=== PATIENT | male | born 1950 | race Caucasian/White ===

== ENCOUNTER 2017-11-07 15:25 | Inpatient (IN) | END 2017-11-12 18:30 | DRG 854 ==

== ENCOUNTER 2017-11-19 13:58 | Inpatient (IN) | END 2017-11-25 20:30 | DRG 982 ==

== ENCOUNTER 2017-11-26 19:33 | Inpatient (IN) | END 2017-12-02 18:05 | DRG 907 ==

== ENCOUNTER 2017-12-27 22:02 | Inpatient (IN) | END 2018-01-04 21:09 | DRG 853 ==

== ENCOUNTER 2018-07-14 23:24 | Inpatient (IN) | payer MEDICARE, OTHER ==
[~2018-07-14] VITALS: Ht 177.8 cm; Wt 106.4 kg
[~2018-07-14 23:24] MED LIST: AMLO-145 PO; ASPI81TA52 PO; ATOR10TA65 PO; CEFT1FRO2 IV; CLOP75TA28 PO; EPOE3000 SC; FER325 PO; GABA300C16 PO; GLIP5TAB13 PO; HYDR-3601 PO; HYDR-3671 PO; Insulin Glargine SC; MERO1VIA IV
--- NOTE | 2018-07-14 23:32 | ERD ---
ER Documentation Chief Complaint Chief Complaint R81. SOB X 1 HR. BREATHING TX GIVEN AT FACILITY. HPI The patient is a 68-year-old male, presenting to the ER because of acute dyspnea for approximately 1 to 2-hour prior to arrival, was treated with albuterol nebulizer by the nursing staff with some response. According to EMS, O2 sa turation with 2 L was 89%, EMS put him on 50 L non-rebreather mask, O2 sat was 99% and he felt better. He was recently discharged from [facility] yesterday after extended stay for approximately 3 weeks due to hyperkalemia and elevated troponin. Last hemodialysis was 2 days ago. He complains of orthopnea, PND, bilateral leg edema. He denies fever, chills, neck pain, complains of substernal chest pressure, denies abdominal pain, vomiting. He does not smoke nor drink Past medical history: Diabetes mellitus, anemia, hypertension, dyslipidemia, history of left foot osteomyelitis status post amputation, chronic kidney disease on hemodialysis, normally Wednesday/Wednesday/Wednesday has recently been on dialysis for the last couple weeks Past surgical history: Left foot amputation, Right chest hemodialysis catheter ROS All systems reviewed and are negative except as per history of present illness. Medications Home Meds Active Scripts Ferrous Sulfate* (Ferrous Sulfate*) 325 Mg Tabec, 325 MG PO TID for 30 Days, TAB Prov:MCINTYRE,BISI V[employer] INSPECTOR 01/04/18 Glipizide* (Glipizide*) 5 Mg Tablet, 2.5 MG PO AC BREAKFAST, #30 TAB Prov:MCINTYRE,BISI V[employer] INSPECTOR 01/04/18 Hydralazine Hcl* (Hydralazine Hcl*) 25 Mg Tab, 25 MG PO TID, #90 TAB Prov:MCINTYRE,BISI [employer] INSPECTOR 01/04/18 Amlodipine Besylate* (Amlodipine Besylate*) 5 Mg Tablet, 5 MG PO DAILY, #30 TAB Prov:MCINTYRE,BISI V[employer] INSPECTOR 01/04/18 Meropenem (Merrem) 1 Gm Vial, 500 MCG IV Q12 for 42 Days, VIAL Prov:MCINTYRE,BISI V[employer] INSPECTOR 01/04/18 Epoetin nayely* (Epogen*) 3,000 Unit/1 Ml Vial, 6000 UNITS SC TuThSa@17 for 30 Days, VIAL Prov:MCINTYRE,BISI V[employer] INSPECTOR 01/04/18 Ceftriaxone Na/Dextrose,Iso (Ceftriaxone 1 gm Piggyback) 1 Gm/50 Ml Froz.piggy, 1 GM IV Q12 for 42 Days Prov:BISI MCINTYRE V[employer] INSPECTOR 01/04/18 Hydrocodone Bit-Acetaminophen (Hydrocodone Bit-APAP) 5-325MG Tablet, 1 TAB PO Q6H PRN for MODERATE PAIN LEVEL 4-6 for 30 Days, TAB Prov:MARIA E ABARCA. 12/02/17 Gabapentin* (Gabapentin*) 300 Mg Capsule, 300 MG PO BID, #60 CAP Prov:MARIA E ABARCA . 11/12/17 [Insulin Glargine] 100 UNITS/ML SOLN No Conflict Check, 22 UNITS SC DAILY@1999 for 10 Days Prov:MARIA E ABARCA. 11/12/17 Clopidogrel Bisulfate (Clopidogrel) 75 Mg Tablet, 75 MG PO DAILY for 10 Days, #10 TAB Prov:MARIA E ABARCA 11/12/17 Reported Medications Aspirin (Low Dose Aspirin) 81 Mg Tablet.dr, 81 MG PO DAILY, #30 TAB 11/07/17 Atorvastatin Calcium (Atorvastatin Calcium) 10 Mg Tablet, 10 MG PO QHS, #30 TAB 11/07/17 Allergies Allergies: Coded Allergies: No Known Allergy (Unverified , 11/26/17) PMhx/Soc History of Surgery: Yes Anesthesia Reaction: No Hx Neurological Disorder: No Hx Respiratory Disorders: No Hx Cardiac Disorders: No Hx Psychiatric Problems: No Hx Miscellaneous Medical Probl: No Hx Alcohol Use: Yes (abstained since 23 years ago) Hx Substance Use: No Hx Tobacco Use: No Physical Exam Vitals Vital Signs Date Temp Pulse Resp B/P (MAP) Pulse Ox O2 O2 Flow FiO2 Time Delivery Rate 07/14/18 92 98 50 23:53 07/14/18 Venti Mask 23:33 07/14/18 98.1 99 18 169/93 94 23:26 (118) Physical Exam Const: Mild acute distress. Head: Atraumatic. Eyes: Normal Conjunctiva. ENT: Normal External Ears, Nose and Mouth. Neck: Full range of motion. No meningismus. Resp: Tachypneic, no expiratory wheezes, bibasilar crackle Cardio: Regular rate and rhythm. Abd: Soft, non distended, normal bowel sounds, non tender. Skin: No petechiae or rashes. Back: No midline or flank tenderness. Ext: Bilateral leg edema. No calf tenderness, left foot amputation with dressing Neur: Awake and alert. No focal deficit Psych: Normal Mood and Affect. Result Diagram: 07/14/18232907/14/182329 Results 24 hrs Laboratory Tests Test 07/14/18 23:30 07/15/18 00:16 White Blood Count 21.1 10^3/ul Red Blood Count 2.56 10^6/ul Hemoglobin 8.5 g/dl Hematocrit 26.6 % Mean Corpuscular Volume 103.9 fl Mean Corpuscular Hemoglobin 33.2 pg Mean Corpuscular Hemoglobin Concent 32.0 g/dl Red Cell Distribution Width 16.0 % Platelet Count 339 10^3/UL Mean Platelet Volume 10.1 fl Immature Granulocytes % 1.600 % Neutrophils % 49.7 % Lymphocytes % 10.6 % Monocytes % 36.8 % Eosinophils % 0.9 % Basophils % 0.4 % Nucleated Red Blood Cells % 0.0 /100WBC Immature Granulocytes # 0.340 10^3/ul Neutrophils # 10.5 10^3/ul Lymphocytes # 2.2 10^3/ul Monocytes # 7.8 10^3/ul Eosinophils # 0.2 10^3/ul Basophils # 0.1 10^3/ul Nucleated Red Blood Cells # 0.0 10^3/ul Prothrombin Time 14.4 Sec Prothrombin Time Ratio 1.1 INR International Normalized Ratio 1.11 Activated Partial Thromboplast Time 41.5 Sec Sodium Level 135 mmol/L Potassium Level 4.7 mmol/L Chloride Level 98 mmol/L Carbon Dioxide Level 23 mmol/L Anion Gap 14 Blood Urea Nitrogen 69 mg/dl Creatinine 7.10 mg/dl Est Glomerular Filtrat Rate mL/min 8 mL/min Glucose Level 185 mg/dl Calcium Level 9.0 mg/dl Troponin I 0.018 ng/ml POC Venous Lactate 1.4 mmol/L Current Medications Medications Dose Sig/Steve Start Time Status Last (Trade) Ordered Route PRN Stop Time Admin Dose Reason Admin Vancomycin 250 ml @ ONCE ONCE 07/15/18 07/15/18 HCl 125 mls/hr IVPB 00:30 00:59 07/15/18 02:29 Piperacillin 50 ml @ ONCE ONCE 07/15/18 DC 07/15/18 Sod/ 100 mls/hr IVPB 00:30 00:35 Tazobactam 07/15/18 00:59 Sod Procedures/MDM [place] [address] Radiology Main Line: [phone] DIAGNOSTIC IMAGING REPORT Patient: KITTY HERNANDEZ : 1950 Age: 68 Sex: M MR #: [id number] DOS: 07/14/18 2343 Ordering MD: WILFREDO TERAN MD Location: E/R Room/Bed: PROCEDURE: XR Chest. CLINICAL INDICATION: Shortness of breath. TECHNIQUE: Portable AP semi erect view of the chest was obtained. COMPARISON: 01/04/2018 FINDINGS: The cardiomediastinal silhouette is mildly enlarged . Bibasilar subsegmental atelectasis is present. There is pulmonary vascular congestion and small bilateral pleural effusions greater on the right. There is no evidence of pneu mothorax. A right-sided internal jugular approach Perma-Cath is present the tip at the cavoatrial junction. The osseous structures are intact with no evidence for acute abnormality. Calcification of the aorta is noted. RPTAT:HJJR IMPRESSION: 1. The combination of findings is compatible with congestive heart failure with small bilateral pleural effusions. 2. Right-sided Perma-Cath is in good radiographic position. 3. Aortic atherosclerosis is present. Physician Yannick Date Time Electronically viewed and signed by Physician Yannick on 07/15/2018 00:32 JR/ CC: WILFREDO TERAN MD [id number] EKG: Read by emergency physician Rate/Rhythm: Normal Sinus Rhythm 91 beats/min QRS, ST, T-waves: No ST elevation, no T inversion, artifacts Impression: Abnormal EKG UA/PT/PTT/LFT Pending Consultation: I am awaiting for his automatic corn grinder operator Dr. Huntley to call back to dialyze the patient emergently. MEDICAL MAKING DECISION: The patient is a 68-year-old male, presenting with acute respiratory failure, acute fluid overload, acute leukocytosis of unclear etiology, acute bilateral pleural effusion. He was treated with BiPAP and was able to tolerate BiPAP well. He was treated with vancomycin IV and Zosyn IV empirically for acute leukocytosis The differential diagnoses considered include but are not limited to pneumonia, empyema, aspiration pneumonia, UTI, pyelonephritis, recurrent osteomyelitis of left foot, cellulitis/abscess Critical Care: Time: 35 minutes excluding all billable procedures. Treatments/Evaluations: Close monitoring and treatment of unstable vital signs, cardiorespiratory, and neurologic status, while maintaining tight balance of fluid, respiratory, and cardiac interventions. Departure Diagnosis: Primary Impression: Respiratory failure, acute Additional Impressions: Fluid overload Leukocytosis Bilateral pleural effusion Anemia Comments I discussed the findings with the patient. I discussed the patient with Dr Talley at 1 am , who was made aware of the lab, the treatment, the patient condition. The patient is admitted to ICU Disclaimer: Inadvertent spelling and grammatical errors are likely due to EHR/dictation software use and do not reflect on the overall quality of patient care. Also, please note that the electronic time recorded on this note does not necessarily reflect the actual time of the patient encounter. WILFREDO TERAN MD July 14, 2018 23:32
[2018-07-15] VITALS (41 sets, daily range): BP systolic 119–175; BP diastolic 67–107; PULSE 71–91; RESP 11–20; Ht 177.8 cm; Wt 106.4 kg
[2018-07-15] MEDS ORDERED: PIPER-TAZO 2.25 GM (PMX) 50 ML IVPB ONE (00:30)
[2018-07-15] MEDS ORDERED: VANCOMYCIN 1 GM (PMX) 250 ML IVPB ONE (00:30)
[2018-07-15] MEDS ORDERED: hydrALAzine 20 MG INJ IV ONE (02:00)
[2018-07-15] MEDS ORDERED: NITROGLYCERIN (SL) 0.4 MG TAB SL PRN (03:00)
[2018-07-15] MEDS ORDERED: ONDANSETRON 4 MG INJ IV PRN (03:00)
[2018-07-15] MEDS ORDERED: morphine 2 MG INJ IV PRN (03:00)
[2018-07-15] MEDS ORDERED: FUROSEMIDE 40 MG INJ IV ONE (03:00)
[2018-07-15] MEDS ORDERED: ACETAMINOPHEN 650MG/20.3ML CUP PO PRN (03:00)
--- NOTE | 2018-07-15 03:03 | HP ---
Date/Time of Note Date/Time of Note DATE: 07/15/18 TIME: 02:24 Assessment/Plan VTE Prophylaxis SCD applied (from Nsg): No SCD contraindicated: other (swelling, left lower extremity wound) Pharmacological prophylaxis: NA/contraindicated Pharm contraindication: surgical contra Lines/Catheters IV Catheter Type (from Nrsg): Saline Lock Assessment/Plan Hospital Course This is a 68-year-old male being admitted to the ICU floor for: #1 Acute hypoxic respiratory failure: Secondary likely to underlying volume overload. Currently on BiPAP. Repeat ABG in the a.m. Emergent dialysis for volume removal. #2 volume overload: Secondary to end-stage renal disease. Patient recently started on dialysis. He has right permacath. As he does state that he does urinate still will give him a dose of Lasix 80 mg IV x1. The ED will be consulting nephrology Dr. Huntley for emergent dialysis. #3 Leukocytosis: Patient is afebrile. Suspect infection of the left lower extremity/heel. Patient was recently treated for infection at [facility]. Will attempt to obtain records. In the meantime patient has been started on broad-spectrum antibiotics. Cultures have been sent. Will obtain a left foot x-ray. Wound care consult. Wound culture. Will consult podiatry. Patient does have a history of left foot gangrene and is status post TMA and previously was on wound VAC. #4 end-stage renal disease: On hemodialysis Wednesday. Patient had last dialysis on Wednesday. He is recently been initiated on dialysis over the last 3 weeks. Will avoid nephrotoxic agents. Please see #2 #5 history of osteomyelitis: Previously treated with IV antibiotics. #6 diabetes mellitus: Resume home diabetic medication, resume home insulin, insulin sliding scale, #7 hypertension: Resume home medications, PRN hydralazine #8 anemia of chronic disease: stable #9 peripheral vascular disease: Continue statin, continue aspirin, will hold Plavix at the current time in case there needs to be procedure performed. #10 DVT GI prophylaxis: SCD to the right lower extremity once dvt rule out, no GI prophylaxis indicated Further treatment strategy will be implemented for clinical course. Greater than 35 minutes critical care time was spent on the care management this patient. Result Diagram: 07/14/18 2330 07/14/18 2330 Results 24hrs Laboratory Tests Test 07/14/18 23:30 07/14/18 23:43 07/15/18 00:16 White Blood Count 21.1 H Red Blood Count 2.56 L Hemoglobin 8.5 L Hematocrit 26.6 L Mean Corpuscular Volume 103.9 H Mean Corpuscular Hemoglobin 33.2 H Mean Corpuscular 32.0 Hemoglobin Concent Red Cell Distribution Width 16.0 H Platelet Count 339 # Mean Platelet Volume 10.1 Immature Granulocytes % 1.600 H Neutrophils % 49.7 Lymphocytes % 10.6 L Monocytes % 36.8 H Eosinophils % 0.9 Basophils % 0.4 Nucleated Red Blood Cells % 0.0 Immature Granulocytes # 0.340 H Neutrophils # 10.5 H Lymphocytes # 2.2 Monocytes # 7.8 H Eosinophils # 0.2 Basophils # 0.1 Nucleated Red Blood Cells # 0.0 Prothrombin Time 14.4 Prothrombin Time Ratio 1.1 INR International 1.11 Normalized Ratio Activated 41.5 H Partial Thromboplast Time Sodium Level 135 Potassium Level 4.7 Chloride Level 98 Carbon Dioxide Level 23 Anion Gap 14 H Blood Urea Nitrogen 69 H Creatinine 7.10 H Est Glomerular Filtrat 8 L Rate mL/min Glucose Level 185 Calcium Level 9.0 Troponin I 0.018 Blood Gas Specimen Source Blood arterial Arterial Blood Date Drawn 07/15/2018 1:00:55 AM Arterial Blood pH 7.336 L (Temp corrected) Arterial Blood pCO2 41.0 (Temp correct) Arterial Blood pO2 86.5 (Temp corrected) Arterial Blood HCO3 21.4 L Arterial Blood Base Excess -4.1 L Arterial Blood 95.5 Oxygen Saturation Lonny Test ACCEPTAB Arterial Blood Gas Left Radial Puncture Site Arterial 0.2 Blood Carboxyhemoglobin Arterial Blood Methemoglobin 0.4 Blood Gas A-a O2 223.9 H Differential Oxyhemoglobin Percent 94.9 Blood Gas Temperature 37.0 Blood Gas Respiration Rate 14.0 Blood Gas Actual 23 Respiration Rate Blood Gas Modality MASK - BIPAP FiO2 50.0 Blood Gas Pressure Support 10 Blood Gas IPAP/EPAP Ratio 15/5 Blood Gas Notified Whom MA Blood Gas Notified Time 07/15/2018 1:17:01 AM POC Venous Lactate 1.4 HPI/ROS Admit Date/Time Admit Date/Time Hx of Present Illness Chief complaint: Shortness of breath This is a 68-year-old male who presents today from assisted facility with acute dyspnea occurring approximately 2 hours prior to arrival. Patient's son is with him at the bedside. Patient son states that he was with his father at the assisted facility and he noticed that he was short of breath. He asked them to give him a breathing treatment. He did receive 2 breathing treatments there but he did not have improvement. 911 was called. EMS arrived and reported that his oxygenation was 89% on 2 L. He was put on a 50 L nonrebreather mask which did improve his oxygenation. When he arrived to the emergency department he was in respiratory distress. He was put on BiPAP which did result in improvement in his breathing. Patient does feel like there is fluid in his lungs. He recently had a prolonged hospital course at [facility] where he was there for approximately 3 weeks for an infection as well as for hyperkalemia. Patient was found to have worsening renal failure and he required to be initiated on dialysis. Patient has a right chest permacatheter placed. He was on Wednesday schedule. However he last received his dialysis on Wednesday and then was discharged and sent to the assisted facility. Patient denies any chest pain, but he does report dyspnea. Patient also has a left heel infection for which she was receiving antibiotics for. He denies any current fevers. He does report that he still produces a small amount of urine. Allergies: NKDA Medications: See BEBA WHITE Const: As per HPI Eyes : No pain discharge or redness or change in visual acuity ENT: No pain, sore throat, congestion, congestion, dysphagia or discharge Respiratory: As per HPI Cardiovascular: No chest pain, palpitation, PND, or edema GI : no change in appetite, abdominal pain, nausea, vomiting, diarrhea, constipation, or change in the color his stool Genitourinary: No dysuria, hematuria, flank pain , discharge or CVA tenderness Musculoskeletal: As per HPI Skin: No rash, bruising or hives Neuro: No headache, dizziness, syncope, seizure, focal weakness Endocrine: No polyuria, polydipsia, temperature intolerance Psych: No hallucination, depression, anxiety or suicidal ideation PMH/Family/Social Past Medical History Left foot gangrene. Left foot abscess. Peripheral vascular disease. Peripheral arterial disease. Infected foot ulceration. diabetes type 2 with neuropathy. Hypertension. Vitamin D deficiency. Anemia of chronic disease . Dyslipidemia, End-stage renal disease: On dialysis Wednesday Medications Current Medications Vancomycin HCl 250 ml @ 125 mls/hr ONCE ONCE IVPB Last administered on 07/15/18at 00:59; Admin Dose 125 MLS/HR; Start 07/15/18 at 00:30; Stop 07/15/18 at 02:29 Coded Allergies: No Known Allergy (Unverified , 11/26/17) Past Surgical History Abdominal aortogram with left lower extremity runoff. Percutaneous angioplasty of left peroneal artery occlusion Dry gangrene to left foot s/p open TMA with wound VAC application - 11/29/17 Possible recent diagnostic cardiac catheterization Past Surgical Hx: other Family History Significant Family History: no pertinent family hx Social History Alcohol Use: none Smoking Status: Unknown if ever smoked Drug Use: none Exam/Review of Systems Vital Signs Vitals Vital Signs Date Temp Pulse Resp B/P (MAP) Pulse Ox O2 O2 Flow FiO2 Time Delivery Rate 07/15/18 82 22 189/98 95 BIPAP 01:31 (128) 07/14/18 50 23:53 07/14/18 98.1 23:26 Intake and Output 07/14/18 07/14/18 07/15/18 1515:00 23:00 07:00 IntakeIntake Total 50 ml BalanceBalance 50 ml Exam Exam General: Currently lying in bed in moderate respiratory distress, currently on BiPAP HEENT: Atraumatic, normocephalic. The pupils are equal, round and reactive. Extraocular motor are intact Neck: Supple with full range of motion. No rigidity or meningismus Chest: Nontender, right chest permacath Lungs: Crackles/rales and wheezing bilaterally Heart: Normal S1-S2, Regular rhythm and rate. No murmur, S3, or S4 Abdomen: Soft , nontender, nondistended , bowel sounds are present. No guarding no rebound tenderness , No masses or organomegaly. No costovertebral temporal angle mass Extremities: Left lower extremity heel wound, TMA, currently wrapped dressing to bilateral lower extremity 2+ pitting edema Neurologic: Normal mental status, speech normal, cranial nerves II through XII are intact, motor and sensory are intact, Additional Comments PROCEDURE: XR Chest. CLINICAL INDICATION: Shortness of breath. TECHNIQUE: Portable AP semi erect view of the chest was obtained. COMPARISON: 01/04/2018 FINDINGS: The cardiomediastinal silhouette is mildly enlarged . Bibasilar subsegmental atelectasis is present. There is pulmonary vascular congestion and small bilateral pleural effusions greater on the right. There is no evidence of pneumothorax. A right-sided internal jugular approach Perma-Cath is present the tip at the cavoatrial junction. The osseous structures are intact with no evid ence for acute abnormality. Calcification of the aorta is noted. RPTAT:HJJR IMPRESSION: 1. The combination of findings is compatible with congestive heart failure with small bilateral pleural effusions. 2. Right-sided Perma-Cath is in good radiographic position. 3. Aortic atherosclerosis is present. Physician Yannick Date Time Electronically viewed and signed by Urban Bauman Physician on 07/15/2018 00:32 JR/ CC: WILFREDO TERAN MD [id number] TRISTA CHU July 15, 2018 02:34
[2018-07-15] MEDS: PANTOPRAZOLE 40 MG INJ IV SCH (05:30)
[2018-07-15] MEDS ORDERED: GLUCOSE GEL 15 GRAM TUBE BUCCAL PRN (08:30)
[2018-07-15] MEDS ORDERED: GLUCAGON 1 MG INJ IM PRN (08:30)
[2018-07-15] MEDS ORDERED: GLUCOSE GEL 15 GRAM TUBE PO PRN ×2 (08:30)
[2018-07-15] MEDS ORDERED: DEXTROSE 50% 50 ML SYRINGE IV PRN ×2 (08:30)
[2018-07-15] MEDS ORDERED: ALBUMIN HUMAN 25% 100 ML IV PRN (08:30)
--- NOTE | 2018-07-15 09:10 | CONS ---
Assessment/Plan Assessment/Plan Hospital Course (Demo Recall) 1) CHF, likely due to delayed dialysis breathing has improved, doubt he has pneumonia but will check procalcitonin 2) L foot ulcers will review the [facility] records and see if cx were done and what if any antibiotics he received continue with vanco/zosyn at present get wound cx here ESR is very high, if work-up for osteo and arterial studies weren't done we may need to do these here 3) DM 4) HTN 5) ESRD Consultation Date/Type/Reason Admit Date/Time Date of Consultation: July 15, 2018 Type of Consult ID Date/Time of Note DATE: 07/15/18 TIME: 09:01 Hx of Present Illness pt admitted due to SOB he denies a cough or chest pain he denies that he was on antibiotics at the [facility] no V, D he was recently started on dialysis he has a known foot ulcer and was recently at [facility] Past Medical History PVD, PAD, DM, HTN, Vit D def, anemia, hyperlipidemia, ESRD, L foot gangrene Home Meds Active Scripts Ferrous Sulfate* (Ferrous Sulfate*) 325 Mg Tabec, 325 MG PO TID for 30 Days, TAB Prov:MCINTYRE,BISI V. [employer] 01/04/18 Glipizide* (Glipizide*) 5 Mg Tablet, 2.5 MG PO AC BREAKFAST, #30 TAB Prov:MCINTYRE,BISI V. [employer] 01/04/18 Hydralazine Hcl* (Hydralazine Hcl*) 25 Mg Tab, 25 MG PO TID, #90 TAB Prov:MCINTYRE,BISI V. [employer] 01/04/18 Amlodipine Besylate* (Amlodipine Besylate*) 5 Mg Tablet, 5 MG PO DAILY, #30 TAB Prov:MCINTYRE,BISI V. [employer] 01/04/18 Meropenem (Merrem) 1 Gm Vial, 500 MCG IV Q12 for 42 Days, VIAL Prov:MCINTYRE,BISI V. [employer] 01/04/18 Epoetin nayely* (Epogen*) 3,000 Unit/1 Ml Vial, 6000 UNITS SC TuThSa@17 for 30 Days, VIAL Prov:MCINTYRE,BISI V. [employer] 01/04/18 Ceftriaxone Na/Dextrose,Iso (Ceftriaxone 1 gm Piggyback) 1 Gm/50 Ml Froz.piggy, 1 GM IV Q12 for 42 Days Prov:BISI MCINTYRE NP 01/04/18 Hydrocodone Bit-Acetaminophen (Hydrocodone Bit-APAP) 5-325MG Tablet, 1 TAB PO Q6H PRN for MODERATE PAIN LEVEL 4-6 for 30 Days, TAB Prov:MARIA E ABARCAaVn 12/02/17 Gabapentin* (Gabapentin*) 300 Mg Capsule, 300 MG PO BID, #60 CAP Prov:MARIA E ABARCA Van 11/12/17 [Insulin Glargine] 100 UNITS/ML SOLN No Conflict Check, 22 UNITS SC DAILY@1999 for 10 Days Prov:MARIA E ABARCA . 11/12/17 Clopidogrel Bisulfate (Clopidogrel) 75 Mg Tablet, 75 MG PO DAILY for 10 Days, #10 TAB Prov:MARIA E ABARCA . 11/12/17 Reported Medications Aspirin (Low Dose Aspirin) 81 Mg Tablet.dr, 81 MG PO DAILY, #30 TAB 11/07/17 Atorvastatin Calcium (Atorvastatin Calcium) 10 Mg Tablet, 10 MG PO QHS, #30 TAB 11/07/17 Medications Current Medications Ondansetron HCl (Zofran Inj) 4 mg Q6H PRN IV NAUSEA AND/OR VOMITING; Start 07/15/18 at 03:00 Albuterol/ Ipratropium (Duoneb) 3 ml Q2H RESP THERAPY PRN NEB SHORTNESS OF BREATH; Start 07/15/18 at 03:00 Nitroglycerin (Nitroglycerin (Sl Tab) 0.4 Mg) 1 tab Q5M PRN SL CHEST PAIN; Start 07/15/18 at 03:00 Acetaminophen (Tylenol Liquid) 650 mg Q6H PRN PO PAIN LEVEL 1-3 OR FEVER; Start 07/15/18 at 03:00 Morphine Sulfate (morphine) 2 mg Q4H PRN IV PAIN LEVEL 7-10; Start 07/15/18 at 03:00 Pantoprazole (Protonix Iv) 40 mg DAILY@06 IV Last administered on 07/15/18at 05:30; Admin Dose 40 MG; Start 07/15/18 at 06:00 Amlodipine Besylate (Norvasc) 5 mg DAILY PO ; Start 07/15/18 at 09:00 Aspirin (Halfprin) 81 mg DAILY PO ; Start 07/15/18 at 09:00 Atorvastatin Calcium (Lipitor) 10 mg QHS PO ; Start 07/15/18 at 21:00 Ferrous Sulfate (Ferrous Sulfate (Ec)) 325 mg TID PO ; Start 07/15/18 at 09:00 Hydralazine HCl (Apresoline) 25 mg TID PO ; Start 07/15/18 at 09:00 Insulin Glargine (Lantus) 22 units DAILY@2000 SC ; Start 07/15/18 at 20:00 Epoetin Nayely-epbx (Retacrit (Non-Esrd)) 10,000 unit MoWeFr@1700 SC ; Start 07/15/18 at 17:00 Miscellaneous Information 1 ea NOTE XX ; Start 07/15/18 at 08:30 Glucose (Glutose) 15 gm Q15M PRN PO DECREASED GLUCOSE; Start 07/15/18 at 08:30 Glucose (Glutose) 22.5 gm Q15M PRN PO DECREASED GLUCOSE; Start 07/15/18 at 08:30 Dextrose (D50w Syringe) 25 ml Q15M PRN IV DECREASED GLUCOSE; Start 07/15/18 at 08:30 Dextrose (D50w Syringe) 50 ml Q15M PRN IV DECREASED GLUCOSE; Start 07/15/18 at 08:30 Glucagon (Glucagen) 1 mg Q15M PRN IM DECREASED GLUCOSE; Start 07/15/18 at 08:30 Glucose (Glutose) 15 gm Q15M PRN BUCCAL DECREASED GLUCOSE; Start 07/15/18 at 08:30 Heparin Sodium (Porcine) (Heparin (1000 Units/ml)) 3,200 unit AFTER DIALYSIS PRN CATHETER heparin lock; Start 07/15/18 at 08:30 Albumin Human 100 ml @ 100 mls/hr DURING DIALYSIS PRN IV to prevent hypotension during ; Start 07/15/18 at 08:30 Allergies: Coded Allergies: No Known Allergy (Unverified , 11/26/17) Past Surgical History Past Surgical Hx: other Social History Alcohol Use: none Smoking Status: Former smoker Drug Use: none Exam/Review of Systems Exam Vitals Vital Signs Date Temp Pulse Resp B/P (MAP) Pulse Ox O2 O2 Flow FiO2 Time Delivery Rate 07/15/18 73 100 45 07:57 07/15/18 12 175/76 BIPAP 06:30 (109) 07/15/18 97.6 15.0 03:27 Intake and Output 07/14/18 07/14/18 07/15/18 1515:00 23:00 07:00 IntakeIntake Total 300 ml OutputOutput Total 0 ml BalanceBalance 300 ml Constitutional: alert, oriented Eyes: nl sclera ENMT: other (pt on biPAP) Respiratory: clear to auscultation Cardiovascular: regular rate and rhythm Gastrointestinal: soft, non-tender Extremities: other (L foot is wrapped, pics show heel and metatarsal edge with ulcers (pt has no toes), skin around it is pinkish) Results Result Diagram: 07/15/18 0500 07/15/18 0500 Results 24hrs Laboratory Tests Test 07/14/18 23:30 07/14/18 23:43 07/15/18 00:16 07/15/18 02:25 White Blood Count 21.1 H Red Blood Count 2.56 L Hemoglobin 8.5 L Hematocrit 26.6 L Mean Corpuscular 103.9 H Volume Mean Corpuscular 33.2 H Hemoglobin Mean Corpuscular 32.0 Hemoglobin Concen t Red Cell 16.0 H Distribution Width Platelet Count 339 # Mean Platelet 10.1 Volume Immature 1.600 H Granulocytes % Neutrophils % 49.7 Lymphocytes % 10.6 L Monocytes % 36.8 H Eosinophils % 0.9 Basophils % 0.4 Nucleated Red 0.0 Blood Cells % Immature 0.340 H Granulocytes # Neutrophils # 10.5 H Lymphocytes # 2.2 Monocytes # 7.8 H Eosinophils # 0.2 Basophils # 0.1 Nucleated Red 0.0 Blood Cells # Prothrombin Time 14.4 Prothrombin Time 1.1 Ratio INR International 1.11 Normalized Ratio Activated 41.5 H Partial Thrombopl ast Time Sodium Level 135 Potassium Level 4.7 Chloride Level 98 Carbon Dioxide 23 Level Anion Gap 14 H Blood Urea 69 H Nitrogen Creatinine 7.10 H Est Glomerular 8 L Filtrat Rate mL/min Glucose Level 185 Calcium Level 9.0 Total Bilirubin 0.2 Direct Bilirubin 0.00 Indirect 0.2 Bilirubin Aspartate Amino 22 Transf (AST/SGOT) Alanine 14 Aminotransferase (ALT/SGPT) Alkaline 57 Phosphatase Troponin I 0.018 Total Protein 8.3 H Albumin 3.8 Blood Gas Blood arterial Specimen Source Arterial Blood 07/15/2018 1:00:5 Date Drawn 5 AM Arterial Blood pH 7.336 L (Temp corrected) Arterial Blood 41.0 pCO2 (Temp correct) Arterial Blood 86.5 pO2 (Temp corrected) Arterial Blood 21.4 L HCO3 Arterial Blood -4.1 L Base Excess Arterial Blood 95.5 Oxygen Saturation Lonny Test ACCEPTAB Arterial Blood Left Radial Gas Puncture Site Arterial 0.2 Blood Carboxyhemo globin Arterial Blood 0.4 Methemoglobin Blood Gas A-a O2 223.9 H Differential Oxyhemoglobin 94.9 Percent Blood Gas 37.0 Temperature Blood Gas 14.0 Respiration Rate Blood Gas Actual 23 Respiration Rate Blood Gas MASK - BIPAP Modality FiO2 50.0 Blood Gas 10 Pressure Support Blood Gas 15/ IPAP/EPAP Ratio Blood Gas ME Notified Whom Blood Gas 07/15/2018 1:17:0 Notified Time 1 AM POC Venous 1.4 Lactate Lactic Acid Level 0.8 Test 07/15/18 04:53 07/15/18 05:00 Iron Level 30 L Total Iron 268 Binding Capacity Percent Iron 11 L Saturation White Blood Count 17.1 H Red Blood Count 2.33 L Hemoglobin 7.7 L Hematocrit 24.4 L Mean Corpuscular 104.7 H Volume Mean Corpuscular 33.0 Hemoglobin Mean Corpuscular 31.6 L Hemoglobin Concen t Red Cell 16.2 H Distribution Width Platelet Count 277 Mean Platelet 10.5 H Volume Immature 2.700 H Granulocytes % Neutrophils % 55.4 Lymphocytes % 7.4 L Monocytes % 33.7 H Eosinophils % 0.6 Basophils % 0.2 Nucleated Red 0.0 Blood Cells % Immature 0.460 H Granulocytes # Neutrophils # 9.5 H Lymphocytes # 1.3 Monocytes # 5.8 H Eosinophils # 0.1 Basophils # 0.0 Nucleated Red 0.0 Blood Cells # Erythrocyte 135 H Sedimentation Rate Sodium Level 137 Potassium Level 5.0 Chloride Level 100 Carbon Dioxide 23 Level Anion Gap 14 H Blood Urea 69 H Nitrogen Creatinine 7.31 H Est Glomerular 7 L Filtrat Rate mL/min Glucose Level 114 # Hemoglobin A1c 5.4 Lactic Acid Level 0.9 Calcium Level 9.1 Magnesium Level 1.9 Total Bilirubin 0.2 Direct Bilirubin 0.00 Indirect 0.2 Bilirubin Aspartate Amino 26 Transf (AST/SGOT) Alanine 12 L Aminotransferase (ALT/SGPT) Alkaline 52 Phosphatase Creatine Kinase 54 Creatine Kinase 4.3 Index Creatinine Kinase 2.31 MB (Mass) Troponin I 0.038 C-Reactive 2.2 H Protein Total Protein 8.2 H Albumin 3.7 Globulin 4.50 H Albumin/Globulin 0.82 Ratio Thyroid Pending Stimulating Hormone (TSH) Medications Medication Current Medications Ondansetron HCl (Zofran Inj) 4 mg Q6H PRN IV NAUSEA AND/OR VOMITING; Start 07/15/18 at 03:00 Albuterol/ Ipratropium (Duoneb) 3 ml Q2H RESP THERAPY PRN NEB SHORTNESS OF BREATH; Start 07/15/18 at 03:00 Nitroglycerin (Nitroglycerin (Sl Tab) 0.4 Mg) 1 tab Q5M PRN SL CHEST PAIN; Start 07/15/18 at 03:00 Acetaminophen (Tylenol Liquid) 650 mg Q6H PRN PO PAIN LEVEL 1-3 OR FEVER; Start 07/15/18 at 03:00 Morphine Sulfate (morphine) 2 mg Q4H PRN IV PAIN LEVEL 7-10; Start 07/15/18 at 03:00 Pantoprazole (Protonix Iv) 40 mg DAILY@06 IV Last administered on 07/15/18at 0 5:30; Admin Dose 40 MG; Start 07/15/18 at 06:00 Amlodipine Besylate (Norvasc) 5 mg DAILY PO ; Start 07/15/18 at 09:00 Aspirin (Halfprin) 81 mg DAILY PO ; Start 07/15/18 at 09:00 Atorvastatin Calcium (Lipitor) 10 mg QHS PO ; Start 07/15/18 at 21:00 Ferrous Sulfate (Ferrous Sulfate (Ec)) 325 mg TID PO ; Start 07/15/18 at 09:00 Hydralazine HCl (Apresoline) 25 mg TID PO ; Start 07/15/18 at 09:00 Insulin Glargine (Lantus) 22 units DAILY@2000 SC ; Start 07/15/18 at 20:00 Epoetin Nayely-epbx (Retacrit (Non-Esrd)) 10,000 unit MoWeFr@1700 SC ; Start 07/15/18 at 17:00 Miscellaneous Information 1 ea NOTE XX ; Start 07/15/18 at 08:30 Glucose (Glutose) 15 gm Q15M PRN PO DECREASED GLUCOSE; Start 07/15/18 at 08:30 Glucose (Glutose) 22.5 gm Q15M PRN PO DECREASED GLUCOSE; Start 07/15/18 at 08:30 Dextrose (D50w Syringe) 25 ml Q15M PRN IV DECREASED GLUCOSE; Start 07/15/18 at 08:30 Dextrose (D50w Syringe) 50 ml Q15M PRN IV DECREASED GLUCOSE; Start 07/15/18 at 08:30 Glucagon (Glucagen) 1 mg Q15M PRN IM DECREASED GLUCOSE; Start 07/15/18 at 08:30 Glucose (Glutose) 15 gm Q15M PRN BUCCAL DECREASED GLUCOSE; Start 07/15/18 at 08:30 Heparin Sodium (Porcine) (Heparin (1000 Units/ml)) 3,200 unit AFTER DIALYSIS PRN CATHETER heparin lock; Start 07/15/18 at 08:30 Albumin Human 100 ml @ 100 mls/hr DURING DIALYSIS PRN IV to prevent hypotension during ; Start 07/15/18 at 08:30 BRANDIN ROCA MD July 15, 2018 09:10
--- NOTE | 2018-07-15 09:11 | CONS ---
DATE OF ADMISSION: 07/15/2018 DATE OF CONSULTATION: 07/15/2018 TYPE OF CONSULTATION: Nephrology. REASON FOR CONSULTATION: End-stage renal disease. PHYSICIAN REQUESTING CONSULT: Dr. Ravinder Chu. HISTORY OF PRESENT ILLNESS: This is a 68-year-old male with a past medical history of end-stage lani l disease, history of diabetes, history of hypertension, dyslipidemia, history of left foot osteomyel itis, who presents to [facility] Emergency Room due to respiratory distress. The p atient was noted to be hypoxemic at his nursing facility, as a result he was brought into the emergen cy room. Upon arrival, the patient was noted to be on a nonrebreather. The patient had a chest x-ra y, which showed evidence of pulmonary vascular congestion. Findings consistent with heart failure, b ilateral pleural effusions. The patient was placed on BiPAP and admitted. The patient also was give n antibiotic therapy for possible sepsis. The patient was transferred to intensive care unit. Upon my evaluation of the patient at this time, he is currently confused, unable to provide adequate history. History is obtained by reviewing medical records and speaking to hospital staff. There are no reports of any hemoptysis, hematemesis or hematochezia. PAST MEDICAL HISTORY: As stated above, history of diabetes, anemia, hypertension, dyslipidemia, hist ory of end-stage renal disease. PAST SURGICAL HISTORY: Status post left foot amputation, status post Perm-A-Cath. FAMILY HISTORY: No family history of kidney disease. SOCIAL HISTORY: He does not drink, smoke, or do drugs. MEDICATIONS: Reviewed. ALLERGIES: Reviewed. ALLERGIES: NO KNOWN DRUG ALLERGIES. REVIEW OF SYSTEMS: Unable to do adequate review of systems as the patient is altered. Pertinent pos itives as obtained by reviewing medical records, speaking to hospital staff, stated in HPI, otherwise negative. PHYSICAL EXAMINATION: VITAL SIGNS: Blood pressure is 175/76, respirations 12, pulse 79, temperature 98.6. HEENT: Head is normocephalic. NECK: Supple. HEART: Regular rate. LUNGS: Show diminished breath sounds at the base. ABDOMEN: Soft, nontender to palpation without rebound or guarding. EXTREMITIES: Negative for clubbing, cyanosis, no edema. DERMATOLOGIC: No rashes. MUSCULOSKELETAL: No joint effusion. NEUROLOGIC: Limited exam due to lack of the patient's cooperation. MEDICATIONS: Reviewed. LABORATORY DATA: Reviewed. ASSESSMENT AND PLAN: This is a 68-year-old male who presents with: 1. End-stage renal disease. The patient normally on dialysis Wednesday, Wednesday, Wednesday, access is P erm-A-Cath. Plan is for urgent hemodialysis today. We will dialyze for 3-1/2 hours, 3k bath, calciu m 2.5 with goal of ultrafiltration approximately 2 to 3 liters. 2. Volume overload. Etiology is secondary to end-stage renal disease. Plan is for urgent dialysis with ultrafiltration approximately 2-3 liters. The patient may require daily dialysis for ultrafiltr ation. 3. Anemia. Continue to monitor hemoglobin and hematocrit levels. We will also check iron panel. W e will give Epogen. 4. Mineral bone disorder, monitor calcium and phosphorus levels. 5. Sepsis, etiology may be secondary to pneumonia, possible heel ulcer. Continue to monitor. Ady nue antibiotic therapy. Follow up with podiatry. 6. Acute respiratory failure secondary to volume overload. We will continue current medical managem ent. Continue BiPAP. Plan is for hemodialysis. Monitor closely. 7. History of osteomyelitis. 8. Diabetes. Continue current insulin regimen. 9. Hypertension in part due to increased intravascular volume. Continue current blood pressure nitin men. Continue ultrafiltration with dialysis. 10. Peripheral vascular disease. Continue medical management. Thank you, Dr. Chu, for this interesting consultation. It will be a pleasure to follow the patie nt with you throughout the hospital course. Dictated By: NICHOLE PILLAI DO NR/NTS Conf#: [id number] DID#: [id number] CC: RAVINDER CHU MD;*EndCC*
[2018-07-15] MEDS ORDERED: VANCOMYCIN IV PER PHARMACY XX SCH (09:30)
[2018-07-15] MEDS ORDERED: VANCOMYCIN 1 GM 250 ML IVPB ONE (10:30)
[2018-07-15] MEDS: HEPARIN 1000 UNITS/ML 10 ML INJ CATHETER PRN (11:42)
[2018-07-15] MEDS: AMLODIPINE 5 MG TAB PO SCH (11:45)
[2018-07-15] MEDS: FERROUS SULFATE (EC) 325 MG TAB PO SCH ×3 (11:45→20:50)
[2018-07-15] MEDS: ASPIRIN (EC) 81 MG TAB PO SCH (11:45)
--- NOTE | 2018-07-15 13:44 | CONS ---
Consultation Date/Type/Reason Admit Date/Time 07/15/2018 Date of Consultation: July 15, 2018 Type of Consult NEPHROLOGY Reason for Consultation ESRD on HD ( Dr. Jimmy Gutiérrez patient) Date/Time of Note DATE: 07/15/18 TIME: 13:43 Past Medical History Home Meds Active Scripts Ferrous Sulfate* (Ferrous Sulfate*) 325 Mg Tabec, 325 MG PO TID for 30 Days, TAB Prov:MCINTYREGUILLAUMEA [employer] 01/04/18 Glipizide* (Glipizide*) 5 Mg Tablet, 2.5 MG PO AC BREAKFAST, #30 TAB Prov:MCINTYREGUILLAUMEA V[employer]AT[employer]ER[employer] INSTRUCTOR 01/04/18 Hydralazine Hcl* (Hydralazine Hcl*) 25 Mg Tab, 25 MG PO TID, #90 TAB Prov:MCINTYREGUILLAUMEA [employer]AT[employer]ER[employer]Y INSTRUCTOR 01/04/18 Amlodipine Besylate* (Amlodipine Besylate*) 5 Mg Tablet, 5 MG PO DAILY, #30 TAB Prov:MCINTYREGUILLAUMEA V. [employer]PIRATORY [employer]ER[employer]Y INSTRUCTOR 01/04/18 Meropenem (Merrem) 1 Gm Vial, 500 MCG IV Q12 for 42 Days, VIAL Prov:MCINTYREGUILLAUME DELGADOA V. RESPIRATORY THERAPY INSTRUCTOR 01/04/18 Epoetin nayely* (Epogen*) 3,000 Unit/1 Ml Vial, 6000 UNITS SC TuThSa@17 for 30 Days, VIAL Prov:GUILLAUME MCINTYREA V. RESPIRATORY THER[employer]Y INSTRUCTOR 01/04/18 Ceftriaxone Na/Dextrose,Iso (Ceftriaxone 1 gm Piggyback) 1 Gm/50 Ml Froz.piggy, 1 GM IV Q12 for 42 Days Prov:BISI MCINTYRE V. RESPIRATORY THERAPY INSTRUCTOR 01/04/18 Hydrocodone Bit-Acetaminophen (Hydrocodone Bit-APAP) 5-325MG Tablet, 1 TAB PO Q6H PRN for MODERATE PAIN LEVEL 4-6 for 30 Days, TAB Prov:MARIA E ABARCA. 12/02/17 Gabapentin* (Gabapentin*) 300 Mg Capsule, 300 MG PO BID, #60 CAP Prov:MARIA E ABARCA. 11/12/17 [Insulin Glargine] 100 UNITS/ML SOLN No Conflict Check, 22 UNITS SC DAILY@2000 for 10 Days Prov:MARIA E ABARCA 11/12/17 Clopidogrel Bisulfate (Clopidogrel) 75 Mg Tablet, 75 MG PO DAILY for 10 Days, #10 TAB Prov:MARIA E ABARCA 11/12/17 Reported Medications Aspirin (Low Dose Aspirin) 81 Mg Tablet.dr, 81 MG PO DAILY, #30 TAB 11/07/17 Atorvastatin Calcium (Atorvastatin Calcium) 10 Mg Tablet, 10 MG PO QHS, #30 TAB 11/07/17 Medications Current Medications Ondansetron HCl (Zofran Inj) 4 mg Q6H PRN IV NAUSEA AND/OR VOMITING; Start 07/15/18 at 03:00 Albuterol/ Ipratropium (Duoneb) 3 ml Q2H RESP THERAPY PRN NEB SHORTNESS OF BREATH; Start 07/15/18 at 03:00 Nitroglycerin (Nitroglycerin (Sl Tab) 0.4 Mg) 1 tab Q5M PRN SL CHEST PAIN; Start 07/15/18 at 03:00 Acetaminophen (Tylenol Liquid) 650 mg Q6H PRN PO PAIN LEVEL 1-3 OR FEVER; Start 07/15/18 at 03:00 Morphine Sulfate (morphine) 2 mg Q4H PRN IV PAIN LEVEL 7-10; Start 07/15/18 at 03:00 Pantoprazole (Protonix Iv) 40 mg DAILY@06 IV Last administered on 07/15/18at 05:30; Admin Dose 40 MG; Start 07/15/18 at 06:00 Amlodipine Besylate (Norvasc) 5 mg DAILY PO Last administered on 07/15/18at 11:45; Admin Dose 5 MG; Start 07/15/18 at 09:00 Aspirin (Halfprin) 81 mg DAILY PO Last administered on 07/15/18at 11:45; Admin Dose 81 MG; Start 07/15/18 at 09:00 Atorvastatin Calcium (Lipitor) 10 mg QHS PO ; Start 07/15/18 at 21:00 Ferrous Sulfate (Ferrous Sulfate (Ec)) 325 mg TID PO Last administered on 07/15/18at 11:45; Admin Dose 325 MG; Start 07/15/18 at 09:00 Hydralazine HCl (Apresoline) 25 mg TID PO Last administered on 07/15/18at 11:45; Admin Dose 25 MG; Start 07/15/18 at 09:00 Insulin Glargine (Lantus) 22 units DAILY@2000 SC ; Start 07/15/18 at 20:00 Epoetin Nayely-epbx (Retacrit (Non-Esrd)) 10,000 unit MoWeFr@1700 SC ; Start 07/15/18 at 17:00 Miscellaneous Information 1 ea NOTE XX ; Start 07/15/18 at 08:30 Glucose (Glutose) 15 gm Q15M PRN PO DECREASED GLUCOSE; Start 07/15/18 at 08:30 Glucose (Glutose) 22.5 gm Q15M PRN PO DECREASED GLUCOSE; Start 07/15/18 at 08:30 Dextrose (D50w Syringe) 25 ml Q15M PRN IV DECREASED GLUCOSE; Start 07/15/18 at 08:30 Dextrose (D50w Syringe) 50 ml Q15M PRN IV DECREASED GLUCOSE; Start 07/15/18 at 08:30 Glucagon (Glucagen) 1 mg Q15M PRN IM DECREASED GLUCOSE; Start 07/15/18 at 08:30 Glucose (Glutose) 15 gm Q15M PRN BUCCAL DECREASED GLUCOSE; Start 07/15/18 at 08:30 Heparin Sodium (Porcine) (Heparin (1000 Units/ml)) 3,200 unit AFTER DIALYSIS PRN CATHETER heparin lock Last administered on 07/15/18at 11:42; Admin Dose 3,200 UNIT; Start 07/15/18 at 08:30 Albumin Human 100 ml @ 100 mls/hr DURING DIALYSIS PRN IV to prevent hypotension during ; Start 07/15/18 at 08:30 Piperacillin Sod/ Tazobactam Sod 50 ml @ 100 mls/hr BID IVPB ; Start 07/15/18 at 14:00 Allergies: Coded Allergies: No Known Allergy (Unverified , 11/26/17) Past Surgical History Past Surgical Hx: other Social History Alcohol Use: none Smoking Status: Former smoker Drug Use: none Exam/Review of Systems Exam Vitals Vital Signs Date Temp Pulse Resp B/P (MAP) Pulse Ox O2 O2 Flow FiO2 Time Delivery Rate 07/15/18 1.0 12:00 07/15/18 78 11:40 07/15/18 100 45 11:22 07/15/18 12 153/97 BIPAP 11:00 (115) 07/15/18 98.6 08:00 Intake and Output 07/14/18 07/14/18 07/15/18 1515:00 23:00 07:00 IntakeIntake Total 300 ml OutputOutput Total 0 ml BalanceBalance 300 ml Results Result Diagram: 07/15/18 0500 07/15/18 0500 Results 24hrs Laboratory Tests Test 07/14/18 23:30 07/14/18 23:43 07/15/18 00:16 07/15/18 02:25 White Blood 21.1 H Count Red Blood Count 2.56 L Hemoglobin 8.5 L Hematocrit 26.6 L Mean Corpuscular 103.9 H Volume Mean Corpuscular 33.2 H Hemoglobin Mean Corpuscular 32.0 Hemoglobin [place] Red Cell 16.0 H Distribution Width Platelet Count 339 # Mean Platelet 10.1 Volume Immature 1.600 H Granulocytes % Neutrophils % 49.7 Lymphocytes % 10.6 L Monocytes % 36.8 H Eosinophils % 0.9 Basophils % 0.4 Nucleated Red 0.0 Blood Cells % Immature 0.340 H Granulocytes # Neutrophils # 10.5 H Lymphocytes # 2.2 Monocytes # 7.8 H Eosinophils # 0.2 Basophils # 0.1 Nucleated Red 0.0 Blood Cells # Prothrombin Time 14.4 Prothrombin Time 1.1 Ratio INR 1.11 International Normalized Ratio Activated 41.5 H Partial Thrombop last Time Sodium Level 135 Potassium Level 4.7 Chloride Level 98 Carbon Dioxide 23 Level Anion Gap 14 H Blood Urea 69 H Nitrogen Creatinine 7.10 H Est Glomerular 8 L Filtrat Rate mL/min Glucose Level 185 Calcium Level 9.0 Total Bilirubin 0.2 Direct Bilirubin 0.00 Indirect 0.2 Bilirubin Aspartate Amino 22 Transf (AST/SGOT ) Alanine 14 Aminotransferase (ALT/SGPT) Alkaline 57 Phosphatase Troponin I 0.018 Total Protein 8.3 H Albumin 3.8 Blood Gas Blood arterial Specimen Source Arterial Blood 07/15/2018 1:00: Date Drawn 55 AM Arterial Blood 7.336 L pH (Temp corrected) Arterial Blood 41.0 pCO2 (Temp correct) Arterial Blood 86.5 pO2 (Temp corrected) Arterial Blood 21.4 L HCO3 Arterial Blood -4.1 L Base Excess Arterial Blood 95.5 Oxygen Saturatio n Lonny Test ACCEPTAB Arterial Blood Left Radial Gas Puncture Site Arterial 0.2 Blood Carboxyhem oglobin Arterial Blood 0.4 Methemoglobin Blood Gas A-a O2 223.9 H Differential Oxyhemoglobin 94.9 Percent Blood Gas 37.0 Temperature Blood Gas 14.0 Respiration Rate Blood Gas Actual 23 Respiration Rate Blood Gas MASK - BIPAP Modality FiO2 50.0 Blood Gas 10 Pressure Support Blood Gas 15/ IPAP/EPAP Ratio Blood Gas MA Notified Whom Blood Gas 07/15/2018 1:17: Notified Time 01 AM POC Venous 1.4 Lactate Lactic Acid 0.8 Level Test 07/15/18 04:53 07/15/18 05:00 07/15/18 10:00 07/15/18 10:09 Iron Level 30 L Total Iron 268 Binding Capacity Percent Iron 11 L Saturation Ferritin 287.0 H Hepatitis B NEGATIVE Surface Antigen White Blood 17.1 H Count Red Blood Count 2.33 L Hemoglobin 7.7 L Hematocrit 24.4 L Mean Corpuscular 104.7 H Volume Mean Corpuscular 33.0 Hemoglobin Mean Corpuscular 31.6 L Hemoglobin [place] Red Cell 16.2 H Distribution Width Platelet Count 277 Mean Platelet 10.5 H Volume Immature 2.700 H Granulocytes % Neutrophils % 55.4 Lymphocytes % 7.4 L Monocytes % 33.7 H Eosinophils % 0.6 Basophils % 0.2 Nucleated Red 0.0 Blood Cells % Immature 0.460 H Granulocytes # Neutrophils # 9.5 H Lymphocytes # 1.3 Monocytes # 5.8 H Eosinophils # 0.1 Basophils # 0.0 Nucleated Red 0.0 Blood Cells # Erythrocyte 135 H Sedimentation Rate Sodium Level 137 Potassium Level 5.0 Chloride Level 100 Carbon Dioxide 23 Level Anion Gap 14 H Blood Urea 69 H Nitrogen Creatinine 7.31 H Est Glomerular 7 L Filtrat Rate mL/min Glucose Level 114 # Hemoglobin A1c 5.4 Lactic Acid 0.9 Level Calcium Level 9.1 Magnesium Level 1.9 Total Bilirubin 0.2 Direct Bilirubin 0.00 Indirect 0.2 Bilirubin Aspartate Amino 26 Transf (AST/SGOT ) Alanine 12 L Aminotransferase (ALT/SGPT) Alkaline 52 Phosphatase Creatine Kinase 54 Creatine Kinase 4.3 Index Creatinine 2.31 Kinase MB (Mass) Troponin I 0.038 C-Reactive 2.2 H Protein Total Protein 8.2 H Albumin 3.7 Globulin 4.50 H Albumin/Globulin 0.82 Ratio Thyroid 3.870 Stimulating Hormone (TSH) Urine Color YELLOW Urine Clarity SLIGHTLY CLOUDY A Urine pH 5.0 Urine Specific 1.015 [place] Urine Ketones NEGATIVE Urine Nitrite NEGATIVE Urine Bilirubin NEGATIVE Urine NEGATIVE Urobilinogen Urine Leukocyte NEGATIVE Esterase Urine 6 H Microscopic RBC Urine 2 Microscopic WBC Urine Bacteria FEW A Urine Hemoglobin NEGATIVE Urine Glucose NEGATIVE Urine Total 2+ H Protein Procalcitonin 0.10 Medications Medication Current Medications Ondansetron HCl (Zofran Inj) 4 mg Q6H PRN IV NAUSEA AND/OR VOMITING; Start 07/15/18 at 03:00 Albuterol/ Ipratropium (Duoneb) 3 ml Q2H RESP THERAPY PRN NEB SHORTNESS OF BREATH; Start 07/15/18 at 03:00 Nitroglycerin (Nitroglycerin (Sl Tab) 0.4 Mg) 1 tab Q5M PRN SL CHEST PAIN; Start 07/15/18 at 03:00 Acetaminophen (Tylenol Liquid) 650 mg Q6H PRN PO PAIN LEVEL 1-3 OR FEVER; Start 07/15/18 at 03:00 Morphine Sulfate (morphine) 2 mg Q4H PRN IV PAIN LEVEL 7-10; Start 07/15/18 at 03:00 Pantoprazole (Protonix Iv) 40 mg DAILY@06 IV Last administered on 07/15/18at 05:30; Admin Dose 40 MG; Start 07/15/18 at 06:00 Amlodipine Besylate (Norvasc) 5 mg DAILY PO Last administered on 07/15/18at 11:45; Admin Dose 5 MG; Start 07/15/18 at 09:00 Aspirin (Halfprin) 81 mg DAILY PO Last administered on 07/15/18at 11:45; Admin Dose 81 MG; Start 07/15/18 at 09:00 Atorvastatin Calcium (Lipitor) 10 mg QHS PO ; Start 07/15/18 at 21:00 Ferrous Sulfate (Ferrous Sulfate (Ec)) 325 mg TID PO Last administered on 07/15/18at 11:45; Admin Dose 325 MG; Start 07/15/18 at 09:00 Hydralazine HCl (Apresoline) 25 mg TID PO Last administered on 07/15/18at 11:45; Admin Dose 25 MG; Start 07/15/18 at 09:00 Insulin Glargine (Lantus) 22 units DAILY@2000 SC ; Start 07/15/18 at 20:00 Epoetin Nayely-epbx (Retacrit (Non-Esrd)) 10,000 unit MoWeFr@1700 SC ; Start 07/15/18 at 17:00 Miscellaneous Information 1 ea NOTE XX ; Start 07/15/18 at 08:30 Glucose (Glutose) 15 gm Q15M PRN PO DECREASED GLUCOSE; Start 07/15/18 at 08:30 Glucose (Glutose) 22.5 gm Q15M PRN PO DECREASED GLUCOSE; Start 07/15/18 at 08:30 Dextrose (D50w Syringe) 25 ml Q15M PRN IV DECREASED GLUCOSE; Start 07/15/18 at 08:30 Dextrose (D50w Syringe) 50 ml Q15M PRN IV DECREASED GLUCOSE; Start 07/15/18 at 08:30 Glucagon (Glucagen) 1 mg Q15M PRN IM DECREASED GLUCOSE; Start 07/15/18 at 08:30 Glucose (Glutose) 15 gm Q15M PRN BUCCAL DECREASED GLUCOSE; Start 07/15/18 at 08:30 Heparin Sodium (Porcine) (Heparin (1000 Units/ml)) 3,200 unit AFTER DIALYSIS PRN CATHETER heparin lock Last administered on 07/15/18at 11:42; Admin Dose 3,200 UNIT; Start 07/15/18 at 08:30 Albumin Human 100 ml @ 100 mls/hr DURING DIALYSIS PRN IV to prevent hypotension during ; Start 07/15/18 at 08:30 Piperacillin Sod/ Tazobactam Sod 50 ml @ 100 mls/hr BID IVPB ; Start 07/15/18 at 14:00 OTTO JUÁREZ MD July 15, 2018 13:44
[2018-07-15] MEDS: PIPER-TAZO 2.25 GM (PMX) 50 ML IVPB SCH ×2 (13:46→21:38)
--- NOTE | 2018-07-15 14:31 | CONS ---
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 Continue with abx per recommendations. Recommend daily dressing changes with dakins irrigation, betadine 4x4 gauze, kerlix and doroteo wrap. Offload heels with pillows daily. MRI ordered. Non invasive arterial studies ordered. Consultation Date/Type/Reason Admit Date/Time 07/15/2018 Date/Time of Note DATE: 07/15/18 TIME: 14:30 Hx of Present Illness 68 y/o M patient who was admitted to the hospital for acute dyspnea and volume overload presents to the floor with left foot TMA and chronic diabetic ulcerations. Patient in the past had hx of gangrene to the foot and underwent open TMA. He has chronic diabetic ulcers. Patient reports 4/10 dull pain to the ulcer sites and is non-radiating. ROS Negative except for HPI Past Medical History Left foot gangrene. Left foot abscess. Peripheral vascular disease. Peripheral arterial disease. Infected foot ulceration. diabetes type 2 with neuropathy. Hypertension. Vitamin D deficiency. Anemia of chronic disease . Dyslipidemia, End-stage renal disease: On dialysis Wednesday Home Meds Active Scripts Ferrous Sulfate* (Ferrous Sulfate*) 325 Mg Tabec, 325 MG PO TID for 30 Days, TAB Prov:MCINTYRE,BISI [employer] 01/04/18 Glipizide* (Glipizide*) 5 Mg Tablet, 2.5 MG PO AC BREAKFAST, #30 TAB Prov:MCINTYRE,BISI [employer] 01/04/18 Hydralazine Hcl* (Hydralazine Hcl*) 25 Mg Tab, 25 MG PO TID, #90 TAB Prov:MCINTYRE,BISI [employer] 01/04/18 Amlodipine Besylate* (Amlodipine Besylate*) 5 Mg Tablet, 5 MG PO DAILY, #30 TAB Prov:MCINTYRE,[employer]ISI [employer] 01/04/18 Meropenem (Merrem) 1 Gm Vial, 500 MCG IV Q12 for 42 Days, VIAL Prov:MCINTYRE,BISI [employer] 01/04/18 Epoetin nayely* (Epogen*) 3,000 Unit/1 Ml Vial, 6000 UNITS SC TuThSa@17 for 30 Days, VIAL Prov:BISI MCINTYRE [employer] 01/04/18 Ceftriaxone Na/Dextrose,Iso (Ceftriaxone 1 gm Piggyback) 1 Gm/50 Ml Froz.piggy, 1 GM IV Q12 for 42 Days Prov:BISI MCINTYRE [employer] 01/04/18 Hydrocodone Bit-Acetaminophen (Hydrocodone Bit-APAP) 5-325MG Tablet, 1 TAB PO Q6H PRN for MODERATE PAIN LEVEL 4-6 for 30 Days, TAB Prov:TIANNA ABARCAFlaquito [employer] 12/02/17 Gabapentin* (Gabapentin*) 300 Mg Capsule, 300 MG PO BID, #60 CAP Prov:TIANNA ABARCAFlaquito Van 11/12/17 [Insulin Glargine] 100 UNITS/ML SOLN No Conflict Check, 22 UNITS SC DAILY@1999 for 10 Days Prov:TIANNA ABARCAFlaquito Van 11/12/17 Clopidogrel Bisulfate (Clopidogrel) 75 Mg Tablet, 75 MG PO DAILY for 10 Days, #10 TAB Prov:TIANNA ABARCAFlaquito Van 11/12/17 Reported Medications Aspirin (Low Dose Aspirin) 81 Mg Tablet.dr, 81 MG PO DAILY, #30 TAB 11/07/17 Atorvastatin Calcium (Atorvastatin Calcium) 10 Mg Tablet, 10 MG PO QHS, #30 TAB 11/07/17 Medications Current Medications Ondansetron HCl (Zofran Inj) 4 mg Q6H PRN IV NAUSEA AND/OR VOMITING; Start 07/15/18 at 03:00 Albuterol/ Ipratropium (Duoneb) 3 ml Q2H RESP THERAPY PRN NEB SHORTNESS OF BREATH; Start 07/15/18 at 03:00 Nitroglycerin (Nitroglycerin (Sl Tab) 0.4 Mg) 1 tab Q5M PRN SL CHEST PAIN; Start 07/15/18 at 03:00 Acetaminophen (Tylenol Liquid) 650 mg Q6H PRN PO PAIN LEVEL 1-3 OR FEVER; Start 07/15/18 at 03:00 Morphine Sulfate (morphine) 2 mg Q4H PRN IV PAIN LEVEL 7-10; Start 07/15/18 at 03:00 Pantoprazole (Protonix Iv) 40 mg DAILY@06 IV Last administered on 07/15/18at 05:30; Admin Dose 40 MG; Start 07/15/18 at 06:00 Amlodipine Besylate (Norvasc) 5 mg DAILY PO Last administered on 07/15/18at 11:45; Admin Dose 5 MG; Start 07/15/18 at 09:00 Aspirin (Halfprin) 81 mg DAILY PO Last administered on 07/15/18at 11:45; Admin Dose 81 MG; Start 07/15/18 at 09:00 Atorvastatin Calcium (Lipitor) 10 mg QHS PO ; Start 07/15/18 at 21:00 Ferrous Sulfate (Ferrous Sulfate (Ec)) 325 mg TID PO Last administered on 07/15/18at 11:45; Admin Dose 325 MG; Start 07/15/18 at 09:00 Hydralazine HCl (Apresoline) 25 mg TID PO Last administered on 07/15/18at 11:45; Admin Dose 25 MG; Start 07/15/18 at 09:00 Insulin Glargine (Lantus) 22 units DAILY@2000 SC ; Start 07/15/18 at 20:00 Epoetin Nayely-epbx (Retacrit (Non-Esrd)) 10,000 unit MoWeFr@1700 SC ; Start 07/15/18 at 17:00 Miscellaneous Information 1 ea NOTE XX ; Start 07/15/18 at 08:30 Glucose (Glutose) 15 gm Q15M PRN PO DECREASED GLUCOSE; Start 07/15/18 at 08:30 Glucose (Glutose) 22.5 gm Q15M PRN PO DECREASED GLUCOSE; Start 07/15/18 at 08:30 Dextrose (D50w Syringe) 25 ml Q15M PRN IV DECREASED GLUCOSE; Start 07/15/18 at 08:30 Dextrose (D50w Syringe) 50 ml Q15M PRN IV DECREASED GLUCOSE; Start 07/15/18 at 08:30 Glucagon (Glucagen) 1 mg Q15M PRN IM DECREASED GLUCOSE; Start 07/15/18 at 08:30 Glucose (Glutose) 15 gm Q15M PRN BUCCAL DECREASED GLUCOSE; Start 07/15/18 at 08:30 Heparin Sodium (Porcine) (Heparin (1000 Units/ml)) 3,200 unit AFTER DIALYSIS PRN CATHETER heparin lock Last administered on 07/15/18at 11:42; Admin Dose 3,200 UNIT; Start 07/15/18 at 08:30 Albumin Human 100 ml @ 100 mls/hr DURING DIALYSIS PRN IV to prevent hypotension during ; Start 07/15/18 at 08:30 Piperacillin Sod/ Tazobactam Sod 50 ml @ 100 mls/hr BID IVPB Last administered on 07/15/18at 13:46; Admin Dose 100 MLS/HR; Start 07/15/18 at 14:00 Allergies: Coded Allergies: No Known Allergy (Unverified , 11/26/17) Past Surgical History hx of left foot TMA Past Surgical Hx: other Family History Significant Family History: no pertinent family hx Social History Alcohol Use: none Smoking Status: Former smoker Drug Use: none Exam/Review of Systems Exam Vitals Vital Signs Date Temp Pulse Resp B/P (MAP) Pulse Ox O2 O2 Flow FiO2 Time Delivery Rate 07/15/18 1.0 12:00 07/15/18 79 12:00 07/15/18 100 45 11:22 07/15/18 12 153/97 BIPAP 11:00 (115) 07/15/18 98.6 08:00 Intake and Output 07/14/18 07/14/18 07/15/18 1515:00 23:00 07:00 IntakeIntake Total 300 ml OutputOutput Total 0 ml BalanceBalance 300 ml Exam Palpable DP, non palpable PT Left foot TMA site appreciated. Absent protective sensations pain on palpation to the ulcer site of left foot Left forefoot stump ulcer 6 x 3 x 0.2 fibrogranular, does not probe to bone, no purulent drainage appreciated, no proximal streaking Left heel ulcer 4 x 4 x 0.2cm fibrogranular, does not probe to bone, no purulent drainage appreciated, no proximal streaking Results Result Diagram: 07/15/18 0500 07/15/18 0500 Results 24hrs Laboratory Tests Test 07/14/18 23:30 07/14/18 23:43 07/15/18 00:16 07/15/18 02:25 White Blood 21.1 H Count Red Blood Count 2.56 L Hemoglobin 8.5 L Hematocrit 26.6 L Mean Corpuscular 103.9 H Volume Mean Corpuscular 33.2 H Hemoglobin Mean Corpuscular 32.0 Hemoglobin [place] Red Cell 16.0 H Distribution Width Platelet Count 339 # Mean Platelet 10.1 Volume Immature 1.600 H Granulocytes % Neutrophils % 49.7 Lymphocytes % 10.6 L Monocytes % 36.8 H Eosinophils % 0.9 Basophils % 0.4 Nucleated Red 0.0 Blood Cells % Immature 0.340 H Granulocytes # Neutrophils # 10.5 H Lymphocytes # 2.2 Monocytes # 7.8 H Eosinophils # 0.2 Basophils # 0.1 Nucleated Red 0.0 Blood Cells # Prothrombin Time 14.4 Prothrombin Time 1.1 Ratio INR 1.11 International Normalized Ratio Activated 41.5 H Partial Thrombop last Time Sodium Level 135 Potassium Level 4.7 Chloride Level 98 Carbon Dioxide 23 Level Anion Gap 14 H Blood Urea 69 H Nitrogen Creatinine 7.10 H Est Glomerular 8 L Filtrat Rate mL/min Glucose Level 185 Calcium Level 9.0 Total Bilirubin 0.2 Direct Bilirubin 0.00 Indirect 0.2 Bilirubin Aspartate Amino 22 Transf (AST/SGOT ) Alanine 14 Aminotransferase (ALT/SGPT) Alkaline 57 Phosphatase Troponin I 0.018 Total Protein 8.3 H Albumin 3.8 Blood Gas Blood arterial Specimen Source Arterial Blood 07/15/2018 1:00: Date Drawn 55 AM Arterial Blood 7.336 L pH (Temp corrected) Arterial Blood 41.0 pCO2 (Temp correct) Arterial Blood 86.5 pO2 (Temp corrected) Arterial Blood 21.4 L HCO3 Arterial Blood -4.1 L Base Excess Arterial Blood 95.5 Oxygen Saturatio n [place] Test ACCEPTAB Arterial Blood Left Radial Gas Puncture Site Arterial 0.2 Blood Carboxyhem oglobin Arterial Blood 0.4 Methemoglobin Blood Gas A-a O2 223.9 H Differential Oxyhemoglobin 94.9 Percent Blood Gas 37.0 Temperature Blood Gas 14.0 Respiration Rate Blood Gas Actual 23 Respiration Rate Blood Gas MASK - BIPAP Modality FiO2 50.0 Blood Gas 10 Pressure Support Blood Gas 15/5 IPAP/EPAP Ratio Blood Gas [place] Notified Whom Blood Gas 07/15/2018 1:17: Notified Time 01 AM POC Venous 1.4 Lactate Lactic Acid 0.8 Level Test 07/15/18 04:53 07/15/18 05:00 07/15/18 10:00 07/15/18 10:09 Iron Level 30 L Total Iron 268 Binding Capacity Percent Iron 11 L Saturation Ferritin 287.0 H Hepatitis B NEGATIVE Surface Antigen White Blood 17.1 H Count Red Blood Count 2.33 L Hemoglobin 7.7 L Hematocrit 24.4 L Mean Corpuscular 104.7 H Volume Mean Corpuscular 33.0 Hemoglobin Mean Corpuscular 31.6 L Hemoglobin [place] Red Cell 16.2 H Distribution Width Platelet Count 277 Mean Platelet 10.5 H Volume Immature 2.700 H Granulocytes % Neutrophils % 55.4 Lymphocytes % 7.4 L Monocytes % 33.7 H Eosinophils % 0.6 Basophils % 0.2 Nucleated Red 0.0 Blood Cells % Immature 0.460 H Granulocytes # Neutrophils # 9.5 H Lymphocytes # 1.3 Monocytes # 5.8 H Eosinophils # 0.1 Basophils # 0.0 Nucleated Red 0.0 Blood Cells # Erythrocyte 135 H Sedimentation Rate Sodium Level 137 Potassium Level 5.0 Chloride Level 100 Carbon Dioxide 23 Level Anion Gap 14 H Blood Urea 69 H Nitrogen Creatinine 7.31 H Est Glomerular 7 L Filtrat Rate mL/min Glucose Level 114 # Hemoglobin A1c 5.4 Lactic Acid 0.9 Level Calcium Level 9.1 Magnesium Level 1.9 Total Bilirubin 0.2 Direct Bilirubin 0.00 Indirect 0.2 Bilirubin Aspartate Amino 26 Transf (AST/SGOT ) Alanine 12 L Aminotransferase (ALT/SGPT) Alkaline 52 Phosphatase Creatine Kinase 54 Creatine Kinase 4.3 Index Creatinine 2.31 Kinase MB (Mass) Troponin I 0.038 C-Reactive 2.2 H Protein Total Protein 8.2 H Albumin 3.7 Globulin 4.50 H Albumin/Globulin 0.82 Ratio Thyroid 3.870 Stimulating Hormone (TSH) Urine Color YELLOW Urine Clarity SLIGHTLY CLOUDY A Urine pH 5.0 Urine Specific 1.015 [place] Urine Ketones NEGATIVE Urine Nitrite NEGATIVE Urine Bilirubin NEGATIVE Urine NEGATIVE Urobilinogen Urine Leukocyte NEGATIVE Esterase Urine 6 H Microscopic RBC Urine 2 Microscopic WBC Urine Bacteria FEW A Urine Hemoglobin NEGATIVE Urine Glucose NEGATIVE Urine Total 2+ H Protein Procalcitonin 0.10 Medications Medication Current Medications Ondansetron HCl (Zofran Inj) 4 mg Q6H PRN IV NAUSEA AND/OR VOMITING; Start 07/15/18 at 03:00 Albuterol/ Ipratropium (Duoneb) 3 ml Q2H RESP THERAPY PRN NEB SHORTNESS OF BREATH; Start 07/15/18 at 03:00 Nitroglycerin (Nitroglycerin (Sl Tab) 0.4 Mg) 1 tab Q5M PRN SL CHEST PAIN; Start 07/15/18 at 03:00 Acetaminophen (Tylenol Liquid) 650 mg Q6H PRN PO PAIN LEVEL 1-3 OR FEVER; Start 07/15/18 at 03:00 Morphine Sulfate (morphine) 2 mg Q4H PRN IV PAIN LEVEL 7-10; Start 07/15/18 at 03:00 Pantoprazole (Protonix Iv) 40 mg DAILY@06 IV Last administered on 07/15/18at 05:30; Admin Dose 40 MG; Start 07/15/18 at 06:00 Amlodipine Besylate (Norvasc) 5 mg DAILY PO Last administered on 07/15/18at 11:45; Admin Dose 5 MG; Start 07/15/18 at 09:00 Aspirin (Halfprin) 81 mg DAILY PO Last administered on 07/15/18at 11:45; Admin Dose 81 MG; Start 07/15/18 at 09:00 Atorvastatin Calcium (Lipitor) 10 mg QHS PO ; Start 07/15/18 at 21:00 Ferrous Sulfate (Ferrous Sulfate (Ec)) 325 mg TID PO Last administered on 07/15/18at 11:45; Admin Dose 325 MG; Start 07/15/18 at 09:00 Hydralazine HCl (Apresoline) 25 mg TID PO Last administered on 07/15/18at 11:45; Admin Dose 25 MG; Start 07/15/18 at 09:00 Insulin Glargine (Lantus) 22 units DAILY@2000 SC ; Start 07/15/18 at 20:00 Epoetin Nayely-epbx (Retacrit (Non-Esrd)) 10,000 unit MoWeFr@1700 SC ; Start 07/15/18 at 17:00 Miscellaneous Information 1 ea NOTE XX ; Start 07/15/18 at 08:30 Glucose (Glutose) 15 gm Q15M PRN PO DECREASED GLUCOSE; Start 07/15/18 at 08:30 Glucose (Glutose) 22.5 gm Q15M PRN PO DECREASED GLUCOSE; Start 07/15/18 at 08:30 Dextrose (D50w Syringe) 25 ml Q15M PRN IV DECREASED GLUCOSE; Start 07/15/18 at 08:30 Dextrose (D50w Syringe) 50 ml Q15M PRN IV DECREASED GLUCOSE; Start 07/15/18 at 08:30 Glucagon (Glucagen) 1 mg Q15M PRN IM DECREASED GLUCOSE; Start 07/15/18 at 08:30 Glucose (Glutose) 15 gm Q15M PRN BUCCAL DECREASED GLUCOSE; Start 07/15/18 at 08:30 Heparin Sodium (Porcine) (Heparin (1000 Units/ml)) 3,200 unit AFTER DIALYSIS PRN CATHETER heparin lock Last administered on 07/15/18at 11:42; Admin Dose 3,200 UNIT; Start 07/15/18 at 08:30 Albumin Human 100 ml @ 100 mls/hr DURING DIALYSIS PRN IV to prevent hypotension during ; Start 07/15/18 at 08:30 Piperacillin Sod/ Tazobactam Sod 50 ml @ 100 mls/hr BID IVPB Last administered on 07/15/18at 13:46; Admin Dose 100 MLS/HR; Start 07/15/18 at 14:00 ANGELITO MCDOWELL DPM July 15, 2018 14:30
--- NOTE | 2018-07-15 14:50 | CONS ---
DATE OF ADMISSION: 07/15/2018 DATE OF CONSULTATION: 07/15/2018 TYPE OF CONSULTATION: Pulmonary. REASON FOR CONSULT: Shortness of breath. Thank you, Dr. Talley, for this consultation. HISTORY OF PRESENT ILLNESS: This is a 68-year-old gentleman with end-stage renal failure on hemodial ysis, admitted this morning with increasing respiratory distress, congestion, having missed hemodialy sis. Chest x-ray is demonstrating significant volume overload. The patient had emergent hemodialysi s this morning with volume removal with improving respiratory status. PAST MEDICAL HISTORY: 1. End-stage renal failure on hemodialysis. 2. Congestive cardiac failure. 3. Lower extremity peripheral vascular disease. 4. Left foot gangrene. 5. Left foot abscess. 6. History of essential hypertension. 7. Type 2 diabetes. MEDICATIONS: Per chart. ALLERGIES: NONE. SOCIAL HISTORY: Nonsmoker. PHYSICAL EXAMINATION: VITAL SIGNS: Currently afebrile, pulse is 70, blood pressure 160/90, O2 saturation 96% on FiO2 of 40 % on bilevel ventilation, having hemodialysis. NECK: Supple. No JVD or lymphadenopathy. CARDIAC: S1, S2. II/ systolic ejection murmur. CHEST: Diminished air entry bilaterally. ABDOMEN: Soft, nontender. No guarding or rebound. EXTREMITIES: No cyanosis, clubbing, edema. NEUROLOGIC: Grossly intact. No focal deficits. LABORATORY DATA: White count initially 21, now 17.1, hemoglobin 7.7, platelets 277. BUN 169, creati nine 7.31. INR 1.11. DIAGNOSTIC DATA: Chest x-ray showed volume overload, possible underlying infiltrates. Doppler was n egative for deep vein thrombosis. IMPRESSION AND PLAN: 1. Chronic lower extremity wounds with infection. 2. Diabetes mellitus. 3. Volume overload with acute hypoxemic respiratory failure. 4. Sepsis. Multiple sources including possible lower extremity wound versus pneumonia. The patient will need: 1. Continued bilevel ventilation. 2. Hemodialysis with volume removal. 3. Continue broad-spectrum antibiotics, pending cultures. 4. Glycemic management. 5. DVT and GI prophylaxis. Dictated By: KAREEM LYN MD SV/NTS Conf#: [id number] DID#: [id number] CC: DMITRI SPAIN MD; TRISTA TALLEY MD;*EndCC*
--- NOTE | 2018-07-15 14:51 | PN ---
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 A/P: 68 yo male with ESRD on HD, PAD wtih foot ulcers, DMII, hyperetsnion who pres ented wtih acute respiratory failrue from pulmonary edeam Acute repsiratory failure: - Resolved follwoign dialysis - O2 as needed - No evidence of pneumonia ESRD: - HD per renal Foot ulcers: - No evidence of OM on XR, management per podiatry Hypertension; - Hydralazine DMII: - Basal/bolus insulin Result Diagram: 07/15/18 0500 07/15/18 0500 Results 24hrs Laboratory Tests Test 07/14/18 23:30 07/14/18 23:43 07/15/18 00:16 07/15/18 02:25 White Blood 21.1 H Count Red Blood Count 2.56 L Hemoglobin 8.5 L Hematocrit 26.6 L Mean Corpuscular 103.9 H Volume Mean Corpuscular 33.2 H Hemoglobin Mean Corpuscular 32.0 Hemoglobin [place] nt Red Cell 16.0 H Distribution Width Platelet Count 339 # Mean Platelet 10.1 Volume Immature 1.600 H Granulocytes % Neutrophils % 49.7 Lymphocytes % 10.6 L Monocytes % 36.8 H Eosinophils % 0.9 Basophils % 0.4 Nucleated Red 0.0 Blood Cells % Immature 0.340 H Granulocytes # Neutrophils # 10.5 H Lymphocytes # 2.2 Monocytes # 7.8 H Eosinophils # 0.2 Basophils # 0.1 Nucleated Red 0.0 Blood Cells # Prothrombin Time 14.4 Prothrombin Time 1.1 Ratio INR 1.11 International Normalized Ratio Activated 41.5 H Partial Thrombop last Time Sodium Level 135 Potassium Level 4.7 Chloride Level 98 Carbon Dioxide 23 Level Anion Gap 14 H Blood Urea 69 H Nitrogen Creatinine 7.10 H Est Glomerular 8 L Filtrat Rate mL/min Glucose Level 185 Calcium Level 9.0 Total Bilirubin 0.2 Direct Bilirubin 0.00 Indirect 0.2 Bilirubin Aspartate Amino 22 Transf (AST/SGOT ) Alanine 14 Aminotransferase (ALT/SGPT) Alkaline 57 Phosphatase Troponin I 0.018 Total Protein 8.3 H Albumin 3.8 Blood Gas Blood arterial Specimen Source Arterial Blood 07/15/2018 1:00: Date Drawn 55 AM Arterial Blood 7.336 L pH (Temp corrected) Arterial Blood 41.0 pCO2 (Temp correct) Arterial Blood 86.5 pO2 (Temp corrected) Arterial Blood 21.4 L HCO3 Arterial Blood -4.1 L Base Excess Arterial Blood 95.5 Oxygen Saturatio n Lon[place] Test ACCEPTAB Arterial Blood Left Radial Gas Puncture Site Arterial 0.2 Blood Carboxyhem oglobin Arterial Blood 0.4 Methemoglobin Blood Gas A-a O2 223.9 H Differential Oxyhemoglobin 94.9 Percent Blood Gas 37.0 Temperature Blood Gas 14.0 Respiration Rate Blood Gas Actual 23 Respiration Rate Blood Gas MASK - BIPAP Modality FiO2 50.0 Blood Gas 10 Pressure Support Blood Gas 15/5 IPAP/EPAP Ratio Blood Gas CO Notified Whom Blood Gas 07/15/2018 1:17: Notified Time 01 AM POC Venous 1.4 Lactate Lactic Acid 0.8 Level Test 07/15/18 04:53 07/15/18 05:00 07/15/18 10:00 07/15/18 10:09 Iron Level 30 L Total Iron 268 Binding Capacity Percent Iron 11 L Saturation Ferritin 287.0 H Hepatitis B NEGATIVE Surface Antigen White Blood 17.1 H Count Red Blood Count 2.33 L Hemoglobin 7.7 L Hematocrit 24.4 L Mean Corpuscular 104.7 H Volume Mean Corpuscular 33.0 Hemoglobin Mean Corpuscular 31.6 L Hemoglobin [place] Red Cell 16.2 H Distribution Width Platelet Count 277 Mean Platelet 10.5 H Volume Immature 2.700 H Granulocytes % Neutrophils % 55.4 Lymphocytes % 7.4 L Monocytes % 33.7 H Eosinophils % 0.6 Basophils % 0.2 Nucleated Red 0.0 Blood Cells % Immature 0.460 H Granulocytes # Neutrophils # 9.5 H Lymphocytes # 1.3 Monocytes # 5.8 H Eosinophils # 0.1 Basophils # 0.0 Nucleated Red 0.0 Blood Cells # Erythrocyte 135 H Sedimentation Rate Sodium Level 137 Potassium Level 5.0 Chloride Level 100 Carbon Dioxide 23 Level Anion Gap 14 H Blood Urea 69 H Nitrogen Creatinine 7.31 H Est Glomerular 7 L Filtrat Rate mL/min Glucose Level 114 # Hemoglobin A1c 5.4 Lactic Acid 0.9 Level Calcium Level 9.1 Magnesium Level 1.9 Total Bilirubin 0.2 Direct Bilirubin 0.00 Indirect 0.2 Bilirubin Aspartate Amino 26 Transf (AST/SGOT ) Alanine 12 L Aminotransferase (ALT/SGPT) Alkaline 52 Phosphatase Creatine Kinase 54 Creatine Kinase 4.3 Index Creatinine 2.31 Kinase MB (Mass) Troponin I 0.038 C-Reactive 2.2 H Protein Total Protein 8.2 H Albumin 3.7 Globulin 4.50 H Albumin/Globulin 0.82 Ratio Thyroid 3.870 Stimulating Hormone (TSH) Urine Color YELLOW Urine Clarity SLIGHTLY CLOUDY A Urine pH 5.0 Urine Specific 1.015 [place] Urine Ketones NEGATIVE Urine Nitrite NEGATIVE Urine Bilirubin NEGATIVE Urine NEGATIVE Urobilinogen Urine Leukocyte NEGATIVE Esterase Urine 6 H Microscopic RBC Urine 2 Microscopic WBC Urine Bacteria FEW A Urine Hemoglobin NEGATIVE Urine Glucose NEGATIVE Urine Total 2+ H Protein Procalcitonin 0.10 Subjective 24 Hr Interval Summary Free Text/Dictation Respiratory failure now resolved after dialysis Feels ok, stable on NC Exam/Review of Systems Exam Vitals Vital Signs Date Temp Pulse Resp B/P (MAP) Pulse Ox O2 O2 Flow FiO2 Time Delivery Rate 07/15/18 1.0 12:00 07/15/18 79 12:00 07/15/18 100 45 11:22 07/15/18 12 153/97 BIPAP 11:00 (115) 07/15/18 98.6 08:00 Intake and Output 07/14/18 07/14/18 07/15/18 1515:00 23:00 07:00 IntakeIntake Total 300 ml OutputOutput Total 0 ml BalanceBalance 300 ml Results Results 24hrs Laboratory Tests Test 07/14/18 23:30 07/14/18 23:43 07/15/18 00:16 07/15/18 02:25 White Blood 21.1 H Count Red Blood Count 2.56 L Hemoglobin 8.5 L Hematocrit 26.6 L Mean Corpuscular 103.9 H Volume Mean Corpuscular 33.2 H Hemoglobin Mean Corpuscular 32.0 Hemoglobin [place] Red Cell 16.0 H Distribution Width Platelet Count 339 # Mean Platelet 10.1 Volume Immature 1.600 H Granulocytes % Neutrophils % 49.7 Lymphocytes % 10.6 L Monocytes % 36.8 H Eosinophils % 0.9 Basophils % 0.4 Nucleated Red 0.0 Blood Cells % Immature 0.340 H Granulocytes # Neutrophils # 10.5 H Lymphocytes # 2.2 Monocytes # 7.8 H Eosinophils # 0.2 Basophils # 0.1 Nucleated Red 0.0 Blood Cells # Prothrombin Time 14.4 Prothrombin Time 1.1 Ratio INR 1.11 International Normalized Ratio Activated 41.5 H Partial Thrombop last Time Sodium Level 135 Potassium Level 4.7 Chloride Level 98 Carbon Dioxide 23 Level Anion Gap 14 H Blood Urea 69 H Nitrogen Creatinine 7.10 H Est Glomerular 8 L Filtrat Rate mL/min Glucose Level 185 Calcium Level 9.0 Total Bilirubin 0.2 Direct Bilirubin 0.00 Indirect 0.2 Bilirubin Aspartate Amino 22 Transf (AST/SGOT ) Alanine 14 Aminotransferase (ALT/SGPT) Alkaline 57 Phosphatase Troponin I 0.018 Total Protein 8.3 H Albumin 3.8 Blood Gas Blood arterial Specimen Source Arterial Blood 07/15/2018 1:00: Date Drawn 55 AM Arterial Blood 7.336 L pH (Temp corrected) Arterial Blood 41.0 pCO2 (Temp correct) Arterial Blood 86.5 pO2 (Temp corrected) Arterial Blood 21.4 L HCO3 Arterial Blood -4.1 L Base Excess Arterial Blood 95.5 Oxygen Saturatio n [place] Test ACCEPTAB Arterial Blood Left Radial Gas Puncture Site Arterial 0.2 Blood Carboxyhem oglobin Arterial Blood 0.4 Methemoglobin Blood Gas A-a O2 223.9 H Differential Oxyhemoglobin 94.9 Percent Blood Gas 37.0 Temperature Blood Gas 14.0 Respiration Rate Blood Gas Actual 23 Respiration Rate Blood Gas MASK - BIPAP Modality FiO2 50.0 Blood Gas 10 Pressure Support Blood Gas 15/5 IPAP/EPAP Ratio Blood Gas CO Notified Whom Blood Gas 07/15/2018 1:17: Notified Time 01 AM POC Venous 1.4 Lactate Lactic Acid 0.8 Level Test 07/15/18 04:53 07/15/18 05:00 07/15/18 10:00 07/15/18 10:09 Iron Level 30 L Total Iron 268 Binding Capacity Percent Iron 11 L Saturation Ferritin 287.0 H Hepatitis B NEGATIVE Surface Antigen White Blood 17.1 H Count Red Blood Count 2.33 L Hemoglobin 7.7 L Hematocrit 24.4 L Mean Corpuscular 104.7 H Volume Mean Corpuscular 33.0 Hemoglobin Mean Corpuscular 31.6 L Hemoglobin [place] Red Cell 16.2 H Distribution Width Platelet Count 277 Mean Platelet 10.5 H Volume Immature 2.700 H Granulocytes % Neutrophils % 55.4 Lymphocytes % 7.4 L Monocytes % 33.7 H Eosinophils % 0.6 Basophils % 0.2 Nucleated Red 0.0 Blood Cells % Immature 0.460 H Granulocytes # Neutrophils # 9.5 H Lymphocytes # 1.3 Monocytes # 5.8 H Eosinophils # 0.1 Basophils # 0.0 Nucleated Red 0.0 Blood Cells # Erythrocyte 135 H Sedimentation Rate Sodium Level 137 Potassium Level 5.0 Chloride Level 100 Carbon Dioxide 23 Level Anion Gap 14 H Blood Urea 69 H Nitrogen Creatinine 7.31 H Est Glomerular 7 L Filtrat Rate mL/min Glucose Level 114 # Hemoglobin A1c 5.4 Lactic Acid 0.9 Level Calcium Level 9.1 Magnesium Level 1.9 Total Bilirubin 0.2 Direct Bilirubin 0.00 Indirect 0.2 Bilirubin Aspartate Amino 26 Transf (AST/SGOT ) Alanine 12 L Aminotransferase (ALT/SGPT) Alkaline 52 Phosphatase Creatine Kinase 54 Creatine Kinase 4.3 Index Creatinine 2.31 Kinase MB (Mass) Troponin I 0.038 C-Reactive 2.2 H Protein Total Protein 8.2 H Albumin 3.7 Globulin 4.50 H Albumin/Globulin 0.82 Ratio Thyroid 3.870 Stimulating Hormone (TSH) Urine Color YELLOW Urine Clarity SLIGHTLY CLOUDY A Urine pH 5.0 Urine Specific 1.015 [place] Urine Ketones NEGATIVE Urine Nitrite NEGATIVE Urine Bilirubin NEGATIVE Urine NEGATIVE Urobilinogen Urine Leukocyte NEGATIVE Esterase Urine 6 H Microscopic RBC Urine 2 Microscopic WBC Urine Bacteria FEW A Urine Hemoglobin NEGATIVE Urine Glucose NEGATIVE Urine Total 2+ H Protein Procalcitonin 0.10 Medications Medication Current Medications Ondansetron HCl (Zofran Inj) 4 mg Q6H PRN IV NAUSEA AND/OR VOMITING; Start 07/15/18 at 03:00 Albuterol/ Ipratropium (Duoneb) 3 ml Q2H RESP THERAPY PRN NEB SHORTNESS OF BREATH; Start 07/15/18 at 03:00 Nitroglycerin (Nitroglycerin (Sl Tab) 0.4 Mg) 1 tab Q5M PRN SL CHEST PAIN; Start 07/15/18 at 03:00 Acetaminophen (Tylenol Liquid) 650 mg Q6H PRN PO PAIN LEVEL 1-3 OR FEVER; Start 07/15/18 at 03:00 Morphine Sulfate (morphine) 2 mg Q4H PRN IV PAIN LEVEL 7-10; Start 07/15/18 at 03:00 Pantoprazole (Protonix Iv) 40 mg DAILY@06 IV Last administered on 07/15/18at 05:30; Admin Dose 40 MG; Start 07/15/18 at 06:00 Amlodipine Besylate (Norvasc) 5 mg DAILY PO Last administered on 07/15/18at 11:45; Admin Dose 5 MG; Start 07/15/18 at 09:00 Aspirin (Halfprin) 81 mg DAILY PO Last administered on 07/15/18at 11:45; Admin Dose 81 MG; Start 07/15/18 at 09:00 Atorvastatin Calcium (Lipitor) 10 mg QHS PO ; Start 07/15/18 at 21:00 Ferrous Sulfate (Ferrous Sulfate (Ec)) 325 mg TID PO Last administered on 07/15/18at 11:45; Admin Dose 325 MG; Start 07/15/18 at 09:00 Hydralazine HCl (Apresoline) 25 mg TID PO Last administered on 07/15/18at 11:45; Admin Dose 25 MG; Start 07/15/18 at 09:00 Insulin Glargine (Lantus) 22 units DAILY@2000 SC ; Start 07/15/18 at 20:00 Epoetin Yannick-epbx (Retacrit (Non-Esrd)) 10,000 unit MoWeFr@1700 SC ; Start 07/15/18 at 17:00 Miscellaneous Information 1 ea NOTE XX ; Start 07/15/18 at 08:30 Glucose (Glutose) 15 gm Q15M PRN PO DECREASED GLUCOSE; Start 07/15/18 at 08:30 Glucose (Glutose) 22.5 gm Q15M PRN PO DECREASED GLUCOSE; Start 07/15/18 at 08:30 Dextrose (D50w Syringe) 25 ml Q15M PRN IV DECREASED GLUCOSE; Start 07/15/18 at 08:30 Dextrose (D50w Syringe) 50 ml Q15M PRN IV DECREASED GLUCOSE; Start 07/15/18 at 08:30 Glucagon (Glucagen) 1 mg Q15M PRN IM DECREASED GLUCOSE; Start 07/15/18 at 08:30 Glucose (Glutose) 15 gm Q15M PRN BUCCAL DECREASED GLUCOSE; Start 07/15/18 at 08:30 Heparin Sodium (Porcine) (Heparin (1000 Units/ml)) 3,200 unit AFTER DIALYSIS PRN CATHETER heparin lock Last administered on 07/15/18at 11:42; Admin Dose 3,200 UNIT; Start 07/15/18 at 08:30 Albumin Human 100 ml @ 100 mls/hr DURING DIALYSIS PRN IV to prevent hypotension during ; Start 07/15/18 at 08:30 Piperacillin Sod/ Tazobactam Sod 50 ml @ 100 mls/hr BID IVPB Last administered on 07/15/18at 13:46; Admin Dose 100 MLS/HR; Start 07/15/18 at 14:00 DMITRI SPAIN MD July 15, 2018 14:51
[2018-07-15] MEDS: EPOETIN ALFA-EPBX (NON-ESRD 10,000 UNIT/ML VIAL SC SCH (17:04)
[2018-07-15] MEDS ORDERED: INSULIN GLARGINE 22 UNIT SC SCH (20:00)
[2018-07-15] MEDS: ATORVASTATIN 10 MG TAB PO SCH (20:49)
[2018-07-15] MEDS: INSULIN GLARGINE [LANTus] (100 UNITS/ML) SYG SC SCH (20:55)
[2018-07-16] VITALS (34 sets, daily range): BP systolic 128–161; BP diastolic 65–90; PULSE 70–98; RESP 11–20
[2018-07-16] MEDS: PANTOPRAZOLE 40 MG INJ IV SCH (06:07)
--- NOTE | 2018-07-16 07:14 | CONS ---
Assessment/Plan Assessment/Plan Hospital Course (Demo Recall) 1) CHF, likely due to delayed dialysis breathing has improved, doubt he has pneumonia but will check procalcitonin 07/16 - procalcitonin for people in ESRD is within normal limties no good evidence for pneumonia 2) L foot ulcers will review the [facility] records and see if cx were done and what if any antibiotics he received continue with vanco/zosyn at present get wound cx here ESR is very high, if work-up for osteo and arterial studies weren't done we may need to do these here 07/16 - this is not new and pt has been advised that he likely needs BKA but he has refused 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 and was suppose to be getting IV vanco with dialysis d/c zosyn but continue with vanco at present will order arterial dopplers to see if flow is adequate at this time 3) DM 4) HTN 5) ESRD Consultation Date/Type/Reason Admit Date/Time July 15, 2018 at 00:58 Initial Consult Date 07/15/18 Type of Consult ID Date/Time of Note DATE: 07/16/18 TIME: 07:06 24 HR Interval Summary Free Text/Dictation spoke to nurse no new problems I reviewed records [facility] pt had MRI there which was c/w osteo of L foot at stump site and calcaneus he was to get 6 weeks of IV vanco, MRSA grew from the cx sites there pt was also treated for osteo of L foot earlier this year with e.coli +ESBL being present He had a recent TMA done and was told at that time he probably need a BKA but pt refused pt's arterial studies were not good but no area of stenosis was noted Exam/Review of Systems Exam Vitals Vital Signs Date Temp Pulse Resp B/P (MAP) Pulse Ox O2 O2 Flow FiO2 Time Delivery Rate 07/16/18 Nasal 4.0 06:26 Cannula 07/16/18 98.3 73 15 138/65 92 06:03 (89) 07/16/18 45 04:52 Intake and Output 07/15/18 07/15/18 07/16/18 1515:00 23:00 07:00 IntakeIntake Total 60 ml 340 ml 120 ml OutputOutput Total 3995 ml 60 ml 35 ml BalanceBalance -3935 ml 280 ml 85 ml Respiratory: clear to auscultation Cardiovascular: regular rate and rhythm Gastrointestinal: soft, non-tender Extremities: other (L foot is bandaged) Results Result Diagram: 07/16/18 0450 07/16/18 0450 Results 24hrs Laboratory Tests Test 07/15/18 10:00 07/15/18 10:09 07/15/18 20:48 07/16/18 04:50 Urine Color YELLOW Urine Clarity SLIGHTLY CLOUDY A Urine pH 5.0 Urine Specific 1.015 [place] Urine Ketones NEGATIVE Urine Nitrite NEGATIVE Urine Bilirubin NEGATIVE Urine NEGATIVE Urobilinogen Urine Leukocyte NEGATIVE Esterase Urine Microscopic 6 H RBC Urine Microscopic 2 WBC Urine Bacteria FEW A Urine Hemoglobin NEGATIVE Urine Glucose NEGATIVE Urine Total 2+ H Protein Procalcitonin 0.10 0.11 H Bedside Glucose 93 White Blood Count 10.3 # Red Blood Count 2.20 L Hemoglobin 7.4 L Hematocrit 23.3 L Mean Corpuscular 105.9 H Volume Mean Corpuscular 33.6 H Hemoglobin Mean Corpuscular 31.8 L Hemoglobin Concen t Red Cell 16.3 H Distribution Width Platelet Count 262 Mean Platelet 10.1 Volume Immature 0.600 H Granulocytes % Neutrophils % 35.3 L Lymphocytes % 12.0 L Monocytes % 50.8 H Eosinophils % 0.9 Basophils % 0.4 Nucleated Red 0.0 Blood Cells % Immature 0.060 H Granulocytes # Neutrophils # 3.6 Lymphocytes # 1.2 Monocytes # 5.2 H Eosinophils # 0.1 Basophils # 0.0 Nucleated Red 0.0 Blood Cells # Sodium Level 140 Potassium Level 4.2 Chloride Level 103 Carbon Dioxide 27 Level Anion Gap 10 Blood Urea 49 #H Nitrogen Creatinine 5.66 H Est Glomerular 10 L Filtrat Rate mL/min Glucose Level 53 #L Calcium Level 8.8 Total Bilirubin 0.3 Direct Bilirubin 0.00 Indirect 0.3 Bilirubin Aspartate Amino 20 Transf (AST/SGOT) Alanine 13 Aminotransferase (ALT/SGPT) Alkaline 46 Phosphatase Total Protein 7.4 Albumin 3.4 Globulin 4.00 H Albumin/Globulin 0.85 Ratio Triglycerides 91 Level Cholesterol Level 123 LDL Cholesterol, 82 Calculated HDL Cholesterol 23 L Cholesterol/HDL 5.3 Ratio Medications Medication Current Medications Ondansetron HCl (Zofran Inj) 4 mg Q6H PRN IV NAUSEA AND/OR VOMITING; Start 07/15/18 at 03:00 Albuterol/ Ipratropium (Duoneb) 3 ml Q2H RESP THERAPY PRN NEB SHORTNESS OF BREATH; Start 07/15/18 at 03:00 Nitroglycerin (Nitroglycerin (Sl Tab) 0.4 Mg) 1 tab Q5M PRN SL CHEST PAIN; Start 07/15/18 at 03:00 Acetaminophen (Tylenol Liquid) 650 mg Q6H PRN PO PAIN LEVEL 1-3 OR FEVER; Start 07/15/18 at 03:00 Morphine Sulfate (morphine) 2 mg Q4H PRN IV PAIN LEVEL 7-10; Start 07/15/18 at 03:00 Pantoprazole (Protonix Iv) 40 mg DAILY@06 IV Last administered on 07/16/18 06:07; Admin Dose 40 MG; Start 07/15/18 at 06:00 Amlodipine Besylate (Norvasc) 5 mg DAILY PO Last administered on 07/15/18 11:45; Admin Dose 5 MG; Start 07/15/18 at 09:00 Aspirin (Halfprin) 81 mg DAILY PO Last administered on 07/15/18 11:45; Admin Dose 81 MG; Start 07/15/18 at 09:00 Atorvastatin Calcium (Lipitor) 10 mg QHS PO Last administered on 07/15/18 20:49; Admin Dose 10 MG; Start 07/15/18 at 21:00 Ferrous Sulfate (Ferrous Sulfate (Ec)) 325 mg TID PO Last administered on 07/15/18at 20:50; Admin Dose 325 MG; Start 07/15/18 at 09:00 Hydralazine HCl (Apresoline) 25 mg TID PO Last administered on 07/15/18at 20:49; Admin Dose 25 MG; Start 07/15/18 at 09:00 Insulin Glargine (Lantus) 22 units DAILY@2000 SC Last administered on 07/15/18at 20:55; Admin Dose 22 UNITS; Start 07/15/18 at 20:00 Epoetin Yannick-epbx (Retacrit (Non-Esrd)) 10,000 unit MoWeFr@1700 SC Last administered on 07/15/18at 17:04; Admin Dose 10,000 UNIT; Start 07/15/18 at 17:00 Miscellaneous Information 1 ea NOTE XX ; Start 07/15/18 at 08:30 Glucose (Glutose) 15 gm Q15M PRN PO DECREASED GLUCOSE; Start 07/15/18 at 08:30 Glucose (Glutose) 22.5 gm Q15M PRN PO DECREASED GLUCOSE; Start 07/15/18 at 08:30 Dextrose (D50w Syringe) 25 ml Q15M PRN IV DECREASED GLUCOSE; Start 07/15/18 at 08:30 Dextrose (D50w Syringe) 50 ml Q15M PRN IV DECREASED GLUCOSE; Start 07/15/18 at 08:30 Glucagon (Glucagen) 1 mg Q15M PRN IM DECREASED GLUCOSE; Start 07/15/18 at 08:30 Glucose (Glutose) 15 gm Q15M PRN BUCCAL DECREASED GLUCOSE; Start 07/15/18 at 08:30 Heparin Sodium (Porcine) (Heparin (1000 Units/ml)) 3,200 unit AFTER DIALYSIS PRN CATHETER heparin lock Last administered on 07/15/18at 11:42; Admin Dose 3,200 UNIT; Start 07/15/18 at 08:30 Albumin Human 100 ml @ 100 mls/hr DURING DIALYSIS PRN IV to prevent hypotension during ; Start 07/15/18 at 08:30 Piperacillin Sod/ Tazobactam Sod 50 ml @ 100 mls/hr BID IVPB Last administered on 07/15/18at 21:38; Admin Dose 100 MLS/HR; Start 07/15/18 at 14:00 BRANDIN ROCA MD Jul 16, 2018 07:14
[2018-07-16] MEDS: ASPIRIN (EC) 81 MG TAB PO SCH (08:06)
[2018-07-16] MEDS: AMLODIPINE 5 MG TAB PO SCH (08:07)
[2018-07-16] MEDS: PIPER-TAZO 2.25 GM (PMX) 50 ML IVPB SCH ×2 (08:07→20:58)
[2018-07-16] MEDS: FERROUS SULFATE (EC) 325 MG TAB PO SCH (08:07)
[2018-07-16] MEDS: HEPARIN 1000 UNITS/ML 10 ML INJ CATHETER PRN (14:09)
--- NOTE | 2018-07-16 14:54 | PN ---
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 A/P: 68 yo male with ESRD on HD, PAD wtih foot ulcers, DMII, hyperetsnion who present ed wtih acute respiratory failrue from pulmonary edeam Acute repsiratory failure: - Resolved following dialysis - O2 as needed - No evidence of pneumonia ESRD: - HD per renal Foot ulcers: - No evidence of OM on XR, management per podiatry, abx per ID Hypertension; - Hydralazine DMII: - Basal/bolus insulin Result Diagram: 07/16/1844907/16/18 0450 Results 24hrs Laboratory Tests Test 07/15/18 20:48 07/16/18 04:50 07/16/18 07:00 07/16/18 08:09 Bedside Glucose 93 138 White Blood Count 10.3 # Red Blood Count 2.20 L Hemoglobin 7.4 L Hematocrit 23.3 L Mean Corpuscular 105.9 H Volume Mean Corpuscular 33.6 H Hemoglobin Mean Corpuscular 31.8 L Hemoglobin Concent Red Cell 16.3 H Distribution Width Platelet Count 262 Mean Platelet 10.1 Volume Immature 0.600 H Granulocytes % Neutrophils % 35.3 L Lymphocytes % 12.0 L Monocytes % 50.8 H Eosinophils % 0.9 Basophils % 0.4 Nucleated Red 0.0 Blood Cells % Immature 0.060 H Granulocytes # Neutrophils # 3.6 Lymphocytes # 1.2 Monocytes # 5.2 H Eosinophils # 0.1 Basophils # 0.0 Nucleated Red 0.0 Blood Cells # Sodium Level 140 Potassium Level 4.2 Chloride Level 103 Carbon Dioxide 27 Level Anion Gap 10 Blood Urea 49 #H Nitrogen Creatinine 5.66 H Est Glomerular 10 L Filtrat Rate mL/min Glucose Level 53 #L Calcium Level 8.8 Total Bilirubin 0.3 Direct Bilirubin 0.00 Indirect Bilirubin 0.3 Aspartate Amino 20 Transf (AST/SGOT) Alanine 13 Aminotransferase ( ALT/SGPT) Alkaline 46 Phosphatase Total Protein 7.4 Albumin 3.4 Globulin 4.00 H Albumin/Globulin 0.85 Ratio Triglycerides 91 Level Cholesterol Level 123 LDL Cholesterol, 82 Calculated HDL Cholesterol 23 L Cholesterol/HDL 5.3 Ratio Procalcitonin 0.11 H Blood Gas Specimen Blood arterial Source Arterial Blood 07/16/2018 8:50:29 Date Drawn AM Arterial Blood pH 7.378 (Temp corrected) Arterial Blood 42.0 pCO2 (Temp correct) Arterial Blood pO2 52.7 *L (Temp corrected) Arterial Blood 24.2 HCO3 Arterial Blood -0.9 Base Excess Arterial Blood 85.4 L Oxygen Saturation Lonny Test ACCEPTAB Arterial Blood Gas Left Radial Puncture Site Arterial 0.3 Blood Carboxyhemog lobin Arterial Blood 0.4 Methemoglobin Blood Gas A-a O2 46.7 H Differential Oxyhemoglobin 84.8 L Percent Blood Gas 37.0 Temperature Blood Gas Modality ROOM AIR FiO2 21.0 Blood Gas Critical Value Read Back Blood Gas Notified Brooke Whom Blood Gas Notified 07/16/2018 8:59:06 Time AM Test 07/16/18 08:22 07/16/18 11:52 Bedside Glucose 111 Erythrocyte > 130 H Sedimentation Rate C-Reactive Protein 3.5 H Procalcitonin 0.10 Subjective 24 Hr Interval Summary Free Text/Dictation Breathing comfortably Exam/Review of Systems Exam Vitals Vital Signs Date Temp Pulse Resp B/P (MAP) Pulse Ox O2 O2 Flow FiO2 Time Delivery Rate 07/16/18 73 16 129/73 97 Nasal 4.0 13:48 (91) Cannula 07/16/18 97.4 11:59 07/16/18 45 04:52 Intake and Output 07/15/18 07/15/18 07/16/18 1515:00 23:00 07:00 IntakeIntake Total 60 ml 340 ml 120 ml OutputOutput Total 3995 ml 60 ml 35 ml BalanceBalance -3935 ml 280 ml 85 ml Constitutional: alert, oriented, well developed Psych: no complaints, nl mood/affect Head: normocephalic, atraumatic Eyes: nl conjunctiva, EOMI, nl lids, nl sclera, PERRL ENMT: nl external ears & nose, nl lips & teeth, nl nasal mucosa & septum Neck: supple, non-tender Respiratory: clear to auscultation, normal air movement Cardiovascular: regular rate and rhythm, nl pulses Gastrointestinal: soft, nl liver, spleen, non-tender Musculoskeletal: nl extremities to inspection, nl gait and stance Extremities: normal pulses 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, nl mental status, nl speech, nl strength Skin: nl turgor; No rash or lesions Lymph: nl lymph nodes Results Results 24hrs Laboratory Tests Test 07/15/18 20:48 07/16/18 04:50 07/16/18 07:00 07/16/18 08:09 Bedside Glucose 93 138 White Blood Count 10.3 # Red Blood Count 2.20 L Hemoglobin 7.4 L Hematocrit 23.3 L Mean Corpuscular 105.9 H Volume Mean Corpuscular 33.6 H Hemoglobin Mean Corpuscular 31.8 L Hemoglobin Concent Red Cell 16.3 H Distribution Width Platelet Count 262 Mean Platelet 10.1 Volume Immature 0.600 H Granulocytes % Neutrophils % 35.3 L Lymphocytes % 12.0 L Monocytes % 50.8 H Eosinophils % 0.9 Basophils % 0.4 Nucleated Red 0.0 Blood Cells % Immature 0.060 H Granulocytes # Neutrophils # 3.6 Lymphocytes # 1.2 Monocytes # 5.2 H Eosinophils # 0.1 Basophils # 0.0 Nucleated Red 0.0 Blood Cells # Sodium Level 140 Potassium Level 4.2 Chloride Level 103 Carbon Dioxide 27 Level Anion Gap 10 Blood Urea 49 #H Nitrogen Creatinine 5.66 H Est Glomerular 10 L Filtrat Rate mL/min Glucose Level 53 #L Calcium Level 8.8 Total Bilirubin 0.3 Direct Bilirubin 0.00 Indirect Bilirubin 0.3 Aspartate Amino 20 Transf (AST/SGOT) Alanine 13 Aminotransferase ( ALT/SGPT) Alkaline 46 Phosphatase Total Protein 7.4 Albumin 3.4 Globulin 4.00 H Albumin/Globulin 0.85 Ratio Triglycerides 91 Level Cholesterol Level 123 LDL Cholesterol, 82 Calculated HDL Cholesterol 23 L Cholesterol/HDL 5.3 Ratio Procalcitonin 0.11 H Blood Gas Specimen Blood arterial Source Arterial Blood 07/16/2018 8:50:29 Date Drawn AM Arterial Blood pH 7.378 (Temp corrected) Arterial Blood 42.0 pCO2 (Temp correct) Arterial Blood pO2 52.7 *L (Temp corrected) Arterial Blood 24.2 HCO3 Arterial Blood -0.9 Base Excess Arterial Blood 85.4 L Oxygen Saturation Lonny Test ACCEPTAB Arterial Blood Gas Left Radial Puncture Site Arterial 0.3 Blood Carboxyhemog lobin Arterial Blood 0.4 Methemoglobin Blood Gas A-a O2 46.7 H Differential Oxyhemoglobin 84.8 L Percent Blood Gas 37.0 Temperature Blood Gas Modality ROOM AIR FiO2 21.0 Blood Gas Critical Value Read Back Blood Gas Notified Brooke Whom Blood Gas Notified 07/16/2018 8:59:06 Time AM Test 07/16/18 08:22 07/16/18 11:52 Bedside Glucose 111 Erythrocyte > 130 H Sedimentation Rate C-Reactive Protein 3.5 H Procalcitonin 0.10 Medications Medication Current Medications Ondansetron HCl (Zofran Inj) 4 mg Q6H PRN IV NAUSEA AND/OR VOMITING; Start 07/15/18 at 03:00 Albuterol/ Ipratropium (Duoneb) 3 ml Q2H RESP THERAPY PRN NEB SHORTNESS OF BREATH; Start 07/15/18 at 03:00 Nitroglycerin (Nitroglycerin (Sl Tab) 0.4 Mg) 1 tab Q5M PRN SL CHEST PAIN; Sta rt 07/15/18 at 03:00 Acetaminophen (Tylenol Liquid) 650 mg Q6H PRN PO PAIN LEVEL 1-3 OR FEVER; Star t 07/15/18 at 03:00 Morphine Sulfate (morphine) 2 mg Q4H PRN IV PAIN LEVEL 7-10; Start 07/15/18 at 03:00 Pantoprazole (Protonix Iv) 40 mg DAILY@06 IV Last administered on 07/16/18at 06:07; Admin Dose 40 MG; Start 07/15/18 at 06:00 Amlodipine Besylate (Norvasc) 5 mg DAILY PO Last administered on 07/16/18at 08:07; Admin Dose 5 MG; Start 07/15/18 at 09:00 Aspirin (Halfprin) 81 mg DAILY PO Last administered on 07/16/18at 08:06; Admin Dose 81 MG; Start 07/15/18 at 09:00 Atorvastatin Calcium (Lipitor) 10 mg QHS PO Last administered on 07/15/18at 20:49; Admin Dose 10 MG; Start 07/15/18 at 21:00 Hydralazine HCl (Apresoline) 25 mg TID PO Last administered on 07/16/18at 08:07; Admin Dose 25 MG; Start 07/15/18 at 09:00 Insulin Glargine (Lantus) 22 units DAILY@2000 SC Last administered on 07/15/18at 20:55; Admin Dose 22 UNITS; Start 07/15/18 at 20:00 Epoetin Yannick-epbx (Retacrit (Non-Esrd)) 10,000 unit MoWeFr@1700 SC Last administered on 07/15/18at 17:04; Admin Dose 10,000 UNIT; Start 07/15/18 at 17:00 Miscellaneous Information 1 ea NOTE XX ; Start 07/15/18 at 08:30 Glucose (Glutose) 15 gm Q15M PRN PO DECREASED GLUCOSE; Start 07/15/18 at 08:30 Glucose (Glutose) 22.5 gm Q15M PRN PO DECREASED GLUCOSE; Start 07/15/18 at 08:30 Dextrose (D50w Syringe) 25 ml Q15M PRN IV DECREASED GLUCOSE; Start 07/15/18 at 08:30 Dextrose (D50w Syringe) 50 ml Q15M PRN IV DECREASED GLUCOSE Last administered on 07/16/18at 07:55; Admin Dose 50 ML; Start 07/15/18 at 08:30 Glucagon (Glucagen) 1 mg Q15M PRN IM DECREASED GLUCOSE; Start 07/15/18 at 08:30 Glucose (Glutose) 15 gm Q15M PRN BUCCAL DECREASED GLUCOSE; Start 07/15/18 at 08:30 Heparin Sodium (Porcine) (Heparin (1000 Units/ml)) 3,200 unit AFTER DIALYSIS PRN CATHETER heparin lock Last administered on 07/16/18at 14:09; Admin Dose 3,200 UNIT; Start 07/15/18 at 08:30 Albumin Human 100 ml @ 100 mls/hr DURING DIALYSIS PRN IV to prevent hypotension during ; Start 07/15/18 at 08:30 Piperacillin Sod/ Tazobactam Sod 50 ml @ 100 mls/hr BID IVPB Last administered on 07/16/18 08:07; Admin Dose 100 MLS/HR; Start 07/15/18 at 14:00 DMITRI SPAIN MD Jul 16, 2018 14:54
--- NOTE | 2018-07-16 15:58 | CONS ---
Consult Date/Type/Reason Admit Date/Time July 15, 2018 at 00:58 Initial Consult Date 07/15/18 Type of Consultation: Pulm Date/Time of Note DATE: 07/16/18 TIME: 15:56 Subjective No events. Objective Vitals Vital Signs Date Temp Pulse Resp B/P (MAP) Pulse Ox O2 O2 Flow FiO2 Time Delivery Rate 07/16/18 98.5 85 18 146/69 95 Nasal 15:32 (94) Cannula 07/16/18 4.0 13:48 07/16/18 45 04:52 Intake and Output 07/15/18 07/15/18 07/16/18 1515:00 23:00 07:00 IntakeIntake Total 60 ml 340 ml 120 ml OutputOutput Total 3995 ml 60 ml 35 ml BalanceBalance -3935 ml 280 ml 85 ml Exam NECK: Supple. No JVD or lymphadenopathy. CARDIAC: S1, S2. II/ systolic ejection murmur. CHEST: Diminished air entry bilaterally. ABDOMEN: Soft, nontender. No guarding or rebound. EXTREMITIES: No cyanosis, clubbing, edema. NEUROLOGIC: Grossly intact. No focal deficits. Results/Medications Result Diagram: 07/16/18 0450 07/16/18 0450 Results 24 hrs Laboratory Tests Test 07/15/18 20:48 07/16/18 04:50 07/16/18 07:00 07/16/18 08:09 Bedside Glucose 93 138 White Blood Count 10.3 # Red Blood Count 2.20 L Hemoglobin 7.4 L Hematocrit 23.3 L Mean Corpuscular 105.9 H Volume Mean Corpuscular 33.6 H Hemoglobin Mean Corpuscular 31.8 L Hemoglobin Concent Red Cell 16.3 H Distribution Width Platelet Count 262 Mean Platelet 10.1 Volume Immature 0.600 H Granulocytes % Neutrophils % 35.3 L Lymphocytes % 12.0 L Monocytes % 50.8 H Eosinophils % 0.9 Basophils % 0.4 Nucleated Red 0.0 Blood Cells % Immature 0.060 H Granulocytes # Neutrophils # 3.6 Lymphocytes # 1.2 Monocytes # 5.2 H Eosinophils # 0.1 Basophils # 0.0 Nucleated Red 0.0 Blood Cells # Sodium Level 140 Potassium Level 4.2 Chloride Level 103 Carbon Dioxide 27 Level Anion Gap 10 Blood Urea 49 #H Nitrogen Creatinine 5.66 H Est Glomerular 10 L Filtrat Rate mL/min Glucose Level 53 #L Calcium Level 8.8 Total Bilirubin 0.3 Direct Bilirubin 0.00 Indirect Bilirubin 0.3 Aspartate Amino 20 Transf (AST/SGOT) Alanine 13 Aminotransferase ( ALT/SGPT) Alkaline 46 Phosphatase Total Protein 7.4 Albumin 3.4 Globulin 4.00 H Albumin/Globulin 0.85 Ratio Triglycerides 91 Level Cholesterol Level 123 LDL Cholesterol, 82 Calculated HDL Cholesterol 23 L Cholesterol/HDL 5.3 Ratio Procalcitonin 0.11 H Blood Gas Specimen Blood arterial Source Arterial Blood 07/16/2018 8:50:29 Date Drawn AM Arterial Blood pH 7.378 (Temp corrected) Arterial Blood 42.0 pCO2 (Temp correct) Arterial Blood pO2 52.7 *L (Temp corrected) Arterial Blood 24.2 HCO3 Arterial Blood -0.9 Base Excess Arterial Blood 85.4 L Oxygen Saturation Lonny Test ACCEPTAB Arterial Blood Gas Left Radial Puncture Site Arterial 0.3 Blood Carboxyhemog lobin Arterial Blood 0.4 Methemoglobin Blood Gas A-a O2 46.7 H Differential Oxyhemoglobin 84.8 L Percent Blood Gas 37.0 Temperature Blood Gas Modality ROOM AIR FiO2 21.0 Blood Gas Critical Value Read Back Blood Gas Notified Brooke Whom Blood Gas Notified 07/16/2018 8:59:06 Time AM Test 07/16/18 08:22 07/16/18 11:52 Bedside Glucose 111 Erythrocyte > 130 H Sedimentation Rate C-Reactive Protein 3.5 H Procalcitonin 0.10 Home Meds Active Scripts Ferrous Sulfate* (Ferrous Sulfate*) 325 Mg Tabec, 325 MG PO TID for 30 Days, TAB Prov:BISI MCINTYRE V. CLASSIFIED AD CLERK 01/04/18 Glipizide* (Glipizide*) 5 Mg Tablet, 2.5 MG PO AC BREAKFAST, #30 TAB Prov:MCINTYREBISI V. CLASSIFIED AD CLERK 01/04/18 Hydralazine Hcl* (Hydralazine Hcl*) 25 Mg Tab, 25 MG PO TID, #90 TAB Prov:BISI MCINTYRE V. CLASSIFIED AD CLERK 01/04/18 Amlodipine Besylate* (Amlodipine Besylate*) 5 Mg Tablet, 5 MG PO DAILY, #30 TAB Prov:BISI MCINTYRE V. CLASSIFIED AD CLERK 01/04/18 Meropenem (Merrem) 1 Gm Vial, 500 MCG IV Q12 for 42 Days, VIAL Prov:BISI MCINTYRE V. CLASSIFIED AD CLERK 01/04/18 Epoetin nayely* (Epogen*) 3,000 Unit/1 Ml Vial, 6000 UNITS SC TuThSa@17 for 30 Days, VIAL Prov:BISI MCINTRYE V. CLASSIFIED AD CLERK 01/04/18 Ceftriaxone Na/Dextrose,Iso (Ceftriaxone 1 gm Piggyback) 1 Gm/50 Ml Froz.piggy, 1 GM IV Q12 for 42 Days Prov:BISI MCINTYRE V. CLASSIFIED AD CLERK 01/04/18 Hydrocodone Bit-Acetaminophen (Hydrocodone Bit-APAP) 5-325MG Tablet, 1 TAB PO Q6H PRN for MODERATE PAIN LEVEL 4-6 for 30 Days, TAB Prov:TIANNA ABARCAFlaquito . 12/02/17 Gabapentin* (Gabapentin*) 300 Mg Capsule, 300 MG PO BID, #60 CAP Prov:EVAN ABARCACAROMONT HEALTHFlaquito 11/12/17 [Insulin Glargine] 100 UNITS/ML SOLN No Conflict Check, 22 UNITS SC DAILY@1999 for 10 Days Prov:TIANNA ABARCAFlaquito Van 11/12/17 Clopidogrel Bisulfate (Clopidogrel) 75 Mg Tablet, 75 MG PO DAILY for 10 Days, #10 TAB Prov:MARIA E ABARCA 11/12/17 Reported Medications Aspirin (Low Dose Aspirin) 81 Mg Tablet.dr, 81 MG PO DAILY, #30 TAB 11/07/17 Atorvastatin Calcium (Atorvastatin Calcium) 10 Mg Tablet, 10 MG PO QHS, #30 TAB 11/07/17 Medications Current Medications Ondansetron HCl (Zofran Inj) 4 mg Q6H PRN IV NAUSEA AND/OR VOMITING; Start 07/15/18 at 03:00 Albuterol/ Ipratropium (Duoneb) 3 ml Q2H RESP THERAPY PRN NEB SHORTNESS OF BREATH; Start 07/15/18 at 03:00 Nitroglycerin (Nitroglycerin (Sl Tab) 0.4 Mg) 1 tab Q5M PRN SL CHEST PAIN; Start 07/15/18 at 03:00 Acetaminophen (Tylenol Liquid) 650 mg Q6H PRN PO PAIN LEVEL 1-3 OR FEVER; Start 07/15/18 at 03:00 Morphine Sulfate (morphine) 2 mg Q4H PRN IV PAIN LEVEL 7-10; Start 07/15/18 at 03:00 Pantoprazole (Protonix Iv) 40 mg DAILY@06 IV Last administered on 07/16/18at 06:07; Admin Dose 40 MG; Start 07/15/18 at 06:00 Amlodipine Besylate (Norvasc) 5 mg DAILY PO Last administered on 07/16/18at 08:07; Admin Dose 5 MG; Start 07/15/18 at 09:00 Aspirin (Halfprin) 81 mg DAILY PO Last administered on 07/16/18at 08:06; Admin Dose 81 MG; Start 07/15/18 at 09:00 Atorvastatin Calcium (Lipitor) 10 mg QHS PO Last administered on 07/15/18at 20:49; Admin Dose 10 MG; Start 07/15/18 at 21:00 Hydralazine HCl (Apresoline) 25 mg TID PO Last administered on 07/16/18at 08:07; Admin Dose 25 MG; Start 07/15/18 at 09:00 Insulin Glargine (Lantus) 22 units DAILY@2000 SC Last administered on 07/15/18at 20:55; Admin Dose 22 UNITS; Start 07/15/18 at 20:00 Epoetin Nayely-epbx (Retacrit (Non-Esrd)) 10,000 unit MoWeFr@1700 SC Last administered on 07/15/18at 17:04; Admin Dose 10,000 UNIT; Start 07/15/18 at 17:00 Miscellaneous Information 1 ea NOTE XX ; Start 07/15/18 at 08:30 Glucose (Glutose) 15 gm Q15M PRN PO DECREASED GLUCOSE; Start 07/15/18 at 08:30 Glucose (Glutose) 22.5 gm Q15M PRN PO DECREASED GLUCOSE; Start 07/15/18 at 08:30 Dextrose (D50w Syringe) 25 ml Q15M PRN IV DECREASED GLUCOSE; Start 07/15/18 at 08:30 Dextrose (D50w Syringe) 50 ml Q15M PRN IV DECREASED GLUCOSE Last administered on 07/16/18at 07:55; Admin Dose 50 ML; Start 07/15/18 at 08:30 Glucagon (Glucagen) 1 mg Q15M PRN IM DECREASED GLUCOSE; Start 07/15/18 at 08:30 Glucose (Glutose) 15 gm Q15M PRN BUCCAL DECREASED GLUCOSE; Start 07/15/18 at 08:30 Heparin Sodium (Porcine) (Heparin (1000 Units/ml)) 3,200 unit AFTER DIALYSIS PRN CATHETER heparin lock Last administered on 07/16/18at 14:09; Admin Dose 3,200 UNIT; Start 07/15/18 at 08:30 Albumin Human 100 ml @ 100 mls/hr DURING DIALYSIS PRN IV to prevent hypotension during ; Start 07/15/18 at 08:30 Piperacillin Sod/ Tazobactam Sod 50 ml @ 100 mls/hr BID IVPB Last administered on 07/16/18at 08:07; Admin Dose 100 MLS/HR; Start 07/15/18 at 14:00 Assessment/Plan Assessment/Plan (Daily) IMP: 1. Chronic lower extremity wounds with infection. 2. Diabetes mellitus. 3. Volume overload with acute hypoxemic respiratory failure--improved s/p HD/UF 4. DM. RECS: 1. RA ABG noted 2. Needs more UF 3. Titrate FiO2 4. Would care KHADIJAH EM MD Jul 16, 2018 15:58
--- NOTE | 2018-07-16 16:28 | CONS ---
Assessment/Plan Assessment/Plan Assessment/Plan (Daily) 68 yo male with ESRD on HD, PAD wtih foot ulcers, DMII, hypertension who presented wtih acute respiratory failrue from pulmonary edema ESRD: - HD per renal -Acute respiratory failure: - Resolved following dialysis - O2 as needed - No evidence of pneumonia - Anemia of chronic disease- Hgb 7.4 today Foot ulcers: - No evidence of OM on XR, management per podiatry, abx per ID Hypertension; - Hydralazine -DM type 2 - Glycemic control - PER PMD Patient seen in collaboration with Dr Fidencio Lala Consultation Date/Type/Reason Admit Date/Time July 15, 2018 at 00:58 Initial Consult Date 07/15/18 Type of Consult NEPHROLOGY Reason for Consultation ESRD Date/Time of Note DATE: 07/16/18 TIME: 16:20 24 HR Interval Summary Constitutional: requiring O2 Detailed Summary Eyes: no complaints ENT: no complaints Respiratory: shortness of breath (on exertion) Cardiovascular: no complaints Gastrointestinal: no complaints Genitourinary: no complaints Musculoskeletal: other (general wakness) Skin: no complaints Psychological: nl mood/affect Exam/Review of Systems Exam Vitals Vital Signs Date Temp Pulse Resp B/P (MAP) Pulse Ox O2 O2 Flow FiO2 Time Delivery Rate 07/16/18 98.5 85 18 146/69 95 Nasal 15:32 (94) Cannula 07/16/18 4.0 13:48 07/16/18 45 04:52 Intake and Output 07/15/18 07/15/18 07/16/18 1515:00 23:00 07:00 IntakeIntake Total 60 ml 340 ml 120 ml OutputOutput Total 3995 ml 60 ml 35 ml BalanceBalance -3935 ml 280 ml 85 ml Constitutional: alert, oriented, well developed Psych: nl mood/affect Head: normocephalic Eyes: nl lids, nl sclera ENMT: nl external ears & nose Neck: non-tender, bruits Respiratory: diminished breath sounds Cardiovascular: nl pulses, other Gastrointestinal: soft Musculoskeletal: muscle weakness Extremities: normal pulses Neurological: other Lymph: nontender Results Result Diagram: 07/16/18 0450 07/16/18 0450 Results 24hrs Laboratory Tests Test 07/15/18 20:48 07/16/18 04:50 07/16/18 07:00 07/16/18 08:09 Bedside Glucose 93 138 White Blood Count 10.3 # Red Blood Count 2.20 L Hemoglobin 7.4 L Hematocrit 23.3 L Mean Corpuscular 105.9 H Volume Mean Corpuscular 33.6 H Hemoglobin Mean Corpuscular 31.8 L Hemoglobin Concent Red Cell 16.3 H Distribution Width Platelet Count 262 Mean Platelet 10.1 Volume Immature 0.600 H Granulocytes % Neutrophils % 35.3 L Lymphocytes % 12.0 L Monocytes % 50.8 H Eosinophils % 0.9 Basophils % 0.4 Nucleated Red 0.0 Blood Cells % Immature 0.060 H Granulocytes # Neutrophils # 3.6 Lymphocytes # 1.2 Monocytes # 5.2 H Eosinophils # 0.1 Basophils # 0.0 Nucleated Red 0.0 Blood Cells # Sodium Level 140 Potassium Level 4.2 Chloride Level 103 Carbon Dioxide 27 Level Anion Gap 10 Blood Urea 49 #H Nitrogen Creatinine 5.66 H Est Glomerular 10 L Filtrat Rate mL/min Glucose Level 53 #L Calcium Level 8.8 Total Bilirubin 0.3 Direct Bilirubin 0.00 Indirect Bilirubin 0.3 Aspartate Amino 20 Transf (AST/SGOT) Alanine 13 Aminotransferase ( ALT/SGPT) Alkaline 46 Phosphatase Total Protein 7.4 Albumin 3.4 Globulin 4.00 H Albumin/Globulin 0.85 Ratio Triglycerides 91 Level Cholesterol Level 123 LDL Cholesterol, 82 Calculated HDL Cholesterol 23 L Cholesterol/HDL 5.3 Ratio Procalcitonin 0.11 H Blood Gas Specimen Blood arterial Source Arterial Blood 07/16/2018 8:50:29 Date Drawn AM Arterial Blood pH 7.378 (Temp corrected) Arterial Blood 42.0 pCO2 (Temp correct) Arterial Blood pO2 52.7 *L (Temp corrected) Arterial Blood 24.2 HCO3 Arterial Blood -0.9 Base Excess Arterial Blood 85.4 L Oxygen Saturation Lonny Test ACCEPTAB Arterial Blood Gas Left Radial Puncture Site Arterial 0.3 Blood Carboxyhemog lobin Arterial Blood 0.4 Methemoglobin Blood Gas A-a O2 46.7 H Differential Oxyhemoglobin 84.8 L Percent Blood Gas 37.0 Temperature Blood Gas Modality ROOM AIR FiO2 21.0 Blood Gas Critical Value Read Back Blood Gas Luied Brooke Riggs Blood Gas Notified 07/16/2018 8:59:06 Time AM Test 07/16/18 08:22 07/16/18 11:52 Bedside Glucose 111 Erythrocyte > 130 H Sedimentation Rate C-Reactive Protein 3.5 H Procalcitonin 0.10 Medications Medication Current Medications Ondansetron HCl (Zofran Inj) 4 mg Q6H PRN IV NAUSEA AND/OR VOMITING; Start 07/15/18 at 03:00 Albuterol/ Ipratropium (Duoneb) 3 ml Q2H RESP THERAPY PRN NEB SHORTNESS OF BREATH; Start 07/15/18 at 03:00 Nitroglycerin (Nitroglycerin (Sl Tab) 0.4 Mg) 1 tab Q5M PRN SL CHEST PAIN; Start 07/15/18 at 03:00 Acetaminophen (Tylenol Liquid) 650 mg Q6H PRN PO PAIN LEVEL 1-3 OR FEVER; Start 07/15/18 at 03:00 Morphine Sulfate (morphine) 2 mg Q4H PRN IV PAIN LEVEL 7-10; Start 07/15/18 at 03:00 Pantoprazole (Protonix Iv) 40 mg DAILY@06 IV Last administered on 07/16/18 06:07; Admin Dose 40 MG; Start 07/15/18 at 06:00 Amlodipine Besylate (Norvasc) 5 mg DAILY PO Last administered on 07/16/18 08:07; Admin Dose 5 MG; Start 07/15/18 at 09:00 Aspirin (Halfprin) 81 mg DAILY PO Last administered on 07/16/18 08:06; Admin Dose 81 MG; Start 07/15/18 at 09:00 Atorvastatin Calcium (Lipitor) 10 mg QHS PO Last administered on 07/15/18at 20:49; Admin Dose 10 MG; Start 07/15/18 at 21:00 Hydralazine HCl (Apresoline) 25 mg TID PO Last administered on 07/16/18at 08:07; Admin Dose 25 MG; Start 07/15/18 at 09:00 Insulin Glargine (Lantus) 22 units DAILY@2000 SC Last administered on 07/15/18at 20:55; Admin Dose 22 UNITS; Start 07/15/18 at 20:00 Epoetin Yannick-epbx (Retacrit (Non-Esrd)) 10,000 unit MoWeFr@1700 SC Last administered on 07/15/18at 17:04; Admin Dose 10,000 UNIT; Start 07/15/18 at 17:00 Miscellaneous Information 1 ea NOTE XX ; Start 07/15/18 at 08:30 Glucose (Glutose) 15 gm Q15M PRN PO DECREASED GLUCOSE; Start 07/15/18 at 08:30 Glucose (Glutose) 22.5 gm Q15M PRN PO DECREASED GLUCOSE; Start 07/15/18 at 08:30 Dextrose (D50w Syringe) 25 ml Q15M PRN IV DECREASED GLUCOSE; Start 07/15/18 at 08:30 Dextrose (D50w Syringe) 50 ml Q15M PRN IV DECREASED GLUCOSE Last administered on 07/16/18at 07:55; Admin Dose 50 ML; Start 07/15/18 at 08:30 Glucagon (Glucagen) 1 mg Q15M PRN IM DECREASED GLUCOSE; Start 07/15/18 at 08:30 Glucose (Glutose) 15 gm Q15M PRN BUCCAL DECREASED GLUCOSE; Start 07/15/18 at 08:30 Heparin Sodium (Porcine) (Heparin (1000 Units/ml)) 3,200 unit AFTER DIALYSIS PRN CATHETER heparin lock Last administered on 07/16/18at 14:09; Admin Dose 3,200 UNIT; Start 07/15/18 at 08:30 Albumin Human 100 ml @ 100 mls/hr DURING DIALYSIS PRN IV to prevent hypotension during ; Start 07/15/18 at 08:30 Piperacillin Sod/ Tazobactam Sod 50 ml @ 100 mls/hr BID IVPB Last administered on 07/16/18at 08:07; Admin Dose 100 MLS/HR; Start 07/15/18 at 14:00 GEOVANNA PRINCE Jul 16, 2018 16:28
[2018-07-16] MEDS: ATORVASTATIN 10 MG TAB PO SCH (20:58)
[2018-07-16] MEDS: INSULIN GLARGINE [LANTus] (100 UNITS/ML) SYG SC SCH (20:58)
[2018-07-17] VITALS (36 sets, daily range): BP systolic 127–174; BP diastolic 68–98; PULSE 58–127; RESP 18–20
[2018-07-17] MEDS: PANTOPRAZOLE 40 MG INJ IV SCH (06:10)
[2018-07-17] MEDS ORDERED: SOD CHLORIDE 0.9% 250 ML IV* ONE (06:42)
[2018-07-17] MEDS: ASPIRIN (EC) 81 MG TAB PO SCH (08:48)
[2018-07-17] MEDS: PIPER-TAZO 2.25 GM (PMX) 50 ML IVPB SCH ×2 (08:49→20:49)
[2018-07-17] MEDS: AMLODIPINE 5 MG TAB PO SCH (08:49)
--- NOTE | 2018-07-17 09:46 | CONS ---
Assessment/Plan Assessment/Plan Assessment/Plan (Daily) 68 yo male with ESRD on HD, PAD wtih foot ulcers, DMII, hyperetsnion who presented wtih acute respiratory failrue from pulmonary edeam Anemia of Chronic disease - Hgb 6.9 today- will get 1 unit PRBC today - monitor CBC am ESRD: - HD on Sat -Acute respiratory failure: - Resolved following dialysis - O2 as needed - No evidence of pneumonia Foot ulcers: - No evidence of OM on XR, management per podiatry, abx per ID Hypertension; - Hydralazine -DMII - per PMD Patient seen in collaboration with Dr Fidencio Barber . Consultation Date/Type/Reason Admit Date/Time July 15, 2018 at 00:58 Initial Consult Date 07/15/18 Date/Time of Note DATE: 07/17/18 TIME: 09:35 24 HR Interval Summary Free Text/Dictation -c/o shortness of breath- remains on BIPAP -Hg 6.9 today- will get transfusion - Plan for HD am earlier; will get HD today 2/2 shortness of breathe and patient needed BIPAP more than usual dw stafft Constitutional: requiring O2 Detailed Summary Eyes: no complaints, pain Respiratory: shortness of breath Cardiovascular: no complaints Gastrointestinal: no complaints Genitourinary: no complaints Neurologic: no complaints Psychological: nl mood/affect Exam/Review of Systems Exam Vitals Vital Signs Date Temp Pulse Resp B/P (MAP) Pulse Ox O2 O2 Flow FiO2 Time Delivery Rate 07/17/18 80 08:06 07/17/18 Nasal 4.0 07:55 Cannula 07/17/18 98.0 18 153/98 98 07:54 (116) 07/17/18 45 05:01 Intake and Output 07/16/18 07/16/18 07/17/18 1515:00 23:00 07:00 IntakeIntake Total 710 ml 180 ml OutputOutput Total 2900 ml BalanceBalance -2900 ml 710 ml 180 ml Constitutional: alert, well developed Psych: nl mood/affect Head: normocephalic Eyes: nl lids ENMT: nl external ears & nose Neck: non-tender Respiratory: diminished breath sounds Cardiovascular: nl pulses, other (s1s2) Gastrointestinal: soft, non-tender Musculoskeletal: muscle weakness Extremities: normal pulses Neurological: nl speech, other (alert/responsive) Lymph: nontender Results Result Diagram: 07/17/18 0519 07/17/18 0519 Results 24hrs Laboratory Tests Test 07/16/18 11:52 07/16/18 21:09 07/17/18 05:19 Erythrocyte Sedimentation Rate > 130 H C-Reactive Protein 3.5 H Procalcitonin 0.10 Bedside Glucose 152 White Blood Count 9.4 Red Blood Count 2.05 L Hemoglobin 6.9 *L Hematocrit 21.6 L Mean Corpuscular Volume 105.4 H Mean Corpuscular Hemoglobin 33.7 H Mean Corpuscular Hemoglobin Concent 31.9 L Red Cell Distribution Width 16.0 H Platelet Count 242 Mean Platelet Volume 10.6 H Immature Granulocytes % 0.500 H Neutrophils % 35.3 L Lymphocytes % 14.2 L Monocytes % 49.0 H Eosinophils % 0.7 Basophils % 0.3 Nucleated Red Blood Cells % 0.0 Immature Granulocytes # 0.050 H Neutrophils # 3.3 Lymphocytes # 1.3 Monocytes # 4.6 H Eosinophils # 0.1 Basophils # 0.0 Nucleated Red Blood Cells # 0.0 Sodium Level 139 Potassium Level 3.8 Chloride Level 101 Carbon Dioxide Level 28 Anion Gap 10 Blood Urea Nitrogen 38 #H Creatinine 4.58 #H Est Glomerular Filtrat Rate mL/min 13 L Glucose Level 107 # Calcium Level 8.5 Total Bilirubin 0.2 Direct Bilirubin 0.00 Indirect Bilirubin 0.2 Aspartate Amino Transf (AST/SGOT) 17 Alanine Aminotransferase (ALT/SGPT) 15 Alkaline Phosphatase 42 Total Protein 7.0 Albumin 3.1 L Globulin 3.90 H Albumin/Globulin Ratio 0.79 Medications Medication Current Medications Ondansetron HCl (Zofran Inj) 4 mg Q6H PRN IV NAUSEA AND/OR VOMITING; Start 07/15/18 at 03:00 Albuterol/ Ipratropium (Duoneb) 3 ml Q2H RESP THERAPY PRN NEB SHORTNESS OF BREATH; Start 07/15/18 at 03:00 Nitroglycerin (Nitroglycerin (Sl Tab) 0.4 Mg) 1 tab Q5M PRN SL CHEST PAIN; Start 07/15/18 at 03:00 Acetaminophen (Tylenol Liquid) 650 mg Q6H PRN PO PAIN LEVEL 1-3 OR FEVER; Start 07/15/18 at 03:00 Morphine Sulfate (morphine) 2 mg Q4H PRN IV PAIN LEVEL 7-10; Start 07/15/18 at 03:00 Pantoprazole (Protonix Iv) 40 mg DAILY@06 IV Last administered on 07/17/18at 06:10; Admin Dose 40 MG; Start 07/15/18 at 06:00 Amlodipine Besylate (Norvasc) 5 mg DAILY PO Last administered on 07/17/18at 08:49; Admin Dose 5 MG; Start 07/15/18 at 09:00 Aspirin (Halfprin) 81 mg DAILY PO Last administered on 07/17/18at 08:48; Admin Dose 81 MG; Start 07/15/18 at 09:00 Atorvastatin Calcium (Lipitor) 10 mg QHS PO Last administered on 07/16/18at 20:58; Admin Dose 10 MG; Start 07/15/18 at 21:00 Hydralazine HCl (Apresoline) 25 mg TID PO Last administered on 07/17/18at 08:49; Admin Dose 25 MG; Start 07/15/18 at 09:00 Insulin Glargine (Lantus) 22 units DAILY@2000 SC Last administered on 07/15/18at 20:55; Admin Dose 22 UNITS; Start 07/15/18 at 20:00 Epoetin Yannick-epbx (Retacrit (Non-Esrd)) 10,000 unit MoWeFr@1700 SC Last administered on 07/15/18at 17:04; Admin Dose 10,000 UNIT; Start 07/15/18 at 17:00 Miscellaneous Information 1 ea NOTE XX ; Start 07/15/18 at 08:30 Glucose (Glutose) 15 gm Q15M PRN PO DECREASED GLUCOSE; Start 07/15/18 at 08:30 Glucose (Glutose) 22.5 gm Q15M PRN PO DECREASED GLUCOSE; Start 07/15/18 at 08:30 Dextrose (D50w Syringe) 25 ml Q15M PRN IV DECREASED GLUCOSE; Start 07/15/18 at 08:30 Dextrose (D50w Syringe) 50 ml Q15M PRN IV DECREASED GLUCOSE Last administered on 07/16/18at 07:55; Admin Dose 50 ML; Start 07/15/18 at 08:30 Glucagon (Glucagen) 1 mg Q15M PRN IM DECREASED GLUCOSE; Start 07/15/18 at 08:30 Glucose (Glutose) 15 gm Q15M PRN BUCCAL DECREASED GLUCOSE; Start 07/15/18 at 08:30 Heparin Sodium (Porcine) (Heparin (1000 Units/ml)) 3,200 unit AFTER DIALYSIS PRN CATHETER heparin lock Last administered on 07/16/18at 14:09; Admin Dose 3,200 UNIT; Start 07/15/18 at 08:30 Albumin Human 100 ml @ 100 mls/hr DURING DIALYSIS PRN IV to prevent hypotension during ; Start 07/15/18 at 08:30 Piperacillin Sod/ Tazobactam Sod 50 ml @ 100 mls/hr BID IVPB Last administered on 07/17/18at 08:49; Admin Dose 100 MLS/HR; Start 07/15/18 at 14:00 GEOVANNA PRINCE Jul 17, 2018 09:46
[2018-07-17] MEDS: ALBUTEROL/IPRATROPIUM (NEB) 3 ML AMP NEB PRN ×2 (12:57→23:24)
--- NOTE | 2018-07-17 13:16 | PN ---
Date/Time of Note Date/Time of Note DATE: 07/17/18 TIME: 13:15 Assessment/Plan VTE Prophylaxis Risk score (from Nsg)>0 risk: 6 SCD applied (from Nsg): Yes Pharmacological prophylaxis: heparin Lines/Catheters IV Catheter Type (from Nrsg): Saline Lock Urinary Cath still in place: No Assessment/Plan Hospital Course NAd aoX3 + jvd Mild tachypnea but nonlabored RRR CTAB Soft nt nd L foot with mid foot amputation A/P: 68 yo male with ESRD on HD, PAD wtih foot ulcers, DMII, hyperetsnion who presented wtih acute respiratory failrue from pulmonary edeam Acute repsiratory failure: - Requires further dialysis. I have contacted Dr Barber who will dialyze again today - O2 as needed - No evidence of pneumonia Anemia of CKD: - Hold off on blood transfusion for now as I would like to avoid further volume given respiratory failure. Will address anemia when euvolemic ESRD: - HD per renal Foot ulcers: - No evidence of OM on XR, management per podiatry, abx per ID Hypertension; - Hydralazine DMII: - Basal/bolus insulin Result Diagram: 07/17/1851807/17/18518 Results 24hrs Laboratory Tests Test 07/16/18 21:09 07/17/18 05:19 Bedside Glucose 152 White Blood Count 9.4 Red Blood Count 2.05 L Hemoglobin 6.9 *L Hematocrit 21.6 L Mean Corpuscular Volume 105.4 H Mean Corpuscular Hemoglobin 33.7 H Mean Corpuscular Hemoglobin Concent 31.9 L Red Cell Distribution Width 16.0 H Platelet Count 242 Mean Platelet Volume 10.6 H Immature Granulocytes % 0.500 H Neutrophils % 35.3 L Lymphocytes % 14.2 L Monocytes % 49.0 H Eosinophils % 0.7 Basophils % 0.3 Nucleated Red Blood Cells % 0.0 Immature Granulocytes # 0.050 H Neutrophils # 3.3 Lymphocytes # 1.3 Monocytes # 4.6 H Eosinophils # 0.1 Basophils # 0.0 Nucleated Red Blood Cells # 0.0 Sodium Level 139 Potassium Level 3.8 Chloride Level 101 Carbon Dioxide Level 28 Anion Gap 10 Blood Urea Nitrogen 38 #H Creatinine 4.58 #H Est Glomerular Filtrat Rate mL/min 13 L Glucose Level 107 # Calcium Level 8.5 Total Bilirubin 0.2 Direct Bilirubin 0.00 Indirect Bilirubin 0.2 Aspartate Amino Transf (AST/SGOT) 17 Alanine Aminotransferase (ALT/SGPT) 15 Alkaline Phosphatase 42 Total Protein 7.0 Albumin 3.1 L Globulin 3.90 H Albumin/Globulin Ratio 0.79 Subjective 24 Hr Interval Summary Free Text/Dictation Remains hypoxic and had respiratory distress requiring BIPAP. New plan for HD later today Exam/Review of Systems Exam Vitals Vital Signs Date Temp Pulse Resp B/P (MAP) Pulse Ox O2 O2 Flow FiO2 Time Delivery Rate 07/17/18 88 22 97 Nasal 80 12:57 Cannula 07/17/18 98.0 172/87 12:12 (115) 07/17/18 4.0 08:30 Intake and Output 07/16/18 07/16/18 07/17/18 1515:00 23:00 07:00 IntakeIntake Total 710 ml 180 ml OutputOutput Total 2900 ml BalanceBalance -2900 ml 710 ml 180 ml Results Results 24hrs Laboratory Tests Test 07/16/18 21:09 07/17/18 05:19 Bedside Glucose 152 White Blood Count 9.4 Red Blood Count 2.05 L Hemoglobin 6.9 *L Hematocrit 21.6 L Mean Corpuscular Volume 105.4 H Mean Corpuscular Hemoglobin 33.7 H Mean Corpuscular Hemoglobin Concent 31.9 L Red Cell Distribution Width 16.0 H Platelet Count 242 Mean Platelet Volume 10.6 H Immature Granulocytes % 0.500 H Neutrophils % 35.3 L Lymphocytes % 14.2 L Monocytes % 49.0 H Eosinophils % 0.7 Basophils % 0.3 Nucleated Red Blood Cells % 0.0 Immature Granulocytes # 0.050 H Neutrophils # 3.3 Lymphocytes # 1.3 Monocytes # 4.6 H Eosinophils # 0.1 Basophils # 0.0 Nucleated Red Blood Cells # 0.0 Sodium Level 139 Potassium Level 3.8 Chloride Level 101 Carbon Dioxide Level 28 Anion Gap 10 Blood Urea Nitrogen 38 #H Creatinine 4.58 #H Est Glomerular Filtrat Rate mL/min 13 L Glucose Level 107 # Calcium Level 8.5 Total Bilirubin 0.2 Direct Bilirubin 0.00 Indirect Bilirubin 0.2 Aspartate Amino Transf (AST/SGOT) 17 Alanine Aminotransferase (ALT/SGPT) 15 Alkaline Phosphatase 42 Total Protein 7.0 Albumin 3.1 L Globulin 3.90 H Albumin/Globulin Ratio 0.79 Medications Medication Current Medications Ondansetron HCl (Zofran Inj) 4 mg Q6H PRN IV NAUSEA AND/OR VOMITING; Start 07/15/18 at 03:00 Albuterol/ Ipratropium (Duoneb) 3 ml Q2H RESP THERAPY PRN NEB SHORTNESS OF BREATH Last administered on 07/17/18 12:57; Admin Dose 3 ML; Start 07/15/18 at 03:00 Nitroglycerin (Nitroglycerin (Sl Tab) 0.4 Mg) 1 tab Q5M PRN SL CHEST PAIN; Start 07/15/18 at 03:00 Acetaminophen (Tylenol Liquid) 650 mg Q6H PRN PO PAIN LEVEL 1-3 OR FEVER; Start 07/15/18 at 03:00 Morphine Sulfate (morphine) 2 mg Q4H PRN IV PAIN LEVEL 7-10; Start 07/15/18 at 03:00 Pantoprazole (Protonix Iv) 40 mg DAILY@06 IV Last administered on 07/17/18 06:10; Admin Dose 40 MG; Start 07/15/18 at 06:00 Amlodipine Besylate (Norvasc) 5 mg DAILY PO Last administered on 07/17/18 08:49; Admin Dose 5 MG; Start 07/15/18 at 09:00 Aspirin (Halfprin) 81 mg DAILY PO Last administered on 07/17/18 08:48; Admin Dose 81 MG; Start 07/15/18 at 09:00 Atorvastatin Calcium (Lipitor) 10 mg QHS PO Last administered on 07/16/18 20:58; Admin Dose 10 MG; Start 07/15/18 at 21:00 Hydralazine HCl (Apresoline) 25 mg TID PO Last administered on 07/17/18 08:49; Admin Dose 25 MG; Start 07/15/18 at 09:00 Insulin Glargine (Lantus) 22 units DAILY@2000 SC Last administered on 07/15/18 20:55; Admin Dose 22 UNITS; Start 07/15/18 at 20:00 Epoetin Yannick-epbx (Retacrit (Non-Esrd)) 10,000 unit MoWeFr@1700 SC Last administered on 07/15/18 17:04; Admin Dose 10,000 UNIT; Start 07/15/18 at 17:00 Miscellaneous Information 1 ea NOTE XX ; Start 07/15/18 at 08:30 Glucose (Glutose) 15 gm Q15M PRN PO DECREASED GLUCOSE; Start 07/15/18 at 08:30 Glucose (Glutose) 22.5 gm Q15M PRN PO DECREASED GLUCOSE; Start 07/15/18 at 08:30 Dextrose (D50w Syringe) 25 ml Q15M PRN IV DECREASED GLUCOSE; Start 07/15/18 at 08:30 Dextrose (D50w Syringe) 50 ml Q15M PRN IV DECREASED GLUCOSE Last administered on 07/16/18at 07:55; Admin Dose 50 ML; Start 07/15/18 at 08:30 Glucagon (Glucagen) 1 mg Q15M PRN IM DECREASED GLUCOSE; Start 07/15/18 at 08:30 Glucose (Glutose) 15 gm Q15M PRN BUCCAL DECREASED GLUCOSE; Start 07/15/18 at 08:30 Heparin Sodium (Porcine) (Heparin (1000 Units/ml)) 3,200 unit AFTER DIALYSIS PRN CATHETER heparin lock Last administered on 07/16/18at 14:09; Admin Dose 3,200 UNIT; Start 07/15/18 at 08:30 Albumin Human 100 ml @ 100 mls/hr DURING DIALYSIS PRN IV to prevent hypotension during ; Start 07/15/18 at 08:30 Piperacillin Sod/ Tazobactam Sod 50 ml @ 100 mls/hr BID IVPB Last administered on 07/17/18at 08:49; Admin Dose 100 MLS/HR; Start 07/15/18 at 14:00 DMITRI SPAIN MD Jul 17, 2018 13:16
--- NOTE | 2018-07-17 16:34 | CONS ---
DATE OF ADMISSION: 07/15/2018 DATE OF CONSULTATION: 07/17/2018 SUBJECTIVE FINDINGS: The patient is being followed for left foot diabetic ulceration, distal amputat ion stump and posterior heel. The patient did have an MRI and there was suspect of residual osteo to the first metatarsal amputation stump. The patient has cultures from the wound exudate with MRSA an d the patient is currently complaining of shortness of breath. Currently, the patient is receiving o xygen and has a dialysis pending today. OBJECTIVE FINDINGS: VITAL SIGNS: Temperature 98, pulse 86, respiratory rate 18, blood pressure 172/87, pulse ox is 98, S aO2 of 80. EXTREMITIES: Left foot heel ulceration 3 x 4 cm exposed adipose tissue, local pain with palpation, t ransmetatarsal amputation noted. Distal TMA stump ulceration, 5 x 2 cm. There is no tunneling or un dermining. Extremities are warm. Wound cultures are reviewed. MRI of the left foot with bone marro w edema and cortical irregularity at the first metatarsal stump. LABORATORIES: Sed rate is 130. WBC 9.4, hemoglobin 6.9, hematocrit 21.6, platelets 242. ASSESSMENT: 1. Left foot diabetic foot ulceration. 2. Osteomyelitis, left foot. 3. Diabetes type 2. 4. Acute respiratory failure. 5. End-stage renal disease on hemodialysis. 6. Cellulitis, left foot. PLAN: Discussed imaging studies as well as cultures. The patient would benefit from biopsy of bone to further direct duration of antibiotics as well as debridement with allograft to the ulcerations. We can further coordinate once the patient is stable from acute respiratory failure. Nursing recomme ndation was given for local wound care. The patient is pending dialysis. Dictated By: REBECCA PALOMARES/HOLLY Conf#: [id number] DID#: [id number]
--- NOTE | 2018-07-17 16:47 | CONS ---
Consult Date/Type/Reason Admit Date/Time July 15, 2018 at 00:58 Initial Consult Date 07/15/18 Type of Consultation: Pulm Date/Time of Note DATE: 07/17/18 TIME: 16:45 Subjective Remain on//off BiPAP and high flow FiO2 Objective Vitals Vital Signs Date Temp Pulse Resp B/P (MAP) Pulse Ox O2 O2 Flow FiO2 Time Delivery Rate 07/17/18 70 16:30 07/17/18 98.0 18 163/89 100 16:23 (113) 07/17/18 BIPAP 13:45 07/17/18 80 12:57 07/17/18 4.0 08:30 Intake and Output 07/16/18 07/16/18 07/17/18 1515:00 23:00 07:00 IntakeIntake Total 710 ml 180 ml OutputOutput Total 2900 ml BalanceBalance -2900 ml 710 ml 180 ml Exam NECK: Supple. No JVD or lymphadenopathy. CARDIAC: S1, S2. II/ systolic ejection murmur. CHEST: Diminished air entry bilaterally. ABDOMEN: Soft, nontender. No guarding or rebound. EXTREMITIES: No cyanosis, clubbing, edema. NEUROLOGIC: Grossly intact. No focal deficits. Results/Medications Result Diagram: 07/17/1851807/17/18518 Results 24 hrs Laboratory Tests Test 07/16/18 21:09 07/17/18 05:19 Bedside Glucose 152 White Blood Count 9.4 Red Blood Count 2.05 L Hemoglobin 6.9 *L Hematocrit 21.6 L Mean Corpuscular Volume 105.4 H Mean Corpuscular Hemoglobin 33.7 H Mean Corpuscular Hemoglobin Concent 31.9 L Red Cell Distribution Width 16.0 H Platelet Count 242 Mean Platelet Volume 10.6 H Immature Granulocytes % 0.500 H Neutrophils % 35.3 L Lymphocytes % 14.2 L Monocytes % 49.0 H Eosinophils % 0.7 Basophils % 0.3 Nucleated Red Blood Cells % 0.0 Immature Granulocytes # 0.050 H Neutrophils # 3.3 Lymphocytes # 1.3 Monocytes # 4.6 H Eosinophils # 0.1 Basophils # 0.0 Nucleated Red Blood Cells # 0.0 Sodium Level 139 Potassium Level 3.8 Chloride Level 101 Carbon Dioxide Level 28 Anion Gap 10 Blood Urea Nitrogen 38 #H Creatinine 4.58 #H Est Glomerular Filtrat Rate mL/min 13 L Glucose Level 107 # Calcium Level 8.5 Total Bilirubin 0.2 Direct Bilirubin 0.00 Indirect Bilirubin 0.2 Aspartate Amino Transf (AST/SGOT) 17 Alanine Aminotransferase (ALT/SGPT) 15 Alkaline Phosphatase 42 Total Protein 7.0 Albumin 3.1 L Globulin 3.90 H Albumin/Globulin Ratio 0.79 Home Meds Active Scripts Ferrous Sulfate* (Ferrous Sulfate*) 325 Mg Tabec, 325 MG PO TID for 30 Days, TAB Prov:MCINTYREGUILLAUMEA [employer]CHITECT 01/04/18 Glipizide* (Glipizide*) 5 Mg Tablet, 2.5 MG PO AC BREAKFAST, #30 TAB Prov:MCINTYREBISI [employer] ARCHITECT 01/04/18 Hydralazine Hcl* (Hydralazine Hcl*) 25 Mg Tab, 25 MG PO TID, #90 TAB Prov:MCINTYREBISI [employer] ARCHITECT 01/04/18 Amlodipine Besylate* (Amlodipine Besylate*) 5 Mg Tablet, 5 MG PO DAILY, #30 TAB Prov:MCINTYREGUILLAUMEA [employer] ARCHITECT 01/04/18 Meropenem (Merrem) 1 Gm Vial, 500 MCG IV Q12 for 42 Days, VIAL Prov:MCINTYRE,BISI [employer]CHITECT 01/04/18 Epoetin nayely* (Epogen*) 3,000 Unit/1 Ml Vial, 6000 UNITS SC TuThSa@17 for 30 Days, VIAL Prov:MCINTYREGUILLAUME DELGADOA [employer] ARCHITECT 01/04/18 Ceftriaxone Na/Dextrose,Iso (Ceftriaxone 1 gm Piggyback) 1 Gm/50 Ml Froz.piggy, 1 GM IV Q12 for 42 Days Prov:BISI MCINTYRE [employer] ARCHITECT 01/04/18 Hydrocodone Bit-Acetaminophen (Hydrocodone Bit-APAP) 5-325MG Tablet, 1 TAB PO Q6H PRN for MODERATE PAIN LEVEL 4-6 for 30 Days, TAB Prov:MARIA E ABARCA 12/02/17 Gabapentin* (Gabapentin*) 300 Mg Capsule, 300 MG PO BID, #60 CAP Prov:MARIA E ABARCA 11/12/17 [Insulin Glargine] 100 UNITS/ML SOLN No Conflict Check, 22 UNITS SC DAILY@1999 for 10 Days Prov:MARIA E ABARCA 11/12/17 Clopidogrel Bisulfate (Clopidogrel) 75 Mg Tablet, 75 MG PO DAILY for 10 Days, #10 TAB Prov:MARIA E ABARCA M. 11/12/17 Reported Medications Aspirin (Low Dose Aspirin) 81 Mg Tablet.dr, 81 MG PO DAILY, #30 TAB 11/07/17 Atorvastatin Calcium (Atorvastatin Calcium) 10 Mg Tablet, 10 MG PO QHS, #30 TAB 11/07/17 Medications Current Medications Ondansetron HCl (Zofran Inj) 4 mg Q6H PRN IV NAUSEA AND/OR VOMITING; Start 07/15/18 at 03:00 Albuterol/ Ipratropium (Duoneb) 3 ml Q2H RESP THERAPY PRN NEB SHORTNESS OF BREATH Last administered on 07/17/18at 12:57; Admin Dose 3 ML; Start 07/15/18 at 03:00 Nitroglycerin (Nitroglycerin (Sl Tab) 0.4 Mg) 1 tab Q5M PRN SL CHEST PAIN; Start 07/15/18 at 03:00 Acetaminophen (Tylenol Liquid) 650 mg Q6H PRN PO PAIN LEVEL 1-3 OR FEVER; Start 07/15/18 at 03:00 Morphine Sulfate (morphine) 2 mg Q4H PRN IV PAIN LEVEL 7-10; Start 07/15/18 at 03:00 Pantoprazole (Protonix Iv) 40 mg DAILY@06 IV Last administered on 07/17/18at 06:10; Admin Dose 40 MG; Start 07/15/18 at 06:00 Amlodipine Besylate (Norvasc) 5 mg DAILY PO Last administered on 07/17/18at 08:49 ; Admin Dose 5 MG; Start 07/15/18 at 09:00 Aspirin (Halfprin) 81 mg DAILY PO Last administered on 07/17/18at 08:48; Admin Dose 81 MG; Start 07/15/18 at 09:00 Atorvastatin Calcium (Lipitor) 10 mg QHS PO Last administered on 07/16/18at 20:58; Admin Dose 10 MG; Start 07/15/18 at 21:00 Hydralazine HCl (Apresoline) 25 mg TID PO Last administered on 07/17/18at 08:49; Admin Dose 25 MG; Start 07/15/18 at 09:00 Insulin Glargine (Lantus) 22 units DAILY@2000 SC Last administered on 07/15/18at 20:55; Admin Dose 22 UNITS; Start 07/15/18 at 20:00 Epoetin Nayely-epbx (Retacrit (Non-Esrd)) 10,000 unit MoWeFr@1700 SC Last administered on 07/15/18at 17:04; Admin Dose 10,000 UNIT; Start 07/15/18 at 17:00 Miscellaneous Information 1 ea NOTE XX ; Start 07/15/18 at 08:30 Glucose (Glutose) 15 gm Q15M PRN PO DECREASED GLUCOSE; Start 07/15/18 at 08:30 Glucose (Glutose) 22.5 gm Q15M PRN PO DECREASED GLUCOSE; Start 07/15/18 at 08:30 Dextrose (D50w Syringe) 25 ml Q15M PRN IV DECREASED GLUCOSE; Start 07/15/18 at 08:30 Dextrose (D50w Syringe) 50 ml Q15M PRN IV DECREASED GLUCOSE Last administered on 07/16/18at 07:55; Admin Dose 50 ML; Start 07/15/18 at 08:30 Glucagon (Glucagen) 1 mg Q15M PRN IM DECREASED GLUCOSE; Start 07/15/18 at 08:30 Glucose (Glutose) 15 gm Q15M PRN BUCCAL DECREASED GLUCOSE; Start 07/15/18 at 08:30 Heparin Sodium (Porcine) (Heparin (1000 Units/ml)) 3,200 unit AFTER DIALYSIS PRN CATHETER heparin lock Last administered on 07/16/18at 14:09; Admin Dose 3,200 UNIT; Start 07/15/18 at 08:30 Albumin Human 100 ml @ 100 mls/hr DURING DIALYSIS PRN IV to prevent hypotension during ; Start 07/15/18 at 08:30 Piperacillin Sod/ Tazobactam Sod 50 ml @ 100 mls/hr BID IVPB Last administered on 07/17/18at 08:49; Admin Dose 100 MLS/HR; Start 07/15/18 at 14:00 Mupirocin (Bactroban) 1 applic BID TOP ; Start 07/17/18 at 21:00 Assessment/Plan Assessment/Plan (Daily) IMP: 1. Chronic lower extremity wounds with infection. 2. Diabetes mellitus. 3. Volume overload with acute hypoxemic respiratory failure--improved s/p HD/UF 4. DM. RECS: 1. RA ABG noted 2. Needs more IDH and UF 3. Titrate FiO2 4. Would care 5. Am CXR and ABG KHADIJAH EM MD Jul 17, 2018 16:47
[2018-07-17] MEDS: HEPARIN 1000 UNITS/ML 10 ML INJ CATHETER PRN (16:57)
[2018-07-17] MEDS: INSULIN GLARGINE [LANTus] (100 UNITS/ML) SYG SC SCH (20:00)
[2018-07-17] MEDS: ATORVASTATIN 10 MG TAB PO SCH (20:50)
[2018-07-17] MEDS: MUPIROCIN 2% 22 GM OINT TOP SCH (20:52)
[2018-07-18] VITALS (32 sets, daily range): BP systolic 107–183; BP diastolic 78–98; PULSE 72–94; RESP 16–22
[2018-07-18] MEDS: PANTOPRAZOLE 40 MG INJ IV SCH (05:51)
--- NOTE | 2018-07-18 07:07 | CONS ---
Assessment/Plan Assessment/Plan Hospital Course (Demo Recall) 1) CHF, likely due to delayed dialysis breathing has improved, doubt he has pneumonia but will check procalcitonin 07/16 - procalcitonin for people in ESRD is within normal limties no good evidence for pneumonia 2) L foot ulcers will review the [facility] records and see if cx were done and what if any antibiotics he received continue with vanco/zosyn at present get wound cx here ESR is very high, if work-up for osteo and arterial studies weren't done we may need to do these here 07/16 - this is not new and pt has been advised that he likely needs BKA but he has refused 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 and was suppose to be getting IV vanco with dialysis d/c zosyn but continue with vanco at present will order arterial dopplers to see if flow is adequate at this time 07/18 - arterial dopplers show bilateral LE issues with arterial flow high ESR is c/w current osteo continue with vanco, d/c zosyn and add rifampin for better MRSA coverage recommend vascular surgery consult 3) DM 4) HTN 5) ESRD Consultation Date/Type/Reason Admit Date/Time July 15, 2018 at 00:58 Initial Consult Date 07/15/18 Type of Consult ID Date/Time of Note DATE: 07/18/18 TIME: 07:00 24 HR Interval Summary Free Text/Dictation pt denies foot pain no N, V, D no cough Exam/Review of Systems Exam Vitals Vital Signs Date Temp Pulse Resp B/P (MAP) Pulse Ox O2 O2 Flow FiO2 Time Delivery Rate 07/18/18 80 99 45 06:00 07/18/18 97.6 16 163/82 04:00 (109) 07/17/18 6.0 19:58 07/17/18 BIPAP 16:59 Intake and Output 07/17/18 07/17/18 07/18/18 1515:00 23:00 07:00 IntakeIntake Total 750 ml 400 ml OutputOutput Total 3500 ml BalanceBalance -2750 ml 400 ml Constitutional: alert, oriented Respiratory: clear to auscultation Cardiovascular: regular rate and rhythm Gastrointestinal: soft, non-tender Extremities: other (L foot is wrapped but no redness above bandage or increase in heat) Results Result Diagram: 07/18/18 0539 07/17/18 0519 Results 24hrs Laboratory Tests Test 07/17/18 20:17 07/18/18 05:00 07/18/18 05:39 Bedside Glucose 110 Blood Gas Specimen Source Blood arterial Arterial Blood Date Drawn 07/18/2018 4:45:32 AM Arterial Blood pH 7.436 (Temp corrected) Arterial Blood pCO2 40.6 (Temp correct) Arterial Blood pO2 106.0 H (Temp corrected) Arterial Blood HCO3 26.7 H Arterial Blood Base Excess 2.3 Arterial Blood 98.0 Oxygen Saturation Lonny Test ACCEPTAB Arterial Blood Gas Right Radial Puncture Site Arterial 0.6 Blood Carboxyhemoglobin Arterial Blood Methemoglobin 0.3 Blood Gas A-a O2 Differential 277.1 H Oxyhemoglobin Percent 97.1 Blood Gas Temperature 37.0 Blood Gas Respiration Rate 14.0 Blood Gas Actual 26 Respiration Rate Blood Gas Modality MASK - BIPAP FiO2 60.0 Blood Gas Pressure Support 10 Blood Gas IPAP/EPAP Ratio 15/5 Blood Gas Notified Whom MA Blood Gas Notified Time 07/18/2018 5:04:14 AM White Blood Count 9.0 Red Blood Count 2.28 L Hemoglobin 7.6 L Hematocrit 24.0 L Mean Corpuscular Volume 105.3 H Mean Corpuscular Hemoglobin 33.3 H Mean Corpuscular 31.7 L Hemoglobin Concent Red Cell Distribution Width 15.9 H Platelet Count 277 Mean Platelet Volume 10.2 Immature Granulocytes % 0.800 H Neutrophils % Lymphocytes % Monocytes % Eosinophils % Basophils % Nucleated Red Blood Cells % 0.0 Immature Granulocytes # 0.070 H Neutrophils # Lymphocytes # Monocytes # Eosinophils # Basophils # Nucleated Red Blood Cells # Medications Medication Current Medications Ondansetron HCl (Zofran Inj) 4 mg Q6H PRN IV NAUSEA AND/OR VOMITING; Start 07/15/18 at 03:00 Albuterol/ Ipratropium (Duoneb) 3 ml Q2H RESP THERAPY PRN NEB SHORTNESS OF BREATH Last administered on 07/17/18at 23:24; Admin Dose 3 ML; Start 07/15/18 at 03:00 Nitroglycerin (Nitroglycerin (Sl Tab) 0.4 Mg) 1 tab Q5M PRN SL CHEST PAIN; Start 07/15/18 at 03:00 Acetaminophen (Tylenol Liquid) 650 mg Q6H PRN PO PAIN LEVEL 1-3 OR FEVER; Start 07/15/18 at 03:00 Morphine Sulfate (morphine) 2 mg Q4H PRN IV PAIN LEVEL 7-10; Start 07/15/18 at 03:00 Pantoprazole (Protonix Iv) 40 mg DAILY@06 IV Last administered on 07/18/18 05:51; Admin Dose 40 MG; Start 07/15/18 at 06:00 Amlodipine Besylate (Norvasc) 5 mg DAILY PO Last administered on 07/17/18 08:49; Admin Dose 5 MG; Start 07/15/18 at 09:00 Aspirin (Halfprin) 81 mg DAILY PO Last administered on 07/17/18 08:48; Admin Dose 81 MG; Start 07/15/18 at 09:00 Atorvastatin Calcium (Lipitor) 10 mg QHS PO Last administered on 07/17/18at 20:50; Admin Dose 10 MG; Start 07/15/18 at 21:00 Hydralazine HCl (Apresoline) 25 mg TID PO Last administered on 07/17/18at 20:51; Admin Dose 25 MG; Start 07/15/18 at 09:00 Insulin Glargine (Lantus) 22 units DAILY@2000 SC Last administered on 07/15/18at 20:55; Admin Dose 22 UNITS; Start 07/15/18 at 20:00 Epoetin Yannick-epbx (Retacrit (Non-Esrd)) 10,000 unit MoWeFr@1700 SC Last administered on 07/15/18at 17:04; Admin Dose 10,000 UNIT; Start 07/15/18 at 17:00 Miscellaneous Information 1 ea NOTE XX ; Start 07/15/18 at 08:30 Glucose (Glutose) 15 gm Q15M PRN PO DECREASED GLUCOSE; Start 07/15/18 at 08:30 Glucose (Glutose) 22.5 gm Q15M PRN PO DECREASED GLUCOSE; Start 07/15/18 at 08:30 Dextrose (D50w Syringe) 25 ml Q15M PRN IV DECREASED GLUCOSE; Start 07/15/18 at 08:30 Dextrose (D50w Syringe) 50 ml Q15M PRN IV DECREASED GLUCOSE Last administered on 07/16/18at 07:55; Admin Dose 50 ML; Start 07/15/18 at 08:30 Glucagon (Glucagen) 1 mg Q15M PRN IM DECREASED GLUCOSE; Start 07/15/18 at 08:30 Glucose (Glutose) 15 gm Q15M PRN BUCCAL DECREASED GLUCOSE; Start 07/15/18 at 08:30 Heparin Sodium (Porcine) (Heparin (1000 Units/ml)) 3,200 unit AFTER DIALYSIS PRN CATHETER heparin lock Last administered on 07/17/18at 16:57; Admin Dose 3,200 UNIT; Start 07/15/18 at 08:30 Albumin Human 100 ml @ 100 mls/hr DURING DIALYSIS PRN IV to prevent hypotension during ; Start 07/15/18 at 08:30 Piperacillin Sod/ Tazobactam Sod 50 ml @ 100 mls/hr BID IVPB Last administered on 07/17/18at 20:49; Admin Dose 100 MLS/HR; Start 07/15/18 at 14:00 Mupirocin (Bactroban) 1 applic BID TOP ; Start 07/17/18 at 21:00 BRANDIN ROCA MD Jul 18, 2018 07:07
[2018-07-18] MEDS: ASPIRIN (EC) 81 MG TAB PO SCH (08:17)
[2018-07-18] MEDS: AMLODIPINE 5 MG TAB PO SCH (08:17)
[2018-07-18] MEDS: RIFAMPIN 300 MG CAP PO SCH (08:17)
[2018-07-18] MEDS: MUPIROCIN 2% 22 GM OINT TOP SCH ×2 (08:18→20:02)
--- NOTE | 2018-07-18 11:17 | CONS ---
Assessment/Plan Assessment/Plan Assessment/Plan (Daily) Chest x-ray showing decreased pulmonary edema. Small bilateral pleural effusions are present. Assessment recommendations; 1. Patient admitted with sepsis due to chronic lower extremity wounds status post antibiotic treatment with Zosyn. 2. Chronic renal failure, on hemodialysis. 3. Systemic hypertension. 4. Chronic anemia. 5. CHF. Continue current supportive care. Hemodialysis per editorial assistant. Continue BiPAP as needed. Consultation Date/Type/Reason Admit Date/Time July 15, 2018 at 00:58 Initial Consult Date 07/15/18 Type of Consult Pulmonary Patient condition is fairly stable. Doing well on BiPAP. General exam; elderly male, laying comfortably in bed. Awake and alert. Currently in no distress. Getting hemodialysis at bedside. Reason for Consultation HEENT exam; supple neck, positive JVD. No lymphadenopathy. Midline trachea. No thyromegaly. No neck masses. Chest exam; diminished but clear breath sounds. S1-S2 audible, no murmurs. Regular rhythm. Abdomen exam; soft, nontender. No organomegaly. Bowel sounds audible. Extremity exam; chronic lower extremity skin changes. 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 Date/Time of Note DATE: 07/18/18 TIME: 11:15 Exam/Review of Systems Exam Vitals Vital Signs Date Temp Pulse Resp B/P (MAP) Pulse Ox O2 O2 Flow FiO2 Time Delivery Rate 07/18/18 93 96 45 10:43 07/18/18 18 169/97 BIPAP 09:30 (121) 07/18/18 98.0 07:44 07/17/18 6.0 19:58 Intake and Output 07/17/18 07/17/18 07/18/18 1515:00 23:00 07:00 IntakeIntake Total 750 ml 400 ml OutputOutput Total 3500 ml BalanceBalance -2750 ml 400 ml Results Result Diagram: 07/18/18 0539 07/18/18 0539 Results 24hrs Laboratory Tests Test 07/17/18 20:17 07/18/18 05:00 07/18/18 05:39 Bedside Glucose 110 Blood Gas Specimen Source Blood arterial Arterial Blood Date Drawn 07/18/2018 4:45:32 AM Arterial Blood pH 7.436 (Temp corrected) Arterial Blood pCO2 40.6 (Temp correct) Arterial Blood pO2 106.0 H (Temp corrected) Arterial Blood HCO3 26.7 H Arterial Blood Base Excess 2.3 Arterial Blood 98.0 Oxygen Saturation Lonny Test ACCEPTAB Arterial Blood Gas Right Radial Puncture Site Arterial 0.6 Blood Carboxyhemoglobin Arterial Blood Methemoglobin 0.3 Blood Gas A-a O2 Differential 277.1 H Oxyhemoglobin Percent 97.1 Blood Gas Temperature 37.0 Blood Gas Respiration Rate 14.0 Blood Gas Actual 26 Respiration Rate Blood Gas Modality MASK - BIPAP FiO2 60.0 Blood Gas Pressure Support 10 Blood Gas IPAP/EPAP Ratio 15/5 Blood Gas Notified Whom MA Blood Gas Notified Time 07/18/2018 5:04:14 AM White Blood Count 9.0 Red Blood Count 2.28 L Hemoglobin 7.6 L Hematocrit 24.0 L Mean Corpuscular Volume 105.3 H Mean Corpuscular Hemoglobin 33.3 H Mean Corpuscular 31.7 L Hemoglobin Concent Red Cell Distribution Width 15.9 H Platelet Count 277 Mean Platelet Volume 10.2 Immature Granulocytes % 0.800 H Neutrophils % Segmented Neutrophils 38 L % (Manual) Lymphocytes % Lymphocytes % (Manual) 16 Reactive Lymphocytes % (Manual) 1 H Monocytes % Monocytes % (Manual) 41 H Eosinophils % Basophils % Basophils % (Manual) 2 Myelocytes % (Manual) 2 H Nucleated Red Blood Cells % 0.0 Immature Granulocytes # 0.070 H Neutrophils # Lymphocytes (Manual) 1.4 Lymphocytes # Reactive Lymphocytes # 0.0 Monocytes # Monocytes # (Manual) 3.6 H Eosinophils # Basophils # Basophils # (Manual) 0.1 H Myelocytes # 0.1 H Nucleated Red Blood Cells # Platelet Estimate NORMAL Giant Platelets 1 H Platelet Morphology Comment @See below Polychromasia 1+ Anisocytosis 1+ Macrocytosis 1+ Sodium Level 141 Potassium Level 3.8 Chloride Level 104 Carbon Dioxide Level 28 Anion Gap 9 Blood Urea Nitrogen 28 H Creatinine 3.99 H Est Glomerular Filtrat 15 L Rate mL/min Glucose Level 98 Calcium Level 8.6 Total Bilirubin 0.3 Direct Bilirubin 0.00 Indirect Bilirubin 0.3 Aspartate Amino 19 Transf (AST/SGOT) Alanine 15 Aminotransferase (ALT/SGPT) Alkaline Phosphatase 45 Total Protein 7.2 Albumin 3.3 Globulin 3.90 H Albumin/Globulin Ratio 0.84 Medications Medication Current Medications Ondansetron HCl (Zofran Inj) 4 mg Q6H PRN IV NAUSEA AND/OR VOMITING; Start 07/15/18 at 03:00 Albuterol/ Ipratropium (Duoneb) 3 ml Q2H RESP THERAPY PRN NEB SHORTNESS OF BRIAN ATH Last administered on 07/17/18 23:24; Admin Dose 3 ML; Start 07/15/18 at 03:00 Nitroglycerin (Nitroglycerin (Sl Tab) 0.4 Mg) 1 tab Q5M PRN SL CHEST PAIN; Start 07/15/18 at 03:00 Acetaminophen (Tylenol Liquid) 650 mg Q6H PRN PO PAIN LEVEL 1-3 OR FEVER; Start 07/15/18 at 03:00 Morphine Sulfate (morphine) 2 mg Q4H PRN IV PAIN LEVEL 7-10; Start 07/15/18 at 03:00 Pantoprazole (Protonix Iv) 40 mg DAILY@06 IV Last administered on 07/18/18 05:51; Admin Dose 40 MG; Start 07/15/18 at 06:00 Amlodipine Besylate (Norvasc) 5 mg DAILY PO Last administered on 07/18/18 08:17; Admin Dose 5 MG; Start 07/15/18 at 09:00 Aspirin (Halfprin) 81 mg DAILY PO Last administered on 07/18/18 08:17; Admin Dose 81 MG; Start 07/15/18 at 09:00 Atorvastatin Calcium (Lipitor) 10 mg QHS PO Last administered on 07/17/18 20:50; Admin Dose 10 MG; Start 07/15/18 at 21:00 Hydralazine HCl (Apresoline) 25 mg TID PO Last administered on 07/18/18 08:17; Admin Dose 25 MG; Start 07/15/18 at 09:00 Insulin Glargine (Lantus) 22 units DAILY@2000 SC Last administered on 07/15/18at 20:55; Admin Dose 22 UNITS; Start 07/15/18 at 20:00 Epoetin Yannick-epbx (Retacrit (Non-Esrd)) 10,000 unit MoWeFr@1700 SC Last administered on 07/15/18at 17:04; Admin Dose 10,000 UNIT; Start 07/15/18 at 17:00 Miscellaneous Information 1 ea NOTE XX ; Start 07/15/18 at 08:30 Glucose (Glutose) 15 gm Q15M PRN PO DECREASED GLUCOSE; Start 07/15/18 at 08:30 Glucose (Glutose) 22.5 gm Q15M PRN PO DECREASED GLUCOSE; Start 07/15/18 at 08:30 Dextrose (D50w Syringe) 25 ml Q15M PRN IV DECREASED GLUCOSE; Start 07/15/18 at 08:30 Dextrose (D50w Syringe) 50 ml Q15M PRN IV DECREASED GLUCOSE Last administered on 07/16/18at 07:55; Admin Dose 50 ML; Start 07/15/18 at 08:30 Glucagon (Glucagen) 1 mg Q15M PRN IM DECREASED GLUCOSE; Start 07/15/18 at 08:30 Glucose (Glutose) 15 gm Q15M PRN BUCCAL DECREASED GLUCOSE; Start 07/15/18 at 08:30 Heparin Sodium (Porcine) (Heparin (1000 Units/ml)) 3,200 unit AFTER DIALYSIS PRN CATHETER heparin lock Last administered on 07/17/18at 16:57; Admin Dose 3,200 UNIT; Start 07/15/18 at 08:30 Albumin Human 100 ml @ 100 mls/hr DURING DIALYSIS PRN IV to prevent hypotension during ; Start 07/15/18 at 08:30 Mupirocin (Bactroban) 1 applic BID TOP ; Start 07/17/18 at 21:00 Rifampin (Rifampin) 600 mg DAILY PO Last administered on 07/18/18at 08:17; Admin Dose 600 MG; Start 07/18/18 at 09:00 LAURA TORRES 3, 2019 11:17
[2018-07-18] MEDS: HEPARIN 1000 UNITS/ML 10 ML INJ CATHETER PRN (12:03)
--- NOTE | 2018-07-18 14:08 | CONS ---
Assessment/Plan Assessment/Plan Assessment/Plan (Daily) 1. acute hypoxic respiratory failure requiring BIPAP- S/p Emergent HD yesterday , Plan for another HD today 2. Anemia of ESRD s/p PRBC transfusion during this admission 3. ESRD on HD MWF Schedule 4. L foot diabetic ulcer s/p previous Transmetatarsal amputation 5. h/O DM II 6. h/o HTN Plan: S/p Extra HD yesterday 2.5 L removed, S/p HD today 3 L removed will keep p ton MWF schedule IV abx as per ID, Renally dose all abx and monitor electrolytes Will follow up Consultation Date/Type/Reason Admit Date/Time July 15, 2018 at 00:58 Initial Consult Date 07/15/18 Type of Consult NEPHROLOGY Date/Time of Note DATE: 07/18/18 TIME: 14:08 Exam/Review of Systems Exam Vitals Vital Signs Date Temp Pulse Resp B/P (MAP) Pulse Ox O2 O2 Flow FiO2 Time Delivery Rate 07/18/18 92 96 45 13:25 07/18/18 18 169/97 BIPAP 09:30 (121) 07/18/18 98.0 07:44 07/17/18 6.0 19:58 Intake and Output 07/17/18 07/17/18 07/18/18 1414:59 22:59 06:59 IntakeIntake Total 750 ml 400 ml OutputOutput Total 3500 ml BalanceBalance -2750 ml 400 ml Results Result Diagram: 07/18/18 0539 07/18/18 0539 Results 24hrs Laboratory Tests Test 07/17/18 20:17 07/18/18 05:00 07/18/18 05:39 Bedside Glucose 110 Blood Gas Specimen Source Blood arterial Arterial Blood Date Drawn 07/18/2018 4:45:32 AM Arterial Blood pH 7.436 (Temp corrected) Arterial Blood pCO2 40.6 (Temp correct) Arterial Blood pO2 106.0 H (Temp corrected) Arterial Blood HCO3 26.7 H Arterial Blood Base Excess 2.3 Arterial Blood 98.0 Oxygen Saturation Lonny Test ACCEPTAB Arterial Blood Gas Right Radial Puncture Site Arterial 0.6 Blood Carboxyhemoglobin Arterial Blood Methemoglobin 0.3 Blood Gas A-a O2 Differential 277.1 H Oxyhemoglobin Percent 97.1 Blood Gas Temperature 37.0 Blood Gas Respiration Rate 14.0 Blood Gas Actual 26 Respiration Rate Blood Gas Modality MASK - BIPAP FiO2 60.0 Blood Gas Pressure Support 10 Blood Gas IPAP/EPAP Ratio 15/5 Blood Gas Notified Whom YOAV Blood Gas Notified Time 07/18/2018 5:04:14 AM White Blood Count 9.0 Red Blood Count 2.28 L Hemoglobin 7.6 L Hematocrit 24.0 L Mean Corpuscular Volume 105.3 H Mean Corpuscular Hemoglobin 33.3 H Mean Corpuscular 31.7 L Hemoglobin Concent Red Cell Distribution Width 15.9 H Platelet Count 277 Mean Platelet Volume 10.2 Immature Granulocytes % 0.800 H Neutrophils % Segmented Neutrophils 38 L % (Manual) Lymphocytes % Lymphocytes % (Manual) 16 Reactive Lymphocytes % (Manual) 1 H Monocytes % Monocytes % (Manual) 41 H Eosinophils % Basophils % Basophils % (Manual) 2 Myelocytes % (Manual) 2 H Nucleated Red Blood Cells % 0.0 Immature Granulocytes # 0.070 H Neutrophils # Lymphocytes (Manual) 1.4 Lymphocytes # Reactive Lymphocytes # 0.0 Monocytes # Monocytes # (Manual) 3.6 H Eosinophils # Basophils # Basophils # (Manual) 0.1 H Myelocytes # 0.1 H Nucleated Red Blood Cells # Platelet Estimate NORMAL Giant Platelets 1 H Platelet Morphology Comment @See below Polychromasia 1+ Anisocytosis 1+ Macrocytosis 1+ Sodium Level 141 Potassium Level 3.8 Chloride Level 104 Carbon Dioxide Level 28 Anion Gap 9 Blood Urea Nitrogen 28 H Creatinine 3.99 H Est Glomerular Filtrat 15 L Rate mL/min Glucose Level 98 Calcium Level 8.6 Total Bilirubin 0.3 Direct Bilirubin 0.00 Indirect Bilirubin 0.3 Aspartate Amino 19 Transf (AST/SGOT) Alanine 15 Aminotransferase (ALT/SGPT) Alkaline Phosphatase 45 Total Protein 7.2 Albumin 3.3 Globulin 3.90 H Albumin/Globulin Ratio 0.84 Medications Medication Current Medications Ondansetron HCl (Zofran Inj) 4 mg Q6H PRN IV NAUSEA AND/OR VOMITING; Start 07/15/18 at 03:00 Albuterol/ Ipratropium (Duoneb) 3 ml Q2H RESP THERAPY PRN NEB SHORTNESS OF BREATH Last administered on 07/17/18at 23:24; Admin Dose 3 ML; Start 07/15/18 at 03:00 Nitroglycerin (Nitroglycerin (Sl Tab) 0.4 Mg) 1 tab Q5M PRN SL CHEST PAIN; Start 07/15/18 at 03:00 Acetaminophen (Tylenol Liquid) 650 mg Q6H PRN PO PAIN LEVEL 1-3 OR FEVER; Start 07/15/18 at 03:00 Morphine Sulfate (morphine) 2 mg Q4H PRN IV PAIN LEVEL 7-10; Start 07/15/18 at 03:00 Pantoprazole (Protonix Iv) 40 mg DAILY@06 IV Last administered on 07/18/18at 05:51; Admin Dose 40 MG; Start 07/15/18 at 06:00 Amlodipine Besylate (Norvasc) 5 mg DAILY PO Last administered on 07/18/18at 08:17; Admin Dose 5 MG; Start 07/15/18 at 09:00 Aspirin (Halfprin) 81 mg DAILY PO Last administered on 07/18/18at 08:17; Admin Dose 81 MG; Start 07/15/18 at 09:00 Atorvastatin Calcium (Lipitor) 10 mg QHS PO Last administered on 07/17/18at 20:50; Admin Dose 10 MG; Start 07/15/18 at 21:00 Hydralazine HCl (Apresoline) 25 mg TID PO Last administered on 07/18/18at 08:17; Admin Dose 25 MG; Start 07/15/18 at 09:00 Insulin Glargine (Lantus) 22 units DAILY@2000 SC Last administered on 07/15/18at 20:55; Admin Dose 22 UNITS; Start 07/15/18 at 20:00 Epoetin Yannick-epbx (Retacrit (Non-Esrd)) 10,000 unit MoWeFr@1700 SC Last administered on 07/15/18at 17:04; Admin Dose 10,000 UNIT; Start 07/15/18 at 17:00 Miscellaneous Information 1 ea NOTE XX ; Start 07/15/18 at 08:30 Glucose (Glutose) 15 gm Q15M PRN PO DECREASED GLUCOSE; Start 07/15/18 at 08:30 Glucose (Glutose) 22.5 gm Q15M PRN PO DECREASED GLUCOSE; Start 07/15/18 at 08:30 Dextrose (D50w Syringe) 25 ml Q15M PRN IV DECREASED GLUCOSE; Start 07/15/18 at 08:30 Dextrose (D50w Syringe) 50 ml Q15M PRN IV DECREASED GLUCOSE Last administered on 07/16/18at 07:55; Admin Dose 50 ML; Start 07/15/18 at 08:30 Glucagon (Glucagen) 1 mg Q15M PRN IM DECREASED GLUCOSE; Start 07/15/18 at 08:30 Glucose (Glutose) 15 gm Q15M PRN BUCCAL DECREASED GLUCOSE; Start 07/15/18 at 08:30 Heparin Sodium (Porcine) (Heparin (1000 Units/ml)) 3,200 unit AFTER DIALYSIS PRN CATHETER heparin lock Last administered on 07/18/18at 12:03; Admin Dose 3,200 UNIT; Start 07/15/18 at 08:30 Albumin Human 100 ml @ 100 mls/hr DURING DIALYSIS PRN IV to prevent hypotension during ; Start 07/15/18 at 08:30 Mupirocin (Bactroban) 1 applic BID TOP ; Start 07/17/18 at 21:00 Rifampin (Rifampin) 600 mg DAILY PO Last administered on 07/18/18at 08:17; Admin Dose 600 MG; Start 07/18/18 at 09:00 OTTO JUÁREZ MD Jul 18, 2018 14:08
--- NOTE | 2018-07-18 14:15 | PN ---
Date/Time of Note Date/Time of Note DATE: 07/18/18 TIME: 14:14 Assessment/Plan VTE Prophylaxis Risk score (from Nsg)>0 risk: 5 SCD applied (from Nsg): Yes Pharmacological prophylaxis: heparin Lines/Catheters IV Catheter Type (from Nrsg): Saline Lock Urinary Cath still in place: No Assessment/Plan Hospital Course NAd aoX3 + jvd Mild tachypnea but nonlabored RRR CTAB Soft nt nd L foot with mid foot amputation A/P: 68 yo male with ESRD on HD, PAD wtih foot ulcers, DMII, hyperetsnion who presented wtih acute respiratory failrue from pulmonary edeam Acute repsiratory failure: - Requires further dialysis. Dr Barber will dialyze again today - O2 as needed - No evidence of pneumonia Anemia of CKD: - Hold off on blood transfusion for now as I would like to avoid further volume given respiratory failure. Will address anemia when euvolemic ESRD: - HD per renal Foot ulcers: - No evidence of OM on XR, management per podiatry, abx per ID Hypertension; - Hydralazine DMII: - Basal/bolus insulin Result Diagram: 07/18/18 0539 07/18/18 0539 Results 24hrs Laboratory Tests Test 07/17/18 20:17 07/18/18 05:00 07/18/18 05:39 Bedside Glucose 110 Blood Gas Specimen Source Blood arterial Arterial Blood Date Drawn 07/18/2018 4:45:32 AM Arterial Blood pH 7.436 (Temp corrected) Arterial Blood pCO2 40.6 (Temp correct) Arterial Blood pO2 106.0 H (Temp corrected) Arterial Blood HCO3 26.7 H Arterial Blood Base Excess 2.3 Arterial Blood 98.0 Oxygen Saturation Lonny Test ACCEPTAB Arterial Blood Gas Right Radial Puncture Site Arterial 0.6 Blood Carboxyhemoglobin Arterial Blood Methemoglobin 0.3 Blood Gas A-a O2 Differential 277.1 H Oxyhemoglobin Percent 97.1 Blood Gas Temperature 37.0 Blood Gas Respiration Rate 14.0 Blood Gas Actual 26 Respiration Rate Blood Gas Modality MASK - BIPAP FiO2 60.0 Blood Gas Pressure Support 10 Blood Gas IPAP/EPAP Ratio 15/5 Blood Gas Notified Whom MA Blood Gas Notified Time 07/18/2018 5:04:14 AM White Blood Count 9.0 Red Blood Count 2.28 L Hemoglobin 7.6 L Hematocrit 24.0 L Mean Corpuscular Volume 105.3 H Mean Corpuscular Hemoglobin 33.3 H Mean Corpuscular 31.7 L Hemoglobin Concent Red Cell Distribution Width 15.9 H Platelet Count 277 Mean Platelet Volume 10.2 Immature Granulocytes % 0.800 H Neutrophils % Segmented Neutrophils 38 L % (Manual) Lymphocytes % Lymphocytes % (Manual) 16 Reactive Lymphocytes % (Manual) 1 H Monocytes % Monocytes % (Manual) 41 H Eosinophils % Basophils % Basophils % (Manual) 2 Myelocytes % (Manual) 2 H Nucleated Red Blood Cells % 0.0 Immature Granulocytes # 0.070 H Neutrophils # Lymphocytes (Manual) 1.4 Lymphocytes # Reactive Lymphocytes # 0.0 Monocytes # Monocytes # (Manual) 3.6 H Eosinophils # Basophils # Basophils # (Manual) 0.1 H Myelocytes # 0.1 H Nucleated Red Blood Cells # Platelet Estimate NORMAL Giant Platelets 1 H Platelet Morphology Comment @See below Polychromasia 1+ Anisocytosis 1+ Macrocytosis 1+ Sodium Level 141 Potassium Level 3.8 Chloride Level 104 Carbon Dioxide Level 28 Anion Gap 9 Blood Urea Nitrogen 28 H Creatinine 3.99 H Est Glomerular Filtrat 15 L Rate mL/min Glucose Level 98 Calcium Level 8.6 Total Bilirubin 0.3 Direct Bilirubin 0.00 Indirect Bilirubin 0.3 Aspartate Amino 19 Transf (AST/SGOT) Alanine 15 Aminotransferase (ALT/SGPT) Alkaline Phosphatase 45 Total Protein 7.2 Albumin 3.3 Globulin 3.90 H Albumin/Globulin Ratio 0.84 Subjective 24 Hr Interval Summary Free Text/Dictation Dialyzed yesterday, again today Remains on BIPAP, hypoxic Exam/Review of Systems Exam Vitals Vital Signs Date Temp Pulse Resp B/P (MAP) Pulse Ox O2 O2 Flow FiO2 Time Delivery Rate 07/18/18 92 96 45 13:25 07/18/18 18 169/97 BIPAP 09:30 (121) 07/18/18 98.0 07:44 07/17/18 6.0 19:58 Intake and Output 07/17/18 07/17/18 07/18/18 1515:00 23:00 07:00 IntakeIntake Total 750 ml 400 ml OutputOutput Total 3500 ml BalanceBalance -2750 ml 400 ml Results Results 24hrs Laboratory Tests Test 07/17/18 20:17 07/18/18 05:00 07/18/18 05:39 Bedside Glucose 110 Blood Gas Specimen Source Blood arterial Arterial Blood Date Drawn 07/18/2018 4:45:32 AM Arterial Blood pH 7.436 (Temp corrected) Arterial Blood pCO2 40.6 (Temp correct) Arterial Blood pO2 106.0 H (Temp corrected) Arterial Blood HCO3 26.7 H Arterial Blood Base Excess 2.3 Arterial Blood 98.0 Oxygen Saturation Lonny Test ACCEPTAB Arterial Blood Gas Right Radial Puncture Site Arterial 0.6 Blood Carboxyhemoglobin Arterial Blood Methemoglobin 0.3 Blood Gas A-a O2 Differential 277.1 H Oxyhemoglobin Percent 97.1 Blood Gas Temperature 37.0 Blood Gas Respiration Rate 14.0 Blood Gas Actual 26 Respiration Rate Blood Gas Modality MASK - BIPAP FiO2 60.0 Blood Gas Pressure Support 10 Blood Gas IPAP/EPAP Ratio 15/5 Blood Gas Notified Whom MA Blood Gas Notified Time 07/18/2018 5:04:14 AM White Blood Count 9.0 Red Blood Count 2.28 L Hemoglobin 7.6 L Hematocrit 24.0 L Mean Corpuscular Volume 105.3 H Mean Corpuscular Hemoglobin 33.3 H Mean Corpuscular 31.7 L Hemoglobin Concent Red Cell Distribution Width 15.9 H Platelet Count 277 Mean Platelet Volume 10.2 Immature Granulocytes % 0.800 H Neutrophils % Segmented Neutrophils 38 L % (Manual) Lymphocytes % Lymphocytes % (Manual) 16 Reactive Lymphocytes % (Manual) 1 H Monocytes % Monocytes % (Manual) 41 H Eosinophils % Basophils % Basophils % (Manual) 2 Myelocytes % (Manual) 2 H Nucleated Red Blood Cells % 0.0 Immature Granulocytes # 0.070 H Neutrophils # Lymphocytes (Manual) 1.4 Lymphocytes # Reactive Lymphocytes # 0.0 Monocytes # Monocytes # (Manual) 3.6 H Eosinophils # Basophils # Basophils # (Manual) 0.1 H Myelocytes # 0.1 H Nucleated Red Blood Cells # Platelet Estimate NORMAL Giant Platelets 1 H Platelet Morphology Comment @See below Polychromasia 1+ Anisocytosis 1+ Macrocytosis 1+ Sodium Level 141 Potassium Level 3.8 Chloride Level 104 Carbon Dioxide Level 28 Anion Gap 9 Blood Urea Nitrogen 28 H Creatinine 3.99 H Est Glomerular Filtrat 15 L Rate mL/min Glucose Level 98 Calcium Level 8.6 Total Bilirubin 0.3 Direct Bilirubin 0.00 Indirect Bilirubin 0.3 Aspartate Amino 19 Transf (AST/SGOT) Alanine 15 Aminotransferase (ALT/SGPT) Alkaline Phosphatase 45 Total Protein 7.2 Albumin 3.3 Globulin 3.90 H Albumin/Globulin Ratio 0.84 Medications Medication Current Medications Ondansetron HCl (Zofran Inj) 4 mg Q6H PRN IV NAUSEA AND/OR VOMITING; Start 07/15/18 at 03:00 Albuterol/ Ipratropium (Duoneb) 3 ml Q2H RESP THERAPY PRN NEB SHORTNESS OF BREATH Last administered on 07/17/18 23:24; Admin Dose 3 ML; Start 07/15/18 at 03:00 Nitroglycerin (Nitroglycerin (Sl Tab) 0.4 Mg) 1 tab Q5M PRN SL CHEST PAIN; Start 07/15/18 at 03:00 Acetaminophen (Tylenol Liquid) 650 mg Q6H PRN PO PAIN LEVEL 1-3 OR FEVER; Start 07/15/18 at 03:00 Morphine Sulfate (morphine) 2 mg Q4H PRN IV PAIN LEVEL 7-10; Start 07/15/18 at 03:00 Pantoprazole (Protonix Iv) 40 mg DAILY@06 IV Last administered on 07/18/18 05:51; Admin Dose 40 MG; Start 07/15/18 at 06:00 Amlodipine Besylate (Norvasc) 5 mg DAILY PO Last administered on 07/18/18 08:17; Admin Dose 5 MG; Start 07/15/18 at 09:00 Aspirin (Halfprin) 81 mg DAILY PO Last administered on 07/18/18 08:17; Admin Dose 81 MG; Start 07/15/18 at 09:00 Atorvastatin Calcium (Lipitor) 10 mg QHS PO Last administered on 07/17/18 20:50; Admin Dose 10 MG; Start 07/15/18 at 21:00 Hydralazine HCl (Apresoline) 25 mg TID PO Last administered on 07/18/18 08:17; Admin Dose 25 MG; Start 07/15/18 at 09:00 Insulin Glargine (Lantus) 22 units DAILY@2000 SC Last administered on 07/15/18 20:55; Admin Dose 22 UNITS; Start 07/15/18 at 20:00 Epoetin Yannick-epbx (Retacrit (Non-Esrd)) 10,000 unit MoWeFr@1700 SC Last administered on 5/31/19at 17:04; Admin Dose 10,000 UNIT; Start 07/15/18 at 17:00 Miscellaneous Information 1 ea NOTE XX ; Start 07/15/18 at 08:30 Glucose (Glutose) 15 gm Q15M PRN PO DECREASED GLUCOSE; Start 07/15/18 at 08:30 Glucose (Glutose) 22.5 gm Q15M PRN PO DECREASED GLUCOSE; Start 07/15/18 at 08:30 Dextrose (D50w Syringe) 25 ml Q15M PRN IV DECREASED GLUCOSE; Start 07/15/18 at 08:30 Dextrose (D50w Syringe) 50 ml Q15M PRN IV DECREASED GLUCOSE Last administered on 07/16/18at 07:55; Admin Dose 50 ML; Start 07/15/18 at 08:30 Glucagon (Glucagen) 1 mg Q15M PRN IM DECREASED GLUCOSE; Start 07/15/18 at 08:30 Glucose (Glutose) 15 gm Q15M PRN BUCCAL DECREASED GLUCOSE; Start 07/15/18 at 08:30 Heparin Sodium (Porcine) (Heparin (1000 Units/ml)) 3,200 unit AFTER DIALYSIS PRN CATHETER heparin lock Last administered on 07/18/18at 12:03; Admin Dose 3,200 UNIT; Start 07/15/18 at 08:30 Albumin Human 100 ml @ 100 mls/hr DURING DIALYSIS PRN IV to prevent hypotension during ; Start 07/15/18 at 08:30 Mupirocin (Bactroban) 1 applic BID TOP ; Start 07/17/18 at 21:00 Rifampin (Rifampin) 600 mg DAILY PO Last administered on 07/18/18at 08:17; Admin Dose 600 MG; Start 07/18/18 at 09:00 DMITRI SPAIN MD Jul 18, 2018 14:15
[2018-07-18] MEDS: EPOETIN ALFA-EPBX (NON-ESRD 10,000 UNIT/ML VIAL SC SCH (16:55)
[2018-07-18] MEDS: INSULIN GLARGINE [LANTus] (100 UNITS/ML) SYG SC SCH (20:00)
[2018-07-18] MEDS: ATORVASTATIN 10 MG TAB PO SCH (20:02)
[2018-07-19] VITALS (32 sets, daily range): BP systolic 140–186; BP diastolic 59–93; PULSE 83–103; RESP 16–24
--- NOTE | 2018-07-19 01:49 | CONS ---
DATE OF ADMISSION: 07/15/2018 DATE OF CONSULTATION: 07/18/2018 SUBJECTIVE FINDINGS: The patient is being followed for left foot ulceration. The patient is status post amputation of a midfoot, has residual suspected osteomyelitis to the first metatarsal stump. Th e patient is status post revascularization and the patient is being scheduled for procedure tomorrow. OBJECTIVE FINDINGS: VITAL SIGNS: Temperature 98.3, pulse is 84, blood pressure is 179/79. Pulse ox is 97. EXTREMITIES: The patient with a left foot transmetatarsal amputation, has wounds at the distal aspec t of the transmetatarsal and posterior heel. The foot remains warm. No signs of pressure sores. MR I reveals findings of irregularity at the first metatarsal stump. LABORATORIES: WBC 9, hemoglobin 7.6, hematocrit 24, platelets 277. Sed rate is 130, sodium 141, pot assium 3.8, chloride 104, CO2 28, BUN 28, creatinine 3.9, albumin is 3.3. ASSESSMENT: 1. Left foot transmetatarsal with residual osteomyelitis. 2. Left heel diabetic ulceration. 3. Peripheral arterial disease with history of revascularization with Dr. Francois. 4. End-stage renal disease on hemodialysis. 5. Diabetes. PLAN: I can perform procedure with local sedation to include biopsy of bone debridement, possible al lograft application. Discussed vascular status with Dr. Francois and no further intervention from a vas cular standpoint at this time. The patient is scheduled tentatively for tomorrow. Obtain consent. Procedure was discussed with the patient and he is amenable. Dictated By: REBECCA PALOMARES/HOLLY Conf#: [id number] DID#: [id number] CC: DMITRI SPAIN MD; TRISTA CHU MD;*EndCC*
[2018-07-19] MEDS: hydrALAzine 20 MG INJ IV PRN (03:35)
--- NOTE | 2018-07-19 07:13 | CONS ---
Assessment/Plan Assessment/Plan Assessment/Plan (Daily) Assessment and recommendations; 1. Patient admitted with CHF exacerbation with history of renal failure which is dialysis dependent. Chest x-ray showing persistent cardiomegaly with pulmonary edema and bilateral pleural effusions. Patient clinically however has improved. 2. Lower extremity wounds, status post antimicrobial treatment. 3. History of anemia 4. Diabetes 5. Systemic hypertension Continue current supportive care. Hemodialysis per hydro plant technician. Continue BiPAP for now. Consultation Date/Type/Reason Admit Date/Time July 15, 2018 at 00:58 Initial Consult Date 07/15/18 Type of Consult Pulmonary Patient condition is fairly stable. Doing well on BiPAP. General exam; elderly male, laying comfortably in bed. Awake and alert. Currently in no distress. Getting hemodialysis at bedside. Date/Time of Note DATE: 07/19/18 TIME: 07:11 24 HR Interval Summary Free Text/Dictation Patient's condition is tenuous still. On BiPAP. Denies any shortness of breath any chest pain at rest. General exam; elderly male, currently no distress. Awake and alert. Exam/Review of Systems Exam Vitals Vital Signs Date Temp Pulse Resp B/P (MAP) Pulse Ox O2 O2 Flow FiO2 Time Delivery Rate 07/19/18 98.7 90 24 140/73 93 04:49 (95) 07/19/18 45 04:32 07/18/18 BIPAP 09:30 07/17/18 6.0 19:58 Intake and Output 07/18/18 07/18/18 07/19/18 1414:59 22:59 06:59 IntakeIntake Total 700 ml 550 ml OutputOutput Total 200 ml BalanceBalance 500 ml 550 ml Exam H ENT exam; supple neck, positive JVD. No lymphadenopathy. Midline trachea. No thyromegaly. No neck masses. Patient is on BiPAP. Chest exam; diminished breath sound lung bases. Upper lobes are clear. S1-S2 audible, no murmurs. Regular rhythm. Abdomen exam; soft, mildly protuberant. Nontender. No organomegaly. Bowel sounds audible. Extremity exam; no peripheral edema clubbing. 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 Results Result Diagram: 07/18/18 0539 07/18/18 0539 Results 24hrs Laboratory Tests Test 07/18/18 19:58 07/19/18 01:57 Bedside Glucose 99 128 Medications Medication Current Medications Ondansetron HCl (Zofran Inj) 4 mg Q6H PRN IV NAUSEA AND/OR VOMITING; Start 07/15/18 at 03:00 Albuterol/ Ipratropium (Duoneb) 3 ml Q2H RESP THERAPY PRN NEB SHORTNESS OF BREATH Last administered on 07/17/18 23:24; Admin Dose 3 ML; Start 07/15/18 at 03:00 Nitroglycerin (Nitroglycerin (Sl Tab) 0.4 Mg) 1 tab Q5M PRN SL CHEST PAIN; Start 07/15/18 at 03:00 Acetaminophen (Tylenol Liquid) 650 mg Q6H PRN PO PAIN LEVEL 1-3 OR FEVER; Start 07/15/18 at 03:00 Morphine Sulfate (morphine) 2 mg Q4H PRN IV PAIN LEVEL 7-10; Start 07/15/18 at 03:00 Amlodipine Besylate (Norvasc) 5 mg DAILY PO Last administered on 07/18/18 08:17; Admin Dose 5 MG; Start 07/15/18 at 09:00 Aspirin (Halfprin) 81 mg DAILY PO Last administered on 07/18/18 08:17; Admin Dose 81 MG; Start 07/15/18 at 09:00 Atorvastatin Calcium (Lipitor) 10 mg QHS PO Last administered on 07/18/18 20:02; Admin Dose 10 MG; Start 07/15/18 at 21:00 Hydralazine HCl (Apresoline) 25 mg TID PO Last administered on 07/18/18 20:03; Admin Dose 25 MG; Start 07/15/18 at 09:00 Insulin Glargine (Lantus) 22 units DAILY@2000 SC Last administered on 07/15/18at 20:55; Admin Dose 22 UNITS; Start 07/15/18 at 20:00 Epoetin Yannick-epbx (Retacrit (Non-Esrd)) 10,000 unit MoWeFr@1700 SC Last administered on 07/18/18 16:55; Admin Dose 10,000 UNIT; Start 07/15/18 at 17:00 Miscellaneous Information 1 ea NOTE XX ; Start 07/15/18 at 08:30 Glucose (Glutose) 15 gm Q15M PRN PO DECREASED GLUCOSE; Start 07/15/18 at 08:30 Glucose (Glutose) 22.5 gm Q15M PRN PO DECREASED GLUCOSE; Start 07/15/18 at 08:30 Dextrose (D50w Syringe) 25 ml Q15M PRN IV DECREASED GLUCOSE; Start 07/15/18 at 08:30 Dextrose (D50w Syringe) 50 ml Q15M PRN IV DECREASED GLUCOSE Last administered on 07/16/18at 07:55; Admin Dose 50 ML; Start 07/15/18 at 08:30 Glucagon (Glucagen) 1 mg Q15M PRN IM DECREASED GLUCOSE; Start 07/15/18 at 08:30 Glucose (Glutose) 15 gm Q15M PRN BUCCAL DECREASED GLUCOSE; Start 07/15/18 at 08:30 Heparin Sodium (Porcine) (Heparin (1000 Units/ml)) 3,200 unit AFTER DIALYSIS PRN CATHETER heparin lock Last administered on 07/18/18at 12:03; Admin Dose 3,200 UNIT; Start 07/15/18 at 08:30 Albumin Human 100 ml @ 100 mls/hr DURING DIALYSIS PRN IV to prevent hypotension during ; Start 07/15/18 at 08:30 Mupirocin (Bactroban) 1 applic BID TOP Last administered on 07/18/18at 20:02; Admin Dose 1 APPLIC; Start 07/17/18 at 21:00 Rifampin (Rifampin) 600 mg DAILY PO Last administered on 07/18/18at 08:17; Admin Dose 600 MG; Start 07/18/18 at 09:00 Famotidine (Pepcid Iv) 20 mg DAILY IV ; Start 07/19/18 at 09:00 Hydralazine HCl (Apresoline) 10 mg Q6H PRN IV elevated BP Last administered on 07/19/18at 03:35; Admin Dose 10 MG; Start 07/19/18 at 03:30 LAURA TORRES Jul 19, 2018 07:13
[2018-07-19] MEDS: RIFAMPIN 300 MG CAP PO SCH (08:47)
[2018-07-19] MEDS: AMLODIPINE 5 MG TAB PO SCH (08:47)
[2018-07-19] MEDS: ASPIRIN (EC) 81 MG TAB PO SCH (08:47)
[2018-07-19] MEDS: MUPIROCIN 2% 22 GM OINT TOP SCH ×2 (08:49→20:51)
[2018-07-19] MEDS: FAMOTIDINE 20 MG INJ IV SCH (08:49)
--- NOTE | 2018-07-19 09:09 | CONS ---
Assessment/Plan Assessment/Plan Assessment/Plan (Daily) 1. acute hypoxic respiratory failure requiring BIPAP- S/p Emergent HD yesterday , Plan for another HD today 2. Anemia of ESRD s/p PRBC transfusion during this admission 3. ESRD on HD MWF Schedule 4. L foot diabetic ulcer s/p previous Transmetatarsal amputation 5. h/O DM II 6. h/o HTN Plan: pt went into resp distress requiring BIPAP, s/p Extra HD today 3 L removed, will plan for another HD tomorrow as per regular schedule IV abx as per ID, Renally dose all abx and monitor electrolytes Will follow up Consultation Date/Type/Reason Admit Date/Time July 15, 2018 at 00:58 Initial Consult Date 07/15/18 Type of Consult NEPHROLOGY Date/Time of Note DATE: 07/19/18 TIME: 09:09 Exam/Review of Systems Exam Vitals Vital Signs Date Temp Pulse Resp B/P (MAP) Pulse Ox O2 O2 Flow FiO2 Time Delivery Rate 07/19/18 99 100 45 08:42 07/19/18 98.0 18 153/59 07:47 (90) 07/18/18 BIPAP 09:30 07/17/18 6.0 19:58 Intake and Output 07/18/18 07/18/18 07/19/18 1515:00 23:00 07:00 IntakeIntake Total 700 ml 550 ml OutputOutput Total 200 ml BalanceBalance 500 ml 550 ml Results Result Diagram: 07/18/18 0539 07/18/18 0539 Results 24hrs Laboratory Tests Test 07/18/18 19:58 07/19/18 01:57 Bedside Glucose 99 128 Medications Medication Current Medications Ondansetron HCl (Zofran Inj) 4 mg Q6H PRN IV NAUSEA AND/OR VOMITING; Start 07/15/18 at 03:00 Albuterol/ Ipratropium (Duoneb) 3 ml Q2H RESP THERAPY PRN NEB SHORTNESS OF BREATH Last administered on 07/17/18at 23:24; Admin Dose 3 ML; Start 07/15/18 at 03:00 Nitroglycerin (Nitroglycerin (Sl Tab) 0.4 Mg) 1 tab Q5M PRN SL CHEST PAIN; Start 07/15/18 at 03:00 Acetaminophen (Tylenol Liquid) 650 mg Q6H PRN PO PAIN LEVEL 1-3 OR FEVER; Start 07/15/18 at 03:00 Morphine Sulfate (morphine) 2 mg Q4H PRN IV PAIN LEVEL 7-10; Start 07/15/18 at 03:00 Amlodipine Besylate (Norvasc) 5 mg DAILY PO Last administered on 07/19/18 08:47; Admin Dose 5 MG; Start 07/15/18 at 09:00 Aspirin (Halfprin) 81 mg DAILY PO Last administered on 07/19/18 08:47; Admin Dose 81 MG; Start 07/15/18 at 09:00 Atorvastatin Calcium (Lipitor) 10 mg QHS PO Last administered on 07/18/18 20:02; Admin Dose 10 MG; Start 07/15/18 at 21:00 Hydralazine HCl (Apresoline) 25 mg TID PO Last administered on 07/19/18 08:47; Admin Dose 25 MG; Start 07/15/18 at 09:00 Insulin Glargine (Lantus) 22 units DAILY@2000 SC Last administered on 07/15/18at 20:55; Admin Dose 22 UNITS; Start 07/15/18 at 20:00 Epoetin Yannick-epbx (Retacrit (Non-Esrd)) 10,000 unit MoWeFr@1700 SC Last administered on 07/18/18at 16:55; Admin Dose 10,000 UNIT; Start 07/15/18 at 17:00 Miscellaneous Information 1 ea NOTE XX ; Start 07/15/18 at 08:30 Glucose (Glutose) 15 gm Q15M PRN PO DECREASED GLUCOSE; Start 07/15/18 at 08:30 Glucose (Glutose) 22.5 gm Q15M PRN PO DECREASED GLUCOSE; Start 07/15/18 at 08:30 Dextrose (D50w Syringe) 25 ml Q15M PRN IV DECREASED GLUCOSE; Start 07/15/18 at 08:30 Dextrose (D50w Syringe) 50 ml Q15M PRN IV DECREASED GLUCOSE Last administered on 07/16/18at 07:55; Admin Dose 50 ML; Start 07/15/18 at 08:30 Glucagon (Glucagen) 1 mg Q15M PRN IM DECREASED GLUCOSE; Start 07/15/18 at 08:30 Glucose (Glutose) 15 gm Q15M PRN BUCCAL DECREASED GLUCOSE; Start 07/15/18 at 08:30 Heparin Sodium (Porcine) (Heparin (1000 Units/ml)) 3,200 unit AFTER DIALYSIS PRN CATHETER heparin lock Last administered on 07/18/18at 12:03; Admin Dose 3,200 UNIT; Start 07/15/18 at 08:30 Albumin Human 100 ml @ 100 mls/hr DURING DIALYSIS PRN IV to prevent hypotension during ; Start 07/15/18 at 08:30 Mupirocin (Bactroban) 1 applic BID TOP Last administered on 07/19/18 08:49; Admin Dose 1 APPLIC; Start 07/17/18 at 21:00 Rifampin (Rifampin) 600 mg DAILY PO Last administered on 07/19/18 08:47; Admin Dose 600 MG; Start 07/18/18 at 09:00 Famotidine (Pepcid Iv) 20 mg DAILY IV Last administered on 07/19/18 08:49; Admin Dose 20 MG; Start 07/19/18 at 09:00 Hydralazine HCl (Apresoline) 10 mg Q6H PRN IV elevated BP Last administered on 07/19/18at 03:35; Admin Dose 10 MG; Start 07/19/18 at 03:30 OTTO JUÁREZ MD Jul 19, 2018 09:09
--- NOTE | 2018-07-19 12:31 | PN ---
Date/Time of Note Date/Time of Note DATE: 07/19/18 TIME: 12:30 Assessment/Plan VTE Prophylaxis Risk score (from Nsg)>0 risk: 8 SCD applied (from Nsg): Yes Pharmacological prophylaxis: heparin Lines/Catheters IV Catheter Type (from Nrsg): Saline Lock Urinary Cath still in place: No Assessment/Plan Hospital Course NAd aoX3 + jvd Mild tachypnea but nonlabored RRR CTAB Soft nt nd L foot with mid foot amputation A/P: 68 yo male with ESRD on HD, PAD wtih foot ulcers, DMII, hyperetsnion who presented wtih acute respiratory failrue from pulmonary edeam Acute repsiratory failure: - Requires further dialysis. Dr Barber will dialyze again today - O2 as needed - No evidence of pneumonia Anemia of CKD: - Hold off on blood transfusion for now as I would like to avoid further volume given respiratory failure. Will address anemia when euvolemic ESRD: - HD per renal Foot ulcers: - No evidence of OM on XR, management per podiatry, abx per ID Hypertension; - Hydralazine DMII: - Basal/bolus insulin Result Diagram: 07/18/1853807/18/1839 Results 24hrs Laboratory Tests Test 07/18/18 19:58 07/19/18 01:57 Bedside Glucose 99 128 Subjective 24 Hr Interval Summary Free Text/Dictation Remains in respiratory failure requiring bipap XR shows persistent CHF Exam/Review of Systems Exam Vitals Vital Signs Date Temp Pulse Resp B/P (MAP) Pulse Ox O2 O2 Flow FiO2 Time Delivery Rate 07/19/18 91 12:21 07/19/18 100 45 11:16 07/19/18 98.0 18 153/59 07:47 (90) 07/18/18 BIPAP 09:30 07/17/18 6.0 19:58 Intake and Output 07/18/18 07/18/18 07/19/18 1515:00 23:00 07:00 IntakeIntake Total 700 ml 550 ml OutputOutput Total 200 ml BalanceBalance 500 ml 550 ml Results Results 24hrs Laboratory Tests Test 07/18/18 19:58 07/19/18 01:57 Bedside Glucose 99 128 Medications Medication Current Medications Ondansetron HCl (Zofran Inj) 4 mg Q6H PRN IV NAUSEA AND/OR VOMITING; Start 07/15/18 at 03:00 Albuterol/ Ipratropium (Duoneb) 3 ml Q2H RESP THERAPY PRN NEB SHORTNESS OF BREATH Last administered on 07/17/18 23:24; Admin Dose 3 ML; Start 07/15/18 at 03:00 Nitroglycerin (Nitroglycerin (Sl Tab) 0.4 Mg) 1 tab Q5M PRN SL CHEST PAIN; Start 07/15/18 at 03:00 Acetaminophen (Tylenol Liquid) 650 mg Q6H PRN PO PAIN LEVEL 1-3 OR FEVER; Start 07/15/18 at 03:00 Morphine Sulfate (morphine) 2 mg Q4H PRN IV PAIN LEVEL 7-10; Start 07/15/18 at 03:00 Amlodipine Besylate (Norvasc) 5 mg DAILY PO Last administered on 07/19/18 08:47; Admin Dose 5 MG; Start 07/15/18 at 09:00 Aspirin (Halfprin) 81 mg DAILY PO Last administered on 07/19/18 08:47; Admin Dose 81 MG; Start 07/15/18 at 09:00 Atorvastatin Calcium (Lipitor) 10 mg QHS PO Last administered on 07/18/18 20 :02; Admin Dose 10 MG; Start 07/15/18 at 21:00 Hydralazine HCl (Apresoline) 25 mg TID PO Last administered on 07/19/18 08:47; Admin Dose 25 MG; Start 07/15/18 at 09:00 Insulin Glargine (Lantus) 22 units DAILY@2000 SC Last administered on 07/15/18at 20:55; Admin Dose 22 UNITS; Start 07/15/18 at 20:00 Epoetin Yannick-epbx (Retacrit (Non-Esrd)) 10,000 unit MoWeFr@1700 SC Last administered on 07/18/18 16:55; Admin Dose 10,000 UNIT; Start 07/15/18 at 17:00 Miscellaneous Information 1 ea NOTE XX ; Start 07/15/18 at 08:30 Glucose (Glutose) 15 gm Q15M PRN PO DECREASED GLUCOSE; Start 07/15/18 at 08:30 Glucose (Glutose) 22.5 gm Q15M PRN PO DECREASED GLUCOSE; Start 07/15/18 at 08:30 Dextrose (D50w Syringe) 25 ml Q15M PRN IV DECREASED GLUCOSE; Start 07/15/18 at 08:30 Dextrose (D50w Syringe) 50 ml Q15M PRN IV DECREASED GLUCOSE Last administered on 07/16/18at 07:55; Admin Dose 50 ML; Start 07/15/18 at 08:30 Glucagon (Glucagen) 1 mg Q15M PRN IM DECREASED GLUCOSE; Start 07/15/18 at 08:30 Glucose (Glutose) 15 gm Q15M PRN BUCCAL DECREASED GLUCOSE; Start 07/15/18 at 08:30 Heparin Sodium (Porcine) (Heparin (1000 Units/ml)) 3,200 unit AFTER DIALYSIS PRN CATHETER heparin lock Last administered on 07/18/18 12:03; Admin Dose 3,200 UNIT; Start 07/15/18 at 08:30 Albumin Human 100 ml @ 100 mls/hr DURING DIALYSIS PRN IV to prevent hypotension during ; Start 07/15/18 at 08:30 Mupirocin (Bactroban) 1 applic BID TOP Last administered on 07/19/18 08:49; Admin Dose 1 APPLIC; Start 07/17/18 at 21:00 Rifampin (Rifampin) 600 mg DAILY PO Last administered on 07/19/18 08:47; Admin Dose 600 MG; Start 07/18/18 at 09:00 Famotidine (Pepcid Iv) 20 mg DAILY IV Last administered on 07/19/18 08:49; Admin Dose 20 MG; Start 07/19/18 at 09:00 Hydralazine HCl (Apresoline) 10 mg Q6H PRN IV elevated BP Last administered on 07/19/18at 03:35; Admin Dose 10 MG; Start 07/19/18 at 03:30 DMITRI SPAIN MD Jul 19, 2018 12:30
[2018-07-19] MEDS: HEPARIN 1000 UNITS/ML 10 ML INJ CATHETER PRN (16:28)
[2018-07-19] MEDS: INSULIN GLARGINE [LANTus] (100 UNITS/ML) SYG SC SCH (20:00)
[2018-07-19] MEDS: ATORVASTATIN 10 MG TAB PO SCH (20:51)
[2018-07-20] VITALS (23 sets, daily range): BP systolic 137–188; BP diastolic 75–91; PULSE 81–99; RESP 18–22
--- NOTE | 2018-07-20 07:00 | CONS ---
Assessment/Plan Assessment/Plan Hospital Course (Demo Recall) 1) CHF, likely due to delayed dialysis breathing has improved, doubt he has pneumonia but will check procalcitonin 07/16 - procalcitonin for people in ESRD is within normal limties no good evidence for pneumonia 2) L foot ulcers will review the [facility] records and see if cx were done and what if any antibiotics he received continue with vanco/zosyn at present get wound cx here ESR is very high, if work-up for osteo and arterial studies weren't done we may need to do these here 07/16 - this is not new and pt has been advised that he likely needs BKA but he has refused 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 and was suppose to be getting IV vanco with dialysis d/c zosyn but continue with vanco at present will order arterial dopplers to see if flow is adequate at this time 07/18 - arterial dopplers show bilateral LE issues with arterial flow high ESR is c/w current osteo continue with vanco, d/c zosyn and add rifampin for better MRSA coverage recommend vascular surgery consult 07/20 - no vascular intervention planned local debridement today by report and to follow cultures if obtained continue with vanco/rifampin for 6 week course 3) DM 4) HTN 5) ESRD Consultation Date/Type/Reason Admit Date/Time July 15, 2018 at 00:58 Initial Consult Date 07/15/18 Type of Consult ID Date/Time of Note DATE: 07/20/18 TIME: 06:58 24 HR Interval Summary Free Text/Dictation pt has no pain to L foot no N, V, D no cough Exam/Review of Systems Exam Vitals Vital Signs Date Temp Pulse Resp B/P (MAP) Pulse Ox O2 O2 Flow FiO2 Time Delivery Rate 07/20/18 3.0 05:44 07/20/18 94 04:00 07/20/18 98.2 19 158/87 94 04:00 (110) 07/19/18 45 15:45 07/19/18 BIPAP 13:40 Intake and Output 07/19/18 07/19/18 07/20/18 1515:00 23:00 07:00 IntakeIntake Total 800 ml 520 ml OutputOutput Total 3650 ml BalanceBalance -2850 ml 520 ml Constitutional: alert, oriented ENMT: mucosa pink and moist Respiratory: clear to auscultation Cardiovascular: regular rate and rhythm Gastrointestinal: soft, non-tender Extremities: other (L foot is bandaged) Results Result Diagram: 07/18/1839 07/18/18 0539 Results 24hrs Laboratory Tests Test 07/19/18 20:50 Bedside Glucose 108 Medications Medication Current Medications Ondansetron HCl (Zofran Inj) 4 mg Q6H PRN IV NAUSEA AND/OR VOMITING; Start 07/15/18 at 03:00 Albuterol/ Ipratropium (Duoneb) 3 ml Q2H RESP THERAPY PRN NEB SHORTNESS OF BREATH Last administered on 07/17/18at 23:24; Admin Dose 3 ML; Start 07/15/18 at 03:00 Nitroglycerin (Nitroglycerin (Sl Tab) 0.4 Mg) 1 tab Q5M PRN SL CHEST PAIN; Start 07/15/18 at 03:00 Acetaminophen (Tylenol Liquid) 650 mg Q6H PRN PO PAIN LEVEL 1-3 OR FEVER; Start 07/15/18 at 03:00 Morphine Sulfate (morphine) 2 mg Q4H PRN IV PAIN LEVEL 7-10; Start 07/15/18 at 03:00 Amlodipine Besylate (Norvasc) 5 mg DAILY PO Last administered on 07/19/18 08:47; Admin Dose 5 MG; Start 07/15/18 at 09:00 Aspirin (Halfprin) 81 mg DAILY PO Last administered on 07/19/18 08:47; Admin Dose 81 MG; Start 07/15/18 at 09:00 Atorvastatin Calcium (Lipitor) 10 mg QHS PO Last administered on 07/19/18 20:51; Admin Dose 10 MG; Start 07/15/18 at 21:00 Hydralazine HCl (Apresoline) 25 mg TID PO Last administered on 07/19/18 20:51; Admin Dose 25 MG; Start 07/15/18 at 09:00 Insulin Glargine (Lantus) 22 units DAILY@2000 SC Last administered on 07/15/18at 20:55; Admin Dose 22 UNITS; Start 07/15/18 at 20:00 Epoetin Yannick-epbx (Retacrit (Non-Esrd)) 10,000 unit MoWeFr@1700 SC Last administered on 07/18/18at 16:55; Admin Dose 10,000 UNIT; Start 07/15/18 at 17:00 Miscellaneous Information 1 ea NOTE XX ; Start 07/15/18 at 08:30 Glucose (Glutose) 15 gm Q15M PRN PO DECREASED GLUCOSE; Start 07/15/18 at 08:30 Glucose (Glutose) 22.5 gm Q15M PRN PO DECREASED GLUCOSE; Start 07/15/18 at 08:30 Dextrose (D50w Syringe) 25 ml Q15M PRN IV DECREASED GLUCOSE; Start 07/15/18 at 08:30 Dextrose (D50w Syringe) 50 ml Q15M PRN IV DECREASED GLUCOSE Last administered on 07/16/18at 07:55; Admin Dose 50 ML; Start 07/15/18 at 08:30 Glucagon (Glucagen) 1 mg Q15M PRN IM DECREASED GLUCOSE; Start 07/15/18 at 08:30 Glucose (Glutose) 15 gm Q15M PRN BUCCAL DECREASED GLUCOSE; Start 07/15/18 at 08:30 Heparin Sodium (Porcine) (Heparin (1000 Units/ml)) 3,200 unit AFTER DIALYSIS PRN CATHETER heparin lock Last administered on 07/19/18at 16:28; Admin Dose 3,200 UNIT; Start 07/15/18 at 08:30 Albumin Human 100 ml @ 100 mls/hr DURING DIALYSIS PRN IV to prevent hypotension during ; Start 07/15/18 at 08:30 Mupirocin (Bactroban) 1 applic BID TOP Last administered on 07/19/18at 20:51; Admin Dose 1 APPLIC; Start 07/17/18 at 21:00 Rifampin (Rifampin) 600 mg DAILY PO Last administered on 07/19/18 08:47; Admin Dose 600 MG; Start 07/18/18 at 09:00 Famotidine (Pepcid Iv) 20 mg DAILY IV Last administered on 07/19/18 08:49; Admin Dose 20 MG; Start 07/19/18 at 09:00 Hydralazine HCl (Apresoline) 10 mg Q6H PRN IV elevated BP Last administered on 07/19/18 03:35; Admin Dose 10 MG; Start 07/19/18 at 03:30 BRANDIN ROCA MD Jul 20, 2018 07:00
[2018-07-20] MEDS: AMLODIPINE 5 MG TAB PO SCH (07:57)
[2018-07-20] MEDS: RIFAMPIN 300 MG CAP PO SCH (09:26)
[2018-07-20] MEDS: ASPIRIN (EC) 81 MG TAB PO SCH (09:26)
[2018-07-20] MEDS: FAMOTIDINE 20 MG INJ IV SCH (09:26)
[2018-07-20] MEDS: MUPIROCIN 2% 22 GM OINT TOP SCH ×2 (09:27→21:00)
--- NOTE | 2018-07-20 10:04 | CONS ---
Assessment/Plan Assessment/Plan Assessment/Plan (Daily) 1. acute hypoxic respiratory failure requiring BIPAP 2. Anemia of ESRD s/p PRBC transfusion during this admission 3. ESRD on HD MWF Schedule 4. L foot diabetic ulcer s/p previous Transmetatarsal amputation 5. h/O DM II 6. h/o HTN Plan: pt went into resp distress requiring BIPAP yesterday s/p Extra HD yesterday 3 L removed, will plan for HD today, His regular schedule is MWF, due to Fluid overload, will plan for extra HD on afternoon also then pt will be on MWF schedule IV abx as per ID, Renally dose all abx and monitor electrolytes s/p Vascular surgery evaluation for LE wounds Will follow up Consultation Date/Type/Reason Admit Date/Time July 15, 2018 at 00:58 Initial Consult Date 07/15/18 Type of Consult NEPHROLOGY Date/Time of Note DATE: 07/20/18 TIME: 10:04 Exam/Review of Systems Exam Vitals Vital Signs Date Temp Pulse Resp B/P (MAP) Pulse Ox O2 O2 Flow FiO2 Time Delivery Rate 07/20/18 Nasal 3.0 08:11 Cannula 07/20/18 97 08:00 07/20/18 98.9 22 180/86 96 07:53 (117) 07/19/18 45 15:45 Intake and Output 07/19/18 07/19/18 07/20/18 1515:00 23:00 07:00 IntakeIntake Total 800 ml 520 ml OutputOutput Total 3650 ml BalanceBalance -2850 ml 520 ml Constitutional: alert Head: normocephalic Neck: supple, non-tender Respiratory: congested cough, crackles/rales, diminished breath sounds Cardiovascular: regular rate and rhythm, nl pulses Gastrointestinal: soft, non-tender Musculoskeletal: nl extremities to inspection, muscle weakness, swelling Extremities: normal pulses Neurological: confused, lethargic Results Result Diagram: 07/18/18 0539 07/18/1839 Results 24hrs Laboratory Tests Test 07/19/18 20:50 Bedside Glucose 108 Medications Medication Current Medications Ondansetron HCl (Zofran Inj) 4 mg Q6H PRN IV NAUSEA AND/OR VOMITING; Start 07/15/18 at 03:00 Albuterol/ Ipratropium (Duoneb) 3 ml Q2H RESP THERAPY PRN NEB SHORTNESS OF BREATH Last administered on 07/17/18 23:24; Admin Dose 3 ML; Start 07/15/18 at 03:00 Nitroglycerin (Nitroglycerin (Sl Tab) 0.4 Mg) 1 tab Q5M PRN SL CHEST PAIN; Start 07/15/18 at 03:00 Acetaminophen (Tylenol Liquid) 650 mg Q6H PRN PO PAIN LEVEL 1-3 OR FEVER; Start 07/15/18 at 03:00 Morphine Sulfate (morphine) 2 mg Q4H PRN IV PAIN LEVEL 7-10; Start 07/15/18 at 03:00 Amlodipine Besylate (Norvasc) 5 mg DAILY PO Last administered on 07/19/18 08:47; Admin Dose 5 MG; Start 07/15/18 at 09:00 Aspirin (Halfprin) 81 mg DAILY PO Last administered on 07/20/18 09:26; Admin Dose 81 MG; Start 07/15/18 at 09:00 Atorvastatin Calcium (Lipitor) 10 mg QHS PO Last administered on 07/19/18 20:51; Admin Dose 10 MG; Start 07/15/18 at 21:00 Hydralazine HCl (Apresoline) 25 mg TID PO Last administered on 07/19/18 20:51; Admin Dose 25 MG; Start 07/15/18 at 09:00 Insulin Glargine (Lantus) 22 units DAILY@2000 SC Last administered on 07/15/18 20:55; Admin Dose 22 UNITS; Start 07/15/18 at 20:00 Epoetin Yannick-epbx (Retacrit (Non-Esrd)) 10,000 unit MoWeFr@1700 SC Last administered on 07/18/18 16:55; Admin Dose 10,000 UNIT; Start 07/15/18 at 17:00 Miscellaneous Information 1 ea NOTE XX ; Start 07/15/18 at 08:30 Glucose (Glutose) 15 gm Q15M PRN PO DECREASED GLUCOSE; Start 07/15/18 at 08:30 Glucose (Glutose) 22.5 gm Q15M PRN PO DECREASED GLUCOSE; Start 07/15/18 at 08:30 Dextrose (D50w Syringe) 25 ml Q15M PRN IV DECREASED GLUCOSE; Start 07/15/18 at 08:30 Dextrose (D50w Syringe) 50 ml Q15M PRN IV DECREASED GLUCOSE Last administered on 07/16/18at 07:55; Admin Dose 50 ML; Start 07/15/18 at 08:30 Glucagon (Glucagen) 1 mg Q15M PRN IM DECREASED GLUCOSE; Start 07/15/18 at 08:30 Glucose (Glutose) 15 gm Q15M PRN BUCCAL DECREASED GLUCOSE; Start 07/15/18 at 08:30 Heparin Sodium (Porcine) (Heparin (1000 Units/ml)) 3,200 unit AFTER DIALYSIS PRN CATHETER heparin lock Last administered on 07/19/18at 16:28; Admin Dose 3,200 UNIT; Start 07/15/18 at 08:30 Albumin Human 100 ml @ 100 mls/hr DURING DIALYSIS PRN IV to prevent hypotension during ; Start 07/15/18 at 08:30 Mupirocin (Bactroban) 1 applic BID TOP Last administered on 07/20/18 09:27; Admin Dose 1 APPLIC; Start 07/17/18 at 21:00 Rifampin (Rifampin) 600 mg DAILY PO Last administered on 07/20/18 09:26; Admin Dose 600 MG; Start 07/18/18 at 09:00 Famotidine (Pepcid Iv) 20 mg DAILY IV Last administered on 07/20/18 09:26; Admin Dose 20 MG; Start 07/19/18 at 09:00 Hydralazine HCl (Apresoline) 10 mg Q6H PRN IV elevated BP Last administered on 07/19/18 03:35; Admin Dose 10 MG; Start 07/19/18 at 03:30 OTTO JUÁREZ MD Jul 20, 2018 10:04
--- NOTE | 2018-07-20 10:47 | CONS ---
Assessment/Plan Assessment/Plan Assessment/Plan (Daily) Assessment and recommendations; next 1. Patient admitted with CHF exacerbation with interval improvement. 2. Left lower extremity ulcer, currently on appropriate antimicrobial regimen. 3. Chronic renal failure, on hemodialysis. 4. History of hypertension and diabetes. Continue current supportive care. Hemodialysis per crisis worker. Antibiotics per ID recommendations. Consultation Date/Type/Reason Admit Date/Time July 15, 2018 at 00:58 Initial Consult Date 07/15/18 Type of Consult Pulmonary Patient condition is fairly stable. Doing well on BiPAP. General exam; elderly male, laying comfortably in bed. Awake and alert. Currently in no distress. Getting hemodialysis at bedside. Date/Time of Note DATE: 07/20/18 TIME: 10:45 24 HR Interval Summary Free Text/Dictation Patient's condition is stable. Remains awake and alert. Denies any shortness of breath, chest pain, coughing, wheezing or any fever. General exam; elderly male, awake alert, currently no distress. Exam/Review of Systems Exam Vitals Vital Signs Date Temp Pulse Resp B/P (MAP) Pulse Ox O2 O2 Flow FiO2 Time Delivery Rate 07/20/18 Nasal 3.0 08:11 Cannula 07/20/18 97 08:00 07/20/18 98.9 22 180/86 96 07:53 (117) 07/19/18 45 15:45 Intake and Output 07/19/18 07/19/18 07/20/18 1515:00 23:00 07:00 IntakeIntake Total 800 ml 520 ml OutputOutput Total 3650 ml BalanceBalance -2850 ml 520 ml Exam H EENT exam; supple neck, positive JVD. Patient has few remaining carious teeth. No neck masses. Chest exam; diminished but clear breath sounds. S1-S2 audible, no murmurs. Regular rhythm. Hemodialysis catheter in right supplement area. Abdomen exam; soft, mildly protuberant. Nontender. Bowel sounds audible. Extremity exam; no peripheral edema clubbing. VISCOSITY WORKER exam; no focal deficit. Results Result Diagram: 07/18/18 0539 07/18/18 0539 Results 24hrs Laboratory Tests Test 07/19/18 20:50 Bedside Glucose 108 Medications Medication Current Medications Ondansetron HCl (Zofran Inj) 4 mg Q6H PRN IV NAUSEA AND/OR VOMITING; Start 07/15/18 at 03:00 Albuterol/ Ipratropium (Duoneb) 3 ml Q2H RESP THERAPY PRN NEB SHORTNESS OF BREATH Last administered on 07/17/18 23:24; Admin Dose 3 ML; Start 07/15/18 at 03:00 Nitroglycerin (Nitroglycerin (Sl Tab) 0.4 Mg) 1 tab Q5M PRN SL CHEST PAIN; Start 07/15/18 at 03:00 Acetaminophen (Tylenol Liquid) 650 mg Q6H PRN PO PAIN LEVEL 1-3 OR FEVER; Start 07/15/18 at 03:00 Morphine Sulfate (morphine) 2 mg Q4H PRN IV PAIN LEVEL 7-10; Start 07/15/18 at 03:00 Amlodipine Besylate (Norvasc) 5 mg DAILY PO Last administered on 07/19/18 08:47; Admin Dose 5 MG; Start 07/15/18 at 09:00 Aspirin (Halfprin) 81 mg DAILY PO Last administered on 07/20/18 09:26; Admin Dose 81 MG; Start 07/15/18 at 09:00 Atorvastatin Calcium (Lipitor) 10 mg QHS PO Last administered on 07/19/18 20:51; Admin Dose 10 MG; Start 07/15/18 at 21:00 Hydralazine HCl (Apresoline) 25 mg TID PO Last administered on 07/19/18 20:51; Admin Dose 25 MG; Start 07/15/18 at 09:00 Insulin Glargine (Lantus) 22 units DAILY@2000 SC Last administered on 07/15/18at 20:55; Admin Dose 22 UNITS; Start 07/15/18 at 20:00 Epoetin Yannick-epbx (Retacrit (Non-Esrd)) 10,000 unit MoWeFr@1700 SC Last administered on 07/18/18 16:55; Admin Dose 10,000 UNIT; Start 07/15/18 at 17:00 Miscellaneous Information 1 ea NOTE XX ; Start 07/15/18 at 08:30 Glucose (Glutose) 15 gm Q15M PRN PO DECREASED GLUCOSE; Start 07/15/18 at 08:30 Glucose (Glutose) 22.5 gm Q15M PRN PO DECREASED GLUCOSE; Start 07/15/18 at 08:30 Dextrose (D50w Syringe) 25 ml Q15M PRN IV DECREASED GLUCOSE; Start 07/15/18 at 08:30 Dextrose (D50w Syringe) 50 ml Q15M PRN IV DECREASED GLUCOSE Last administered on 07/16/18at 07:55; Admin Dose 50 ML; Start 07/15/18 at 08:30 Glucagon (Glucagen) 1 mg Q15M PRN IM DECREASED GLUCOSE; Start 07/15/18 at 08:30 Glucose (Glutose) 15 gm Q15M PRN BUCCAL DECREASED GLUCOSE; Start 07/15/18 at 08:30 Heparin Sodium (Porcine) (Heparin (1000 Units/ml)) 3,200 unit AFTER DIALYSIS PRN CATHETER heparin lock Last administered on 07/19/18at 16:28; Admin Dose 3,200 UNIT; Start 07/15/18 at 08:30 Albumin Human 100 ml @ 100 mls/hr DURING DIALYSIS PRN IV to prevent hypotension during ; Start 07/15/18 at 08:30 Mupirocin (Bactroban) 1 applic BID TOP Last administered on 07/20/18 09:27; Admin Dose 1 APPLIC; Start 07/17/18 at 21:00 Rifampin (Rifampin) 600 mg DAILY PO Last administered on 07/20/18 09:26; Admin Dose 600 MG; Start 07/18/18 at 09:00 Famotidine (Pepcid Iv) 20 mg DAILY IV Last administered on 07/20/18 09:26; Admin Dose 20 MG; Start 07/19/18 at 09:00 Hydralazine HCl (Apresoline) 10 mg Q6H PRN IV elevated BP Last administered on 07/19/18at 03:35; Admin Dose 10 MG; Start 07/19/18 at 03:30 LAURA TORRES 5, 2019 10:47
--- NOTE | 2018-07-20 12:22 | PN ---
Date/Time of Note Date/Time of Note DATE: 07/20/18 TIME: 12:21 Assessment/Plan VTE Prophylaxis Risk score (from Ns)>0 risk: 12 SCD applied (from Ns): No SCD contraindicated: other Pharmacological prophylaxis: NA/contraindicated Pharm contraindication: anticoag not tolerated Lines/Catheters IV Catheter Type (from [facility], [place]): Saline Lock Urinary Cath still in place: No Assessment/Plan Hospital Course SUBJECTIVE: Remains on oxygen via nasal cannula. Complains of dyspnea. OBJECTIVE: Physical Exam General: 68 obese, year-old male lying in bed in no apparent distress. HEENT: Normocephalic, atraumatic. Eyes: Anicteric sclerae, conjunctivae clear. ENT: Nasal septum midline, oral mucosa is moist. Neck supple. Respiratory: Bilaterally diminished breath sounds. Minimal use of accessory muscles of respiration. No adventitious breath sounds. Cardiovascular: S1, S2 heard. Regular rate and rhythm. Abdomen: Soft, nontender, and nondistended. Bowel sounds positive in all 4 quadrants. Genitourinary: Deferred. Extremities: No cyanosis, no clubbing. Left foot stump dressing. Right lower extremity edema. Neurologic: Cranial nerves II through XII grossly intact. The patient is awake, alert, and oriented. Skin: Normal skin turgor. No skin rashes. Labs & Vitals per chart ASSESSMENT & PLAN 68-year-old male with past medical history of hypertension, end-stage disease on hemodialysis on , diabetes mellitus, peripheral vascular disease,and anemia of chronic disease who was transferred from a longterm facility because of dyspnea, who was found to have evidence of underlying pulmonary edema with small bilateral pleural effusions and was admitted to inpatient setting for further treatment and evaluation. 1. Acute hypoxic respiratory failure. Most probably secondary to underlying pulmonary edema. Continue ultrafiltration. Continue inhaled bronchodilators and supplemental oxygen. 2. Pulmonary edema. Continue ultrafiltration as per nephrology. 3. 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 Continue antimicrobials as per ID. Being followed by podiatry. 4. Possible early osteomyelitis of the left TMA stump. Continue antimicrobials as per ID. 5. ESRD on HD on // Continue hemodialysis as per nephrology.. 6. Hypertension. Continue antihypertensives. 7. Diabetes mellitus. Hemoglobin A1c 5.4. Continue sliding scale insulin along with basal insulin. 8. Dyslipidemia. Continue statins. 9. Anemia of chronic kidney disease. Continue Epogen. 10. Fluids, electrolytes, and nutrition. Renal diet. 11. DVT prophylaxis. SCDs. 12. Plan. Continue antimicrobials as per ID. Continue to wean off oxygen. Await clinical improvement before discharging the patient to SNF. The patient was seen in collaboration with Dr. Guillermo. Result Diagram: 07/18/18 0539 07/18/18 0539 Results 24hrs Laboratory Tests Test 07/19/18 20:50 Bedside Glucose 108 Exam/Review of Systems Exam Vitals Vital Signs Date Temp Pulse Resp B/P (MAP) Pulse Ox O2 O2 Flow FiO2 Time Delivery Rate 07/20/18 98.6 90 22 175/82 96 Room Air 11:18 (113) 07/20/18 3.0 08:11 07/19/18 45 15:45 Intake and Output 07/19/18 07/19/18 07/20/18 1515:00 23:00 07:00 IntakeIntake Total 800 ml 520 ml OutputOutput Total 3650 ml BalanceBalance -2850 ml 520 ml Results Results 24hrs Laboratory Tests Test 07/19/18 20:50 Bedside Glucose 108 Medications Medication Current Medications Ondansetron HCl (Zofran Inj) 4 mg Q6H PRN IV NAUSEA AND/OR VOMITING; Start 07/15/18 at 03:00 Albuterol/ Ipratropium (Duoneb) 3 ml Q2H RESP THERAPY PRN NEB SHORTNESS OF BREATH Last administered on 07/17/18at 23:24; Admin Dose 3 ML; Start 07/15/18 at 03:00 Nitroglycerin (Nitroglycerin (Sl Tab) 0.4 Mg) 1 tab Q5M PRN SL CHEST PAIN; Start 07/15/18 at 03:00 Acetaminophen (Tylenol Liquid) 650 mg Q6H PRN PO PAIN LEVEL 1-3 OR FEVER; S tart 07/15/18 at 03:00 Morphine Sulfate (morphine) 2 mg Q4H PRN IV PAIN LEVEL 7-10; Start 07/15/18 at 03:00 Amlodipine Besylate (Norvasc) 5 mg DAILY PO Last administered on 07/19/18at 08:47; Admin Dose 5 MG; Start 07/15/18 at 09:00 Aspirin (Halfprin) 81 mg DAILY PO Last administered on 6/5/19at 09:26; Admin Dose 81 MG; Start 07/15/18 at 09:00 Atorvastatin Calcium (Lipitor) 10 mg QHS PO Last administered on 07/19/18 20:51; Admin Dose 10 MG; Start 07/15/18 at 21:00 Hydralazine HCl (Apresoline) 25 mg TID PO Last administered on 07/19/18 20:51; Admin Dose 25 MG; Start 07/15/18 at 09:00 Insulin Glargine (Lantus) 22 units DAILY@2000 SC Last administered on 07/15/18 20:55; Admin Dose 22 UNITS; Start 07/15/18 at 20:00 Epoetin Yannick-epbx (Retacrit (Non-Esrd)) 10,000 unit MoWeFr@1700 SC Last adm inistered on 07/18/18 16:55; Admin Dose 10,000 UNIT; Start 07/15/18 at 17:00 Miscellaneous Information 1 ea NOTE XX ; Start 07/15/18 at 08:30 Glucose (Glutose) 15 gm Q15M PRN PO DECREASED GLUCOSE; Start 07/15/18 at 08:30 Glucose (Glutose) 22.5 gm Q15M PRN PO DECREASED GLUCOSE; Start 07/15/18 at 08 :30 Dextrose (D50w Syringe) 25 ml Q15M PRN IV DECREASED GLUCOSE; Start 07/15/18 at 08:30 Dextrose (D50w Syringe) 50 ml Q15M PRN IV DECREASED GLUCOSE Last administered on 07/16/18 07:55; Admin Dose 50 ML; Start 07/15/18 at 08:30 Glucagon (Glucagen) 1 mg Q15M PRN IM DECREASED GLUCOSE; Start 07/15/18 at 08:30 Glucose (Glutose) 15 gm Q15M PRN BUCCAL DECREASED GLUCOSE; Start 07/15/18 at 08:30 Heparin Sodium (Porcine) (Heparin (1000 Units/ml)) 3,200 unit AFTER DIALYSIS PRN CATHETER heparin lock Last administered on 07/19/18 16:28; Admin Dose 3,200 UNIT; Start 07/15/18 at 08:30 Albumin Human 100 ml @ 100 mls/hr DURING DIALYSIS PRN IV to prevent hypotension during ; Start 07/15/18 at 08:30 Mupirocin (Bactroban) 1 applic BID TOP Last administered on 07/20/18 09:27; Admin Dose 1 APPLIC; Start 07/17/18 at 21:00 Rifampin (Rifampin) 600 mg DAILY PO Last administered on 07/20/18 09:26; Admin Dose 600 MG; Start 07/18/18 at 09:00 Famotidine (Pepcid Iv) 20 mg DAILY IV Last administered on 07/20/18 09:26; Admin Dose 20 MG; Start 07/19/18 at 09:00 Hydralazine HCl (Apresoline) 10 mg Q6H PRN IV elevated BP Last administered on 07/19/18 03:35; Admin Dose 10 MG; Start 07/19/18 at 03:30 DONOVAN TRAVIS NP Jul 20, 2018 12:22
--- NOTE | 2018-07-20 14:24 | CONS ---
DATE OF ADMISSION: 07/15/2018 DATE OF CONSULTATION: 07/20/2018 SUBJECTIVE FINDINGS: The patient is being followed for left foot ulceration, osteomyelitis. History of transmetatarsal amputation with ulceration. Surgery had been postponed due to acute respir atory failure and remains on BiPAP. OBJECTIVE FINDINGS: VITAL SIGNS: Temperature 98.9, pulse is 92, respiratory rate 22, blood pressure 180/86, pulse oximet ry is 96 on 2 liters nasal cannula. GENERAL: The patient awake, alert and oriented x4. He is ambulatory, using bedside commode. Dressi ngs intact. Left foot transmetatarsal amputation. No active drainage. LABORATORIES: WBC 9, hemoglobin 7.6, hematocrit 24, platelets 277. Sodium 141, potassium 3.8, chlor latosha 104, CO2 28, BUN 28, creatinine 3.9. Left foot culture 531. MRSA. ASSESSMENT: 1. Left foot transmetatarsal amputation with suspected residual osteomyelitis, first metatarsal. 2. Left heel diabetic ulceration. 3. Peripheral arterial disease status post revascularization. 4. End-stage renal disease on hemodialysis. 5. Acute respiratory failure on BiPAP. 6. Diabetes type 2. PLAN: Patient seen and evaluated. Continue topical antiseptic precautions. Wound care. Will jose edule when medically optimized for planned procedure. The patient currently on vancomycin and rifamp in. Also appreciate ID recommendations. Dictated By: REBECCA POWELL DPM RB/HOLLY Conf#: [id number] DID#: [id number] CC: TRISTA CHU MD;*EndCC*
--- NOTE | 2018-07-20 17:30 | CONS ---
DATE OF ADMISSION: 07/15/2018 DATE OF CONSULTATION: 07/20/2018 TYPE OF CONSULTATION: Vascular. REFERRING PHYSICIAN: Dr. Rebecca Thomas. REASON FOR CONSULTATION: Vascular evaluation of left lower extremity wounds. HISTORY OF PRESENT ILLNESS: This is a 68-year-old diabetic hypertensive gentleman. He has severe pe ripheral arterial disease. He is very well known to me. 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 He has recently gone into renal failure and is now on hemodialy sis. This started about 6 weeks ago. I saw him up at [place] a few weeks ago when he was there. The wounds have actually been really doing well and improving. He does have chronic osteomyelitis o r chronic open wounds where there is an open transmet in the heel debridement, but his main issue has been pulmonary and problems with CHF and today he actually looks much less edematous than when he wa s at [place]. He has had some chronic left arm edema. He had a PICC line there. I think he has had chronic venous occlusion in that arm. He was readmitted to [facility] just a few days a go, again with CHF, fluid overload, acute hypoxia, had been in a care home facility. He is doi ng much better now. He says he is breathing better. He has been diuresed and has been getting dialy sis to take off the extra fluid. He has a Perm-A-Cath. Human Capital Consultant was Dr. Lujan who had been fo llowing him and I talked to him about making a fistula once his edema is resolved, but he is still a little too edematous to proceed with that. When he was at [place], he actually had very elevated white count but it finally came down and actually it has been normal on this admission. PAST MEDICAL HISTORY: Again, is significant for diabetes, hypertension, peripheral arterial disease, hyperlipidemia, end-stage renal disease, left foot gangrene. MEDICATIONS: Consist of: 1. Pepcid. 2. Apresoline. 3. Rifampin. 4. Bactroban. 5. Lipitor. 6. Lantus. 7. Retacrit. 8. Norvasc. 9. Aspirin. 10. Subcutaneous heparin. 11. Nitroglycerin. ALLERGIES: No known drug allergies. SOCIAL HISTORY: He is a former smoker. He does not drink or use any illicit drugs. He has been josephine ing in a care home facility for quite some time. He does have some family members to come with him to appointments. FAMILY HISTORY: Noncontributory. REVIEW OF SYSTEMS: He currently is feeling better. He currently denies any chest pain or shortness of breath. He has no pain in his foot. In the past when he was admitted to [place] before I saw him, he had been recommended to have a below knee amputation, but he is adamantly opposed to it. He has had arterial studies of the lower extremities recently. It shows severe right SFA stenosis and o n the left I did an angiogram about 2 months ago. He has got a patent left fem-pop and basically per ineal only runoff. He does not have palpable pulse in the foot, but he also does not have any pedal vessels. He basically has very distal disease, but his circulation currently is optimized from my st andpoint. PHYSICAL EXAMINATION: GENERAL: He is an elderly gentleman. He is in no acute distress. He speaks Portuguese. VITAL SIGNS: He has been afebrile. His blood pressure is 175/82, heart rate is 90, respiratory rate is 22, 96% sat on room air. EXTREMITIES: His left arm is edematous and has been that way for at least the last few weeks. He spain d a PICC line there at some point. MUSCULOSKELETAL: He has 2+ radial and brachial pulses bilaterally. NECK: 2+ carotid pulses bilaterally. LUNGS: Clear. HEART: Regular rate and rhythm. ABDOMEN: Obese, soft, nontender. He has 2+ popliteal pulse on the left, none on the right. There i s no DP or PT pulse in either foot. The left foot is currently wrapped. I looked at the pictures th at were taken when he came in, it is actually granulating nicely, looks quite clean. There is no sig n of infection. He probably has chronic osteo because of the wound has been open for so long, but MR I shows no abscess and actually looks better than I would have expected. I reviewed his arterial kana dies again on the left. He had an occluded SFA and pop and single vessel runoff. This SFA and fem-p op remain patent. He has peroneal only runoff and really no pedal vessels. There is no bypass optio n and actually his circulation was about as good as it has been and the wounds are improving daily. His right foot is cool, but he has no wounds there. IMPRESSION: Left foot chronic wounds have continued to improve after revascularization several month s ago. I would not recommend any further intervention at this time. The wounds are doing well. He has had pulmonary issues and now is in renal failure and once his overall anasarca and edema and his general state have improved, I will schedule him for an AV fistula creation, probably on the right si de given the PICC line on the left and the left arm edema. Dictated By: RAMÓN ALLEN/HOLLY Conf#: [id number] DID#: [id number] CC: EBONI LUJAN MD; OTTO JUÁREZ MD; DMITRI SPAIN MD; TRISTA CHU MD; REBECCA COLBERT DPM; LAURA TORRES MD;*EndCC*
[2018-07-20] MEDS: INSULIN GLARGINE [LANTus] (100 UNITS/ML) SYG SC SCH (22:00)
[2018-07-20] MEDS: HEPARIN 1000 UNITS/ML 10 ML INJ CATHETER PRN (23:07)
[2018-07-20] MEDS: ATORVASTATIN 10 MG TAB PO SCH (23:36)
[2018-07-20] MEDS: EPOETIN ALFA-EPBX (NON-ESRD 10,000 UNIT/ML VIAL SC SCH (23:43)
[2018-07-21] VITALS (24 sets, daily range): BP systolic 146–185; BP diastolic 69–95; PULSE 79–93; RESP 18–20
--- NOTE | 2018-07-21 09:13 | PN ---
Date/Time of Note Date/Time of Note DATE: 07/21/18 TIME: 09:10 Assessment/Plan VTE Prophylaxis Risk score (from Ns)>0 risk: 11 SCD applied (from Ns): No SCD contraindicated: other Pharmacological prophylaxis: NA/contraindicated Pharm contraindication: other (Anemia) Lines/Catheters IV [facility]ter [facility]from [facility] Saline Lock Urinary Cath still in place: No Assessment/Plan Hospital Course SUBJECTIVE: Remains on oxygen via nasal cannula. Complains of dyspnea. OBJECTIVE: Physical Exam General: 68 obese, year-old male lying in bed in no apparent distress. HEENT: Normocephalic, atraumatic. Eyes: Anicteric sclerae, conjunctivae clear. ENT: Nasal septum midline, oral mucosa is moist. Neck supple. Respiratory: Bilaterally diminished breath sounds. Minimal use of accessory muscles of respiration. No adventitious breath sounds. Cardiovascular: S1, S2 heard. Regular rate and rhythm. Abdomen: Soft, nontender, and nondistended. Bowel sounds positive in all 4 quadrants. Genitourinary: Deferred. Extremities: No cyanosis, no clubbing. Left foot stump dressing. Right lower extremity edema. Neurologic: Cranial nerves II through XII grossly intact. The patient is awake, alert, and oriented. Skin: Normal skin turgor. No skin rashes. Labs & Vitals per chart ASSESSMENT & PLAN 68-year-old male with past medical history of hypertension, end-stage disease on hemodialysis on //, diabetes mellitus, peripheral vascular disease,and anemia of chronic disease who was transferred from a long term facility because of dyspnea, who was found to have evidence of underlying pulmonary edema with small bilateral pleural effusions and was admitted to inpatient setting for further treatment and evaluation. 1. Acute hypoxic respiratory failure. Most probably secondary to underlying pulmonary edema. Continue ultrafiltration. Continue inhaled bronchodilators and supplemental oxygen. 2. Pulmonary edema. Continue ultrafiltration as per nephrology. 3. 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 Left foot MRI negative for any osteomyelitis. Continue antimicrobials as per ID. Being followed by podiatry. 4. ESRD on HD on // Continue hemodialysis as per nephrology. 5. Peripheral vascular disease. S/P percutaneous angioplasty of left peroneal artery occlusion on 11/10/2017 6. Hypertension. Continue antihypertensives. 7. Diabetes mellitus. Hemoglobin A1c 5.4. Continue sliding scale insulin along with basal insulin. 8. Dyslipidemia. Continue statins. 9. Anemia of chronic kidney disease. Continue Epogen. 10. Fluids, electrolytes, and nutrition. Renal diet. 11. DVT prophylaxis. SCDs. 12. Plan. Continue antimicrobials as per ID. Continue to wean off oxygen. Await clinical improvement before discharging the patient to SNF. Transfer the patient to Med/Surg. The patient was seen in collaboration with Dr. Guillermo. Result Diagram: 07/21/18 0606 07/21/18 06 Results 24hrs Laboratory Tests Test 07/20/18 21:26 07/21/18 06:06 07/21/18 07:56 07/21/18 08:33 Bedside Glucose 139 51 L 74 White Blood Count 12.6 #H Red Blood Count 2.71 L Hemoglobin 8.8 L Hematocrit 28.4 L Mean Corpuscular Volume 104.8 H Mean Corpuscular 32.5 Hemoglobin Mean Corpuscular 31.0 L Hemoglobin Concent Red Cell Distribution 15.8 H Width Platelet Count 274 Mean Platelet Volume 10.0 Immature Granulocytes % 1.900 H Neutrophils % Segmented Neutrophils 46 % (Manual) Band Neutrophils % 3 (Manual) Lymphocytes % Lymphocytes % (Manual) 33 Monocytes % Monocytes % (Manual) 6 Eosinophils % Basophils % Basophils % (Manual) 12 H Nucleated Red Blood 0.0 Cells % Immature Granulocytes # 0.240 H Neutrophils # Neutrophils # (Manual) 5.8 Band Neutrophils # 0.3 Lymphocytes (Manual) 4.1 H Lymphocytes # Monocytes # Monocytes # (Manual) 0.7 Eosinophils # Basophils # Basophils # (Manual) 1.5 H Nucleated Red Blood Cells # Platelet Estimate NORMAL Giant Platelets 1 H Polychromasia 3+ Hypochromasia 1+ Anisocytosis 1+ Macrocytosis 1+ Sodium Level 142 Potassium Level 3.4 L Chloride Level 103 Carbon Dioxide Level 31 Anion Gap 8 Blood Urea Nitrogen 13 Creatinine 3.12 H Est Glomerular Filtrat 20 L Rate mL/min Glucose Level 48 *L Calcium Level 8.8 Phosphorus Level 3.4 Magnesium Level 2.0 Exam/Review of Systems Exam Vitals Vital Signs Date Temp Pulse Resp B/P (MAP) Pulse Ox O2 O2 Flow FiO2 Time Delivery Rate 07/21/18 88 08:01 07/21/18 97.6 20 185/89 97 Nasal 07:38 (121) Cannula 07/21/18 3.0 03:00 07/19/18 45 15:45 Intake and Output 07/20/18 07/20/18 07/21/18 1515:00 23:00 07:00 IntakeIntake Total 600 ml 450 ml OutputOutput Total 3520 ml 100 ml BalanceBalance -2920 ml 350 ml Results Results 24hrs Laboratory Tests Test 07/20/18 21:26 07/21/18 06:06 07/21/18 07:56 07/21/18 08:33 Bedside Glucose 139 51 L 74 White Blood Count 12.6 #H Red Blood Count 2.71 L Hemoglobin 8.8 L Hematocrit 28.4 L Mean Corpuscular Volume 104.8 H Mean Corpuscular 32.5 Hemoglobin Mean Corpuscular 31.0 L Hemoglobin Concent Red Cell Distribution 15.8 H Width Platelet Count 274 Mean Platelet Volume 10.0 Immature Granulocytes % 1.900 H Neutrophils % Segmented Neutrophils 46 % (Manual) Band Neutrophils % 3 (Manual) Lymphocytes % Lymphocytes % (Manual) 33 Monocytes % Monocytes % (Manual) 6 Eosinophils % Basophils % Basophils % (Manual) 12 H Nucleated Red Blood 0.0 Cells % Immature Granulocytes # 0.240 H Neutrophils # Neutrophils # (Manual) 5.8 Band Neutrophils # 0.3 Lymphocytes (Manual) 4.1 H Lymphocytes # Monocytes # Monocytes # (Manual) 0.7 Eosinophils # Basophils # Basophils # (Manual) 1.5 H Nucleated Red Blood Cells # Platelet Estimate NORMAL Giant Platelets 1 H Polychromasia 3+ Hypochromasia 1+ Anisocytosis 1+ Macrocytosis 1+ Sodium Level 142 Potassium Level 3.4 L Chloride Level 103 Carbon Dioxide Level 31 Anion Gap 8 Blood Urea Nitrogen 13 Creatinine 3.12 H Est Glomerular Filtrat 20 L Rate mL/min Glucose Level 48 *L Calcium Level 8.8 Phosphorus Level 3.4 Magnesium Level 2.0 Medications Medication Current Medications Ondansetron HCl (Zofran Inj) 4 mg Q6H PRN IV NAUSEA AND/OR VOMITING; Start 07/15/18 at 03:00 Albuterol/ Ipratropium (Duoneb) 3 ml Q2H RESP THERAPY PRN NEB SHORTNESS OF BREATH Last administered on 07/17/18at 23:24; Admin Dose 3 ML; Start 07/15/18 at 03:00 Nitroglycerin (Nitroglycerin (Sl Tab) 0.4 Mg) 1 tab Q5M PRN SL CHEST PAIN; Start 07/15/18 at 03:00 Acetaminophen (Tylenol Liquid) 650 mg Q6H PRN PO PAIN LEVEL 1-3 OR FEVER; Start 07/15/18 at 03:00 Morphine Sulfate (morphine) 2 mg Q4H PRN IV PAIN LEVEL 7-10; Start 07/15/18 at 03:00 Amlodipine Besylate (Norvasc) 5 mg DAILY PO Last administered on 07/19/18at 08:47; Admin Dose 5 MG; Start 07/15/18 at 09:00 Aspirin (Halfprin) 81 mg DAILY PO Last administered on 07/20/18at 09:26; Admin Do se 81 MG; Start 07/15/18 at 09:00 Atorvastatin Calcium (Lipitor) 10 mg QHS PO Last administered on 07/20/18at 23:36; Admin Dose 10 MG; Start 07/15/18 at 21:00 Hydralazine HCl (Apresoline) 25 mg TID PO Last administered on 07/20/18at 23:37; Admin Dose 25 MG; Start 07/15/18 at 09:00 Insulin Glargine (Lantus) 22 units DAILY@2000 SC Last administered on 07/20/18at 22:00; Admin Dose 22 UNITS; Start 07/15/18 at 20:00 Epoetin Yannick-epbx (Retacrit (Non-Esrd)) 10,000 unit MoWeFr@1700 SC Last administered on 07/20/18at 23:43; Admin Dose 10,000 UNIT; Start 07/15/18 at 17:00 Miscellaneous Information 1 ea NOTE XX ; Start 07/15/18 at 08:30 Glucose (Glutose) 15 gm Q15M PRN PO DECREASED GLUCOSE; Start 07/15/18 at 08:30 Glucose (Glutose) 22.5 gm Q15M PRN PO DECREASED GLUCOSE; Start 07/15/18 at 08:30 Dextrose (D50w Syringe) 25 ml Q15M PRN IV DECREASED GLUCOSE; Start 07/15/18 at 08:30 Dextrose (D50w Syringe) 50 ml Q15M PRN IV DECREASED GLUCOSE Last administered on 07/16/18at 07:55; Admin Dose 50 ML; Start 07/15/18 at 08:30 Glucagon (Glucagen) 1 mg Q15M PRN IM DECREASED GLUCOSE; Start 07/15/18 at 08:30 Glucose (Glutose) 15 gm Q15M PRN BUCCAL DECREASED GLUCOSE; Start 07/15/18 at 08:30 Heparin Sodium (Porcine) (Heparin (1000 Units/ml)) 3,200 unit AFTER DIALYSIS PRN CATHETER heparin lock Last administered on 07/20/18at 23:07; Admin Dose 3,200 UNIT; Start 07/15/18 at 08:30 Albumin Human 100 ml @ 100 mls/hr DURING DIALYSIS PRN IV to prevent hypotension during ; Start 07/15/18 at 08:30 Mupirocin (Bactroban) 1 applic BID TOP Last administered on 07/20/18 09:27; Admin Dose 1 APPLIC; Start 07/17/18 at 21:00 Rifampin (Rifampin) 600 mg DAILY PO Last administered on 07/20/18at 09:26; Admin Dose 600 MG; Start 07/18/18 at 09:00 Hydralazine HCl (Apresoline) 10 mg Q6H PRN IV elevated BP Last administered on 07/19/18at 03:35; Admin Dose 10 MG; Start 07/19/18 at 03:30 Famotidine (Pepcid) 20 mg DAILY PO ; Start 07/21/18 at 09:00 DONOVAN TRAVIS NP Jul 21, 2018 09:13
--- NOTE | 2018-07-21 09:54 | CONS ---
Assessment/Plan Assessment/Plan Assessment/Plan (Daily) Assessment and recommendations; 1. Patient admitted with shortness of breath due to CHF exacerbation with interval clinical improvement. 2. Underlying cardiomyopathy. 3. Chronic renal failure, on hemodialysis. 4. Chronic anemia. 5. Lower extremity skin ulcer. 6. History of hypertension and diabetes. Continue current supportive care. Patient responding well to current treatment regimen. Hemodialysis per acid remover. Consultation Date/Type/Reason Admit Date/Time July 15, 2018 at 00:58 Initial Consult Date 07/15/18 Type of Consult Pulmonary Patient condition is fairly stable. Doing well on BiPAP. General exam; elderly male, laying comfortably in bed. Awake and alert. Currently in no distress. Getting hemodialysis at bedside. Date/Time of Note DATE: 07/21/18 TIME: 09:52 24 HR Interval Summary Free Text/Dictation Patient's condition is gradually improving. Denies any shortness of breath at rest. Any coughing or wheezing. General exam; elderly male, awake alert, currently in no distress. Exam/Review of Systems Exam Vitals Vital Signs Date Temp Pulse Resp B/P (MAP) Pulse Ox O2 O2 Flow FiO2 Time Delivery Rate 07/21/18 88 08:01 07/21/18 97.6 20 185/89 97 Nasal 07:38 (121) Cannula 07/21/18 3.0 03:00 07/19/18 45 15:45 Intake and Output 07/20/18 07/20/18 07/21/18 1515:00 23:00 07:00 IntakeIntake Total 600 ml 450 ml OutputOutput Total 3520 ml 100 ml BalanceBalance -2920 ml 350 ml Exam HEENT exam; supple neck, positive JVD. No lymphadenopathy. Midline trachea. No thyromegaly. No neck masses. Patient has carious teeth. Chest exam; diminished but clear breath sounds. S1-S2 audible, no murmurs. R egular rhythm. Abdomen exam; soft, no organomegaly. Nontender. Bowel sounds audible. Extremity exam; no peripheral edema. BELT WORKER exam; no focal deficit. Results Result Diagram: 07/21/18 0606 07/21/18 0606 Results 24hrs Laboratory Tests Test 07/20/18 21:26 07/21/18 06:06 07/21/18 07:56 07/21/18 08:33 Bedside Glucose 139 51 L 74 White Blood Count 12.6 #H Red Blood Count 2.71 L Hemoglobin 8.8 L Hematocrit 28.4 L Mean Corpuscular Volume 104.8 H Mean Corpuscular 32.5 Hemoglobin Mean Corpuscular 31.0 L Hemoglobin Concent Red Cell Distribution 15.8 H Width Platelet Count 274 Mean Platelet Volume 10.0 Immature Granulocytes % 1.900 H Neutrophils % Segmented Neutrophils 46 % (Manual) Band Neutrophils % 3 (Manual) Lymphocytes % Lymphocytes % (Manual) 33 Monocytes % Monocytes % (Manual) 6 Eosinophils % Basophils % Basophils % (Manual) 12 H Nucleated Red Blood 0.0 Cells % Immature Granulocytes # 0.240 H Neutrophils # Neutrophils # (Manual) 5.8 Band Neutrophils # 0.3 Lymphocytes (Manual) 4.1 H Lymphocytes # Monocytes # Monocytes # (Manual) 0.7 Eosinophils # Basophils # Basophils # (Manual) 1.5 H Nucleated Red Blood Cells # Platelet Estimate NORMAL Giant Platelets 1 H Polychromasia 3+ Hypochromasia 1+ Anisocytosis 1+ Macrocytosis 1+ Sodium Level 142 Potassium Level 3.4 L Chloride Level 103 Carbon Dioxide Level 31 Anion Gap 8 Blood Urea Nitrogen 13 Creatinine 3.12 H Est Glomerular Filtrat 20 L Rate mL/min Glucose Level 48 *L Calcium Level 8.8 Phosphorus Level 3.4 Magnesium Level 2.0 Test 07/21/18 09:11 Bedside Glucose 103 Medications Medication Current Medications Ondansetron HCl (Zofran Inj) 4 mg Q6H PRN IV NAUSEA AND/OR VOMITING; Start 07/15/18 at 03:00 Albuterol/ Ipratropium (Duoneb) 3 ml Q2H RESP THERAPY PRN NEB SHORTNESS OF BREATH Last administered on 07/17/18at 23:24; Admin Dose 3 ML; Start 07/15/18 at 03:00 Nitroglycerin (Nitroglycerin (Sl Tab) 0.4 Mg) 1 tab Q5M PRN SL CHEST PAIN; Start 07/15/18 at 03:00 Acetaminophen (Tylenol Liquid) 650 mg Q6H PRN PO PAIN LEVEL 1-3 OR FEVER; Start 07/15/18 at 03:00 Morphine Sulfate (morphine) 2 mg Q4H PRN IV PAIN LEVEL 7-10; Start 07/15/18 at 03:00 Amlodipine Besylate (Norvasc) 5 mg DAILY PO Last administered on 07/19/18at 08:47; Admin Dose 5 MG; Start 07/15/18 at 09:00 Aspirin (Halfprin) 81 mg DAILY PO Last administered on 07/20/18at 09:26; Admin Dose 81 MG; Start 07/15/18 at 09:00 Atorvastatin Calcium (Lipitor) 10 mg QHS PO Last administered on 07/20/18at 23:36; Admin Dose 10 MG; Start 07/15/18 at 21:00 Hydralazine HCl (Apresoline) 25 mg TID PO Last administered on 07/20/18at 23:37; Admin Dose 25 MG; Start 07/15/18 at 09:00 Epoetin Yannick-epbx (Retacrit (Non-Esrd)) 10,000 unit MoWeFr@1700 SC Last administered on 07/20/18at 23:43; Admin Dose 10,000 UNIT; Start 07/15/18 at 17:00 Miscellaneous Information 1 ea NOTE XX ; Start 07/15/18 at 08:30 Glucose (Glutose) 15 gm Q15M PRN PO DECREASED GLUCOSE; Start 07/15/18 at 08:30 Glucose (Glutose) 22.5 gm Q15M PRN PO DECREASED GLUCOSE; Start 07/15/18 at 08:30 Dextrose (D50w Syringe) 25 ml Q15M PRN IV DECREASED GLUCOSE; Start 07/15/18 at 08:30 Dextrose (D50w Syringe) 50 ml Q15M PRN IV DECREASED GLUCOSE Last administered on 07/16/18at 07:55; Admin Dose 50 ML; Start 07/15/18 at 08:30 Glucagon (Glucagen) 1 mg Q15M PRN IM DECREASED GLUCOSE; Start 07/15/18 at 08:30 Glucose (Glutose) 15 gm Q15M PRN BUCCAL DECREASED GLUCOSE; Start 07/15/18 at 08:30 Heparin Sodium (Porcine) (Heparin (1000 Units/ml)) 3,200 unit AFTER DIALYSIS PRN CATHETER heparin lock Last administered on 07/20/18at 23:07; Admin Dose 3,200 UNIT; Start 07/15/18 at 08:30 Albumin Human 100 ml @ 100 mls/hr DURING DIALYSIS PRN IV to prevent hypotension during ; Start 07/15/18 at 08:30 Mupirocin (Bactroban) 1 applic BID TOP Last administered on 07/20/18at 09:27; Admin Dose 1 APPLIC; Start 07/17/18 at 21:00 Rifampin (Rifampin) 600 mg DAILY PO Last administered on 07/20/18at 09:26; Admin Dose 600 MG; Start 07/18/18 at 09:00 Hydralazine HCl (Apresoline) 10 mg Q6H PRN IV elevated BP Last administered on 07/19/18at 03:35; Admin Dose 10 MG; Start 07/19/18 at 03:30 Famotidine (Pepcid) 20 mg DAILY PO ; Start 07/21/18 at 09:00 Insulin Glargine (Lantus) 18 units DAILY@2000 SC ; Start 07/21/18 at 20:00 LAURA TORRES Jul 21, 2018 09:54
--- NOTE | 2018-07-21 11:20 | CONS ---
Assessment/Plan Assessment/Plan Assessment/Plan (Daily) 1. acute hypoxic respiratory failure requiring BIPAP 2. Anemia of ESRD s/p PRBC transfusion during this admission 3. ESRD on HD MWF Schedule 4. L foot diabetic ulcer s/p previous Transmetatarsal amputation 5. h/O DM II 6. h/o HTN Plan: Due to fluid overload requiring BIPAP- pt had a HD x 3 days in a row- total 9 L removed, will plan for HD today -His regular schedule is MWF, but due to Fluid overload, will plan for extra HD on wednesday IV abx as per ID, Renally dose all abx and monitor electrolytes s/p Vascular surgery evaluation for LE wounds Will follow up Consultation Date/Type/Reason Admit Date/Time July 15, 2018 at 00:58 Initial Consult Date 07/15/18 Type of Consult NEPHROLOGY Date/Time of Note DATE: 07/21/18 TIME: 11:20 Exam/Review of Systems Exam Vitals Vital Signs Date Temp Pulse Resp B/P (MAP) Pulse Ox O2 O2 Flow FiO2 Time Delivery Rate 07/21/18 88 08:01 07/21/18 97.6 20 185/89 97 Nasal 07:38 (121) Cannula 07/21/18 3.0 03:00 07/19/18 45 15:45 Intake and Output 07/20/18 07/20/18 07/21/18 1515:00 23:00 07:00 IntakeIntake Total 600 ml 450 ml OutputOutput Total 3520 ml 100 ml BalanceBalance -2920 ml 350 ml Results Result Diagram: 07/21/18 0606 07/21/18 0606 Results 24hrs Laboratory Tests Test 07/20/18 21:26 07/21/18 06:06 07/21/18 07:56 07/21/18 08:33 Bedside Glucose 139 51 L 74 White Blood Count 12.6 #H Red Blood Count 2.71 L Hemoglobin 8.8 L Hematocrit 28.4 L Mean Corpuscular Volume 104.8 H Mean Corpuscular 32.5 Hemoglobin Mean Corpuscular 31.0 L Hemoglobin Concent Red Cell Distribution 15.8 H Width Platelet Count 274 Mean Platelet Volume 10.0 Immature Granulocytes % 1.900 H Neutrophils % Segmented Neutrophils 46 % (Manual) Band Neutrophils % 3 (Manual) Lymphocytes % Lymphocytes % (Manual) 33 Monocytes % Monocytes % (Manual) 6 Eosinophils % Basophils % Basophils % (Manual) 12 H Nucleated Red Blood 0.0 Cells % Immature Granulocytes # 0.240 H Neutrophils # Neutrophils # (Manual) 5.8 Band Neutrophils # 0.3 Lymphocytes (Manual) 4.1 H Lymphocytes # Monocytes # Monocytes # (Manual) 0.7 Eosinophils # Basophils # Basophils # (Manual) 1.5 H Nucleated Red Blood Cells # Platelet Estimate NORMAL Giant Platelets 1 H Polychromasia 3+ Hypochromasia 1+ Anisocytosis 1+ Macrocytosis 1+ Sodium Level 142 Potassium Level 3.4 L Chloride Level 103 Carbon Dioxide Level 31 Anion Gap 8 Blood Urea Nitrogen 13 Creatinine 3.12 H Est Glomerular Filtrat 20 L Rate mL/min Glucose Level 48 *L Calcium Level 8.8 Phosphorus Level 3.4 Magnesium Level 2.0 Test 07/21/18 09:11 Bedside Glucose 103 Medications Medication Current Medications Ondansetron HCl (Zofran Inj) 4 mg Q6H PRN IV NAUSEA AND/OR VOMITING; Start 07/15/18 at 03:00 Albuterol/ Ipratropium (Duoneb) 3 ml Q2H RESP THERAPY PRN NEB SHORTNESS OF BREATH Last administered on 07/17/18at 23:24; Admin Dose 3 ML; Start 07/15/18 at 03:00 Nitroglycerin (Nitroglycerin (Sl Tab) 0.4 Mg) 1 tab Q5M PRN SL CHEST PAIN; Start 07/15/18 at 03:00 Acetaminophen (Tylenol Liquid) 650 mg Q6H PRN PO PAIN LEVEL 1-3 OR FEVER; Start 07/15/18 at 03:00 Morphine Sulfate (morphine) 2 mg Q4H PRN IV PAIN LEVEL 7-10; Start 07/15/18 at 03:00 Amlodipine Besylate (Norvasc) 5 mg DAILY PO Last administered on 07/19/18at 08:47; Admin Dose 5 MG; Start 07/15/18 at 09:00 Aspirin (Halfprin) 81 mg DAILY PO Last administered on 07/20/18at 09:26; Admin Dose 81 MG; Start 07/15/18 at 09:00 Atorvastatin Calcium (Lipitor) 10 mg QHS PO Last administered on 07/20/18at 23:36; Admin Dose 10 MG; Start 07/15/18 at 21:00 Hydralazine HCl (Apresoline) 25 mg TID PO Last administered on 07/20/18at 23:37; Admin Dose 25 MG; Start 07/15/18 at 09:00 Epoetin Yannikc-epbx (Retacrit (Non-Esrd)) 10,000 unit MoWeFr@1700 SC Last adminis tered on 07/20/18at 23:43; Admin Dose 10,000 UNIT; Start 07/15/18 at 17:00 Miscellaneous Information 1 ea NOTE XX ; Start 07/15/18 at 08:30 Glucose (Glutose) 15 gm Q15M PRN PO DECREASED GLUCOSE; Start 07/15/18 at 08:30 Glucose (Glutose) 22.5 gm Q15M PRN PO DECREASED GLUCOSE; Start 07/15/18 at 08:30 Dextrose (D50w Syringe) 25 ml Q15M PRN IV DECREASED GLUCOSE; Start 07/15/18 at 08:30 Dextrose (D50w Syringe) 50 ml Q15M PRN IV DECREASED GLUCOSE Last administered on 07/16/18at 07:55; Admin Dose 50 ML; Start 07/15/18 at 08:30 Glucagon (Glucagen) 1 mg Q15M PRN IM DECREASED GLUCOSE; Start 07/15/18 at 08:30 Glucose (Glutose) 15 gm Q15M PRN BUCCAL DECREASED GLUCOSE; Start 07/15/18 at 08:30 Heparin Sodium (Porcine) (Heparin (1000 Units/ml)) 3,200 unit AFTER DIALYSIS PRN CATHETER heparin lock Last administered on 07/20/18at 23:07; Admin Dose 3,200 UNIT; Start 07/15/18 at 08:30 Albumin Human 100 ml @ 100 mls/hr DURING DIALYSIS PRN IV to prevent hypotension during ; Start 07/15/18 at 08:30 Mupirocin (Bactroban) 1 applic BID TOP Last administered on 07/20/18 09:27; Admin Dose 1 APPLIC; Start 07/17/18 at 21:00 Rifampin (Rifampin) 600 mg DAILY PO Last administered on 07/20/18 09:26; Admin Dose 600 MG; Start 07/18/18 at 09:00 Hydralazine HCl (Apresoline) 10 mg Q6H PRN IV elevated BP Last administered on 07/19/18at 03:35; Admin Dose 10 MG; Start 07/19/18 at 03:30 Famotidine (Pepcid) 20 mg DAILY PO ; Start 07/21/18 at 09:00 Insulin Glargine (Lantus) 18 units DAILY@2000 SC ; Start 07/21/18 at 20:00 OTTO JUÁREZ MD Jul 21, 2018 11:20
[2018-07-21] MEDS: HEPARIN 1000 UNITS/ML 10 ML INJ CATHETER PRN (17:19)
[2018-07-21] MEDS: ASPIRIN (EC) 81 MG TAB PO SCH (18:04)
[2018-07-21] MEDS: RIFAMPIN 300 MG CAP PO SCH (18:04)
[2018-07-21] MEDS: FAMOTIDINE 20 MG TAB PO SCH (18:04)
[2018-07-21] MEDS: AMLODIPINE 5 MG TAB PO SCH (18:05)
[2018-07-21] MEDS: MUPIROCIN 2% 22 GM OINT TOP SCH ×2 (18:06→21:00)
[2018-07-21] MEDS: ATORVASTATIN 10 MG TAB PO SCH (21:42)
[2018-07-21] MEDS: INSULIN GLARGINE [LANTus] (100 UNITS/ML) SYG SC SCH (23:00)
[2018-07-22] VITALS (22 sets, daily range): BP systolic 130–190; BP diastolic 66–93; PULSE 81–90; RESP 20
[2018-07-22] MEDS: ACCU-CHEK XX SCH (02:00)
[2018-07-22] MEDS: hydrALAzine 20 MG INJ IV PRN (02:48)
[2018-07-22] MEDS: INSULIN ASPART [NOVOLOG] 3 ML PEN SC SCH ×4 (08:00→21:00)
[2018-07-22] MEDS: RIFAMPIN 300 MG CAP PO SCH (08:59)
[2018-07-22] MEDS: ASPIRIN (EC) 81 MG TAB PO SCH (08:59)
[2018-07-22] MEDS: FAMOTIDINE 20 MG TAB PO SCH (08:59)
[2018-07-22] MEDS: MUPIROCIN 2% 22 GM OINT TOP SCH ×2 (09:00→21:00)
[2018-07-22] MEDS: AMLODIPINE 5 MG TAB PO SCH (10:21)
--- NOTE | 2018-07-22 10:59 | CONS ---
Assessment/Plan Assessment/Plan Assessment/Plan (Daily) 1. acute hypoxic respiratory failure requiring BIPAP 2. Anemia of ESRD s/p PRBC transfusion during this admission 3. ESRD on HD MWF Schedule 4. L foot diabetic ulcer s/p previous Transmetatarsal amputation- s/p vascular surgery consultatin during this admission 5. h/O DM II 6. h/o HTN Plan: Due to fluid overload requiring BIPAP- pt had a HD x 3 days in a row- total 9 L removed, will plan for HD today -His regular schedule is MWF, but due to Fluid overload, will plan for extra HD on wednesday Nifedipien Xl 60mg pO x1 given and IV hydralazine prn for BP control IV abx as per ID, Renally dose all abx and monitor electrolytes s/p Vascular surgery evaluation for LE wounds Will follow up Consultation Date/Type/Reason Admit Date/Time July 15, 2018 at 00:58 Initial Consult Date 07/15/18 Type of Consult NEPHROLOGY Date/Time of Note DATE: 07/22/18 TIME: 10:59 24 HR Interval Summary Free Text/Dictation s/p HD 3 days in row, total 9 L removed, Plan for HD today , BP in 180-190s Exam/Review of Systems Exam Vitals Vital Signs Date Temp Pulse Resp B/P (MAP) Pulse Ox O2 O2 Flow FiO2 Time Delivery Rate 07/22/18 98.1 89 20 170/79 95 08:15 (109) 07/21/18 Nasal 3.0 20:00 Cannula 07/19/18 45 15:45 Intake and Output 07/21/18 07/21/18 07/22/18 1515:00 23:00 07:00 IntakeIntake Total 1000 ml 360 ml OutputOutput Total 3500 ml 200 ml BalanceBalance -2500 ml 160 ml Exam Constitutional: alert, oriented Eyes: nl sclera ENMT: mucosa pink and moist Respiratory: bilateral basilar crackles, Right chest permacath Cardiovascular: regular rate and rhythm Gastrointestinal: soft, non-tender Extremities: other (L foot is bandaged) Results Result Diagram: 07/22/18 0446 07/22/18 0446 Results 24hrs Laboratory Tests Test 07/21/18 22:59 07/22/18 04:46 07/22/18 06:01 07/22/18 08:50 Bedside Glucose 101 135 White Blood Count 15.1 H Red Blood Count 2.72 L Hemoglobin 9.0 L Hematocrit 28.9 L Mean Corpuscular 106.3 H Volume Mean Corpuscular 33.1 H Hemoglobin Mean Corpuscular 31.1 L Hemoglobin Concent Red Cell Distribution 15.6 H Width Platelet Count 280 Mean Platelet Volume 10.2 Immature Granulocytes 1.700 H % Neutrophils % 39.8 Lymphocytes % 12.8 L Monocytes % 43.9 H Eosinophils % 1.3 Basophils % 0.5 Nucleated Red Blood 0.0 Cells % Immature Granulocytes 0.260 H # Neutrophils # 6.0 Lymphocytes # 1.9 Monocytes # 6.6 H Eosinophils # 0.2 Basophils # 0.1 Nucleated Red Blood 0.0 Cells # Sodium Level 140 Potassium Level 3.9 Chloride Level 101 Carbon Dioxide Level 31 Anion Gap 8 Blood Urea Nitrogen 13 Creatinine 3.22 H Est Glomerular 19 L Filtrat Rate mL/min Glucose Level 95 # Calcium Level 8.7 Phosphorus Level 2.9 Magnesium Level 2.0 Lab Scanned Report REFERENCE LAB Medications Medication Current Medications Ondansetron HCl (Zofran Inj) 4 mg Q6H PRN IV NAUSEA AND/OR VOMITING; Start 07/15/18 at 03:00 Albuterol/ Ipratropium (Duoneb) 3 ml Q2H RESP THERAPY PRN NEB SHORTNESS OF BREATH Last administered on 07/17/18at 23:24; Admin Dose 3 ML; Start 07/15/18 at 03:00 Nitroglycerin (Nitroglycerin (Sl Tab) 0.4 Mg) 1 tab Q5M PRN SL CHEST PAIN; Start 07/15/18 at 03:00 Acetaminophen (Tylenol Liquid) 650 mg Q6H PRN PO PAIN LEVEL 1-3 OR FEVER; Start 07/15/18 at 03:00 Morphine Sulfate (morphine) 2 mg Q4H PRN IV PAIN LEVEL 7-10; Start 07/15/18 at 03:00 Amlodipine Besylate (Norvasc) 5 mg DAILY PO Last administered on 07/22/18at 10:21; Admin Dose 5 MG; Start 07/15/18 at 09:00 Aspirin (Halfprin) 81 mg DAILY PO Last administered on 07/22/18at 08:59; Admin Dose 81 MG; Start 07/15/18 at 09:00 Atorvastatin Calcium (Lipitor) 10 mg QHS PO Last administered on 07/21/18at 21:42; Admin Dose 10 MG; Start 07/15/18 at 21:00 Hydralazine HCl (Apresoline) 25 mg TID PO Last administered on 07/22/18 06:20; Admin Dose 25 MG; Start 07/15/18 at 09:00 Epoetin Yannick-epbx (Retacrit (Non-Esrd)) 10,000 unit MoWeFr@1700 SC Last administered on 07/20/18at 23:43; Admin Dose 10,000 UNIT; Start 07/15/18 at 17:00 Miscellaneous Information 1 ea NOTE XX ; Start 07/15/18 at 08:30 Glucose (Glutose) 15 gm Q15M PRN PO DECREASED GLUCOSE; Start 07/15/18 at 08:30 Glucose (Glutose) 22.5 gm Q15M PRN PO DECREASED GLUCOSE; Start 07/15/18 at 08:30 Dextrose (D50w Syringe) 25 ml Q15M PRN IV DECREASED GLUCOSE; Start 07/15/18 at 08:30 Dextrose (D50w Syringe) 50 ml Q15M PRN IV DECREASED GLUCOSE Last administered on 07/16/18at 07:55; Admin Dose 50 ML; Start 07/15/18 at 08:30 Glucagon (Glucagen) 1 mg Q15M PRN IM DECREASED GLUCOSE; Start 07/15/18 at 08:30 Glucose (Glutose) 15 gm Q15M PRN BUCCAL DECREASED GLUCOSE; Start 07/15/18 at 08:30 Heparin Sodium (Porcine) (Heparin (1000 Units/ml)) 3,200 unit AFTER DIALYSIS PRN CATHETER heparin lock Last administered on 07/21/18at 17:19; Admin Dose 3,200 UNIT; Start 07/15/18 at 08:30 Albumin Human 100 ml @ 100 mls/hr DURING DIALYSIS PRN IV to prevent hypotension during ; Start 07/15/18 at 08:30 Mupirocin (Bactroban) 1 applic BID TOP Last administered on 07/22/18at 09:00; Admin Dose 1 APPLIC; Start 07/17/18 at 21:00 Rifampin (Rifampin) 600 mg DAILY PO Last administered on 07/22/18at 08:59; Admin Dose 600 MG; Start 07/18/18 at 09:00 Hydralazine HCl (Apresoline) 10 mg Q6H PRN IV elevated BP Last administered on 07/22/18at 02:48; Admin Dose 10 MG; Start 07/19/18 at 03:30 Famotidine (Pepcid) 20 mg DAILY PO Last administered on 07/22/18at 08:59; Admin Dose 20 MG; Start 07/21/18 at 09:00 Insulin Glargine (Lantus) 18 units DAILY@2000 SC ; Start 07/21/18 at 20:00 Diagnostic Test (Pha) (Accu-Chek) 1 02 XX ; Start 07/22/18 at 02:00 Insulin Aspart (Novolog Insulin Pen) NOVOLOG *MILD* ALGORITHM WITH MEALS BEDTIM E SC ; Start 07/22/18 at 08:00 OTTO JUÁREZ MD Jul 22, 2018 10:59
--- NOTE | 2018-07-22 12:28 | CONS ---
Assessment/Plan Assessment/Plan Hospital Course (Demo Recall) 1) CHF, likely due to delayed dialysis breathing has improved, doubt he has pneumonia but will check procalcitonin 07/16 - procalcitonin for people in ESRD is within normal limties no good evidence for pneumonia 2) L foot ulcers will review the [facility] records and see if cx were done and what if any antibiotics he received continue with vanco/zosyn at present get wound cx here ESR is very high, if work-up for osteo and arterial studies weren't done we may need to do these here 07/16 - this is not new and pt has been advised that he likely needs BKA but he has refused 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 and was suppose to be getting IV vanco with dialysis d/c zosyn but continue with vanco at present will order arterial dopplers to see if flow is adequate at this time 07/18 - arterial dopplers show bilateral LE issues with arterial flow high ESR is c/w current osteo continue with vanco, d/c zosyn and add rifampin for better MRSA coverage recommend vascular surgery consult 07/20 - no vascular intervention planned local debridement today by report and to follow cultures if obtained continue with vanco/rifampin for 6 week course 07/22 - rising WBC without a clear cause to get pic of foot and repeat cx from heel and stump site on L foot get procalcitonin and CBC in a.m., consider broadening coverage (i.e. zosyn) get u/a and urine cx 3) DM 4) HTN 5) ESRD Consultation Date/Type/Reason Admit Date/Time July 15, 2018 at 00:58 Initial Consult Date 07/15/18 Type of Consult ID Date/Time of Note DATE: 07/22/18 TIME: 12:25 24 HR Interval Summary Free Text/Dictation pt denies SMITH, CP, SOB, D, V no pain to L foot spoke to nurse, main issue is his b/p Exam/Review of Systems Exam Vitals Vital Signs Date Temp Pulse Resp B/P (MAP) Pulse Ox O2 O2 Flow FiO2 Time Delivery Rate 07/22/18 98.1 89 20 170/79 95 08:15 (109) 07/21/18 Nasal 3.0 20:00 Cannula 07/19/18 45 15:45 Intake and Output 07/21/18 07/21/18 07/22/18 1515:00 23:00 07:00 IntakeIntake Total 1000 ml 360 ml OutputOutput Total 3500 ml 200 ml BalanceBalance -2500 ml 160 ml Constitutional: alert, oriented Eyes: nl sclera ENMT: mucosa pink and moist Respiratory: clear to auscultation Cardiovascular: regular rate and rhythm Gastrointestinal: soft, non-tender Extremities: other (L foot is bandaged) Results Result Diagram: 07/22/18 0446 07/22/18 0446 Results 24hrs Laboratory Tests Test 07/21/18 22:59 07/22/18 04:46 07/22/18 06:01 07/22/18 08:50 Bedside Glucose 101 135 White Blood Count 15.1 H Red Blood Count 2.72 L Hemoglobin 9.0 L Hematocrit 28.9 L Mean Corpuscular 106.3 H Volume Mean Corpuscular 33.1 H Hemoglobin Mean Corpuscular 31.1 L Hemoglobin Concent Red Cell Distribution 15.6 H Width Platelet Count 280 Mean Platelet Volume 10.2 Immature Granulocytes 1.700 H % Neutrophils % 39.8 Lymphocytes % 12.8 L Monocytes % 43.9 H Eosinophils % 1.3 Basophils % 0.5 Nucleated Red Blood 0.0 Cells % Immature Granulocytes 0.260 H # Neutrophils # 6.0 Lymphocytes # 1.9 Monocytes # 6.6 H Eosinophils # 0.2 Basophils # 0.1 Nucleated Red Blood 0.0 Cells # Sodium Level 140 Potassium Level 3.9 Chloride Level 101 Carbon Dioxide Level 31 Anion Gap 8 Blood Urea Nitrogen 13 Creatinine 3.22 H Est Glomerular 19 L Filtrat Rate mL/min Glucose Level 95 # Calcium Level 8.7 Phosphorus Level 2.9 Magnesium Level 2.0 Lab Scanned Report REFERENCE LAB Medications Medication Current Medications Ondansetron HCl (Zofran Inj) 4 mg Q6H PRN IV NAUSEA AND/OR VOMITING; Start 07/15/18 at 03:00 Albuterol/ Ipratropium (Duoneb) 3 ml Q2H RESP THERAPY PRN NEB SHORTNESS OF BREATH Last administered on 07/17/18at 23:24; Admin Dose 3 ML; Start 07/15/18 at 03:00 Nitroglycerin (Nitroglycerin (Sl Tab) 0.4 Mg) 1 tab Q5M PRN SL CHEST PAIN; Start 07/15/18 at 03:00 Acetaminophen (Tylenol Liquid) 650 mg Q6H PRN PO PAIN LEVEL 1-3 OR FEVER; Start 07/15/18 at 03:00 Morphine Sulfate (morphine) 2 mg Q4H PRN IV PAIN LEVEL 7-10; Start 07/15/18 at 03:00 Amlodipine Besylate (Norvasc) 5 mg DAILY PO Last administered on 07/22/18at 10:21; Admin Dose 5 MG; Start 07/15/18 at 09:00 Aspirin (Halfprin) 81 mg DAILY PO Last administered on 07/22/18at 08:59; Admin Dose 81 MG; Start 07/15/18 at 09:00 Atorvastatin Calcium (Lipitor) 10 mg QHS PO Last administered on 07/21/18at 21:42; Admin Dose 10 MG; Start 07/15/18 at 21:00 Hydralazine HCl (Apresoline) 25 mg TID PO Last administered on 07/22/18at 06:20; Admin Dose 25 MG; Start 07/15/18 at 09:00 Epoetin Yannick-epbx (Retacrit (Non-Esrd)) 10,000 unit MoWeFr@1700 SC Last administered on 07/20/18at 23:43; Admin Dose 10,000 UNIT; Start 07/15/18 at 17:00 Miscellaneous Information 1 ea NOTE XX ; Start 07/15/18 at 08:30 Glucose (Glutose) 15 gm Q15M PRN PO DECREASED GLUCOSE; Start 07/15/18 at 08:30 Glucose (Glutose) 22.5 gm Q15M PRN PO DECREASED GLUCOSE; Start 07/15/18 at 08:30 Dextrose (D50w Syringe) 25 ml Q15M PRN IV DECREASED GLUCOSE; Start 07/15/18 at 08:30 Dextrose (D50w Syringe) 50 ml Q15M PRN IV DECREASED GLUCOSE Last administered on 07/16/18at 07:55; Admin Dose 50 ML; Start 07/15/18 at 08:30 Glucagon (Glucagen) 1 mg Q15M PRN IM DECREASED GLUCOSE; Start 07/15/18 at 08:30 Glucose (Glutose) 15 gm Q15M PRN BUCCAL DECREASED GLUCOSE; Start 07/15/18 at 08:30 Heparin Sodium (Porcine) (Heparin (1000 Units/ml)) 3,200 unit AFTER DIALYSIS PRN CATHETER heparin lock Last administered on 07/21/18at 17:19; Admin Dose 3,200 UNIT; Start 07/15/18 at 08:30 Albumin Human 100 ml @ 100 mls/hr DURING DIALYSIS PRN IV to prevent hypotension during ; Start 07/15/18 at 08:30 Mupirocin (Bactroban) 1 applic BID TOP Last administered on 07/22/18at 09:00; Admin Dose 1 APPLIC; Start 07/17/18 at 21:00 Rifampin (Rifampin) 600 mg DAILY PO Last administered on 07/22/18at 08:59; Admin Dose 600 MG; Start 07/18/18 at 09:00 Hydralazine HCl (Apresoline) 10 mg Q6H PRN IV elevated BP Last administered on 07/22/18at 02:48; Admin Dose 10 MG; Start 07/19/18 at 03:30 Famotidine (Pepcid) 20 mg DAILY PO Last administered on 07/22/18at 08:59; Admin Dose 20 MG; Start 07/21/18 at 09:00 Insulin Glargine (Lantus) 18 units DAILY@2000 SC ; Start 07/21/18 at 20:00 Diagnostic Test (Pha) (Accu-Chek) 1 02 XX ; Start 07/22/18 at 02:00 Insulin Aspart (Novolog Insulin Pen) NOVOLOG *MILD* ALGORITHM WITH MEALS BEDTIME SC ; Start 07/22/18 at 08:00 BRANDIN ROCA MD Jul 22, 2018 12:28
--- NOTE | 2018-07-22 16:14 | PN ---
Date/Time of Note Date/Time of Note DATE: 07/22/18 TIME: 16:10 Assessment/Plan VTE Prophylaxis Risk score (from Ns)>0 risk: 11 SCD applied (from Ns): No SCD contraindicated: low risk/ambulating Pharmacological prophylaxis: LMWH Lines/Catheters IV Catheter Type (from Nrs): Saline Lock Urinary Cath still in place: No Assessment/Plan Hospital Course A/P 1. ARF/ hypoxia; stable dc o2 2. ESRD; m/w/f; cont fluid management. Avf -P 3. Htn 4. PAD; bka recommended? 5. Dm 6. D Def 7. Dl 8. OM; vanc/ rifam 9. FTT; snf? 10. P tobacco 11. CMY? 12. Non adherence? S: no distress O: vss; bp elevated PE no pallor/ jvd reg s1s2 no mrg ctab bs+ nt nd no rrg no edema; lt foot dressed Result Diagram: 07/22/18 0446 07/22/18 0446 Results 24hrs Laboratory Tests Test 07/21/18 22:59 07/22/18 04:46 07/22/18 06:01 07/22/18 08:50 Bedside Glucose 101 135 White Blood Count 15.1 H Red Blood Count 2.72 L Hemoglobin 9.0 L Hematocrit 28.9 L Mean Corpuscular 106.3 H Volume Mean Corpuscular 33.1 H Hemoglobin Mean Corpuscular 31.1 L Hemoglobin Concent Red Cell Distribution 15.6 H Width Platelet Count 280 Mean Platelet Volume 10.2 Immature Granulocytes 1.700 H % Neutrophils % 39.8 Lymphocytes % 12.8 L Monocytes % 43.9 H Eosinophils % 1.3 Basophils % 0.5 Nucleated Red Blood 0.0 Cells % Immature Granulocytes 0.260 H # Neutrophils # 6.0 Lymphocytes # 1.9 Monocytes # 6.6 H Eosinophils # 0.2 Basophils # 0.1 Nucleated Red Blood 0.0 Cells # Sodium Level 140 Potassium Level 3.9 Chloride Level 101 Carbon Dioxide Level 31 Anion Gap 8 Blood Urea Nitrogen 13 Creatinine 3.22 H Est Glomerular 19 L Filtrat Rate mL/min Glucose Level 95 # Calcium Level 8.7 Phosphorus Level 2.9 Magnesium Level 2.0 Lab Scanned Report REFERENCE LAB Test 07/22/18 12:58 Bedside Glucose 99 Exam/Review of Systems Exam Vitals Vital Signs Date Temp Pulse Resp B/P (MAP) Pulse Ox O2 O2 Flow FiO2 Time Delivery Rate 07/22/18 97.9 87 20 173/82 97 15:15 (112) 07/21/18 Nasal 3.0 20:00 Cannula 07/19/18 45 15:45 Intake and Output 07/21/18 07/21/18 07/22/18 1515:00 23:00 07:00 IntakeIntake Total 1000 ml 360 ml OutputOutput Total 3500 ml 200 ml BalanceBalance -2500 ml 160 ml Results Results 24hrs Laboratory Tests Test 07/21/18 22:59 07/22/18 04:46 07/22/18 06:01 07/22/18 08:50 Bedside Glucose 101 135 White Blood Count 15.1 H Red Blood Count 2.72 L Hemoglobin 9.0 L Hematocrit 28.9 L Mean Corpuscular 106.3 H Volume Mean Corpuscular 33.1 H Hemoglobin Mean Corpuscular 31.1 L Hemoglobin Concent Red Cell Distribution 15.6 H Width Platelet Count 280 Mean Platelet Volume 10.2 Immature Granulocytes 1.700 H % Neutrophils % 39.8 Lymphocytes % 12.8 L Monocytes % 43.9 H Eosinophils % 1.3 Basophils % 0.5 Nucleated Red Blood 0.0 Cells % Immature Granulocytes 0.260 H # Neutrophils # 6.0 Lymphocytes # 1.9 Monocytes # 6.6 H Eosinophils # 0.2 Basophils # 0.1 Nucleated Red Blood 0.0 Cells # Sodium Level 140 Potassium Level 3.9 Chloride Level 101 Carbon Dioxide Level 31 Anion Gap 8 Blood Urea Nitrogen 13 Creatinine 3.22 H Est Glomerular 19 L Filtrat Rate mL/min Glucose Level 95 # Calcium Level 8.7 Phosphorus Level 2.9 Magnesium Level 2.0 Lab Scanned Report REFERENCE LAB Test 07/22/18 12:58 Bedside Glucose 99 Medications Medication Current Medications Ondansetron HCl (Zofran Inj) 4 mg Q6H PRN IV NAUSEA AND/OR VOMITING; Start 07/15/18 at 03:00 Albuterol/ Ipratropium (Duoneb) 3 ml Q2H RESP THERAPY PRN NEB SHORTNESS OF BREATH Last administered on 07/17/18at 23:24; Admin Dose 3 ML; Start 07/15/18 at 03:00 Nitroglycerin (Nitroglycerin (Sl Tab) 0.4 Mg) 1 tab Q5M PRN SL CHEST PAIN; Start 07/15/18 at 03:00 Acetaminophen (Tylenol Liquid) 650 mg Q6H PRN PO PAIN LEVEL 1-3 OR FEVER; Start 07/15/18 at 03:00 Morphine Sulfate (morphine) 2 mg Q4H PRN IV PAIN LEVEL 7-10; Start 07/15/18 at 03:00 Aspirin (Halfprin) 81 mg DAILY PO Last administered on 07/22/18at 08:59; Admin Dose 81 MG; Start 07/15/18 at 09:00 Atorvastatin Calcium (Lipitor) 10 mg QHS PO Last administered on 07/21/18at 21:42; Admin Dose 10 MG; Start 07/15/18 at 21:00 Hydralazine HCl (Apresoline) 25 mg TID PO Last administered on 07/22/18at 06:20; Admin Dose 25 MG; Start 07/15/18 at 09:00 Epoetin Yannick-epbx (Retacrit (Non-Esrd)) 10,000 unit MoWeFr@1700 SC Last administered on 07/20/18at 23:43; Admin Dose 10,000 UNIT; Start 07/15/18 at 17:00 Miscellaneous Information 1 ea NOTE XX ; Start 07/15/18 at 08:30 Glucose (Glutose) 15 gm Q15M PRN PO DECREASED GLUCOSE; Start 07/15/18 at 08:30 Glucose (Glutose) 22.5 gm Q15M PRN PO DECREASED GLUCOSE; Start 07/15/18 at 08:30 Dextrose (D50w Syringe) 25 ml Q15M PRN IV DECREASED GLUCOSE; Start 07/15/18 at 08:30 Dextrose (D50w Syringe) 50 ml Q15M PRN IV DECREASED GLUCOSE Last administered on 07/16/18at 07:55; Admin Dose 50 ML; Start 07/15/18 at 08:30 Glucagon (Glucagen) 1 mg Q15M PRN IM DECREASED GLUCOSE; Start 07/15/18 at 08:30 Glucose (Glutose) 15 gm Q15M PRN BUCCAL DECREASED GLUCOSE; Start 07/15/18 at 08:30 Heparin Sodium (Porcine) (Heparin (1000 Units/ml)) 3,200 unit AFTER DIALYSIS PRN CATHETER heparin lock Last administered on 07/21/18at 17:19; Admin Dose 3,200 UNIT; Start 07/15/18 at 08:30 Albumin Human 100 ml @ 100 mls/hr DURING DIALYSIS PRN IV to prevent hypotension during ; Start 07/15/18 at 08:30 Mupirocin (Bactroban) 1 applic BID TOP Last administered on 07/22/18at 09:00; Admin Dose 1 APPLIC; Start 07/17/18 at 21:00 Rifampin (Rifampin) 600 mg DAILY PO Last administered on 07/22/18at 08:59; Admin Dose 600 MG; Start 07/18/18 at 09:00 Hydralazine HCl (Apresoline) 10 mg Q6H PRN IV elevated BP Last administered on 07/22/18at 02:48; Admin Dose 10 MG; Start 07/19/18 at 03:30 Famotidine (Pepcid) 20 mg DAILY PO Last administered on 07/22/18at 08:59; Admin Dose 20 MG; Start 07/21/18 at 09:00 Insulin Glargine (Lantus) 18 units DAILY@2000 SC ; Start 07/21/18 at 20:00 Diagnostic Test (Pha) (Accu-Chek) 1 ea 02 XX ; Start 07/22/18 at 02:00 Insulin Aspart (Novolog Insulin Pen) NOVOLOG *MILD* ALGORITHM WITH MEALS BEDTIME SC ; Start 07/22/18 at 08:00 Amlodipine Besylate (Norvasc) 10 mg DAILY PO ; Start 07/23/18 at 09:00 ISAIAS GONZALEZ MD Jul 22, 2018 16:14
--- NOTE | 2018-07-22 16:19 | CONS ---
Consult Date/Type/Reason Admit Date/Time July 15, 2018 at 00:58 Initial Consult Date 07/15/18 Type of Consult Pulmonary Date/Time of Note DATE: 07/22/18 TIME: 16:18 Subjective Patient remained stable on nasal cannula still has significant hypoxemia requiring supplemental O2. Objective Vital Signs Date Temp Pulse Resp B/P (MAP) Pulse Ox O2 O2 Flow FiO2 Time Delivery Rate 07/22/18 97.9 87 20 173/82 97 15:15 (112) 07/21/18 Nasal 3.0 20:00 Cannula 07/19/18 45 15:45 Intake and Output 07/21/18 07/21/18 07/22/18 1515:00 23:00 07:00 IntakeIntake Total 1000 ml 360 ml OutputOutput Total 3500 ml 200 ml BalanceBalance -2500 ml 160 ml Exam GENERAL: Elderly gentleman VITAL SIGNS: per chart NECK: Supple. No JVD or lymphadenopathy. CARDIAC EXAM: S1, S2. No added sounds or murmurs. CHEST: Diminished air entry bilaterally. ABDOMEN: Soft, nontender. No guarding or rebound. EXTREMITIES: No cyanosis, clubbing or edema. NEUROLOGIC: Generalized weakness. No focal deficits. Vent Setting Fraction of Inspired Oxygen pe: 60 Results/Medications Result Diagram: 07/22/18 0446 07/22/186 Results 24 hrs Laboratory Tests Test 07/21/18 22:59 07/22/18 04:46 07/22/18 06:01 07/22/18 08:50 Bedside Glucose 101 135 White Blood Count 15.1 H Red Blood Count 2.72 L Hemoglobin 9.0 L Hematocrit 28.9 L Mean Corpuscular 106.3 H Volume Mean Corpuscular 33.1 H Hemoglobin Mean Corpuscular 31.1 L Hemoglobin Concent Red Cell Distribution 15.6 H Width Platelet Count 280 Mean Platelet Volume 10.2 Immature Granulocytes 1.700 H % Neutrophils % 39.8 Lymphocytes % 12.8 L Monocytes % 43.9 H Eosinophils % 1.3 Basophils % 0.5 Nucleated Red Blood 0.0 Cells % Immature Granulocytes 0.260 H # Neutrophils # 6.0 Lymphocytes # 1.9 Monocytes # 6.6 H Eosinophils # 0.2 Basophils # 0.1 Nucleated Red Blood 0.0 Cells # Sodium Level 140 Potassium Level 3.9 Chloride Level 101 Carbon Dioxide Level 31 Anion Gap 8 Blood Urea Nitrogen 13 Creatinine 3.22 H Est Glomerular 19 L Filtrat Rate mL/min Glucose Level 95 # Calcium Level 8.7 Phosphorus Level 2.9 Magnesium Level 2.0 Lab Scanned Report REFERENCE LAB Test 07/22/18 12:58 Bedside Glucose 99 Medications Current Medications Ondansetron HCl (Zofran Inj) 4 mg Q6H PRN IV NAUSEA AND/OR VOMITING; Start 07/15/18 at 03:00 Albuterol/ Ipratropium (Duoneb) 3 ml Q2H RESP THERAPY PRN NEB SHORTNESS OF BREATH Last administered on 07/17/18at 23:24; Admin Dose 3 ML; Start 07/15/18 at 03:00 Nitroglycerin (Nitroglycerin (Sl Tab) 0.4 Mg) 1 tab Q5M PRN SL CHEST PAIN; Start 07/15/18 at 03:00 Acetaminophen (Tylenol Liquid) 650 mg Q6H PRN PO PAIN LEVEL 1-3 OR FEVER; Start 07/15/18 at 03:00 Morphine Sulfate (morphine) 2 mg Q4H PRN IV PAIN LEVEL 7-10; Start 07/15/18 at 03:00 Aspirin (Halfprin) 81 mg DAILY PO Last administered on 07/22/18at 08:59; Admin D ose 81 MG; Start 07/15/18 at 09:00 Atorvastatin Calcium (Lipitor) 10 mg QHS PO Last administered on 07/21/18at 21:42; Admin Dose 10 MG; Start 07/15/18 at 21:00 Hydralazine HCl (Apresoline) 25 mg TID PO Last administered on 07/22/18at 06:20; Admin Dose 25 MG; Start 07/15/18 at 09:00 Epoetin Yannick-epbx (Retacrit (Non-Esrd)) 10,000 unit MoWeFr@1700 SC Last administered on 07/20/18at 23:43; Admin Dose 10,000 UNIT; Start 07/15/18 at 17:00 Miscellaneous Information 1 ea NOTE XX ; Start 07/15/18 at 08:30 Glucose (Glutose) 15 gm Q15M PRN PO DECREASED GLUCOSE; Start 07/15/18 at 08:30 Glucose (Glutose) 22.5 gm Q15M PRN PO DECREASED GLUCOSE; Start 07/15/18 at 08:30 Dextrose (D50w Syringe) 25 ml Q15M PRN IV DECREASED GLUCOSE; Start 07/15/18 at 08:30 Dextrose (D50w Syringe) 50 ml Q15M PRN IV DECREASED GLUCOSE Last administered on 07/16/18at 07:55; Admin Dose 50 ML; Start 07/15/18 at 08:30 Glucagon (Glucagen) 1 mg Q15M PRN IM DECREASED GLUCOSE; Start 07/15/18 at 08:30 Glucose (Glutose) 15 gm Q15M PRN BUCCAL DECREASED GLUCOSE; Start 07/15/18 at 08:30 Heparin Sodium (Porcine) (Heparin (1000 Units/ml)) 3,200 unit AFTER DIALYSIS PRN CATHETER heparin lock Last administered on 07/21/18at 17:19; Admin Dose 3,200 UNIT; Start 07/15/18 at 08:30 Albumin Human 100 ml @ 100 mls/hr DURING DIALYSIS PRN IV to prevent hypotension during ; Start 07/15/18 at 08:30 Mupirocin (Bactroban) 1 applic BID TOP Last administered on 07/22/18at 09:00; Admin Dose 1 APPLIC; Start 07/17/18 at 21:00 Rifampin (Rifampin) 600 mg DAILY PO Last administered on 07/22/18at 08:59; Admin Dose 600 MG; Start 07/18/18 at 09:00 Hydralazine HCl (Apresoline) 10 mg Q6H PRN IV elevated BP Last administered on 07/22/18at 02:48; Admin Dose 10 MG; Start 07/19/18 at 03:30 Famotidine (Pepcid) 20 mg DAILY PO Last administered on 07/22/18at 08:59; Admin Dose 20 MG; Start 07/21/18 at 09:00 Insulin Glargine (Lantus) 18 units DAILY@2000 SC ; Start 07/21/18 at 20:00 Diagnostic Test (Pha) (Accu-Chek) 1 ea 02 XX ; Start 07/22/18 at 02:00 Insulin Aspart (Novolog Insulin Pen) NOVOLOG *MILD* ALGORITHM WITH MEALS BEDTIME SC ; Start 07/22/18 at 08:00 Amlodipine Besylate (Norvasc) 10 mg DAILY PO ; Start 07/23/18 at 09:00 Assessment/Plan Hospital Course (Demo Recall) Assessment 1. Acute hypoxemic respiratory failure secondary to congestive cardiac failure with volume overload 2. History of coronary artery disease 3 end-stage renal failure on hemodialysis Plan 1. Continue hemodialysis with volume removal 2. Continue ID recommendations 3. Repeat chest x-ray may require thoracentesis. This was discussed at length with the patient. He states he will discuss this with his family. KAREEM LYN MD, [facility] Jul 22, 2018 16:19
[2018-07-22] MEDS ORDERED: NIFEdipine (XL) 60 MG TAB PO ONE (18:00)
[2018-07-22] MEDS: EPOETIN ALFA-EPBX (NON-ESRD 10,000 UNIT/ML VIAL SC SCH (18:12)
--- NOTE | 2018-07-22 19:11 | CONS ---
DATE OF ADMISSION: 07/15/2018 DATE OF CONSULTATION: 07/22/2018 SUBJECTIVE FINDINGS: The patient is being followed for left diabetic foot ulcerations. Surgery was postponed due to hypoxia. The patient currently is on nasal cannula with supplemental oxygen. OBJECTIVE FINDINGS: VITAL SIGNS: Temperature 97.9, pulse is 87, respiratory rate 20, blood pressure 173/82, pulse ox is 97, GENERAL: Alert, oriented. EXTREMITIES: Left foot transmetatarsal amputation. Ulcerations, left distal amputation site and pos terior heel. No malodor. No active or mild serous drainage. No signs of cellulitis or lymphangitis . Stool culture, coliform. Wound cultures, MRSA. LABORATORIES: WBC 15.1, hemoglobin 9, hematocrit 28.9, platelets 280. DIAGNOSTIC DATA: Chest x-ray: No significant change, persistent findings suggestive of CHF, aortic atherosclerotic calcification. ASSESSMENT: 1. Leukocytosis. 2. Diabetic foot ulceration, left heel and transmetatarsal amputation stump. 3. Osteomyelitis, first metatarsal stump without abscess. 4. Diabetes. PLAN: Left foot ulcerations stable. Would benefit from debridement. Biopsy of bone can perform gerardo ctively. Clinically, there is no malodor or ascending cellulitis. Continue local wound care. Nursi ng recommendations given. When cleared medically, contact service and we can schedule procedure. Dictated By: REBECCA PALOMARES/HOLLY Conf#: [id number] DID#: [id number]
[2018-07-22] MEDS: INSULIN GLARGINE [LANTus] (100 UNITS/ML) SYG SC SCH (20:00)
[2018-07-22] MEDS: HEPARIN 1000 UNITS/ML 10 ML INJ CATHETER PRN (20:49)
[2018-07-22] MEDS: ATORVASTATIN 10 MG TAB PO SCH (22:13)
[2018-07-23] VITALS (18 sets, daily range): BP systolic 109–185; BP diastolic 67–98; PULSE 84–102; RESP 18–20
[2018-07-23] MEDS: ACCU-CHEK XX SCH (02:00)
[2018-07-23] MEDS: INSULIN ASPART [NOVOLOG] 3 ML PEN SC SCH ×4 (08:00→22:22)
--- NOTE | 2018-07-23 08:41 | CONS ---
Assessment/Plan Assessment/Plan Assessment/Plan (Daily) 1. acute hypoxic respiratory failure requiring BIPAP 2. Anemia of ESRD s/p PRBC transfusion during this admission 3. ESRD on HD MWF Schedule 4. L foot diabetic ulcer s/p previous Transmetatarsal amputation- s/p vascular surgery consultatin during this admission 5. h/O DM II 6. h/o HTN Plan: s/p HD today 3 L removed, will continue HD on MWF schedule, next HD will be on Nifedipien Xl 60mg pO x1 given and IV hydralazine prn for BP control IV abx as per ID, Renally dose all abx and monitor electrolytes s/p Vascular surgery evaluation for LE wounds Will follow up Consultation Date/Type/Reason Admit Date/Time July 15, 2018 at 00:58 Initial Consult Date 07/15/18 Type of Consult NEPHROLOGY Date/Time of Note DATE: 07/23/18 TIME: 08:40 Exam/Review of Systems Exam Vitals Vital Signs Date Temp Pulse Resp B/P (MAP) Pulse Ox O2 O2 Flow FiO2 Time Delivery Rate 07/23/18 98.2 98 18 168/84 94 02:11 (112) 07/22/18 Nasal 3.0 20:00 Cannula 07/19/18 45 15:45 Intake and Output 07/22/18 07/22/18 07/23/18 1515:00 23:00 07:00 IntakeIntake Total 460 ml 640 ml OutputOutput Total 3700 ml BalanceBalance 460 ml -3060 ml Results Result Diagram: 07/22/18 0446 07/22/18 0446 Results 24hrs Laboratory Tests Test 07/22/18 08:50 07/22/18 12:58 07/22/18 18:07 07/22/18 20:42 Bedside Glucose 135 99 83 93 Medications Medication Current Medications Ondansetron HCl (Zofran Inj) 4 mg Q6H PRN IV NAUSEA AND/OR VOMITING; Start 07/15/18 at 03:00 Albuterol/ Ipratropium (Duoneb) 3 ml Q2H RESP THERAPY PRN NEB SHORTNESS OF BREATH Last administered on 07/17/18at 23:24; Admin Dose 3 ML; Start 07/15/18 at 03:00 Nitroglycerin (Nitroglycerin (Sl Tab) 0.4 Mg) 1 tab Q5M PRN SL CHEST PAIN; Start 07/15/18 at 03:00 Acetaminophen (Tylenol Liquid) 650 mg Q6H PRN PO PAIN LEVEL 1-3 OR FEVER; Start 07/15/18 at 03:00 Morphine Sulfate (morphine) 2 mg Q4H PRN IV PAIN LEVEL 7-10; Start 07/15/18 at 03:00 Aspirin (Halfprin) 81 mg DAILY PO Last administered on 07/22/18at 08:59; Admin Dose 81 MG; Start 07/15/18 at 09:00 Atorvastatin Calcium (Lipitor) 10 mg QHS PO Last administered on 07/22/18at 22:13; Admin Dose 10 MG; Start 07/15/18 at 21:00 Hydralazine HCl (Apresoline) 25 mg TID PO Last administered on 07/22/18at 22:13; Admin Dose 25 MG; Start 07/15/18 at 09:00 Epoetin Yannick-epbx (Retacrit (Non-Esrd)) 10,000 unit MoWeFr@1700 SC Last administered on 07/22/18at 18:12; Admin Dose 10,000 UNIT; Start 07/15/18 at 17:00 Miscellaneous Information 1 ea NOTE XX ; Start 07/15/18 at 08:30 Glucose (Glutose) 15 gm Q15M PRN PO DECREASED GLUCOSE; Start 07/15/18 at 08:30 Glucose (Glutose) 22.5 gm Q15M PRN PO DECREASED GLUCOSE; Start 07/15/18 at 08:30 Dextrose (D50w Syringe) 25 ml Q15M PRN IV DECREASED GLUCOSE; Start 07/15/18 at 08:30 Dextrose (D50w Syringe) 50 ml Q15M PRN IV DECREASED GLUCOSE Last administered on 07/16/18at 07:55; Admin Dose 50 ML; Start 07/15/18 at 08:30 Glucagon (Glucagen) 1 mg Q15M PRN IM DECREASED GLUCOSE; Start 07/15/18 at 08:30 Glucose (Glutose) 15 gm Q15M PRN BUCCAL DECREASED GLUCOSE; Start 07/15/18 at 08:30 Heparin Sodium (Porcine) (Heparin (1000 Units/ml)) 3,200 unit AFTER DIALYSIS PRN CATHETER heparin lock Last administered on 07/22/18at 20:49; Admin Dose 3,200 UNIT; Start 07/15/18 at 08:30 Albumin Human 100 ml @ 100 mls/hr DURING DIALYSIS PRN IV to prevent hypotension during ; Start 07/15/18 at 08:30 Rifampin (Rifampin) 600 mg DAILY PO Last administered on 07/22/18at 08:59; Admin Dose 600 MG; Start 07/18/18 at 09:00 Famotidine (Pepcid) 20 mg DAILY PO Last administered on 07/22/18at 08:59; Admin Dose 20 MG; Start 07/21/18 at 09:00 Insulin Glargine (Lantus) 18 units DAILY@2000 SC ; Start 07/21/18 at 20:00; Status Hold Diagnostic Test (Pha) (Accu-Chek) 1 XX ; Start 07/22/18 at 02:00 Insulin Aspart (Novolog Insulin Pen) NOVOLOG *MILD* ALGORITHM WITH MEALS BEDTIME SC ; Start 07/22/18 at 08:00 Amlodipine Besylate (Norvasc) 10 mg DAILY PO ; Start 07/23/18 at 09:00 Mupirocin (Bactroban) 1 applic BID TOP ; Start 07/22/18 at 21:00 Hydralazine HCl (Apresoline) 10 mg Q4H PRN IV ELEVATED BLOOD PRESSURE; Start 07/22/18 at 20:00 OTTO JUÁREZ MD Jul 23, 2018 08:40
[2018-07-23] MEDS: ASPIRIN (EC) 81 MG TAB PO SCH (08:59)
[2018-07-23] MEDS: RIFAMPIN 300 MG CAP PO SCH (09:00)
[2018-07-23] MEDS: MUPIROCIN 2% 22 GM OINT TOP SCH ×2 (09:00→20:52)
[2018-07-23] MEDS: FAMOTIDINE 20 MG TAB PO SCH ×2 (09:00→20:48)
[2018-07-23] MEDS: AMLODIPINE 10 MG TAB PO SCH (09:00)
--- NOTE | 2018-07-23 10:37 | PN ---
Date/Time of Note Date/Time of Note DATE: 07/23/18 TIME: 10:29 Assessment/Plan VTE Prophylaxis Risk score (from Ns)>0 risk: 11 SCD applied (from Ns): No SCD contraindicated: low risk/ambulating Pharmacological prophylaxis: LMWH Lines/Catheters IV [facility]ter Type [facility]from [facility] Saline Lock Urinary Cath still in place: No Assessment/Plan Hospital Course A/P 1. ARF/ hypoxia; stable dc o2? Check cxr. Thoracentesis if indicated. Podiatry recommends debridement when ok w pulmonary. 2. ESRD; m/w/f; cont fluid management. Avf -P; once anasarca improved. Probably can do it down the line 3. Htn add clonidine patch 4. PAD; bka recommended/ refused? 5. Dm 6. Vit D Def 7. Dyslipidemia 8. Chr OM; vanc/ rifam 9. FTT; snf? 10. P tobacco 11. CMY? 12. Non adherence? 13. Pl effusion; chest x-ray consider thoracentesis if indicated S: 07/22: no distress 07/23: frustrated, thought that theres a cure for his conditions; refused bp meds/ accuchecks. i updated Son/ Fer. O: vss; bp elevated PE no pallor/ jvd reg s1s2 no mrg ctab bs+ nt nd no rrg no edema; lt foot dressed Result Diagram: 07/22/1844507/22/18445 Results 24hrs Laboratory Tests Test 07/22/18 12:58 07/22/18 18:07 07/22/18 20:42 Bedside Glucose 99 83 93 Exam/Review of Systems Exam Vitals Vital Signs Date Temp Pulse Resp B/P (MAP) Pulse Ox O2 O2 Flow FiO2 Time Delivery Rate 07/23/18 98.2 98 18 168/84 94 02:11 (112) 07/22/18 Nasal 3.0 20:00 Cannula 07/19/18 45 15:45 Intake and Output 07/22/18 07/22/18 07/23/18 1515:00 23:00 07:00 IntakeIntake Total 460 ml 640 ml OutputOutput Total 3700 ml BalanceBalance 460 ml -3060 ml Results Results 24hrs Laboratory Tests Test 07/22/18 12:58 07/22/18 18:07 07/22/18 20:42 Bedside Glucose 99 83 93 Medications Medication Current Medications Ondansetron HCl (Zofran Inj) 4 mg Q6H PRN IV NAUSEA AND/OR VOMITING; Start 07/15/18 at 03:00 Albuterol/ Ipratropium (Duoneb) 3 ml Q2H RESP THERAPY PRN NEB SHORTNESS OF BREATH Last administered on 07/17/18at 23:24; Admin Dose 3 ML; Start 07/15/18 at 03:00 Nitroglycerin (Nitroglycerin (Sl Tab) 0.4 Mg) 1 tab Q5M PRN SL CHEST PAIN; Start 07/15/18 at 03:00 Acetaminophen (Tylenol Liquid) 650 mg Q6H PRN PO PAIN LEVEL 1-3 OR FEVER; Start 07/15/18 at 03:00 Morphine Sulfate (morphine) 2 mg Q4H PRN IV PAIN LEVEL 7-10; Start 07/15/18 at 03:00 Aspirin (Halfprin) 81 mg DAILY PO Last administered on 07/22/18at 08:59; Admin Do se 81 MG; Start 07/15/18 at 09:00 Atorvastatin Calcium (Lipitor) 10 mg QHS PO Last administered on 07/22/18at 22:13; Admin Dose 10 MG; Start 07/15/18 at 21:00 Hydralazine HCl (Apresoline) 25 mg TID PO Last administered on 07/22/18at 22:13; Admin Dose 25 MG; Start 07/15/18 at 09:00 Epoetin Yannick-epbx (Retacrit (Non-Esrd)) 10,000 unit MoWeFr@1700 SC Last administered on 07/22/18at 18:12; Admin Dose 10,000 UNIT; Start 07/15/18 at 17:00 Miscellaneous Information 1 ea NOTE XX ; Start 07/15/18 at 08:30 Glucose (Glutose) 15 gm Q15M PRN PO DECREASED GLUCOSE; Start 07/15/18 at 08:30 Glucose (Glutose) 22.5 gm Q15M PRN PO DECREASED GLUCOSE; Start 07/15/18 at 08:30 Dextrose (D50w Syringe) 25 ml Q15M PRN IV DECREASED GLUCOSE; Start 07/15/18 at 08:30 Dextrose (D50w Syringe) 50 ml Q15M PRN IV DECREASED GLUCOSE Last administered on 07/16/18at 07:55; Admin Dose 50 ML; Start 07/15/18 at 08:30 Glucagon (Glucagen) 1 mg Q15M PRN IM DECREASED GLUCOSE; Start 07/15/18 at 08:30 Glucose (Glutose) 15 gm Q15M PRN BUCCAL DECREASED GLUCOSE; Start 07/15/18 at 08:30 Heparin Sodium (Porcine) (Heparin (1000 Units/ml)) 3,200 unit AFTER DIALYSIS PRN CATHETER heparin lock Last administered on 07/22/18at 20:49; Admin Dose 3,200 UNIT; Start 07/15/18 at 08:30 Albumin Human 100 ml @ 100 mls/hr DURING DIALYSIS PRN IV to prevent hypotension during ; Start 07/15/18 at 08:30 Rifampin (Rifampin) 600 mg DAILY PO Last administered on 07/22/18at 08:59; Admin Dose 600 MG; Start 07/18/18 at 09:00 Famotidine (Pepcid) 20 mg DAILY PO Last administered on 07/22/18at 08:59; Admin Dose 20 MG; Start 07/21/18 at 09:00 Insulin Glargine (Lantus) 18 units DAILY@2000 SC ; Start 07/21/18 at 20:00; Status Hold Diagnostic Test (Pha) (Accu-Chek) 1 ea 02 XX ; Start 07/22/18 at 02:00 Insulin Aspart (Novolog Insulin Pen) NOVOLOG *MILD* ALGORITHM WITH MEALS BEDTIME SC ; Start 07/22/18 at 08:00 Amlodipine Besylate (Norvasc) 10 mg DAILY PO ; Start 07/23/18 at 09:00 Mupirocin (Bactroban) 1 applic BID TOP ; Start 07/22/18 at 21:00 Hydralazine HCl (Apresoline) 10 mg Q4H PRN IV ELEVATED BLOOD PRESSURE; Start 07/22/18 at 20:00 ISAIAS GONZALEZ MD Jul 23, 2018 10:37
[2018-07-23] MEDS: CLONIDINE 0.2 MG/24 HR PATCH TRANSDERM SCH (11:00)
[2018-07-23] MEDS: HEPARIN 1000 UNITS/ML 10 ML INJ CATHETER PRN (16:54)
[2018-07-23] MEDS: ATORVASTATIN 10 MG TAB PO SCH (20:48)
[2018-07-23] MEDS: LACTOBACILLUS RHAMNOSUS CAP PO SCH (20:49)
[2018-07-24] MEDS: ACCU-CHEK XX SCH (01:43)
[2018-07-24 01:49] VITALS: BP 137/76; PULSE 86; RESP 20
[2018-07-24] MEDS: INSULIN ASPART [NOVOLOG] 3 ML PEN SC SCH ×4 (08:00→20:43)
[2018-07-24 08:25] VITALS: BP 181/83; PULSE 86; RESP 19
[2018-07-24] MEDS: LACTOBACILLUS RHAMNOSUS CAP PO SCH ×2 (09:33→20:41)
[2018-07-24] MEDS: ASPIRIN (EC) 81 MG TAB PO SCH (09:33)
[2018-07-24] MEDS: MUPIROCIN 2% 22 GM OINT TOP SCH ×2 (09:34→20:46)
[2018-07-24] MEDS: RIFAMPIN 300 MG CAP PO SCH (09:34)
[2018-07-24] MEDS: AMLODIPINE 10 MG TAB PO SCH (09:34)
--- NOTE | 2018-07-24 11:59 | CONS ---
Consultation Date/Type/Reason Admit Date/Time July 15, 2018 at 00:58 Initial Consult Date 07/15/18 Type of Consult Pulmonary Patient condition is fairly stable. Doing well on BiPAP. General exam; elderly male, laying comfortably in bed. Awake and alert. Currently in no distress. Getting hemodialysis at bedside. Date/Time of Note DATE: 07/24/18 TIME: 11:57 24 HR Interval Summary Free Text/Dictation Patient's condition is improving. Denies any shortness of breath, chest pain. General exam; elderly male, awake alert, currently in no distress. On room air. HEENT exam; supple neck, positive JVD. No lymphadenopathy. Midline trachea. No thyromegaly. No neck masses. Chest exam; diminished but clear breath sounds. S1-S2 audible, no murmurs. Regular rhythm. Abdomen exam; soft, nontender. No organomegaly. Bowel sounds audible. Extremity exam; no peripheral edema clubbing. 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 Assessment and recommendations; 1. Patient with history of CHF and cardiomyopathy and end-stage renal disease admitted for CHF exacerbation with significant interval clinical improvement. 2. Reduction in bilateral pleural effusions as well. 3. Interval resolution of hypoxemia. 4. History of hypertension. 5. Anemia of chronic disease. Continue current supportive care. Hemodialysis per senior software developer. Consider discharge. Exam/Review of Systems Exam Vitals Vital Signs Date Temp Pulse Resp B/P (MAP) Pulse Ox O2 O2 Flow FiO2 Time Delivery Rate 07/24/18 97.9 86 19 181/83 94 08:25 (115) 07/23/18 Nasal 3.0 20:00 Cannula Intake and Output 07/23/18 07/23/18 07/24/18 1515:00 23:00 07:00 IntakeIntake Total 120 ml 360 ml 200 ml OutputOutput Total 200 ml 3600 ml BalanceBalance -80 ml -3240 ml 200 ml Results Result Diagram: 07/23/18 1145 07/23/18 1145 Results 24hrs Laboratory Tests Test 07/23/18 17:57 07/23/18 22:10 07/24/18 01:37 07/24/18 08:44 Bedside Glucose 72 195 115 108 Medications Medication Current Medications Ondansetron HCl (Zofran Inj) 4 mg Q6H PRN IV NAUSEA AND/OR VOMITING; Start 07/15/18 at 03:00 Albuterol/ Ipratropium (Duoneb) 3 ml Q2H RESP THERAPY PRN NEB SHORTNESS OF BREATH Last administered on 07/17/18at 23:24; Admin Dose 3 ML; Start 07/15/18 at 03:00 Nitroglycerin (Nitroglycerin (Sl Tab) 0.4 Mg) 1 tab Q5M PRN SL CHEST PAIN; Start 07/15/18 at 03:00 Acetaminophen (Tylenol Liquid) 650 mg Q6H PRN PO PAIN LEVEL 1-3 OR FEVER; Start 07/15/18 at 03:00 Morphine Sulfate (morphine) 2 mg Q4H PRN IV PAIN LEVEL 7-10; Start 07/15/18 at 03:00 Aspirin (Halfprin) 81 mg DAILY PO Last administered on 07/24/18at 09:33; Admin Dose 81 MG; Start 07/15/18 at 09:00 Atorvastatin Calcium (Lipitor) 10 mg QHS PO Last administered on 07/23/18at 20:48; Admin Dose 10 MG; Start 07/15/18 at 21:00 Hydralazine HCl (Apresoline) 25 mg TID PO Last administered on 07/24/18at 09:34; Admin Dose 25 MG; Start 07/15/18 at 09:00 Epoetin Yannick-epbx (Retacrit (Non-Esrd)) 10,000 unit MoWeFr@1700 SC Last administered on 07/22/18at 18:12; Admin Dose 10,000 UNIT; Start 07/15/18 at 17:00 Miscellaneous Information 1 ea NOTE XX ; Start 07/15/18 at 08:30 Glucose (Glutose) 15 gm Q15M PRN PO DECREASED GLUCOSE; Start 07/15/18 at 08:30 Glucose (Glutose) 22.5 gm Q15M PRN PO DECREASED GLUCOSE; Start 07/15/18 at 08:30 Dextrose (D50w Syringe) 25 ml Q15M PRN IV DECREASED GLUCOSE; Start 07/15/18 at 08:30 Dextrose (D50w Syringe) 50 ml Q15M PRN IV DECREASED GLUCOSE Last administered on 07/16/18at 07:55; Admin Dose 50 ML; Start 07/15/18 at 08:30 Glucagon (Glucagen) 1 mg Q15M PRN IM DECREASED GLUCOSE; Start 07/15/18 at 08:30 Glucose (Glutose) 15 gm Q15M PRN BUCCAL DECREASED GLUCOSE; Start 07/15/18 at 08:30 Heparin Sodium (Porcine) (Heparin (1000 Units/ml)) 3,200 unit AFTER DIALYSIS PRN CATHETER heparin lock Last administered on 07/23/18 16:54; Admin Dose 3,200 UNIT; Start 07/15/18 at 08:30 Albumin Human 100 ml @ 100 mls/hr DURING DIALYSIS PRN IV to prevent hypotension during ; Start 07/15/18 at 08:30 Rifampin (Rifampin) 600 mg DAILY PO Last administered on 07/24/18 09:34; Admin Dose 600 MG; Start 07/18/18 at 09:00 Diagnostic Test (Pha) (Accu-Chek) 1 ea 02 XX Last administered on 07/24/18 01:43; Admin Dose 1 EA; Start 07/22/18 at 02:00 Insulin Aspart (Novolog Insulin Pen) NOVOLOG *MILD* ALGORITHM WITH MEALS BEDTIME SC Last administered on 07/23/18 22:22; Admin Dose 1 UNIT; Start 07/22/18 at 08:00 Amlodipine Besylate (Norvasc) 10 mg DAILY PO Last administered on 07/24/18 09:34; Admin Dose 10 MG; Start 07/23/18 at 09:00 Mupirocin (Bactroban) 1 applic BID TOP Last administered on 07/24/18 09:34; Admin Dose 1 APPLIC; Start 07/22/18 at 21:00 Hydralazine HCl (Apresoline) 10 mg Q4H PRN IV ELEVATED BLOOD PRESSURE; Start 07/22/18 at 20:00 Clonidine HCl (Catapres-Tts 2 Patch) 1 patch Q7D TRANSDERM ; Start 07/23/18 at 11:00 Lactobacillus Acidophilus/ Rhamnosus (Culturelle) 1 cap BID PO Last administered on 07/24/18 09:33; Admin Dose 1 CAP; Start 07/23/18 at 21:00 Famotidine (Pepcid) 20 mg HS PO Last administered on 07/23/18 20:48; Admin Dose 20 MG; Start 07/23/18 at 21:00 LAURA TORRES Jul 24, 2018 11:58
[2018-07-24 14:58] VITALS: BP 159/74; PULSE 87; RESP 18
[2018-07-24] MEDS: DAKINS 0.0125%(1/40) 473 ML SOLUTION TP SCH ×2 (15:23→20:47)
--- NOTE | 2018-07-24 16:58 | CONS ---
Assessment/Plan Assessment/Plan Assessment/Plan (Daily) 1. acute hypoxic respiratory failure requiring BIPAP 2. Anemia of ESRD s/p PRBC transfusion during this admission 3. ESRD on HD MWF Schedule 4. L foot diabetic ulcer s/p previous Transmetatarsal amputation- s/p vascular surgery consultatin during this admission 5. h/O DM II 6. h/o HTN Plan: HD ordered for Wednesday Morning, will continue HD MWF Amlodipine 10mg po daily, hydralazine 25 mg pO TID, IV hydralazine prn for BP control IV abx as per ID, Renally dose all abx and monitor electrolytes s/p Vascular surgery evaluation for LE wounds Will follow up Consultation Date/Type/Reason Admit Date/Time July 15, 2018 at 00:58 Initial Consult Date 07/15/18 Type of Consult NEPHROLOGY Date/Time of Note DATE: 07/24/18 TIME: 16:58 24 HR Interval Summary Free Text/Dictation HD ordered for wednesday, BP stable Exam/Review of Systems Exam Vitals Vital Signs Date Temp Pulse Resp B/P (MAP) Pulse Ox O2 O2 Flow FiO2 Time Delivery Rate 07/24/18 98.9 87 18 159/74 97 14:58 (102) 07/24/18 Nasal 3.0 08:20 Cannula Intake and Output 07/23/18 07/23/18 07/24/18 1515:00 23:00 07:00 IntakeIntake Total 120 ml 360 ml 200 ml OutputOutput Total 200 ml 3600 ml BalanceBalance -80 ml -3240 ml 200 ml Exam GEN: awake, alert, no acute distress HEENT: Head is normocephalic. NECK: Supple. HEART: Regular rate. LUNGS: Show diminished breath sounds at the base. ABDOMEN: Soft, nontender to palpation without rebound or guarding. EXTREMITIES: Negative for clubbing, cyanosis, no edema. DERMATOLOGIC: No rashes. MUSCULOSKELETAL: No joint effusion. NEUROLOGIC: Limited exam due to lack of the patient's cooperation. Results Result Diagram: 07/23/18 1145 07/23/18 1145 Results 24hrs Laboratory Tests Test 07/23/18 17:57 07/23/18 22:10 07/24/18 01:37 07/24/18 08:44 Bedside Glucose 72 195 115 108 Test 07/24/18 12:33 Bedside Glucose 157 Medications Medication Current Medications Ondansetron HCl (Zofran Inj) 4 mg Q6H PRN IV NAUSEA AND/OR VOMITING; Start 07/15/18 at 03:00 Albuterol/ Ipratropium (Duoneb) 3 ml Q2H RESP THERAPY PRN NEB SHORTNESS OF BREATH Last administered on 07/17/18 23:24; Admin Dose 3 ML; Start 07/15/18 at 03:00 Nitroglycerin (Nitroglycerin (Sl Tab) 0.4 Mg) 1 tab Q5M PRN SL CHEST PAIN; Start 07/15/18 at 03:00 Acetaminophen (Tylenol Liquid) 650 mg Q6H PRN PO PAIN LEVEL 1-3 OR FEVER; Start 07/15/18 at 03:00 Morphine Sulfate (morphine) 2 mg Q4H PRN IV PAIN LEVEL 7-10; Start 07/15/18 at 03:00 Aspirin (Halfprin) 81 mg DAILY PO Last administered on 07/24/18at 09:33; Admin Dose 81 MG; Start 07/15/18 at 09:00 Atorvastatin Calcium (Lipitor) 10 mg QHS PO Last administered on 07/23/18at 20:48; Admin Dose 10 MG; Start 07/15/18 at 21:00 Hydralazine HCl (Apresoline) 25 mg TID PO Last administered on 07/24/18at 12:43; Admin Dose 25 MG; Start 07/15/18 at 09:00 Epoetin Yannick-epbx (Retacrit (Non-Esrd)) 10,000 unit MoWeFr@1700 SC Last administered on 07/22/18at 18:12; Admin Dose 10,000 UNIT; Start 07/15/18 at 17:00 Miscellaneous Information 1 ea NOTE XX ; Start 07/15/18 at 08:30 Glucose (Glutose) 15 gm Q15M PRN PO DECREASED GLUCOSE; Start 07/15/18 at 08:30 Glucose (Glutose) 22.5 gm Q15M PRN PO DECREASED GLUCOSE; Start 07/15/18 at 08:30 Dextrose (D50w Syringe) 25 ml Q15M PRN IV DECREASED GLUCOSE; Start 07/15/18 at 08:30 Dextrose (D50w Syringe) 50 ml Q15M PRN IV DECREASED GLUCOSE Last administered on 07/16/18at 07:55; Admin Dose 50 ML; Start 07/15/18 at 08:30 Glucagon (Glucagen) 1 mg Q15M PRN IM DECREASED GLUCOSE; Start 07/15/18 at 08:30 Glucose (Glutose) 15 gm Q15M PRN BUCCAL DECREASED GLUCOSE; Start 07/15/18 at 08:30 Heparin Sodium (Porcine) (Heparin (1000 Units/ml)) 3,200 unit AFTER DIALYSIS PRN CATHETER heparin lock Last administered on 07/23/18 16:54; Admin Dose 3,200 UNIT; Start 07/15/18 at 08:30 Albumin Human 100 ml @ 100 mls/hr DURING DIALYSIS PRN IV to prevent hypotension during ; Start 07/15/18 at 08:30 Rifampin (Rifampin) 600 mg DAILY PO Last administered on 07/24/18 09:34; Admin Dose 600 MG; Start 07/18/18 at 09:00 Diagnostic Test (Pha) (Accu-Chek) 1 ea 02 XX Last administered on 07/24/18 01:43; Admin Dose 1 EA; Start 07/22/18 at 02:00 Insulin Aspart (Novolog Insulin Pen) NOVOLOG *MILD* ALGORITHM WITH MEALS BEDTIME SC Last administered on 07/24/18 12:40; Admin Dose 1 UNIT; Start 07/22/18 at 08:00 Amlodipine Besylate (Norvasc) 10 mg DAILY PO Last administered on 07/24/18 09:34; Admin Dose 10 MG; Start 07/23/18 at 09:00 Mupirocin (Bactroban) 1 applic BID TOP Last administered on 07/24/18 09:34; Admin Dose 1 APPLIC; Start 07/22/18 at 21:00 Hydralazine HCl (Apresoline) 10 mg Q4H PRN IV ELEVATED BLOOD PRESSURE; Start 07/22/18 at 20:00 Clonidine HCl (Catapres-Tts 2 Patch) 1 patch Q7D TRANSDERM ; Start 07/23/18 at 11:00 Lactobacillus Acidophilus/ Rhamnosus (Culturelle) 1 cap BID PO Last administered on 07/24/18 09:33; Admin Dose 1 CAP; Start 07/23/18 at 21:00 Famotidine (Pepcid) 20 mg HS PO Last administered on 07/23/18 20:48; Admin Dose 20 MG; Start 07/23/18 at 21:00 Sodium Hypochlorite (Dakins Diluted ()) 1 applic BID TP Last administered on 07/24/18at 15:23; Admin Dose 1 APPLIC; Start 07/24/18 at 13:30 OTTO JUÁREZ MD Jul 24, 2018 16:58
--- NOTE | 2018-07-24 18:30 | PN ---
Date/Time of Note Date/Time of Note DATE: 07/24/18 TIME: 18:27 Assessment/Plan VTE Prophylaxis Risk score (from Nsg)>0 risk: 7 SCD applied (from Ns): No SCD contraindicated: low risk/ambulating Pharmacological prophylaxis: LMWH Lines/Catheters IV Catheter Type (from Nrsg): Saline Lock Urinary Cath still in place: No Assessment/Plan Hospital Course A/P 1. ARF/ hypoxia; stable dc o2? Checked cxr. Thoracentesis prn. Podiatry recommends debridement when ok w pulmonary. -Cxr improved, noncardiac surgery planned. No active chest pain/ dyspnea. May proceed forward to debridement from medical standpoint with intermediate risk. 2. ESRD; m/w/f; cont fluid management. Avf -P; once anasarca improved. Probably can do it down the line 3. Htn added clonidine patch 4. PAD; bka recommended/ refused? 5. Dm 6. Vit D Def 7. Dyslipidemia 8. Chr OM; vanc/ rifam 9. FTT; snf? 10. P tobacco 11. CMY? 12. Non adherence? 13. Pl effusion, improved; sp cxr. thoracentesis prn S: 07/22: no distress 07/23: frustrated, thought that theres a cure for his conditions; refused bp meds/ accuchecks. i updated Son/ Fer. 07/24: No distress. No hypoxia at rest. Probably can go for heel debridement tomorrow. Will keep n.p.o. O: vss; bp more stable PE no pallor/ jvd reg s1s2 no mrg ctab bs+ nt nd no rrg no edema; lt foot dressed Result Diagram: 07/23/18 1145 07/23/18 1145 Results 24hrs Laboratory Tests Test 07/23/18 22:10 07/24/18 01:37 07/24/18 08:44 07/24/18 12:33 Bedside Glucose 195 115 108 157 Test 07/24/18 18:03 Bedside Glucose 142 Exam/Review of Systems Exam Vitals Vital Signs Date Temp Pulse Resp B/P (MAP) Pulse Ox O2 O2 Flow FiO2 Time Delivery Rate 07/24/18 98.9 87 18 159/74 97 14:58 (102) 07/24/18 Nasal 3.0 08:20 Cannula Intake and Output 07/23/18 07/23/18 07/24/18 1414:59 22:59 06:59 IntakeIntake Total 120 ml 360 ml 200 ml OutputOutput Total 200 ml 3600 ml BalanceBalance -80 ml -3240 ml 200 ml Results Results 24hrs Laboratory Tests Test 07/23/18 22:10 07/24/18 01:37 07/24/18 08:44 07/24/18 12:33 Bedside Glucose 195 115 108 157 Test 07/24/18 18:03 Bedside Glucose 142 Medications Medication Current Medications Ondansetron HCl (Zofran Inj) 4 mg Q6H PRN IV NAUSEA AND/OR VOMITING; Start 07/15/18 at 03:00 Albuterol/ Ipratropium (Duoneb) 3 ml Q2H RESP THERAPY PRN NEB SHORTNESS OF BREATH Last administered on 07/17/18at 23:24; Admin Dose 3 ML; Start 07/15/18 at 03:00 Nitroglycerin (Nitroglycerin (Sl Tab) 0.4 Mg) 1 tab Q5M PRN SL CHEST PAIN; Start 07/15/18 at 03:00 Acetaminophen (Tylenol Liquid) 650 mg Q6H PRN PO PAIN LEVEL 1-3 OR FEVER; Start 07/15/18 at 03:00 Morphine Sulfate (morphine) 2 mg Q4H PRN IV PAIN LEVEL 7-10; Start 07/15/18 at 03:00 Aspirin (Halfprin) 81 mg DAILY PO Last administered on 07/24/18at 09:33; Admin Dose 81 MG; Start 07/15/18 at 09:00 Atorvastatin Calcium (Lipitor) 10 mg QHS PO Last administered on 07/23/18at 20:48; Admin Dose 10 MG; Start 07/15/18 at 21:00 Hydralazine HCl (Apresoline) 25 mg TID PO Last administered on 07/24/18at 12:43; Admin Dose 25 MG; Start 07/15/18 at 09:00 Epoetin Yannick-epbx (Retacrit (Non-Esrd)) 10,000 unit MoWeFr@1700 SC Last administered on 07/22/18at 18:12; Admin Dose 10,000 UNIT; Start 07/15/18 at 17:00 Miscellaneous Information 1 ea NOTE XX ; Start 07/15/18 at 08:30 Glucose (Glutose) 15 gm Q15M PRN PO DECREASED GLUCOSE; Start 07/15/18 at 08:30 Glucose (Glutose) 22.5 gm Q15M PRN PO DECREASED GLUCOSE; Start 07/15/18 at 08:30 Dextrose (D50w Syringe) 25 ml Q15M PRN IV DECREASED GLUCOSE; Start 07/15/18 at 08:30 Dextrose (D50w Syringe) 50 ml Q15M PRN IV DECREASED GLUCOSE Last administered on 07/16/18at 07:55; Admin Dose 50 ML; Start 07/15/18 at 08:30 Glucagon (Glucagen) 1 mg Q15M PRN IM DECREASED GLUCOSE; Start 07/15/18 at 08:30 Glucose (Glutose) 15 gm Q15M PRN BUCCAL DECREASED GLUCOSE; Start 07/15/18 at 08:30 Heparin Sodium (Porcine) (Heparin (1000 Units/ml)) 3,200 unit AFTER DIALYSIS PRN CATHETER heparin lock Last administered on 07/23/18at 16:54; Admin Dose 3,200 UNIT; Start 07/15/18 at 08:30 Albumin Human 100 ml @ 100 mls/hr DURING DIALYSIS PRN IV to prevent hypotension during ; Start 07/15/18 at 08:30 Rifampin (Rifampin) 600 mg DAILY PO Last administered on 07/24/18 09:34; Admin Dose 600 MG; Start 07/18/18 at 09:00 Diagnostic Test (Pha) (Accu-Chek) 1 ea 02 XX Last administered on 07/24/18at 01:43; Admin Dose 1 EA; Start 07/22/18 at 02:00 Insulin Aspart (Novolog Insulin Pen) NOVOLOG *MILD* ALGORITHM WITH MEALS BEDTIME SC Last administered on 07/24/18at 18:10; Admin Dose 1 UNIT; Start 07/22/18 at 08:00 Amlodipine Besylate (Norvasc) 10 mg DAILY PO Last administered on 07/24/18 09:34; Admin Dose 10 MG; Start 07/23/18 at 09:00 Mupirocin (Bactroban) 1 applic BID TOP Last administered on 07/24/18 09:34; Admin Dose 1 APPLIC; Start 07/22/18 at 21:00 Hydralazine HCl (Apresoline) 10 mg Q4H PRN IV ELEVATED BLOOD PRESSURE; Start 07/22/18 at 20:00 Clonidine HCl (Catapres-Tts 2 Patch) 1 patch Q7D TRANSDERM ; Start 07/23/18 at 11:00 Lactobacillus Acidophilus/ Rhamnosus (Culturelle) 1 cap BID PO Last administered on 07/24/18at 09:33; Admin Dose 1 CAP; Start 07/23/18 at 21:00 Famotidine (Pepcid) 20 mg HS PO Last administered on 07/23/18at 20:48; Admin Dose 20 MG; Start 07/23/18 at 21:00 Sodium Hypochlorite (Dakins Diluted (40)) 1 applic BID TP Last administered on 07/24/18at 15:23; Admin Dose 1 APPLIC; Start 07/24/18 at 13:30 ISAIAS GONZALEZ MD Jul 24, 2018 18:30
[2018-07-24 19:34] VITALS: BP 113/59; PULSE 82; RESP 18
[2018-07-24] MEDS: FAMOTIDINE 20 MG TAB PO SCH (20:41)
[2018-07-24] MEDS: ATORVASTATIN 10 MG TAB PO SCH (20:41)
[2018-07-25] VITALS (17 sets, daily range): BP systolic 119–172; BP diastolic 62–84; PULSE 65–84; RESP 16–20
[2018-07-25] MEDS: ACCU-CHEK XX SCH (02:00)
--- NOTE | 2018-07-25 07:16 | CONS ---
Assessment/Plan Assessment/Plan Hospital Course (Demo Recall) 1) CHF, likely due to delayed dialysis breathing has improved, doubt he has pneumonia but will check procalcitonin 07/16 - procalcitonin for people in ESRD is within normal limties no good evidence for pneumonia 2) L foot ulcers will review the [place] records and see if cx were done and what if any antibiotics he received continue with vanco/zosyn at present get wound cx here ESR is very high, if work-up for osteo and arterial studies weren't done we may need to do these here 07/16 - this is not new and pt has been advised that he likely needs BKA but he has refused 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 and was suppose to be getting IV vanco with dialysis d/c zosyn but continue with vanco at present will order arterial dopplers to see if flow is adequate at this time 07/18 - arterial dopplers show bilateral LE issues with arterial flow high ESR is c/w current osteo continue with vanco, d/c zosyn and add rifampin for better MRSA coverage recommend vascular surgery consult 07/20 - no vascular intervention planned local debridement today by report and to follow cultures if obtained continue with vanco/rifampin for 6 week course 07/22 - rising WBC without a clear cause to get pic of foot and repeat cx from heel and stump site on L foot get procalcitonin and CBC in a.m., consider broadening coverage (i.e. zosyn) get u/a and urine cx 07/25 - surface wound cx only had c.alb pt has been off IV antibiotics since 07/16, will hold off on antibiotics till debridement with bone cx is done then will re-start vanco/zosyn 3) DM 4) HTN 5) ESRD Consultation Date/Type/Reason Admit Date/Time July 15, 2018 at 00:58 Initial Consult Date 07/15/18 Type of Consult ID Date/Time of Note DATE: 07/25/18 TIME: 07:13 24 HR Interval Summary Free Text/Dictation spoke to nurse pt is NPO for possible foot debridement no N, V, D, SOB Exam/Review of Systems Exam Vitals Vital Signs Date Temp Pulse Resp B/P (MAP) Pulse Ox O2 O2 Flow FiO2 Time Delivery Rate 07/25/18 82 17 137/62 02:05 (87) 07/25/18 98.7 95 01:42 07/24/18 Nasal 3.0 08:20 Cannula Intake and Output 07/24/18 07/24/18 07/25/18 1515:00 23:00 07:00 IntakeIntake Total 480 ml 240 ml OutputOutput Total 250 ml 200 ml BalanceBalance 230 ml 40 ml Results Result Diagram: 07/25/18 0549 07/25/18 0549 Results 24hrs Laboratory Tests Test 07/24/18 08:44 07/24/18 12:33 07/24/18 18:03 07/24/18 20:40 Bedside Glucose 108 157 142 148 Test 07/25/18 05:49 White Blood Count 16.9 #H Red Blood Count 3.01 L Hemoglobin 10.0 L Hematocrit 31.5 L Mean Corpuscular Volume 104.7 H Mean Corpuscular 33.2 H Hemoglobin Mean Corpuscular 31.7 L Hemoglobin Concent Red Cell Distribution 15.9 H Width Platelet Count 283 Mean Platelet Volume 9.9 Immature Granulocytes % 1.200 H Neutrophils % 35.1 L Lymphocytes % 13.9 L Monocytes % 48.2 H Eosinophils % 1.1 Basophils % 0.5 Nucleated Red Blood 0.0 Cells % Immature Granulocytes # 0.210 H Neutrophils # 6.0 Lymphocytes # 2.4 Monocytes # 8.2 H Eosinophils # 0.2 Basophils # 0.1 Nucleated Red Blood 0.0 Cells # Prothrombin Time 15.0 H Prothrombin Time Ratio 1.2 INR International 1.17 Normalized Ratio Sodium Level 139 Potassium Level 3.5 Chloride Level 100 Carbon Dioxide Level 28 Anion Gap 11 Blood Urea Nitrogen 31 #H Creatinine 5.36 H Est Glomerular Filtrat 11 L Rate mL/min Glucose Level 95 Calcium Level 8.6 Medications Medication Current Medications Ondansetron HCl (Zofran Inj) 4 mg Q6H PRN IV NAUSEA AND/OR VOMITING; Start 07/15/18 at 03:00 Albuterol/ Ipratropium (Duoneb) 3 ml Q2H RESP THERAPY PRN NEB SHORTNESS OF BREATH Last administered on 07/17/18at 23:24; Admin Dose 3 ML; Start 07/15/18 at 03:00 Nitroglycerin (Nitroglycerin (Sl Tab) 0.4 Mg) 1 tab Q5M PRN SL CHEST PAIN; Start 07/15/18 at 03:00 Acetaminophen (Tylenol Liquid) 650 mg Q6H PRN PO PAIN LEVEL 1-3 OR FEVER; Start 07/15/18 at 03:00 Morphine Sulfate (morphine) 2 mg Q4H PRN IV PAIN LEVEL 7-10; Start 07/15/18 at 03:00 Aspirin (Halfprin) 81 mg DAILY PO Last administered on 07/24/18at 09:33; Admin Dose 81 MG; Start 07/15/18 at 09:00 Atorvastatin Calcium (Lipitor) 10 mg QHS PO Last administered on 07/24/18at 20:41; Admin Dose 10 MG; Start 07/15/18 at 21:00 Hydralazine HCl (Apresoline) 25 mg TID PO Last administered on 07/24/18at 20:44; Admin Dose 25 MG; Start 07/15/18 at 09:00 Epoetin Yannick-epbx (Retacrit (Non-Esrd)) 10,000 unit MoWeFr@1700 SC Last administered on 07/22/18at 18:12; Admin Dose 10,000 UNIT; Start 07/15/18 at 17:00 Miscellaneous Information 1 ea NOTE XX ; Start 07/15/18 at 08:30 Glucose (Glutose) 15 gm Q15M PRN PO DECREASED GLUCOSE; Start 07/15/18 at 08:30 Glucose (Glutose) 22.5 gm Q15M PRN PO DECREASED GLUCOSE; Start 07/15/18 at 08:30 Dextrose (D50w Syringe) 25 ml Q15M PRN IV DECREASED GLUCOSE; Start 07/15/18 at 08:30 Dextrose (D50w Syringe) 50 ml Q15M PRN IV DECREASED GLUCOSE Last administered on 07/16/18at 07:55; Admin Dose 50 ML; Start 07/15/18 at 08:30 Glucagon (Glucagen) 1 mg Q15M PRN IM DECREASED GLUCOSE; Start 07/15/18 at 08:30 Glucose (Glutose) 15 gm Q15M PRN BUCCAL DECREASED GLUCOSE; Start 07/15/18 at 08:30 Heparin Sodium (Porcine) (Heparin (1000 Units/ml)) 3,200 unit AFTER DIALYSIS PRN CATHETER heparin lock Last administered on 07/23/18at 16:54; Admin Dose 3,200 UNIT; Start 07/15/18 at 08:30 Albumin Human 100 ml @ 100 mls/hr DURING DIALYSIS PRN IV to prevent hypotension during ; Start 07/15/18 at 08:30 Diagnostic Test (Pha) (Accu-Chek) 1 ea 02 XX Last administered on 07/24/18 01:43; Admin Dose 1 EA; Start 07/22/18 at 02:00 Insulin Aspart (Novolog Insulin Pen) NOVOLOG *MILD* ALGORITHM WITH MEALS BEDTIME SC Last administered on 07/24/18 18:10; Admin Dose 1 UNIT; Start 07/22/18 at 08:00 Amlodipine Besylate (Norvasc) 10 mg DAILY PO Last administered on 07/24/18 09:3 4; Admin Dose 10 MG; Start 07/23/18 at 09:00 Mupirocin (Bactroban) 1 applic BID TOP Last administered on 07/24/18 09:34; Admin Dose 1 APPLIC; Start 07/22/18 at 21:00 Hydralazine HCl (Apresoline) 10 mg Q4H PRN IV ELEVATED BLOOD PRESSURE; Start 07/22/18 at 20:00 Clonidine HCl (Catapres-Tts 2 Patch) 1 patch Q7D TRANSDERM ; Start 07/23/18 at 11:00 Lactobacillus Acidophilus/ Rhamnosus (Culturelle) 1 cap BID PO Last administered on 07/24/18 20:41; Admin Dose 1 CAP; Start 07/23/18 at 21:00 Famotidine (Pepcid) 20 mg HS PO Last administered on 07/24/18 20:41; Admin Dose 20 MG; Start 07/23/18 at 21:00 Sodium Hypochlorite (Dakins Diluted (40)) 1 applic BID TP Last administered on 07/24/18 15:23; Admin Dose 1 APPLIC; Start 07/24/18 at 13:30 BRANDIN ROCA MD Jul 25, 2018 07:15
[2018-07-25] MEDS: AMLODIPINE 10 MG TAB PO SCH (09:00)
[2018-07-25] MEDS: INSULIN ASPART [NOVOLOG] 3 ML PEN SC SCH ×4 (09:03→20:58)
[2018-07-25] MEDS: ASPIRIN (EC) 81 MG TAB PO SCH (09:06)
[2018-07-25] MEDS: MUPIROCIN 2% 22 GM OINT TOP SCH ×2 (09:06→20:59)
[2018-07-25] MEDS: DAKINS 0.0125%(1/40) 473 ML SOLUTION TP SCH ×2 (09:06→21:05)
[2018-07-25] MEDS: LACTOBACILLUS RHAMNOSUS CAP PO SCH ×2 (09:06→20:57)
--- NOTE | 2018-07-25 09:15 | PN ---
Date/Time of Note Date/Time of Note DATE: 07/25/18 TIME: 09:14 Assessment/Plan VTE Prophylaxis Risk score (from Ns)>0 risk: 3 SCD applied (from Ns): No SCD contraindicated: other Pharmacological prophylaxis: NA/contraindicated Pharm contraindication: anticoag not tolerated Lines/Catheters [facility] Saline Lock Urinary Cath still in place: No Assessment/Plan Hospital Course SUBJECTIVE: Remains on oxygen via nasal cannula. Denies any dyspnea. OBJECTIVE: Physical Exam General: 68 obese, year-old male lying in bed in no apparent distress. HEENT: Normocephalic, atraumatic. Eyes: Anicteric sclerae, conjunctivae clear. ENT: Nasal septum midline, oral mucosa is moist. Neck supple. Respiratory: Bilaterally diminished breath sounds. Minimal use of accessory muscles of respiration. No adventitious breath sounds. Cardiovascular: S1, S2 heard. Regular rate and rhythm. Abdomen: Soft, nontender, and nondistended. Bowel sounds positive in all 4 quadrants. Genitourinary: Deferred. Extremities: No cyanosis, no clubbing. Left foot stump dressing. Right lower extremity edema. Neurologic: Cranial nerves II through XII grossly intact. The patient is awake, alert, and oriented. Skin: Normal skin turgor. No skin rashes. Labs & Vitals per chart ASSESSMENT & PLAN 68-year-old male with past medical history of hypertension, end-stage disease on hemodialysis on //, diabetes mellitus, peripheral vascular disease,and anemia of chronic disease who was transferred from a detention facility because of dyspnea, who was found to have evidence of underlying pulmonary edema with small bilateral pleural effusions and was admitted to inpatient setting for further treatment and evaluation. 1. Acute hypoxic respiratory failure. Most probably secondary to underlying pulmonary edema. Continue ultrafiltration. Continue inhaled bronchodilators and supplemental oxygen. 2. Pulmonary edema. Continue ultrafiltration as per nephrology. 3. 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 Left foot MRI negative for any osteomyelitis. S/P antimicrobials as per ID. Being followed by podiatry. Awaiting debridement. 4. ESRD on HD on // Continue hemodialysis as per nephrology. 5. Peripheral vascular disease. S/P percutaneous angioplasty of left peroneal artery occlusion on 11/10/2017 6. Hypertension. Continue antihypertensives. 7. Diabetes mellitus. Hemoglobin A1c 5.4. Continue sliding scale insulin along with basal insulin. 8. Dyslipidemia. Continue statins. 9. Anemia of chronic kidney disease. Continue Epogen. 10. Fluids, electrolytes, and nutrition. Renal diet. 11. DVT prophylaxis. SCDs. 12. Plan. Continue antimicrobials as per ID. Continue to wean off oxygen. Await clinical improvement before discharging the patient to SNF. The patient was seen in collaboration with Dr. Farfan. Result Diagram: 07/25/18 0549 07/25/18 0549 Results 24hrs Laboratory Tests Test 07/24/18 12:33 07/24/18 18:03 07/24/18 20:40 07/25/18 05:49 Bedside Glucose 157 142 148 White Blood Count 16.9 #H Red Blood Count 3.01 L Hemoglobin 10.0 L Hematocrit 31.5 L Mean Corpuscular Volume 104.7 H Mean Corpuscular 33.2 H Hemoglobin Mean Corpuscular 31.7 L Hemoglobin Concent Red Cell Distribution 15.9 H Width Platelet Count 283 Mean Platelet Volume 9.9 Immature Granulocytes % 1.200 H Neutrophils % 35.1 L Lymphocytes % 13.9 L Monocytes % 48.2 H Eosinophils % 1.1 Basophils % 0.5 Nucleated Red Blood 0.0 Cells % Immature Granulocytes # 0.210 H Neutrophils # 6.0 Lymphocytes # 2.4 Monocytes # 8.2 H Eosinophils # 0.2 Basophils # 0.1 Nucleated Red Blood 0.0 Cells # Prothrombin Time 15.0 H Prothrombin Time Ratio 1.2 INR International 1.17 Normalized Ratio Sodium Level 139 Potassium Level 3.5 Chloride Level 100 Carbon Dioxide Level 28 Anion Gap 11 Blood Urea Nitrogen 31 #H Creatinine 5.36 H Est Glomerular Filtrat 11 L Rate mL/min Glucose Level 95 Calcium Level 8.6 Exam/Review of Systems Exam Vitals Vital Signs Date Temp Pulse Resp B/P (MAP) Pulse Ox O2 O2 Flow FiO2 Time Delivery Rate 07/25/18 97.5 84 20 140/67 94 07:37 (91) 07/24/18 Nasal 3.0 08:20 Cannula Intake and Output 07/24/18 07/24/18 07/25/18 1515:00 23:00 07:00 IntakeIntake Total 480 ml 240 ml OutputOutput Total 250 ml 200 ml BalanceBalance 230 ml 40 ml Results Results 24hrs Laboratory Tests Test 07/24/18 12:33 07/24/18 18:03 07/24/18 20:40 07/25/18 05:49 Bedside Glucose 157 142 148 White Blood Count 16.9 #H Red Blood Count 3.01 L Hemoglobin 10.0 L Hematocrit 31.5 L Mean Corpuscular Volume 104.7 H Mean Corpuscular 33.2 H Hemoglobin Mean Corpuscular 31.7 L Hemoglobin Concent Red Cell Distribution 15.9 H Width Platelet Count 283 Mean Platelet Volume 9.9 Immature Granulocytes % 1.200 H Neutrophils % 35.1 L Lymphocytes % 13.9 L Monocytes % 48.2 H Eosinophils % 1.1 Basophils % 0.5 Nucleated Red Blood 0.0 Cells % Immature Granulocytes # 0.210 H Neutrophils # 6.0 Lymphocytes # 2.4 Monocytes # 8.2 H Eosinophils # 0.2 Basophils # 0.1 Nucleated Red Blood 0.0 Cells # Prothrombin Time 15.0 H Prothrombin Time Ratio 1.2 INR International 1.17 Normalized Ratio Sodium Level 139 Potassium Level 3.5 Chloride Level 100 Carbon Dioxide Level 28 Anion Gap 11 Blood Urea Nitrogen 31 #H Creatinine 5.36 H Est Glomerular Filtrat 11 L Rate mL/min Glucose Level 95 Calcium Level 8.6 Medications Medication Current Medications Ondansetron HCl (Zofran Inj) 4 mg Q6H PRN IV NAUSEA AND/OR VOMITING; Start 07/15/18 at 03:00 Albuterol/ Ipratropium (Duoneb) 3 ml Q2H RESP THERAPY PRN NEB SHORTNESS OF BREATH Last administered on 07/17/18at 23:24; Admin Dose 3 ML; Start 07/15/18 at 03:00 Nitroglycerin (Nitroglycerin (Sl Tab) 0.4 Mg) 1 tab Q5M PRN SL CHEST PAIN; Start 07/15/18 at 03:00 Acetaminophen (Tylenol Liquid) 650 mg Q6H PRN PO PAIN LEVEL 1-3 OR FEVER; Start 07/15/18 at 03:00 Morphine Sulfate (morphine) 2 mg Q4H PRN IV PAIN LEVEL 7-10; Start 07/15/18 at 03:00 Aspirin (Halfprin) 81 mg DAILY PO Last administered on 07/25/18at 09:06; Admin Dose 81 MG; Start 07/15/18 at 09:00 Atorvastatin Calcium (Lipitor) 10 mg QHS PO Last administered on 07/24/18 20:41; Admin Dose 10 MG; Start 07/15/18 at 21:00 Hydralazine HCl (Apresoline) 25 mg TID PO Last administered on 07/24/18 20:44; Admin Dose 25 MG; Start 07/15/18 at 09:00 Epoetin Yannick-epbx (Retacrit (Non-Esrd)) 10,000 unit MoWeFr@1700 SC Last administered on 07/22/18 18:12; Admin Dose 10,000 UNIT; Start 07/15/18 at 17:00 Miscellaneous Information 1 ea NOTE XX ; Start 07/15/18 at 08:30 Glucose (Glutose) 15 gm Q15M PRN PO DECREASED GLUCOSE; Start 07/15/18 at 08:30 Glucose (Glutose) 22.5 gm Q15M PRN PO DECREASED GLUCOSE; Start 07/15/18 at 08:30 Dextrose (D50w Syringe) 25 ml Q15M PRN IV DECREASED GLUCOSE; Start 07/15/18 at 08:30 Dextrose (D50w Syringe) 50 ml Q15M PRN IV DECREASED GLUCOSE Last administered on 07/16/18 07:55; Admin Dose 50 ML; Start 07/15/18 at 08:30 Glucagon (Glucagen) 1 mg Q15M PRN IM DECREASED GLUCOSE; Start 07/15/18 at 08:30 Glucose (Glutose) 15 gm Q15M PRN BUCCAL DECREASED GLUCOSE; Start 07/15/18 at 08:30 Heparin Sodium (Porcine) (Heparin (1000 Units/ml)) 3,200 unit AFTER DIALYSIS PRN CATHETER heparin lock Last administered on 07/23/18at 16:54; Admin Dose 3,200 UNIT; Start 07/15/18 at 08:30 Albumin Human 100 ml @ 100 mls/hr DURING DIALYSIS PRN IV to prevent hypotension during ; Start 07/15/18 at 08:30 Diagnostic Test (Pha) (Accu-Chek) 1 ea 02 XX Last administered on 07/24/18at 01:43; Admin Dose 1 EA; Start 07/22/18 at 02:00 Insulin Aspart (Novolog Insulin Pen) NOVOLOG *MILD* ALGORITHM WITH MEALS BEDTIME SC Last administered on 07/24/18 18:10; Admin Dose 1 UNIT; Start 07/22/18 at 08:00 Amlodipine Besylate (Norvasc) 10 mg DAILY PO Last administered on 07/24/18 09:34; Admin Dose 10 MG; Start 07/23/18 at 09:00 Mupirocin (Bactroban) 1 applic BID TOP Last administered on 07/25/18 09:06; Admin Dose 1 APPLIC; Start 07/22/18 at 21:00 Hydralazine HCl (Apresoline) 10 mg Q4H PRN IV ELEVATED BLOOD PRESSURE; Start 07/22/18 at 20:00 Clonidine HCl (Catapres-Tts 2 Patch) 1 patch Q7D TRANSDERM ; Start 07/23/18 at 11 :00 Lactobacillus Acidophilus/ Rhamnosus (Culturelle) 1 cap BID PO Last administered on 07/25/18 09:06; Admin Dose 1 CAP; Start 07/23/18 at 21:00 Famotidine (Pepcid) 20 mg HS PO Last administered on 07/24/18 20:41; Admin Dose 20 MG; Start 07/23/18 at 21:00 Sodium Hypochlorite (Dakins Diluted (40)) 1 applic BID TP Last administered on 07/25/18 09:06; Admin Dose 1 APPLIC; Start 07/24/18 at 13:30 DONOVAN TRAVIS NP Jul 25, 2018 09:15
[2018-07-25] MEDS ORDERED: ALTEPLASE (CATHFLO) 2 MG INJ CATHETER ONE (09:30)
--- NOTE | 2018-07-25 11:33 | CONS ---
Assessment/Plan Assessment/Plan Assessment/Plan (Daily) 1. acute hypoxic respiratory failure requiring BIPAP 2. Anemia of ESRD s/p PRBC transfusion during this admission 3. ESRD on HD MWF Schedule 4. L foot diabetic ulcer s/p previous Transmetatarsal amputation- s/p vascular surgery consultatin during this admission 5. h/O DM II 6. h/o HTN Plan: s/p HD today 1.2 L removed, , will continue HD MWF Amlodipine 10mg po daily, hydralazine 25 mg pO TID, IV hydralazine prn for BP control IV abx as per ID, Renally dose all abx and monitor electrolytes s/p Vascular surgery evaluation for LE wounds - plan for OR on Wednesday Will follow up Consultation Date/Type/Reason Admit Date/Time July 15, 2018 at 00:58 Initial Consult Date 07/15/18 Type of Consult NEPHROLOGY Date/Time of Note DATE: 07/25/18 TIME: 11:33 Exam/Review of Systems Exam Vitals Vital Signs Date Temp Pulse Resp B/P (MAP) Pulse Ox O2 O2 Flow FiO2 Time Delivery Rate 07/25/18 80 16 126/76 97 Nasal 2.0 11:17 (93) Cannula 07/25/18 97.5 07:37 Intake and Output 07/24/18 07/24/18 07/25/18 1515:00 23:00 07:00 IntakeIntake Total 480 ml 240 ml OutputOutput Total 250 ml 200 ml BalanceBalance 230 ml 40 ml Results Result Diagram: 07/25/18 0549 07/25/18 0549 Results 24hrs Laboratory Tests Test 07/24/18 12:33 07/24/18 18:03 07/24/18 20:40 07/25/18 05:49 Bedside Glucose 157 142 148 White Blood Count 16.9 #H Red Blood Count 3.01 L Hemoglobin 10.0 L Hematocrit 31.5 L Mean Corpuscular 104.7 H Volume Mean Corpuscular 33.2 H Hemoglobin Mean Corpuscular 31.7 L Hemoglobin Concent Red Cell Distribution 15.9 H Width Platelet Count 283 Mean Platelet Volume 9.9 Immature Granulocytes 1.200 H % Neutrophils % 35.1 L Lymphocytes % 13.9 L Monocytes % 48.2 H Eosinophils % 1.1 Basophils % 0.5 Nucleated Red Blood 0.0 Cells % Immature Granulocytes 0.210 H # Neutrophils # 6.0 Lymphocytes # 2.4 Monocytes # 8.2 H Eosinophils # 0.2 Basophils # 0.1 Nucleated Red Blood 0.0 Cells # Prothrombin Time 15.0 H Prothrombin Time Ratio 1.2 INR International 1.17 Normalized Ratio Sodium Level 139 Potassium Level 3.5 Chloride Level 100 Carbon Dioxide Level 28 Anion Gap 11 Blood Urea Nitrogen 31 #H Creatinine 5.36 H Est Glomerular Filtrat 11 L Rate mL/min Glucose Level 95 Calcium Level 8.6 Test 07/25/18 09:03 Bedside Glucose 97 Medications Medication Current Medications Ondansetron HCl (Zofran Inj) 4 mg Q6H PRN IV NAUSEA AND/OR VOMITING; Start 07/15/18 at 03:00 Albuterol/ Ipratropium (Duoneb) 3 ml Q2H RESP THERAPY PRN NEB SHORTNESS OF BREATH Last administered on 07/17/18at 23:24; Admin Dose 3 ML; Start 07/15/18 at 03:00 Nitroglycerin (Nitroglycerin (Sl Tab) 0.4 Mg) 1 tab Q5M PRN SL CHEST PAIN; Start 07/15/18 at 03:00 Acetaminophen (Tylenol Liquid) 650 mg Q6H PRN PO PAIN LEVEL 1-3 OR FEVER; Start 07/15/18 at 03:00 Morphine Sulfate (morphine) 2 mg Q4H PRN IV PAIN LEVEL 7-10; Start 07/15/18 at 03:00 Aspirin (Halfprin) 81 mg DAILY PO Last administered on 07/25/18at 09:06; Admin Dose 81 MG; Start 07/15/18 at 09:00 Atorvastatin Calcium (Lipitor) 10 mg QHS PO Last administered on 07/24/18at 20:41; Admin Dose 10 MG; Start 07/15/18 at 21:00 Hydralazine HCl (Apresoline) 25 mg TID PO Last administered on 07/24/18at 20:44; Admin Dose 25 MG; Start 07/15/18 at 09:00 Epoetin Yannick-epbx (Retacrit (Non-Esrd)) 10,000 unit MoWeFr@1700 SC Last administered on 07/22/18at 18:12; Admin Dose 10,000 UNIT; Start 07/15/18 at 17:00 Miscellaneous Information 1 ea NOTE XX ; Start 07/15/18 at 08:30 Glucose (Glutose) 15 gm Q15M PRN PO DECREASED GLUCOSE; Start 07/15/18 at 08:30 Glucose (Glutose) 22.5 gm Q15M PRN PO DECREASED GLUCOSE; Start 07/15/18 at 08:30 Dextrose (D50w Syringe) 25 ml Q15M PRN IV DECREASED GLUCOSE; Start 07/15/18 at 08:30 Dextrose (D50w Syringe) 50 ml Q15M PRN IV DECREASED GLUCOSE Last administered on 07/16/18at 07:55; Admin Dose 50 ML; Start 07/15/18 at 08:30 Glucagon (Glucagen) 1 mg Q15M PRN IM DECREASED GLUCOSE; Start 07/15/18 at 08:30 Glucose (Glutose) 15 gm Q15M PRN BUCCAL DECREASED GLUCOSE; Start 07/15/18 at 08:30 Heparin Sodium (Porcine) (Heparin (1000 Units/ml)) 3,200 unit AFTER DIALYSIS PRN CATHETER heparin lock Last administered on 07/23/18at 16:54; Admin Dose 3,200 UNIT; Start 07/15/18 at 08:30 Albumin Human 100 ml @ 100 mls/hr DURING DIALYSIS PRN IV to prevent hypotension during ; Start 07/15/18 at 08:30 Diagnostic Test (Pha) (Accu-Chek) 1 ea 02 XX Last administered on 07/24/18at 01:43; Admin Dose 1 EA; Start 07/22/18 at 02:00 Insulin Aspart (Novolog Insulin Pen) NOVOLOG *MILD* ALGORITHM WITH MEALS BEDTIME SC Last administered on 07/24/18at 18:10; Admin Dose 1 UNIT; Start 07/22/18 at 08:00 Amlodipine Besylate (Norvasc) 10 mg DAILY PO Last administered on 07/24/18at 09:34; Admin Dose 10 MG; Start 07/23/18 at 09:00 Mupirocin (Bactroban) 1 applic BID TOP Last administered on 07/25/18at 09:06; Admin Dose 1 APPLIC; Start 07/22/18 at 21:00 Hydralazine HCl (Apresoline) 10 mg Q4H PRN IV ELEVATED BLOOD PRESSURE; Start 07/22/18 at 20:00 Clonidine HCl (Catapres-Tts 2 Patch) 1 patch Q7D TRANSDERM ; Start 07/23/18 at 11:00 Lactobacillus Acidophilus/ Rhamnosus (Culturelle) 1 cap BID PO Last administered on 07/25/18at 09:06; Admin Dose 1 CAP; Start 07/23/18 at 21:00 Famotidine (Pepcid) 20 mg HS PO Last administered on 07/24/18at 20:41; Admin Dose 20 MG; Start 07/23/18 at 21:00 Sodium Hypochlorite (Dakins Diluted ()) 1 applic BID TP Last administered o n 07/25/18at 09:06; Admin Dose 1 APPLIC; Start 07/24/18 at 13:30 OTTO JUÁREZ MD Jul 25, 2018 11:33
[2018-07-25] MEDS: EPOETIN ALFA-EPBX (NON-ESRD 10,000 UNIT/ML VIAL SC SCH (17:42)
[2018-07-25] MEDS: FAMOTIDINE 20 MG TAB PO SCH (20:56)
[2018-07-25] MEDS: ATORVASTATIN 10 MG TAB PO SCH (20:57)
[2018-07-26] VITALS (23 sets, daily range): BP systolic 93–190; BP diastolic 65–91; PULSE 75–92; RESP 16–22
[2018-07-26] MEDS: ACCU-CHEK XX SCH (02:00)
--- NOTE | 2018-07-26 06:02 | PN ---
Date/Time of Note Date/Time of Note DATE: 07/26/18 TIME: 06:01 Assessment/Plan VTE Prophylaxis Risk score (from Ns)>0 risk: 6 SCD applied (from Ns): No SCD contraindicated: other Pharmacological prophylaxis: NA/contraindicated Pharm contraindication: anticoag not tolerated Lines/Catheters IV [facility]from [facility] Saline Lock Urinary Cath still in place: No Assessment/Plan Hospital Course SUBJECTIVE: Denies any dyspnea. OBJECTIVE: Physical Exam General: 68 obese, year-old male lying in bed in no apparent distress. HEENT: Normocephalic, atraumatic. Eyes: Anicteric sclerae, conjunctivae clear. ENT: Nasal septum midline, oral mucosa is moist. Neck supple. Respiratory: Bilaterally diminished breath sounds. Minimal use of accessory muscles of respiration. No adventitious breath sounds. Cardiovascular: S1, S2 heard. Regular rate and rhythm. Abdomen: Soft, nontender, and nondistended. Bowel sounds positive in all 4 quadrants. Genitourinary: Deferred. Extremities: No cyanosis, no clubbing. Left foot stump dressing. Right lower extremity edema. Neurologic: Cranial nerves II through XII grossly intact. The patient is awake, alert, and oriented. Skin: Normal skin turgor. No skin rashes. Labs & Vitals per chart ASSESSMENT & PLAN 68-year-old male with past medical history of hypertension, end-stage disease on hemodialysis on //, diabetes mellitus, peripheral vascular disease,and anemia of chronic disease who was transferred from a halfway facility because of dyspnea, who was found to have evidence of underlying pulmonary edema with small bilateral pleural effusions and was admitted to inpatient setting for further treatment and evaluation. 1. S/P acute hypoxic respiratory failure. Most probably secondary to underlying pulmonary edema. Continue ultrafiltration. Continue inhaled bronchodilators. 2. Pulmonary edema. Continue ultrafiltration as per nephrology. 3. 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 Left foot MRI negative for any osteomyelitis. S/P antimicrobials as per ID. Being followed by podiatry. Awaiting debridement. 4. ESRD on HD on // Continue hemodialysis as per nephrology. 5. Peripheral vascular disease. S/P percutaneous angioplasty of left peroneal artery occlusion on 11/10/2017 6. Hypertension. Continue antihypertensives. 7. Diabetes mellitus. Hemoglobin A1c 5.4. Continue sliding scale insulin along with basal insulin. 8. Dyslipidemia. Continue statins. 9. Anemia of chronic kidney disease. Continue Epogen. 10. Fluids, electrolytes, and nutrition. Renal diet. 11. DVT prophylaxis. SCDs. 12. Plan. Continue ultrafiltration as per nephrology. Plan for PermCath exchange today. Plan for debridement of the left foot stump on 07/27/2018. The patient was seen in collaboration with Dr. Farfan. Result Diagram: 07/25/18 0549 07/25/18 0549 Results 24hrs Laboratory Tests Test 07/25/18 09:03 07/25/18 13:44 07/25/18 17:41 07/25/18 20:56 Bedside Glucose 97 90 107 102 Test 07/26/18 04:29 White Blood Count Pending Red Blood Count Pending Hemoglobin Pending Hematocrit Pending Mean Corpuscular Pending Volume Mean Corpuscular Pending Hemoglobin Mean Corpuscular Pending Hemoglobin Concent Red Cell Pending Distribution Width Platelet Count Pending Mean Platelet Volume Pending Exam/Review of Systems Exam Vitals Vital Signs Date Temp Pulse Resp B/P (MAP) Pulse Ox O2 O2 Flow FiO2 Time Delivery Rate 07/26/18 98.1 75 18 150/72 96 01:20 (98) 07/25/18 Nasal 2.0 11:17 Cannula Intake and Output 07/25/18 07/25/18 07/26/18 1414:59 22:59 06:59 IntakeIntake Total 240 ml OutputOutput Total 2250 ml 100 ml BalanceBalance -2009 ml -100 ml Results Results 24hrs Laboratory Tests Test 07/25/18 09:03 07/25/18 13:44 07/25/18 17:41 07/25/18 20:56 Bedside Glucose 97 90 107 102 Test 07/26/18 04:29 White Blood Count Pending Red Blood Count Pending Hemoglobin Pending Hematocrit Pending Mean Corpuscular Pending Volume Mean Corpuscular Pending Hemoglobin Mean Corpuscular Pending Hemoglobin Concent Red Cell Pending Distribution Width Platelet Count Pending Mean Platelet Volume Pending Medications Medication Current Medications Ondansetron HCl (Zofran Inj) 4 mg Q6H PRN IV NAUSEA AND/OR VOMITING; Start 07/15/18 at 03:00 Albuterol/ Ipratropium (Duoneb) 3 ml Q2H RESP THERAPY PRN NEB SHORTNESS OF BREATH Last administered on 07/17/18at 23:24; Admin Dose 3 ML; Start 07/15/18 at 03:00 Nitroglycerin (Nitroglycerin (Sl Tab) 0.4 Mg) 1 tab Q5M PRN SL CHEST PAIN; Start 07/15/18 at 03:00 Acetaminophen (Tylenol Liquid) 650 mg Q6H PRN PO PAIN LEVEL 1-3 OR FEVER; Start 07/15/18 at 03:00 Morphine Sulfate (morphine) 2 mg Q4H PRN IV PAIN LEVEL 7-10; Start 07/15/18 at 03:00 Aspirin (Halfprin) 81 mg DAILY PO Last administered on 07/25/18at 09:06; Admin Dose 81 MG; Start 07/15/18 at 09:00 Atorvastatin Calcium (Lipitor) 10 mg QHS PO Last administered on 07/25/18at 20:57; Admin Dose 10 MG; Start 07/15/18 at 21:00 Hydralazine HCl (Apresoline) 25 mg TID PO Last administered on 07/25/18at 20:57; Admin Dose 25 MG; Start 07/15/18 at 09:00 Epoetin Yannick-epbx (Retacrit (Non-Esrd)) 10,000 unit MoWeFr@1700 SC Last administered on 07/25/18at 17:42; Admin Dose 10,000 UNIT; Start 07/15/18 at 17:00 Miscellaneous Information 1 ea NOTE XX ; Start 07/15/18 at 08:30 Glucose (Glutose) 15 gm Q15M PRN PO DECREASED GLUCOSE; Start 07/15/18 at 08:30 Glucose (Glutose) 22.5 gm Q15M PRN PO DECREASED GLUCOSE; Start 07/15/18 at 08:30 Dextrose (D50w Syringe) 25 ml Q15M PRN IV DECREASED GLUCOSE; Start 07/15/18 at 08:30 Dextrose (D50w Syringe) 50 ml Q15M PRN IV DECREASED GLUCOSE Last administered on 07/16/18at 07:55; Admin Dose 50 ML; Start 07/15/18 at 08:30 Glucagon (Glucagen) 1 mg Q15M PRN IM DECREASED GLUCOSE; Start 07/15/18 at 08:30 Glucose (Glutose) 15 gm Q15M PRN BUCCAL DECREASED GLUCOSE; Start 07/15/18 at 08:30 Heparin Sodium (Porcine) (Heparin (1000 Units/ml)) 3,200 unit AFTER DIALYSIS PRN CATHETER heparin lock Last administered on 07/23/18 16:54; Admin Dose 3,200 UNIT; Start 07/15/18 at 08:30 Albumin Human 100 ml @ 100 mls/hr DURING DIALYSIS PRN IV to prevent hypotension during ; Start 07/15/18 at 08:30 Diagnostic Test (Pha) (Accu-Chek) 1 ea 02 XX Last administered on 07/24/18 01:43; Admin Dose 1 EA; Start 07/22/18 at 02:00 Insulin Aspart (Novolog Insulin Pen) NOVOLOG *MILD* ALGORITHM WITH MEALS BEDTIME SC Last administered on 07/24/18 18:10; Admin Dose 1 UNIT; Start 07/22/18 at 08:00 Amlodipine Besylate (Norvasc) 10 mg DAILY PO Last administered on 07/24/18 09:34; Admin Dose 10 MG; Start 07/23/18 at 09:00 Mupirocin (Bactroban) 1 applic BID TOP Last administered on 07/25/18 20:59; Admin Dose 1 APPLIC; Start 07/22/18 at 21:00 Hydralazine HCl (Apresoline) 10 mg Q4H PRN IV ELEVATED BLOOD PRESSURE; Start 07/22/18 at 20:00 Clonidine HCl (Catapres-Tts 2 Patch) 1 patch Q7D TRANSDERM ; Start 07/23/18 at 11:00 Lactobacillus Acidophilus/ Rhamnosus (Culturelle) 1 cap BID PO Last administered on 07/25/18 20:57; Admin Dose 1 CAP; Start 07/23/18 at 21:00 Famotidine (Pepcid) 20 mg HS PO Last administered on 07/25/18 20:56; Admin Dose 20 MG; Start 07/23/18 at 21:00 Sodium Hypochlorite (Dakins Diluted (40)) 1 applic BID TP Last administered on 07/25/18 21:05; Admin Dose 1 APPLIC; Start 07/24/18 at 13:30 DONOVAN TRAVIS NP Jul 26, 2018 06:01
[2018-07-26] MEDS: INSULIN ASPART [NOVOLOG] 3 ML PEN SC SCH ×4 (08:00→22:39)
[2018-07-26] MEDS: hydrALAzine 20 MG INJ IV PRN (08:59)
[2018-07-26] MEDS: LACTOBACILLUS RHAMNOSUS CAP PO SCH ×2 (09:00→22:34)
[2018-07-26] MEDS: AMLODIPINE 10 MG TAB PO SCH ×2 (09:00→15:55)
[2018-07-26] MEDS: ASPIRIN (EC) 81 MG TAB PO SCH (09:00)
[2018-07-26] MEDS: MUPIROCIN 2% 22 GM OINT TOP SCH ×2 (09:03→22:36)
[2018-07-26] MEDS: DAKINS 0.0125%(1/40) 473 ML SOLUTION TP SCH ×2 (09:05→22:37)
--- NOTE | 2018-07-26 10:54 | CONS ---
Consultation Date/Type/Reason Admit Date/Time July 15, 2018 at 00:58 Initial Consult Date 07/15/18 Type of Consult Pulmonary Patient condition is fairly stable. Doing well on BiPAP. General exam; elderly male, laying comfortably in bed. Awake and alert. Currently in no distress. Getting hemodialysis at bedside. Date/Time of Note DATE: 07/26/18 TIME: 10:52 24 HR Interval Summary Free Text/Dictation Patient's condition is improving. Currently sitting in a chair by bedside denies any shortness of breath, chest pain. General exam; elderly male, awake alert, currently in no distress. HEENT exam; supple neck, positive JVD. No lymphadenopathy. Midline trachea. No thyromegaly. No neck masses. Chest exam; diminished but clear breath sounds. S1-S2 audible, no murmurs. Regular rhythm. Abdomen exam; soft, nontender. No organomegaly. Bowel sounds audible. Extremity exam; no peripheral edema. There is partial left foot amputation with dressing applied. 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 Assessment and recommendations; next 1. Patient admitted with hypoxemia due to CHF exacerbation with significant clinical and radiological improvement. 2. Peripheral vascular disease, status post partial left foot and condition. 3. End-stage renal disease, on hemodialysis. 4. Chronic anemia. 5. History of diabetes and hypertension. Continue current supportive care. Hemodialysis per associate entertainment editor. I will sign off for now. Reconsult if needed. Thank you for the referral. Exam/Review of Systems Exam Vitals Vital Signs Date Temp Pulse Resp B/P (MAP) Pulse Ox O2 O2 Flow FiO2 Time Delivery Rate 07/26/18 98.1 85 20 190/91 93 07:36 (124) 07/25/18 Nasal 2.0 11:17 Cannula Intake and Output 07/25/18 07/25/18 07/26/18 1515:00 23:00 07:00 IntakeIntake Total 240 ml OutputOutput Total 2250 ml 100 ml BalanceBalance -2009 ml -100 ml Results Result Diagram: 07/26/18 0429 07/26/18 0429 Results 24hrs Laboratory Tests Test 07/25/18 13:44 07/25/18 17:41 07/25/18 20:56 07/26/18 04:29 Bedside Glucose 90 107 102 White Blood Count 15.2 H Red Blood Count 3.02 L Hemoglobin 10.1 L Hematocrit 31.6 L Mean Corpuscular 104.6 H Volume Mean Corpuscular 33.4 H Hemoglobin Mean Corpuscular 32.0 Hemoglobin Concent Red Cell 15.6 H Distribution Width Platelet Count 280 Mean Platelet Volume 10.5 H Immature 1.300 H Granulocytes % Neutrophils % 42.0 Lymphocytes % 14.9 L Monocytes % 40.0 H Eosinophils % 1.3 Basophils % 0.5 Nucleated Red Blood 0.0 Cells % Immature 0.190 H Granulocytes # Neutrophils # 6.4 Lymphocytes # 2.3 Monocytes # 6.1 H Eosinophils # 0.2 Basophils # 0.1 Nucleated Red Blood 0.0 Cells # Sodium Level 137 Potassium Level 3.5 Chloride Level 97 Carbon Dioxide Level 29 Anion Gap 11 Blood Urea Nitrogen 28 H Creatinine 5.28 H Est Glomerular 11 L Filtrat Rate mL/min Glucose Level 91 Calcium Level 8.8 Phosphorus Level 4.4 Magnesium Level 2.1 Test 07/26/18 08:28 Bedside Glucose 99 Medications Medication Current Medications Ondansetron HCl (Zofran Inj) 4 mg Q6H PRN IV NAUSEA AND/OR VOMITING; Start 07/15/18 at 03:00 Albuterol/ Ipratropium (Duoneb) 3 ml Q2H RESP THERAPY PRN NEB SHORTNESS OF BREATH Last administered on 07/17/18at 23:24; Admin Dose 3 ML; Start 07/15/18 at 03:00 Nitroglycerin (Nitroglycerin (Sl Tab) 0.4 Mg) 1 tab Q5M PRN SL CHEST PAIN; Start 07/15/18 at 03:00 Acetaminophen (Tylenol Liquid) 650 mg Q6H PRN PO PAIN LEVEL 1-3 OR FEVER; Start 07/15/18 at 03:00 Morphine Sulfate (morphine) 2 mg Q4H PRN IV PAIN LEVEL 7-10; Start 07/15/18 at 03:00 Aspirin (Halfprin) 81 mg DAILY PO Last administered on 07/25/18at 09:06; Admin Dose 81 MG; Start 07/15/18 at 09:00 Atorvastatin Calcium (Lipitor) 10 mg QHS PO Last administered on 07/25/18 20:57; Admin Dose 10 MG; Start 07/15/18 at 21:00 Hydralazine HCl (Apresoline) 25 mg TID PO Last administered on 6/10/19at 20:57; Admin Dose 25 MG; Start 07/15/18 at 09:00 Epoetin Yannick-epbx (Retacrit (Non-Esrd)) 10,000 unit MoWeFr@1700 SC Last administered on 07/25/18at 17:42; Admin Dose 10,000 UNIT; Start 07/15/18 at 17:00 Miscellaneous Information 1 ea NOTE XX ; Start 07/15/18 at 08:30 Glucose (Glutose) 15 gm Q15M PRN PO DECREASED GLUCOSE; Start 07/15/18 at 08:30 Glucose (Glutose) 22.5 gm Q15M PRN PO DECREASED GLUCOSE; Start 07/15/18 at 08:30 Dextrose (D50w Syringe) 25 ml Q15M PRN IV DECREASED GLUCOSE; Start 07/15/18 at 08:30 Dextrose (D50w Syringe) 50 ml Q15M PRN IV DECREASED GLUCOSE Last administered on 07/16/18at 07:55; Admin Dose 50 ML; Start 07/15/18 at 08:30 Glucagon (Glucagen) 1 mg Q15M PRN IM DECREASED GLUCOSE; Start 07/15/18 at 08:30 Glucose (Glutose) 15 gm Q15M PRN BUCCAL DECREASED GLUCOSE; Start 07/15/18 at 08:30 Heparin Sodium (Porcine) (Heparin (1000 Units/ml)) 3,200 unit AFTER DIALYSIS PRN CATHETER heparin lock Last administered on 07/23/18at 16:54; Admin Dose 3,200 UNIT; Start 07/15/18 at 08:30 Albumin Human 100 ml @ 100 mls/hr DURING DIALYSIS PRN IV to prevent hypotension during ; Start 07/15/18 at 08:30 Diagnostic Test (Pha) (Accu-Chek) 1 ea 02 XX Last administered on 07/24/18at 01:43; Admin Dose 1 EA; Start 07/22/18 at 02:00 Insulin Aspart (Novolog Insulin Pen) NOVOLOG *MILD* ALGORITHM WITH MEALS BEDTIME SC Last administered on 07/24/18at 18:10; Admin Dose 1 UNIT; Start at 08:00 Amlodipine Besylate (Norvasc) 10 mg DAILY PO Last administered on 07/24/18at 09:34; Admin Dose 10 MG; Start 07/23/18 at 09:00 Mupirocin (Bactroban) 1 applic BID TOP Last administered on 07/26/18 09:03; Admin Dose 1 APPLIC; Start 07/22/18 at 21:00 Hydralazine HCl (Apresoline) 10 mg Q4H PRN IV ELEVATED BLOOD PRESSURE Last administered on 07/26/18 08:59; Admin Dose 10 MG; Start 07/22/18 at 20:00 Clonidine HCl (Catapres-Tts 2 Patch) 1 patch Q7D TRANSDERM ; Start 07/23/18 at 11:00 Lactobacillus Acidophilus/ Rhamnosus (Culturelle) 1 cap BID PO Last administered on 07/25/18 20:57; Admin Dose 1 CAP; Start 07/23/18 at 21:00 Famotidine (Pepcid) 20 mg HS PO Last administered on 07/25/18 20:56; Admin Dose 20 MG; Start 07/23/18 at 21:00 Sodium Hypochlorite (Dakins Diluted (40)) 1 applic BID TP Last administered on 07/26/18 09:05; Admin Dose 1 APPLIC; Start 07/24/18 at 13:30 LAURA TORRES Jul 26, 2018 10:54
--- NOTE | 2018-07-26 12:16 | PREAC ---
Date/Time of Note Date/Time of Note DATE: 07/26/18 TIME: 12:14 Anesthesia Eval and Record Evaluation Time Pre-Procedure Interview DATE: 07/26/18 TIME: 12:14 Age 68 Sex male NPO: 8 hrs Preoperative diagnosis non functioning hemodialyses catheter Planned procedure permacath insertion Past Medical History Past Medical History: Includes Cardio: HTN, Other (peripheral vascular disease) Endo: Diabetes Pulm: Other ( Acute hypoxic respiratory failure) Renal: ESRD on dialysis GI: Obesity Heme: Anemia Surgery & Anesthesia Issues No known issue Meds Anticoagulation: No Beta Courtney within 24 hr: No Reason Beta Courtney not given: Pt. not on B-Courtney Active Scripts Ferrous Sulfate* (Ferrous Sulfate*) 325 Mg Tabec, 325 MG PO TID for 30 Days, TAB Prov:GUILLAUME MCINTYREA Bailey ECHOCARDIOLOGIST 01/04/18 Glipizide* (Glipizide*) 5 Mg Tablet, 2.5 MG PO AC BREAKFAST, #30 TAB Prov:MCINTYREGUILLAUMEA Bailey ECHOCARDIOLOGIST 01/04/18 Hydralazine Hcl* (Hydralazine Hcl*) 25 Mg Tab, 25 MG PO TID, #90 TAB Prov:MCINTYREBISI DELGADO V. ECHOCARDIOLOGIST 01/04/18 Amlodipine Besylate* (Amlodipine Besylate*) 5 Mg Tablet, 5 MG PO DAILY, #30 TAB Prov:MCINTYREGUILLAUMEA VaVn ECHOCARDIOLOGIST 01/04/18 Meropenem (Merrem) 1 Gm Vial, 500 MCG IV Q12 for 42 Days, VIAL Prov:MCINTYREGUILLAUMEA V. ECHOCARDIOLOGIST 01/04/18 Epoetin nayely* (Epogen*) 3,000 Unit/1 Ml Vial, 6000 UNITS SC TuThSa@17 for 30 Days, VIAL Prov:MCINTYREGUILLAUME DELGADOA Bailey ECHOCARDIOLOGIST 01/04/18 Ceftriaxone Na/Dextrose,Iso (Ceftriaxone 1 gm Piggyback) 1 Gm/50 Ml Froz.piggy, 1 GM IV Q12 for 42 Days Prov:GUILLAUME MCINTYREA Bailey ECHOCARDIOLOGIST 01/04/18 Hydrocodone Bit-Acetaminophen (Hydrocodone Bit-APAP) 5-325MG Tablet, 1 TAB PO Q6H PRN for MODERATE PAIN LEVEL 4-6 for 30 Days, TAB Prov:MARIA E ABARCA 12/02/17 Gabapentin* (Gabapentin*) 300 Mg Capsule, 300 MG PO BID, #60 CAP Prov:MARIA E ABARCA. 11/12/17 [Insulin Glargine] 100 UNITS/ML SOLN No Conflict Check, 22 UNITS SC DAILY@1999 for 10 Days Prov:MARIA E ABARCA. 11/12/17 Clopidogrel Bisulfate (Clopidogrel) 75 Mg Tablet, 75 MG PO DAILY for 10 Days, #10 TAB Prov:MARIA E ABARCA. 11/12/17 Reported Medications Aspirin (Low Dose Aspirin) 81 Mg Tablet.dr, 81 MG PO DAILY, #30 TAB 11/07/17 Atorvastatin Calcium (Atorvastatin Calcium) 10 Mg Tablet, 10 MG PO QHS, #30 TAB 11/07/17 Current Medications Ondansetron HCl (Zofran Inj) 4 mg Q6H PRN IV NAUSEA AND/OR VOMITING; Start 07/15/18 at 03:00 Albuterol/ Ipratropium (Duoneb) 3 ml Q2H RESP THERAPY PRN NEB SHORTNESS OF BREATH Last administered on 07/17/18 23:24; Admin Dose 3 ML; Start 07/15/18 at 03:00 Nitroglycerin (Nitroglycerin (Sl Tab) 0.4 Mg) 1 tab Q5M PRN SL CHEST PAIN; Start 07/15/18 at 03:00 Acetaminophen (Tylenol Liquid) 650 mg Q6H PRN PO PAIN LEVEL 1-3 OR FEVER; Start 07/15/18 at 03:00 Morphine Sulfate (morphine) 2 mg Q4H PRN IV PAIN LEVEL 7-10; Start 07/15/18 at 03:00 Aspirin (Halfprin) 81 mg DAILY PO Last administered on 07/25/18at 09:06; Admin Dose 81 MG; Start 07/15/18 at 09:00 Atorvastatin Calcium (Lipitor) 10 mg QHS PO Last administered on 07/25/18 20:57; Admin Dose 10 MG; Start 07/15/18 at 21:00 Hydralazine HCl (Apresoline) 25 mg TID PO Last administered on 07/25/18 20:57; Admin Dose 25 MG; Start 07/15/18 at 09:00 Epoetin Nayely-epbx (Retacrit (Non-Esrd)) 10,000 unit MoWeFr@1700 SC Last administered on 6/10/19at 17:42; Admin Dose 10,000 UNIT; Start 07/15/18 at 17:00 Miscellaneous Information 1 ea NOTE XX ; Start 07/15/18 at 08:30 Glucose (Glutose) 15 gm Q15M PRN PO DECREASED GLUCOSE; Start 07/15/18 at 08:30 Glucose (Glutose) 22.5 gm Q15M PRN PO DECREASED GLUCOSE; Start 07/15/18 at 08:30 Dextrose (D50w Syringe) 25 ml Q15M PRN IV DECREASED GLUCOSE; Start 07/15/18 at 08:30 Dextrose (D50w Syringe) 50 ml Q15M PRN IV DECREASED GLUCOSE Last administered on 07/16/18at 07:55; Admin Dose 50 ML; Start 07/15/18 at 08:30 Glucagon (Glucagen) 1 mg Q15M PRN IM DECREASED GLUCOSE; Start 07/15/18 at 08:30 Glucose (Glutose) 15 gm Q15M PRN BUCCAL DECREASED GLUCOSE; Start 07/15/18 at 08:30 Heparin Sodium (Porcine) (Heparin (1000 Units/ml)) 3,200 unit AFTER DIALYSIS PRN CATHETER heparin lock Last administered on 07/23/18at 16:54; Admin Dose 3,200 UNIT; Start 07/15/18 at 08:30 Albumin Human 100 ml @ 100 mls/hr DURING DIALYSIS PRN IV to prevent hypotension during ; Start 07/15/18 at 08:30 Diagnostic Test (Pha) (Accu-Chek) 1 ea 02 XX Last administered on 07/24/18at 01:43; Admin Dose 1 EA; Start 07/22/18 at 02:00 Insulin Aspart (Novolog Insulin Pen) NOVOLOG *MILD* ALGORITHM WITH MEALS BEDTIME SC Last administered on 07/24/18at 18:10; Admin Dose 1 UNIT; Start 07/22/18 at 08:00 Amlodipine Besylate (Norvasc) 10 mg DAILY PO Last administered on 07/24/18 09:34; Admin Dose 10 MG; Start 07/23/18 at 09:00 Mupirocin (Bactroban) 1 applic BID TOP Last administered on 07/26/18 09:03; Admin Dose 1 APPLIC; Start 07/22/18 at 21:00 Hydralazine HCl (Apresoline) 10 mg Q4H PRN IV ELEVATED BLOOD PRESSURE Last a dministered on 07/26/18at 08:59; Admin Dose 10 MG; Start 07/22/18 at 20:00 Clonidine HCl (Catapres-Tts 2 Patch) 1 patch Q7D TRANSDERM ; Start 07/23/18 at 11:00 Lactobacillus Acidophilus/ Rhamnosus (Culturelle) 1 cap BID PO Last administered on 07/25/18at 20:57; Admin Dose 1 CAP; Start 07/23/18 at 21:00 Famotidine (Pepcid) 20 mg HS PO Last administered on 07/25/18at 20:56; Admin Dose 20 MG; Start 07/23/18 at 21:00 Sodium Hypochlorite (Dakins Diluted (40)) 1 applic BID TP Last administered on 07/26/18at 09:05; Admin Dose 1 APPLIC; Start 07/24/18 at 13:30 Meds reviewed: Yes Allergies Coded Allergies: No Known Allergy (Unverified , 11/26/17) Allergies Reviewed: Yes Labs/Studies Labs Reviewed: Reviewed by anesthesiologist Result Diagram: 07/26/18 0429 07/26/18 0429 Laboratory Tests 07/26/18 04:29 test: N/A Studies: ECG (SR), CXR ( Changes remain suggesting mild central congestion with small to moderate bilateral effusions. ) Pre-procedure Exam Last vitals Vital Signs Date Temp Pulse Resp B/P (MAP) Pulse Ox O2 O2 Flow FiO2 Time Delivery Rate 07/26/18 98.1 85 20 190/91 93 07:36 (124) 07/25/18 Nasal 2.0 11:17 Cannula Airway: Adequate mouth opening Mallampati: Mallampati II Teeth: Normal Lung: Normal Heart: Normal ASA Physical Status ASA physical status: 4 Emergency: None Planned Anesthetic General/MAC: MAC Pre-operative Attestations Prior to commencing anesthesia and surgery, the patient was re-evaluated, there was verification of: *The patient's identity *The results of appropriate recent lab work and preoperative vital signs *The above evaluation not changing prior to induction *Anesthetic plan, risk benefits, alternative and complications discussed with patient/family; questions answered; patient/family understands, accepts and wishes to proceed. MONIQUE RHODES Jul 26, 2018 12:15
[2018-07-26] MEDS ORDERED: FENTAnyl 50 MCG/ML VIAL ONE (12:50)
[2018-07-26] MEDS ORDERED: MIDAZOLAM 1 MG/ML 2 ML INJ ONE (12:50)
--- NOTE | 2018-07-26 14:01 | PAC ---
Date/Time of Note Date/Time of Note DATE: 07/26/18 TIME: 14:01 Post-Anesthesia Notes Post-Anesthesia Note Last documented vital signs Vital Signs Date Temp Pulse Resp B/P (MAP) Pulse Ox O2 O2 Flow FiO2 Time Delivery Rate 07/26/18 98.1 85 20 190/91 93 07:36 (124) 07/25/18 Nasal 2.0 11:17 Cannula Activity: WNL Respiratory function: WNL Cardiovascular function: WNL Mental status: Baseline Pain reasonably controlled: Yes Hydration appropriate: Yes Nausea/Vomiting absent: Yes MONIQUE RHODES Jul 26, 2018 14:01
[2018-07-26] MEDS ORDERED: LABETALOL HCL 20MG INJ IV PRN (14:30)
[2018-07-26] MEDS ORDERED: hydrALAzine 20 MG INJ IV PRN (14:30)
[2018-07-26] MEDS ORDERED: FENTAnyl 50 MCG/ML VIAL IV PRN ×2 (14:30)
--- NOTE | 2018-07-26 18:17 | CONS ---
Assessment/Plan Assessment/Plan Assessment/Plan (Daily) 1. acute hypoxic respiratory failure requiring BIPAP 2. Anemia of ESRD s/p PRBC transfusion during this admission 3. ESRD on HD MWF Schedule 4. L foot diabetic ulcer s/p previous Transmetatarsal amputation- s/p vascular surgery consultatin during this admission 5. h/O DM II 6. h/o HTN Plan: s/p HD yesterday 1.2 L removed- s/p HD today 2 L removed,, , will continue HD M WF - next HD tomorrow after OR in AM Amlodipine 10mg po daily, hydralazine 25 mg pO TID, IV hydralazine prn for BP control IV abx as per ID, Renally dose all abx and monitor electrolytes s/p Vascular surgery evaluation for LE wounds - plan for OR on Wednesday Will follow up Consultation Date/Type/Reason Admit Date/Time July 15, 2018 at 00:58 Initial Consult Date 07/15/18 Type of Consult NEPHROLOGY Date/Time of Note DATE: 07/26/18 TIME: 18:17 24 HR Interval Summary Free Text/Dictation plan for OR on wednesday Exam/Review of Systems Exam Vitals Vital Signs Date Temp Pulse Resp B/P (MAP) Pulse Ox O2 O2 Flow FiO2 Time Delivery Rate 07/26/18 98.1 82 18 160/73 96 16:05 (102) 07/26/18 Room Air 15:34 07/26/18 2.0 13:58 Intake and Output 07/25/18 07/25/18 07/26/18 1515:00 23:00 07:00 OutputOutput Total 2100 ml 100 ml BalanceBalance -2100 ml -100 ml Exam Constitutional: alert Head: normocephalic Neck: supple, non-tender Respiratory: congested cough, crackles/rales, diminished breath sounds Cardiovascular: regular rate and rhythm, nl pulses Gastrointestinal: soft, non-tender Musculoskeletal: nl extremities to inspection, muscle weakness, swelling Extremities: normal pulses Neurological: non focal Results Result Diagram: 07/26/18 0429 07/26/18 0429 Results 24hrs Laboratory Tests Test 07/25/18 20:56 07/26/18 04:29 07/26/18 08:28 07/26/18 14:37 Bedside Glucose 102 99 85 White Blood Count 15.2 H Red Blood Count 3.02 L Hemoglobin 10.1 L Hematocrit 31.6 L Mean Corpuscular 104.6 H Volume Mean Corpuscular 33.4 H Hemoglobin Mean Corpuscular 32.0 Hemoglobin Concent Red Cell 15.6 H Distribution Width Platelet Count 280 Mean Platelet Volume 10.5 H Immature 1.300 H Granulocytes % Neutrophils % 42.0 Lymphocytes % 14.9 L Monocytes % 40.0 H Eosinophils % 1.3 Basophils % 0.5 Nucleated Red Blood 0.0 Cells % Immature 0.190 H Granulocytes # Neutrophils # 6.4 Lymphocytes # 2.3 Monocytes # 6.1 H Eosinophils # 0.2 Basophils # 0.1 Nucleated Red Blood 0.0 Cells # Sodium Level 137 Potassium Level 3.5 Chloride Level 97 Carbon Dioxide Level 29 Anion Gap 11 Blood Urea Nitrogen 28 H Creatinine 5.28 H Est Glomerular 11 L Filtrat Rate mL/min Glucose Level 91 Calcium Level 8.8 Phosphorus Level 4.4 Magnesium Level 2.1 Test 07/26/18 17:56 Bedside Glucose 109 Medications Medication Current Medications Ondansetron HCl (Zofran Inj) 4 mg Q6H PRN IV NAUSEA AND/OR VOMITING; Start 07/15/18 at 03:00 Albuterol/ Ipratropium (Duoneb) 3 ml Q2H RESP THERAPY PRN NEB SHORTNESS OF BREATH Last administered on 07/17/18at 23:24; Admin Dose 3 ML; Start 07/15/18 at 03:00 Nitroglycerin (Nitroglycerin (Sl Tab) 0.4 Mg) 1 tab Q5M PRN SL CHEST PAIN; Start 07/15/18 at 03:00 Acetaminophen (Tylenol Liquid) 650 mg Q6H PRN PO PAIN LEVEL 1-3 OR FEVER; Start 07/15/18 at 03:00 Morphine Sulfate (morphine) 2 mg Q4H PRN IV PAIN LEVEL 7-10; Start 07/15/18 at 03:00 Aspirin (Halfprin) 81 mg DAILY PO Last administered on 07/25/18at 09:06; Admin Dose 81 MG; Start 07/15/18 at 09:00 Atorvastatin Calcium (Lipitor) 10 mg QHS PO Last administered on 07/25/18at 20:57; Admin Dose 10 MG; Start 07/15/18 at 21:00 Hydralazine HCl (Apresoline) 25 mg TID PO Last administered on 07/26/18at 14:39; Admin Dose 25 MG; Start 07/15/18 at 09:00 Epoetin Yannick-epbx (Retacrit (Non-Esrd)) 10,000 unit MoWeFr@1700 SC Last administered on 07/25/18at 17:42; Admin Dose 10,000 UNIT; Start 07/15/18 at 17:00 Miscellaneous Information 1 ea NOTE XX ; Start 07/15/18 at 08:30 Glucose (Glutose) 15 gm Q15M PRN PO DECREASED GLUCOSE; Start 07/15/18 at 08:30 Glucose (Glutose) 22.5 gm Q15M PRN PO DECREASED GLUCOSE; Start 07/15/18 at 08:30 Dextrose (D50w Syringe) 25 ml Q15M PRN IV DECREASED GLUCOSE; Start 07/15/18 at 08:30 Dextrose (D50w Syringe) 50 ml Q15M PRN IV DECREASED GLUCOSE Last administered on 07/16/18 07:55; Admin Dose 50 ML; Start 07/15/18 at 08:30 Glucagon (Glucagen) 1 mg Q15M PRN IM DECREASED GLUCOSE; Start 07/15/18 at 08:30 Glucose (Glutose) 15 gm Q15M PRN BUCCAL DECREASED GLUCOSE; Start 07/15/18 at 08:30 Heparin Sodium (Porcine) (Heparin (1000 Units/ml)) 3,200 unit AFTER DIALYSIS PRN CATHETER heparin lock Last administered on 07/23/18at 16:54; Admin Dose 3,200 UNIT; Start 07/15/18 at 08:30 Albumin Human 100 ml @ 100 mls/hr DURING DIALYSIS PRN IV to prevent hypotension during ; Start 07/15/18 at 08:30 Diagnostic Test (Pha) (Accu-Chek) 1 ea 02 XX Last administered on 07/24/18at 01:43; Admin Dose 1 EA; Start 07/22/18 at 02:00 Insulin Aspart (Novolog Insulin Pen) NOVOLOG *MILD* ALGORITHM WITH MEALS BEDTIME SC Last administered on 07/24/18at 18:10; Admin Dose 1 UNIT; Start 07/22/18 at 08:00 Amlodipine Besylate (Norvasc) 10 mg DAILY PO Last administered on 07/26/18at 15:55; Admin Dose 10 MG; Start 07/23/18 at 09:00 Mupirocin (Bactroban) 1 applic BID TOP Last administered on 07/26/18 09:03; Admin Dose 1 APPLIC; Start 07/22/18 at 21:00 Hydralazine HCl (Apresoline) 10 mg Q4H PRN IV ELEVATED BLOOD PRESSURE Last administered on 07/26/18 08:59; Admin Dose 10 MG; Start 07/22/18 at 20:00 Clonidine HCl (Catapres-Tts 2 Patch) 1 patch Q7D TRANSDERM ; Start 07/23/18 at 11:00 Lactobacillus Acidophilus/ Rhamnosus (Culturelle) 1 cap BID PO Last administered on 07/25/18 20:57; Admin Dose 1 CAP; Start 07/23/18 at 21:00 Famotidine (Pepcid) 20 mg HS PO Last administered on 07/25/18 20:56; Admin D ose 20 MG; Start 07/23/18 at 21:00 Sodium Hypochlorite (Dakins Diluted (40)) 1 applic BID TP Last administered on 07/26/18at 09:05; Admin Dose 1 APPLIC; Start 07/24/18 at 13:30 Fentanyl (Sublimaze) 25 mcg PACU ORDER PRN IV MILD PAIN 1-3; Start 07/26/18 at 14:30; Stop 07/26/18 at 19:00 Fentanyl (Sublimaze) 50 mcg PACU ORDER PRN IV MOD PAIN 4-6; Start 07/26/18 at 14:30; Stop 07/26/18 at 19:00 Labetalol HCl (Labetalol) 5 mg PACU ORDER PRN IV HIGH BLOOD PRESSURE; Start 07/26/18 at 14:30; Stop 07/26/18 at 19:00 Hydralazine HCl (Apresoline) 5 mg PACU ORDER PRN IV HIGH BLOOD PRESSURE; Start 07/26/18 at 14:30; Stop 07/26/18 at 19:00 OTTO JUÁREZ MD Jul 26, 2018 18:17
[2018-07-26] MEDS: HEPARIN 1000 UNITS/ML 10 ML INJ CATHETER PRN (22:27)
[2018-07-26] MEDS: FAMOTIDINE 20 MG TAB PO SCH (22:33)
[2018-07-26] MEDS: ATORVASTATIN 10 MG TAB PO SCH (22:35)
[2018-07-27] VITALS (25 sets, daily range): BP systolic 82–162; BP diastolic 52–81; PULSE 79–88; RESP 12–19
[2018-07-27] MEDS: ACCU-CHEK XX SCH (01:55)
--- NOTE | 2018-07-27 05:44 | PN ---
Date/Time of Note Date/Time of Note DATE: 07/27/18 TIME: 05:44 Assessment/Plan VTE Prophylaxis Risk score (from Ns)>0 risk: 4 SCD applied (from Ns): No SCD contraindicated: other Pharmacological prophylaxis: NA/contraindicated Pharm contraindication: anticoag not tolerated Lines/Catheters IV C[facility]ter Type (from [facility]): [facility] Lock Urinary Cath still in place: No Assessment/Plan Hospital Course SUBJECTIVE: Denies any dyspnea. OBJECTIVE: Physical Exam General: 68 obese, year-old male lying in bed in no apparent distress. HEENT: Normocephalic, atraumatic. Eyes: Anicteric sclerae, conjunctivae clear. ENT: Nasal septum midline, oral mucosa is moist. Neck supple. Respiratory: Bilaterally diminished breath sounds. Minimal use of accessory muscles of respiration. No adventitious breath sounds. Cardiovascular: S1, S2 heard. Regular rate and rhythm. Abdomen: Soft, nontender, and nondistended. Bowel sounds positive in all 4 quadrants. Genitourinary: Deferred. Extremities: No cyanosis, no clubbing. Left foot stump dressing. Right lower extremity edema. Neurologic: Cranial nerves II through XII grossly intact. The patient is awake, alert, and oriented. Skin: Normal skin turgor. No skin rashes. Labs & Vitals per chart ASSESSMENT & PLAN 68-year-old male with past medical history of hypertension, end-stage disease on hemodialysis on //, diabetes mellitus, peripheral vascular disease,and anemia of chronic disease who was transferred from a snf facility because of dyspnea, who was found to have evidence of underlying pulmonary edema with small bilateral pleural effusions and was admitted to inpatient setting for further treatment and evaluation. 1. S/P acute hypoxic respiratory failure. Most probably secondary to underlying pulmonary edema. Continue ultrafiltration. Continue inhaled bronchodilators. 2. Pulmonary edema. Continue ultrafiltration as per nephrology. 3. 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 Left foot MRI negative for any osteomyelitis. S/P antimicrobials as per ID. Being followed by podiatry. Awaiting debridement. 4. ESRD on HD on // Continue hemodialysis as per nephrology. 5. Peripheral vascular disease. S/P percutaneous angioplasty of left peroneal artery occlusion on 11/10/2017 6. Hypertension. Continue antihypertensives. 7. Diabetes mellitus. Hemoglobin A1c 5.4. Continue sliding scale insulin along with basal insulin. 8. Dyslipidemia. Continue statins. 9. Anemia of chronic kidney disease. Continue Epogen. 10. Fluids, electrolytes, and nutrition. Renal diet. 11. DVT prophylaxis. SCDs. 12. Plan. Continue ultrafiltration as per nephrology. Plan for PermCath exchange today. Plan for debridement of the left foot stump on 07/27/2018. The patient was seen in collaboration with Dr. Farfan. Result Diagram: 07/26/18 0429 07/26/18 0429 Results 24hrs Laboratory Tests Test 07/26/18 08:28 07/26/18 14:37 07/26/18 17:56 07/26/18 22:39 Bedside Glucose 99 85 109 110 Exam/Review of Systems Exam Vitals Vital Signs Date Temp Pulse Resp B/P (MAP) Pulse Ox O2 O2 Flow FiO2 Time Delivery Rate 07/27/18 98.2 80 18 137/74 95 01:29 (95) 07/26/18 Room Air 19:48 07/26/18 2.0 13:58 Intake and Output 07/26/18 07/26/18 07/27/18 1515:00 23:00 07:00 IntakeIntake Total 240 ml OutputOutput Total 200 ml 2400 ml BalanceBalance -200 ml -2160 ml Results Results 24hrs Laboratory Tests Test 07/26/18 08:28 07/26/18 14:37 07/26/18 17:56 07/26/18 22:39 Bedside Glucose 99 85 109 110 Medications Medication Current Medications Ondansetron HCl (Zofran Inj) 4 mg Q6H PRN IV NAUSEA AND/OR VOMITING; Start 07/15/18 at 03:00 Albuterol/ Ipratropium (Duoneb) 3 ml Q2H RESP THERAPY PRN NEB SHORTNESS OF BREATH Last administered on 07/17/18at 23:24; Admin Dose 3 ML; Start 07/15/18 at 03:00 Nitroglycerin (Nitroglycerin (Sl Tab) 0.4 Mg) 1 tab Q5M PRN SL CHEST PAIN; Start 07/15/18 at 03:00 Acetaminophen (Tylenol Liquid) 650 mg Q6H PRN PO PAIN LEVEL 1-3 OR FEVER; Start 07/15/18 at 03:00 Morphine Sulfate (morphine) 2 mg Q4H PRN IV PAIN LEVEL 7-10; Start 07/15/18 at 03:00 Aspirin (Halfprin) 81 mg DAILY PO Last administered on 07/25/18 09:06; Admin Dose 81 MG; Start 07/15/18 at 09:00 Atorvastatin Calcium (Lipitor) 10 mg QHS PO Last administered on 07/26/18 22:35; Admin Dose 10 MG; Start 07/15/18 at 21:00 Hydralazine HCl (Apresoline) 25 mg TID PO Last administered on 07/26/18 22:39; Admin Dose 25 MG; Start 07/15/18 at 09:00 Epoetin Yannick-epbx (Retacrit (Non-Esrd)) 10,000 unit MoWeFr@1700 SC Last administered on 07/25/18 17:42; Admin Dose 10,000 UNIT; Start 07/15/18 at 17:00 Miscellaneous Information 1 ea NOTE XX ; Start 07/15/18 at 08:30 Glucose (Glutose) 15 gm Q15M PRN PO DECREASED GLUCOSE; Start 07/15/18 at 08:30 Glucose (Glutose) 22.5 gm Q15M PRN PO DECREASED GLUCOSE; Start 07/15/18 at 08:30 Dextrose (D50w Syringe) 25 ml Q15M PRN IV DECREASED GLUCOSE; Start 07/15/18 at 08:30 Dextrose (D50w Syringe) 50 ml Q15M PRN IV DECREASED GLUCOSE Last administered on 07/16/18at 07:55; Admin Dose 50 ML; Start 07/15/18 at 08:30 Glucagon (Glucagen) 1 mg Q15M PRN IM DECREASED GLUCOSE; Start 07/15/18 at 08:30 Glucose (Glutose) 15 gm Q15M PRN BUCCAL DECREASED GLUCOSE; Start 07/15/18 at 08:30 Heparin Sodium (Porcine) (Heparin (1000 Units/ml)) 3,200 unit AFTER DIALYSIS PRN CATHETER heparin lock Last administered on 07/26/18 22:27; Admin Dose 3,200 UNIT; Start 07/15/18 at 08:30 Albumin Human 100 ml @ 100 mls/hr DURING DIALYSIS PRN IV to prevent hypotension during ; Start 07/15/18 at 08:30 Diagnostic Test (Pha) (Accu-Chek) 1 ea 02 XX Last administered on 07/24/18at 01:43; Admin Dose 1 EA; Start 07/22/18 at 02:00 Insulin Aspart (Novolog Insulin Pen) NOVOLOG *MILD* ALGORITHM WITH MEALS BEDTIME SC Last administered on 07/24/18 18:10; Admin Dose 1 UNIT; Start 07/22/18 at 08:00 Amlodipine Besylate (Norvasc) 10 mg DAILY PO Last administered on 07/26/18 15:55; Admin Dose 10 MG; Start 07/23/18 at 09:00 Mupirocin (Bactroban) 1 applic BID TOP Last administered on 07/26/18 22:36; Admin Dose 1 APPLIC; Start 07/22/18 at 21:00 Hydralazine HCl (Apresoline) 10 mg Q4H PRN IV ELEVATED BLOOD PRESSURE Last administered on 07/26/18 08:59; Admin Dose 10 MG; Start 07/22/18 at 20:00 Clonidine HCl (Catapres-Tts 2 Patch) 1 patch Q7D TRANSDERM ; Start 07/23/18 at 11:00 Lactobacillus Acidophilus/ Rhamnosus (Culturelle) 1 cap BID PO Last administered on 07/26/18 22:34; Admin Dose 1 CAP; Start 07/23/18 at 21:00 Famotidine (Pepcid) 20 mg HS PO Last administered on 07/26/18 22:33; Admin Dose 20 MG; Start 07/23/18 at 21:00 Sodium Hypochlorite (Dakins Diluted (1/40)) 1 applic BID TP Last administered on 07/26/18 22:37; Admin Dose 1 APPLIC; Start 07/24/18 at 13:30 DONOVAN TRAVIS NP Jul 27, 2018 05:44
[2018-07-27] MEDS: hydrALAzine 20 MG INJ IV PRN (06:50)
--- NOTE | 2018-07-27 07:22 | HPN ---
Date/Time of Note Date/Time of Note DATE: 07/27/18 TIME: 07:22 Interval H&P Admission Note Pt. seen H&P reviewed: No system changes REBECCA POWELL DPM Jul 27, 2018 07:22
--- NOTE | 2018-07-27 07:23 | CONS ---
Assessment/Plan Assessment/Plan Hospital Course (Demo Recall) 1) CHF, likely due to delayed dialysis breathing has improved, doubt he has pneumonia but will check procalcitonin 07/16 - procalcitonin for people in ESRD is within normal limties no good evidence for pneumonia 2) L foot ulcers will review the [place] records and see if cx were done and what if any antibiotics he received continue with vanco/zosyn at present get wound cx here ESR is very high, if work-up for osteo and arterial studies weren't done we may need to do these here 07/16 - this is not new and pt has been advised that he likely needs BKA but he has refused 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 and was suppose to be getting IV vanco with dialysis d/c zosyn but continue with vanco at present will order arterial dopplers to see if flow is adequate at this time 07/18 - arterial dopplers show bilateral LE issues with arterial flow high ESR is c/w current osteo continue with vanco, d/c zosyn and add rifampin for better MRSA coverage recommend vascular surgery consult 07/20 - no vascular intervention planned local debridement today by report and to follow cultures if obtained continue with vanco/rifampin for 6 week course 07/22 - rising WBC without a clear cause to get pic of foot and repeat cx from heel and stump site on L foot get procalcitonin and CBC in a.m., consider broadening coverage (i.e. zosyn) get u/a and urine cx 07/25 - surface wound cx only had c.alb pt has been off IV antibiotics since 07/16, will hold off on antibiotics till debridement with bone cx is done then will re-start vanco/zosyn 07/27 - pt getting L foot debridement today wound cx order placed await op record description and if signs of infection seen will re-start vanco/zosyn 3) DM 4) HTN 5) ESRD Consultation Date/Type/Reason Admit Date/Time July 15, 2018 at 00:58 Initial Consult Date 07/15/18 Type of Consult ID Date/Time of Note DATE: 07/27/18 TIME: 07:21 24 HR Interval Summary Free Text/Dictation pt is off floor getting L foot debridement Exam/Review of Systems Exam Vitals Vital Signs Date Temp Pulse Resp B/P (MAP) Pulse Ox O2 O2 Flow FiO2 Time Delivery Rate 07/27/18 98.4 84 18 162/79 94 Room Air 06:53 (106) 07/26/18 2.0 13:58 Intake and Output 07/26/18 07/26/18 07/27/18 1515:00 23:00 07:00 IntakeIntake Total 240 ml OutputOutput Total 200 ml 2400 ml BalanceBalance -200 ml -2160 ml Results Result Diagram: 07/26/18 0429 07/26/18 0429 Results 24hrs Laboratory Tests Test 07/26/18 08:28 07/26/18 14:37 07/26/18 17:56 07/26/18 22:39 Bedside Glucose 99 85 109 110 Test 07/27/18 06:26 07/27/18 06:43 White Blood Count Pending Red Blood Count Pending Hemoglobin Pending Hematocrit Pending Mean Corpuscular Pending Volume Mean Corpuscular Pending Hemoglobin Mean Corpuscular Pending Hemoglobin Concent Red Cell Pending Distribution Width Platelet Count Pending Mean Platelet Volume Pending Bedside Glucose 90 Medications Medication Current Medications Ondansetron HCl (Zofran Inj) 4 mg Q6H PRN IV NAUSEA AND/OR VOMITING; Start 07/15/18 at 03:00 Albuterol/ Ipratropium (Duoneb) 3 ml Q2H RESP THERAPY PRN NEB SHORTNESS OF BREATH Last administered on 07/17/18at 23:24; Admin Dose 3 ML; Start 07/15/18 at 03:00 Nitroglycerin (Nitroglycerin (Sl Tab) 0.4 Mg) 1 tab Q5M PRN SL CHEST PAIN; Start 07/15/18 at 03:00 Acetaminophen (Tylenol Liquid) 650 mg Q6H PRN PO PAIN LEVEL 1-3 OR FEVER; Start 07/15/18 at 03:00 Morphine Sulfate (morphine) 2 mg Q4H PRN IV PAIN LEVEL 7-10; Start 07/15/18 at 03:00 Aspirin (Halfprin) 81 mg DAILY PO Last administered on 07/25/18at 09:06; Admin Dose 81 MG; Start 07/15/18 at 09:00 Atorvastatin Calcium (Lipitor) 10 mg QHS PO Last administered on 07/26/18at 22:35; Admin Dose 10 MG; Start 07/15/18 at 21:00 Hydralazine HCl (Apresoline) 25 mg TID PO Last administered on 07/26/18 22:39; Admin Dose 25 MG; Start 07/15/18 at 09:00 Epoetin Yannick-epbx (Retacrit (Non-Esrd)) 10,000 unit MoWeFr@1700 SC Last administered on 07/25/18 17:42; Admin Dose 10,000 UNIT; Start 07/15/18 at 17:00 Miscellaneous Information 1 ea NOTE XX ; Start 07/15/18 at 08:30 Glucose (Glutose) 15 gm Q15M PRN PO DECREASED GLUCOSE; Start 07/15/18 at 08:30 Glucose (Glutose) 22.5 gm Q15M PRN PO DECREASED GLUCOSE; Start 07/15/18 at 08:30 Dextrose (D50w Syringe) 25 ml Q15M PRN IV DECREASED GLUCOSE; Start 07/15/18 at 08:30 Dextrose (D50w Syringe) 50 ml Q15M PRN IV DECREASED GLUCOSE Last administered on 07/16/18at 07:55; Admin Dose 50 ML; Start 07/15/18 at 08:30 Glucagon (Glucagen) 1 mg Q15M PRN IM DECREASED GLUCOSE; Start 07/15/18 at 08:30 Glucose (Glutose) 15 gm Q15M PRN BUCCAL DECREASED GLUCOSE; Start 07/15/18 at 08:30 Heparin Sodium (Porcine) (Heparin (1000 Units/ml)) 3,200 unit AFTER DIALYSIS PRN CATHETER heparin lock Last administered on 07/26/18at 22:27; Admin Dose 3,200 UNIT; Start 07/15/18 at 08:30 Albumin Human 100 ml @ 100 mls/hr DURING DIALYSIS PRN IV to prevent hypotension during ; Start 07/15/18 at 08:30 Diagnostic Test (Pha) (Accu-Chek) 1 ea 02 XX Last administered on 07/24/18at 01:43; Admin Dose 1 EA; Start 07/22/18 at 02:00 Insulin Aspart (Novolog Insulin Pen) NOVOLOG *MILD* ALGORITHM WITH MEALS BEDTIME SC Last administered on 07/24/18 18:10; Admin Dose 1 UNIT; Start 07/22/18 at 08:00 Amlodipine Besylate (Norvasc) 10 mg DAILY PO Last administered on 07/26/18 15:55; Admin Dose 10 MG; Start 07/23/18 at 09:00 Mupirocin (Bactroban) 1 applic BID TOP Last administered on 07/26/18 22:36; Admin Dose 1 APPLIC; Start 07/22/18 at 21:00 Hydralazine HCl (Apresoline) 10 mg Q4H PRN IV ELEVATED BLOOD PRESSURE Last administered on 07/27/18 06:50; Admin Dose 10 MG; Start 07/22/18 at 20:00 Clonidine HCl (Catapres-Tts 2 Patch) 1 patch Q7D TRANSDERM ; Start 07/23/18 at 11:00 Lactobacillus Acidophilus/ Rhamnosus (Culturelle) 1 cap BID PO Last administered on 07/26/18 22:34; Admin Dose 1 CAP; Start 07/23/18 at 21:00 Famotidine (Pepcid) 20 mg HS PO Last administered on 07/26/18 22:33; Admin Dose 20 MG; Start 07/23/18 at 21:00 Sodium Hypochlorite (Dakins Diluted (40)) 1 applic BID TP Last administered on 07/26/18 22:37; Admin Dose 1 APPLIC; Start 07/24/18 at 13:30 Sodium Chloride 1,000 ml @ 20 mls/hr Q24H IV ; Start 07/27/18 at 07:30 BRANDIN ROCA MD Jul 27, 2018 07:23
--- NOTE | 2018-07-27 07:26 | PREAC ---
Date/Time of Note Date/Time of Note DATE: 07/27/18 TIME: 07:23 Anesthesia Eval and Record Evaluation Time Pre-Procedure Interview DATE: 07/27/18 TIME: 07:23 Age 68 Sex male NPO: 8 hrs Preoperative diagnosis left foot gangrene Planned procedure left foot debridement and bone biopsy Past Medical History Past Medical History: Includes Cardio: HTN Endo: Diabetes Renal: ESRD on dialysis Heme: Anemia Surgery & Anesthesia Issues No known issue Meds Anticoagulation: No Beta Courtney within 24 hr: No Reason Beta Courtney not given: Pt. not on B-Courtney Active Scripts Ferrous Sulfate* (Ferrous Sulfate*) 325 Mg Tabec, 325 MG PO TID for 30 Days, TAB Prov:MCINTYREGUILLAUMEA V. [employer]AT [employer] 01/04/18 Glipizide* (Glipizide*) 5 Mg Tablet, 2.5 MG PO AC BREAKFAST, #30 TAB Prov:MCINTYREGUILLAUMEA V. [employer] 01/04/18 Hydralazine Hcl* (Hydralazine Hcl*) 25 Mg Tab, 25 MG PO TID, #90 TAB Prov:MCINTYREBISI DELGADO V. [employer] 01/04/18 Amlodipine Besylate* (Amlodipine Besylate*) 5 Mg Tablet, 5 MG PO DAILY, #30 TAB Prov:MCINTYREGUILLAUMEA VVan [employer]AT [employer] 01/04/18 Meropenem (Merrem) 1 Gm Vial, 500 MCG IV Q12 for 42 Days, VIAL Prov:MCINTYREGUILLAUMEA V. [employer] 01/04/18 Epoetin nayely* (Epogen*) 3,000 Unit/1 Ml Vial, 6000 UNITS SC TuThSa@17 for 30 Days, VIAL Prov:MCINTYREGUILLAUME DELGADOA Debbie. [employer] 01/04/18 Ceftriaxone Na/Dextrose,Iso (Ceftriaxone 1 gm Piggyback) 1 Gm/50 Ml Froz.piggy, 1 GM IV Q12 for 42 Days Prov:MCINTYREGUILLAUME DELGADOA VVan [employer] 01/04/18 Hydrocodone Bit-Acetaminophen (Hydrocodone Bit-APAP) 5-325MG Tablet, 1 TAB PO Q6H PRN for MODERATE PAIN LEVEL 4-6 for 30 Days, TAB Prov:MARIA E ABARCA. 12/02/17 Gabapentin* (Gabapentin*) 300 Mg Capsule, 300 MG PO BID, #60 CAP Prov:MARIA E ABARCA 11/12/17 [Insulin Glargine] 100 UNITS/ML SOLN No Conflict Check, 22 UNITS SC DAILY@1999 for 10 Days Prov:MARIA E ABARCA. 11/12/17 Clopidogrel Bisulfate (Clopidogrel) 75 Mg Tablet, 75 MG PO DAILY for 10 Days, #10 TAB Prov:MARIA E ABARCA. 11/12/17 Reported Medications Aspirin (Low Dose Aspirin) 81 Mg Tablet.dr, 81 MG PO DAILY, #30 TAB 11/07/17 Atorvastatin Calcium (Atorvastatin Calcium) 10 Mg Tablet, 10 MG PO QHS, #30 TAB 11/07/17 Current Medications Ondansetron HCl (Zofran Inj) 4 mg Q6H PRN IV NAUSEA AND/OR VOMITING; Start 07/15/18 at 03:00 Albuterol/ Ipratropium (Duoneb) 3 ml Q2H RESP THERAPY PRN NEB SHORTNESS OF BREATH Last administered on 07/17/18at 23:24; Admin Dose 3 ML; Start 07/15/18 at 03:00 Nitroglycerin (Nitroglycerin (Sl Tab) 0.4 Mg) 1 tab Q5M PRN SL CHEST PAIN; Start 07/15/18 at 03:00 Acetaminophen (Tylenol Liquid) 650 mg Q6H PRN PO PAIN LEVEL 1-3 OR FEVER; Start 07/15/18 at 03:00 Morphine Sulfate (morphine) 2 mg Q4H PRN IV PAIN LEVEL 7-10; Start 07/15/18 at 03:00 Aspirin (Halfprin) 81 mg DAILY PO Last administered on 07/25/18at 09:06; Admin Dose 81 MG; Start 07/15/18 at 09:00 Atorvastatin Calcium (Lipitor) 10 mg QHS PO Last administered on 07/26/18at 22:35; Admin Dose 10 MG; Start 07/15/18 at 21:00 Hydralazine HCl (Apresoline) 25 mg TID PO Last administered on 07/26/18at 22:39; Admin Dose 25 MG; Start 07/15/18 at 09:00 Epoetin Nayely-epbx (Retacrit (Non-Esrd)) 10,000 unit MoWeFr@1700 SC Last administered on 07/25/18at 17:42; Admin Dose 10,000 UNIT; Start 07/15/18 at 17:00 Miscellaneous Information 1 ea NOTE XX ; Start 07/15/18 at 08:30 Glucose (Glutose) 15 gm Q15M PRN PO DECREASED GLUCOSE; Start 07/15/18 at 08:30 Glucose (Glutose) 22.5 gm Q15M PRN PO DECREASED GLUCOSE; Start 07/15/18 at 08:30 Dextrose (D50w Syringe) 25 ml Q15M PRN IV DECREASED GLUCOSE; Start 07/15/18 at 08:30 Dextrose (D50w Syringe) 50 ml Q15M PRN IV DECREASED GLUCOSE Last administered on 07/16/18at 07:55; Admin Dose 50 ML; Start 07/15/18 at 08:30 Glucagon (Glucagen) 1 mg Q15M PRN IM DECREASED GLUCOSE; Start 07/15/18 at 08:30 Glucose (Glutose) 15 gm Q15M PRN BUCCAL DECREASED GLUCOSE; Start 07/15/18 at 08:30 Heparin Sodium (Porcine) (Heparin (1000 Units/ml)) 3,200 unit AFTER DIALYSIS PRN CATHETER heparin lock Last administered on 07/26/18at 22:27; Admin Dose 3,200 UNIT; Start 07/15/18 at 08:30 Albumin Human 100 ml @ 100 mls/hr DURING DIALYSIS PRN IV to prevent hypotension during ; Start 07/15/18 at 08:30 Diagnostic Test (Pha) (Accu-Chek) 1 ea 02 XX Last administered on 07/24/18at 01:43; Admin Dose 1 EA; Start 07/22/18 at 02:00 Insulin Aspart (Novolog Insulin Pen) NOVOLOG *MILD* ALGORITHM WITH MEALS BEDTIME SC Last administered on 07/24/18at 18:10; Admin Dose 1 UNIT; Start 07/22/18 at 08:00 Amlodipine Besylate (Norvasc) 10 mg DAILY PO Last administered on 07/26/18 15:55; Admin Dose 10 MG; Start 07/23/18 at 09:00 Mupirocin (Bactroban) 1 applic BID TOP Last administered on 07/26/18at 22:36; Admin Dose 1 APPLIC; Start 07/22/18 at 21:00 Hydralazine HCl (Apresoline) 10 mg Q4H PRN IV ELEVATED BLOOD PRESSURE Last administered on 07/27/18at 06:50; Admin Dose 10 MG; Start 07/22/18 at 20:00 Clonidine HCl (Catapres-Tts 2 Patch) 1 patch Q7D TRANSDERM ; Start 07/23/18 at 11:00 Lactobacillus Acidophilus/ Rhamnosus (Culturelle) 1 cap BID PO Last administere d on 07/26/18at 22:34; Admin Dose 1 CAP; Start 07/23/18 at 21:00 Famotidine (Pepcid) 20 mg HS PO Last administered on 07/26/18at 22:33; Admin Dose 20 MG; Start 07/23/18 at 21:00 Sodium Hypochlorite (Dakins Diluted (40)) 1 applic BID TP Last administered on 07/26/18at 22:37; Admin Dose 1 APPLIC; Start 07/24/18 at 13:30 Sodium Chloride 1,000 ml @ 20 mls/hr Q24H IV ; Start 07/27/18 at 07:30 Meds reviewed: Yes Allergies Coded Allergies: No Known Allergy (Unverified , 11/26/17) Allergies Reviewed: Yes Labs/Studies Labs Reviewed: Reviewed by anesthesiologist Result Diagram: 07/26/18 0429 07/26/18 0429 test: N/A Studies: ECG, CXR Pre-procedure Exam Last vitals Vital Signs Date Temp Pulse Resp B/P (MAP) Pulse Ox O2 O2 Flow FiO2 Time Delivery Rate 07/27/18 98.4 84 18 162/79 94 Room Air 06:53 (106) 07/26/18 2.0 13:58 Airway: Adequate mouth opening, Adequate thyromental dist Mallampati: Mallampati I Teeth: Normal Lung: Normal Heart: Normal ASA Physical Status ASA physical status: 3 Emergency: None Planned Pain Management Parenteral pain med Pre-operative Attestations Prior to commencing anesthesia and surgery, the patient was re-evaluated, there was verification of: *The patient's identity *The results of appropriate recent lab work and preoperative vital signs *The above evaluation not changing prior to induction *Anesthetic plan, risk benefits, alternative and complications discussed with patient/family; questions answered; patient/family understands, accepts and wishes to proceed. RONEL GUERRERO Jul 27, 2018 07:26
[2018-07-27] MEDS ORDERED: MIDAZOLAM 1 MG/ML 2 ML INJ ONE (07:40)
[2018-07-27] MEDS ORDERED: FENTAnyl 50 MCG/ML VIAL ONE (07:41)
[2018-07-27] MEDS: INSULIN ASPART [NOVOLOG] 3 ML PEN SC SCH ×4 (08:00→20:51)
[2018-07-27] MEDS ORDERED: LIDOCAINE 1% (MPF) 30 ML INJ ONE (08:01)
[2018-07-27] MEDS ORDERED: LIDOCAINE 1% (MPF) 30 ML INJ INJ ONE (08:05)
--- NOTE | 2018-07-27 08:37 | SIPON ---
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
[2018-07-27] MEDS ORDERED: EPHEDrine 25 MG/5 ML SYG IV PRN (09:00)
[2018-07-27] MEDS: MUPIROCIN 2% 22 GM OINT TOP SCH ×2 (09:00→20:52)
[2018-07-27] MEDS ORDERED: FENTAnyl 50 MCG/ML VIAL IV PRN (09:00)
[2018-07-27] MEDS ORDERED: hydrALAzine 20 MG INJ IV PRN (09:00)
[2018-07-27] MEDS ORDERED: LABETALOL HCL 20MG INJ IV PRN (09:00)
[2018-07-27] MEDS: AMLODIPINE 10 MG TAB PO SCH (09:00)
[2018-07-27] MEDS: DAKINS 0.0125%(1/40) 473 ML SOLUTION TP SCH ×2 (09:00→20:52)
--- NOTE | 2018-07-27 09:00 | PAC ---
Date/Time of Note Date/Time of Note DATE: 07/27/18 TIME: 08:59 Post-Anesthesia Notes Post-Anesthesia Note Last documented vital signs Vital Signs Date Temp Pulse Resp B/P (MAP) Pulse Ox O2 O2 Flow FiO2 Time Delivery Rate 07/27/18 98.4 84 18 162/79 94 Room Air 0850 (106) 07/26/18 2.0 13:58 Activity: WNL Respiratory function: WNL Cardiovascular function: WNL Mental status: Baseline Pain reasonably controlled: Yes Hydration appropriate: Yes Nausea/Vomiting absent: Yes RONEL GUERRERO Jul 27, 2018 09:00
[2018-07-27] MEDS: LACTOBACILLUS RHAMNOSUS CAP PO SCH ×2 (09:35→20:50)
[2018-07-27] MEDS: ASPIRIN (EC) 81 MG TAB PO SCH (09:35)
[2018-07-27] MEDS: SOD CHLORIDE 0.9% 1,000 ML IV SCH (09:35)
--- NOTE | 2018-07-27 09:59 | CONS ---
Assessment/Plan Assessment/Plan Assessment/Plan (Daily) 1. acute hypoxic respiratory failure requiring BIPAP 2. Anemia of ESRD s/p PRBC transfusion during this admission 3. ESRD on HD MWF Schedule 4. L foot diabetic ulcer s/p previous Transmetatarsal amputation- s/p vascular surgery consultatin during this admission 5. h/O DM II 6. h/o HTN Plan: s/p HD today 2 L removed, , will continue HD MWF Amlodipine 10mg po daily, hydralazine 25 mg pO TID, IV hydralazine prn for BP control IV abx as per ID, Renally dose all abx and monitor electrolytes s/p Vascular surgery evaluation for LE wounds - plan for OR today Will follow up Consultation Date/Type/Reason Admit Date/Time July 15, 2018 at 00:58 Initial Consult Date 07/15/18 Type of Consult NEPHROLOGY Date/Time of Note DATE: 07/27/18 TIME: 09:59 Exam/Review of Systems Exam Vitals Vital Signs Date Temp Pulse Resp B/P (MAP) Pulse Ox O2 O2 Flow FiO2 Time Delivery Rate 07/27/18 97.5 85 16 119/63 95 09:21 (81) 07/27/18 Room Air 08:50 07/26/18 2.0 13:58 Intake and Output 07/26/18 07/26/18 07/27/18 1515:00 23:00 07:00 IntakeIntake Total 240 ml OutputOutput Total 200 ml 2400 ml BalanceBalance -200 ml -2160 ml Exam Constitutional: alert Head: normocephalic Neck: supple, non-tender Respiratory: congested cough, crackles/rales, diminished breath sounds Cardiovascular: regular rate and rhythm, nl pulses Gastrointestinal: soft, non-tender Musculoskeletal: nl extremities to inspection, muscle weakness, swelling Extremities: normal pulses Neurological: non focal Results Result Diagram: 07/27/18 0626 07/27/18 0642 Results 24hrs Laboratory Tests Test 07/26/18 14:37 07/26/18 17:56 07/26/18 22:39 07/27/18 06:26 Bedside Glucose 85 109 110 White Blood Count 14.9 H Red Blood Count 3.11 L Hemoglobin 10.3 L Hematocrit 32.4 L Mean Corpuscular 104.2 H Volume Mean Corpuscular 33.1 H Hemoglobin Mean Corpuscular 31.8 L Hemoglobin Concent Red Cell 15.7 H Distribution Width Platelet Count 265 Mean Platelet Volume 10.2 Immature 1.300 H Granulocytes % Neutrophils % 42.3 Lymphocytes % 10.9 L Monocytes % 44.0 H Eosinophils % 0.8 Basophils % 0.7 Nucleated Red Blood 0.0 Cells % Immature 0.200 H Granulocytes # Neutrophils # 6.3 Lymphocytes # 1.6 Monocytes # 6.5 H Eosinophils # 0.1 Basophils # 0.1 Nucleated Red Blood 0.0 Cells # Phosphorus Level 3.7 Magnesium Level 2.0 Test 07/27/18 06:42 07/27/18 06:43 07/27/18 09:25 Sodium Level 137 Potassium Level 3.7 Chloride Level 99 Carbon Dioxide Level 27 Anion Gap 11 Blood Urea Nitrogen 20 Creatinine 4.18 #H Est Glomerular 14 L Filtrat Rate mL/min Glucose Level 90 Calcium Level 9.1 Bedside Glucose 90 86 Medications Medication Current Medications Ondansetron HCl (Zofran Inj) 4 mg Q6H PRN IV NAUSEA AND/OR VOMITING; Start 07/15/18 at 03:00 Albuterol/ Ipratropium (Duoneb) 3 ml Q2H RESP THERAPY PRN NEB SHORTNESS OF BREATH Last administered on 07/17/18at 23:24; Admin Dose 3 ML; Start 07/15/18 at 03:00 Nitroglycerin (Nitroglycerin (Sl Tab) 0.4 Mg) 1 tab Q5M PRN SL CHEST PAIN; Start 07/15/18 at 03:00 Acetaminophen (Tylenol Liquid) 650 mg Q6H PRN PO PAIN LEVEL 1-3 OR FEVER; Start 07/15/18 at 03:00 Morphine Sulfate (morphine) 2 mg Q4H PRN IV PAIN LEVEL 7-10; Start 07/15/18 at 03:00 Aspirin (Halfprin) 81 mg DAILY PO Last administered on 07/27/18 09:35; Admin Dose 81 MG; Start 07/15/18 at 09:00 Atorvastatin Calcium (Lipitor) 10 mg QHS PO Last administered on 07/26/18at 22:35; Admin Dose 10 MG; Start 07/15/18 at 21:00 Hydralazine HCl (Apresoline) 25 mg TID PO Last administered on 07/26/18at 22:39; Admin Dose 25 MG; Start 07/15/18 at 09:00 Epoetin Yannick-epbx (Retacrit (Non-Esrd)) 10,000 unit MoWeFr@1700 SC Last administered on 07/25/18at 17:42; Admin Dose 10,000 UNIT; Start 07/15/18 at 17:00 Miscellaneous Information 1 ea NOTE XX ; Start 07/15/18 at 08:30 Glucose (Glutose) 15 gm Q15M PRN PO DECREASED GLUCOSE; Start 07/15/18 at 08:30 Glucose (Glutose) 22.5 gm Q15M PRN PO DECREASED GLUCOSE; Start 07/15/18 at 08:30 Dextrose (D50w Syringe) 25 ml Q15M PRN IV DECREASED GLUCOSE; Start 07/15/18 at 08:30 Dextrose (D50w Syringe) 50 ml Q15M PRN IV DECREASED GLUCOSE Last administered on 07/16/18at 07:55; Admin Dose 50 ML; Start 07/15/18 at 08:30 Glucagon (Glucagen) 1 mg Q15M PRN IM DECREASED GLUCOSE; Start 07/15/18 at 08:30 Glucose (Glutose) 15 gm Q15M PRN BUCCAL DECREASED GLUCOSE; Start 07/15/18 at 08:30 Heparin Sodium (Porcine) (Heparin (1000 Units/ml)) 3,200 unit AFTER DIALYSIS PRN CATHETER heparin lock Last administered on 07/26/18at 22:27; Admin Dose 3,200 UNIT; Start 07/15/18 at 08:30 Albumin Human 100 ml @ 100 mls/hr DURING DIALYSIS PRN IV to prevent hypotension during ; Start 07/15/18 at 08:30 Diagnostic Test (Pha) (Accu-Chek) 1 ea 02 XX Last administered on 07/24/18at 01:43; Admin Dose 1 EA; Start 07/22/18 at 02:00 Insulin Aspart (Novolog Insulin Pen) NOVOLOG *MILD* ALGORITHM WITH MEALS BEDTIME SC Last administered on 07/24/18at 18:10; Admin Dose 1 UNIT; Start 07/22/18 at 08:00 Amlodipine Besylate (Norvasc) 10 mg DAILY PO Last administered on 07/26/18at 15:55; Admin Dose 10 MG; Start 07/23/18 at 09:00 Mupirocin (Bactroban) 1 applic BID TOP Last administered on 07/26/18 22:36; Admin Dose 1 APPLIC; Start 07/22/18 at 21:00 Hydralazine HCl (Apresoline) 10 mg Q4H PRN IV ELEVATED BLOOD PRESSURE Last adm inistered on 07/27/18at 06:50; Admin Dose 10 MG; Start 07/22/18 at 20:00 Clonidine HCl (Catapres-Tts 2 Patch) 1 patch Q7D TRANSDERM ; Start 07/23/18 at 11:00 Lactobacillus Acidophilus/ Rhamnosus (Culturelle) 1 cap BID PO Last administered on 07/27/18 09:35; Admin Dose 1 CAP; Start 07/23/18 at 21:00 Famotidine (Pepcid) 20 mg HS PO Last administered on 07/26/18 22:33; Admin Dose 20 MG; Start 07/23/18 at 21:00 Sodium Hypochlorite (Dakins Diluted (40)) 1 applic BID TP Last administered on 07/26/18 22:37; Admin Dose 1 APPLIC; Start 07/24/18 at 13:30 Sodium Chloride 1,000 ml @ 20 mls/hr Q24H IV Last administered on 07/27/18 09:35; Admin Dose 20 MLS/HR; Start 07/27/18 at 07:30 Fentanyl (Sublimaze) 25 mcg PACU ORDER PRN IV MILD PAIN 1-3; Start 07/27/18 at 09:00; Stop 07/27/18 at 15:00 Labetalol HCl (Labetalol) 5 mg PACU ORDER PRN IV HIGH BLOOD PRESSURE; Start 07/27/18 at 09:00; Stop 07/27/18 at 15:00 Hydralazine HCl (Apresoline) 5 mg PACU ORDER PRN IV HIGH BLOOD PRESSURE; Start 07/27/18 at 09:00; Stop 07/27/18 at 15:00 Ephedrine Sulfate 5 mg PACU ORDER PRN IV BLOOD PRESSURE SUPPORT; Start 07/27/18 at 09:00; Stop 07/27/18 at 15:00 OTTO JUÁREZ MD Jul 27, 2018 09:59
--- NOTE | 2018-07-27 10:41 | OPR ---
DATE OF OPERATION: 07/27/2018 PREOPERATIVE DIAGNOSES: 1. Left foot diabetic foot ulceration. 2. Osteomyelitis. 3. History of transmetatarsal amputation. 4. Diabetes type 2. POSTOPERATIVE DIAGNOSES: 1. Left foot diabetic foot ulceration. 2. Osteomyelitis 3. History of transmetatarsal amputation. 4. Diabetes type 2. OPERATIONS PERFORMED: 1. Left foot excisional debridement of skin, subcutaneous tissue, muscle, 4 x 6 cm left posterior he el. 2. Biopsy of bone metatarsals, left foot. 3. Application of acellular dermal replacement Integra graft. PATHOLOGY: 1. Bone cultures metatarsals. 2. Bone pathology metatarsals. QUILL WORKER: None. ANESTHESIA: MAC with local lidocaine 1% plain, 15 mL. MATERIALS: Skin magdalene. COMPLICATIONS: None. ESTIMATED BLOOD LOSS: 10 to 15 mL. INDICATION FOR PROCEDURE: A 68-year-old male with chronic diabetic foot ulceration, history of trans metatarsal amputation, concern for residual osteomyelitis metatarsals. At this time presents for lucy ridement. The patient has been hospitalized and a prior wound cultures had Maricarmen albicans. PROCEDURE IN DETAIL: The patient brought into the operating room. Formal time-out was performed. F oot was properly marked, confirmed by the surgical team, prepped and draped in usual sterile fashion. Local anesthesia was given, using lidocaine 1% plain using 15 mL with an ankle block excisional lucy ridement of the posterior heel ulceration, using pickup scissors, rongeur and curette. Wound measure d 4 x 6 cm and excisional debridement of necrotic skin, subcutaneous tissue and muscle. The patient had estimated blood loss of 10 mL. Hemostasis achieved with compression. Attention was directed to the forefoot. He had a presence of granulation tissue but there are prominent sharp metatarsals. Th e third and fourth were further transected. The bone appeared discolored and soft portion was sent f or biopsy, bone and a portion also sent for culture. The wound was copiously irrigated. At this tay e, acellular dermal replacement allograft Integra dermal matrix applied to both wounds and secured wi th skin magdalene. The patient tolerated the procedure well. The foot was wrapped with Xeroform, 4 x 4 gauze, Kerlix and bias. Dictated By: REBECCA PALOMARES/HOLLY Conf#: [id number] DID#: [id number] CC: TRISTA CHU MD; ISAIAS GONZALEZ MD; KAREEM LYN MD;*[facility]*
[2018-07-27] MEDS: EPOETIN ALFA-EPBX (NON-ESRD 10,000 UNIT/ML VIAL SC SCH (17:14)
[2018-07-27] MEDS: HEPARIN 1000 UNITS/ML 10 ML INJ CATHETER PRN (17:18)
[2018-07-27] MEDS: FAMOTIDINE 20 MG TAB PO SCH (20:50)
[2018-07-27] MEDS: ATORVASTATIN 10 MG TAB PO SCH (20:50)
[2018-07-28 01:24] VITALS: BP 147/71; PULSE 74; RESP 18
[2018-07-28] MEDS: ACCU-CHEK XX SCH (02:00)
[2018-07-28] MEDS: SOD CHLORIDE 0.9% 1,000 ML IV SCH (07:30)
[2018-07-28 07:51] VITALS: BP 157/81; PULSE 84; RESP 17
[2018-07-28] MEDS: INSULIN ASPART [NOVOLOG] 3 ML PEN SC SCH ×4 (08:00→21:00)
--- NOTE | 2018-07-28 08:16 | CONS ---
Assessment/Plan Assessment/Plan Hospital Course (Demo Recall) 1) CHF, likely due to delayed dialysis breathing has improved, doubt he has pneumonia but will check procalcitonin 07/16 - procalcitonin for people in ESRD is within normal limties no good evidence for pneumonia 2) L foot ulcers will review the [facility] records and see if cx were done and what if any antibiotics he received continue with vanco/zosyn at present get wound cx here ESR is very high, if work-up for osteo and arterial studies weren't done we may need to do these here 07/16 - this is not new and pt has been advised that he likely needs BKA but he has refused 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 and was suppose to be getting IV vanco with dialysis d/c zosyn but continue with vanco at present will order arterial dopplers to see if flow is adequate at this time 07/18 - arterial dopplers show bilateral LE issues with arterial flow high ESR is c/w current osteo continue with vanco, d/c zosyn and add rifampin for better MRSA coverage recommend vascular surgery consult 07/20 - no vascular intervention planned local debridement today by report and to follow cultures if obtained continue with vanco/rifampin for 6 week course 07/22 - rising WBC without a clear cause to get pic of foot and repeat cx from heel and stump site on L foot get procalcitonin and CBC in a.m., consider broadening coverage (i.e. zosyn) get u/a and urine cx 07/25 - surface wound cx only had c.alb pt has been off IV antibiotics since 07/16, will hold off on antibiotics till debridement with bone cx is done then will re-start vanco/zosyn 07/27 - pt getting L foot debridement today wound cx order placed await op record description and if signs of infection seen will re-start vanco/zosyn 07/28 - debridement done and cx and path are pending op note suggest there may be bone infection (bone was soft) start vanco/zosyn 3) DM 4) HTN 5) ESRD Consultation Date/Type/Reason Admit Date/Time July 15, 2018 at 00:58 Initial Consult Date 07/15/18 Type of Consult ID Date/Time of Note DATE: 07/28/18 TIME: 08:15 Exam/Review of Systems Exam Vitals Vital Signs Date Temp Pulse Resp B/P (MAP) Pulse Ox O2 O2 Flow FiO2 Time Delivery Rate 07/28/18 97.5 84 17 157/81 96 07:51 (106) 07/27/18 Room Air 17:39 07/26/18 2.0 13:58 Intake and Output 07/27/18 07/27/18 07/28/18 1515:00 23:00 07:00 IntakeIntake Total 370 ml 470 ml 220 ml OutputOutput Total 5 ml 2400 ml BalanceBalance 365 ml -1930 ml 220 ml Results Result Diagram: 07/28/18 0528 07/28/18 0528 Results 24hrs Laboratory Tests Test 07/27/18 09:25 07/27/18 13:02 07/27/18 17:22 07/28/18 05:28 Bedside Glucose 86 132 147 White Blood Count 15.8 H Red Blood Count 3.28 L Hemoglobin 10.9 L Hematocrit 34.6 L Mean Corpuscular 105.5 H Volume Mean Corpuscular 33.2 H Hemoglobin Mean Corpuscular 31.5 L Hemoglobin Concent Red Cell 15.6 H Distribution Width Platelet Count 255 Mean Platelet Volume 10.1 Immature 1.700 H Granulocytes % Neutrophils % 37.0 L Lymphocytes % 12.3 L Monocytes % 47.5 H Eosinophils % 0.9 Basophils % 0.6 Nucleated Red Blood 0.0 Cells % Immature 0.270 H Granulocytes # Neutrophils # 5.9 Lymphocytes # 2.0 Monocytes # 7.5 H Eosinophils # 0.1 Basophils # 0.1 Nucleated Red Blood 0.0 Cells # Sodium Level 140 Potassium Level 4.4 Chloride Level 104 Carbon Dioxide Level 28 Anion Gap 8 Blood Urea Nitrogen 19 Creatinine 4.19 H Est Glomerular 14 L Filtrat Rate mL/min Glucose Level 110 Calcium Level 8.9 Phosphorus Level 3.8 Magnesium Level 2.1 Medications Medication Current Medications Ondansetron HCl (Zofran Inj) 4 mg Q6H PRN IV NAUSEA AND/OR VOMITING; Start 07/15/18 at 03:00 Albuterol/ Ipratropium (Duoneb) 3 ml Q2H RESP THERAPY PRN NEB SHORTNESS OF BREATH Last administered on 07/17/18at 23:24; Admin Dose 3 ML; Start 07/15/18 at 03:00 Nitroglycerin (Nitroglycerin (Sl Tab) 0.4 Mg) 1 tab Q5M PRN SL CHEST PAIN; Start 07/15/18 at 03:00 Acetaminophen (Tylenol Liquid) 650 mg Q6H PRN PO PAIN LEVEL 1-3 OR FEVER; Start 07/15/18 at 03:00 Morphine Sulfate (morphine) 2 mg Q4H PRN IV PAIN LEVEL 7-10; Start 07/15/18 at 03:00 Aspirin (Halfprin) 81 mg DAILY PO Last administered on 07/27/18at 09:35; Admin Dose 81 MG; Start 07/15/18 at 09:00 Atorvastatin Calcium (Lipitor) 10 mg QHS PO Last administered on 07/26/18at 22:35; Admin Dose 10 MG; Start 07/15/18 at 21:00 Hydralazine HCl (Apresoline) 25 mg TID PO Last administered on 07/26/18at 22:39; Admin Dose 25 MG; Start 07/15/18 at 09:00 Epoetin Yannick-epbx (Retacrit (Non-Esrd)) 10,000 unit MoWeFr@1700 SC Last administered on 07/27/18at 17:14; Admin Dose 10,000 UNIT; Start 07/15/18 at 17:00 Miscellaneous Information 1 ea NOTE XX ; Start 07/15/18 at 08:30 Glucose (Glutose) 15 gm Q15M PRN PO DECREASED GLUCOSE; Start 07/15/18 at 08:30 Glucose (Glutose) 22.5 gm Q15M PRN PO DECREASED GLUCOSE; Start 07/15/18 at 08:30 Dextrose (D50w Syringe) 25 ml Q15M PRN IV DECREASED GLUCOSE; Start 07/15/18 at 08:30 Dextrose (D50w Syringe) 50 ml Q15M PRN IV DECREASED GLUCOSE Last administered on 07/16/18at 07:55; Admin Dose 50 ML; Start 07/15/18 at 08:30 Glucagon (Glucagen) 1 mg Q15M PRN IM DECREASED GLUCOSE; Start 07/15/18 at 08:30 Glucose (Glutose) 15 gm Q15M PRN BUCCAL DECREASED GLUCOSE; Start 07/15/18 at 08:30 Heparin Sodium (Porcine) (Heparin (1000 Units/ml)) 3,200 unit AFTER DIALYSIS PRN CATHETER heparin lock Last administered on 07/27/18 17:18; Admin Dose 3,200 UNIT; Start 07/15/18 at 08:30 Albumin Human 100 ml @ 100 mls/hr DURING DIALYSIS PRN IV to prevent hypotension during ; Start 07/15/18 at 08:30 Diagnostic Test (Pha) (Accu-Chek) 1 ea 02 XX Last administered on 07/24/18 01:43; Admin Dose 1 EA; Start 07/22/18 at 02:00 Insulin Aspart (Novolog Insulin Pen) NOVOLOG *MILD* ALGORITHM WITH MEALS BEDTIME SC Last administered on 07/27/18 18:05; Admin Dose 1 UNIT; Start 07/22/18 at 08:00 Amlodipine Besylate (Norvasc) 10 mg DAILY PO Last administered on 07/26/18 15:55; Admin Dose 10 MG; Start 07/23/18 at 09:00 Mupirocin (Bactroban) 1 applic BID TOP Last administered on 07/26/18 22:36; Admin Dose 1 APPLIC; Start 07/22/18 at 21:00 Hydralazine HCl (Apresoline) 10 mg Q4H PRN IV ELEVATED BLOOD PRESSURE Last administered on 07/27/18 06:50; Admin Dose 10 MG; Start 07/22/18 at 20:00 Clonidine HCl (Catapres-Tts 2 Patch) 1 patch Q7D TRANSDERM ; Start 07/23/18 at 11:00 Lactobacillus Acidophilus/ Rhamnosus (Culturelle) 1 cap BID PO Last administered on 07/27/18 09:35; Admin Dose 1 CAP; Start 07/23/18 at 21:00 Famotidine (Pepcid) 20 mg HS PO Last administered on 07/26/18 22:33; Admin Dose 20 MG; Start 07/23/18 at 21:00 Sodium Hypochlorite (Dakins Diluted (40)) 1 applic BID TP Last administered on 07/26/18 22:37; Admin Dose 1 APPLIC; Start 07/24/18 at 13:30 Sodium Chloride 1,000 ml @ 20 mls/hr Q24H IV Last administered on 07/27/18 09:35; Admin Dose 20 MLS/HR; Start 07/27/18 at 07:30 Vancomycin HCl (Vanco Iv Per Pharmacy) VANCOMYCIN PER PHARMACY PER PROTOCOL XX ; Start 07/28/18 at 08:30; Status UNV Piperacillin Sod/ Tazobactam Sod 50 ml @ 100 mls/hr Q8 IVPB ; Start 07/28/18 at 14:00; Status UNV BRANDIN ROCA MD Jul 28, 2018 08:16
[2018-07-28] MEDS: MUPIROCIN 2% 22 GM OINT TOP SCH ×2 (08:18→21:00)
[2018-07-28] MEDS: DAKINS 0.0125%(1/40) 473 ML SOLUTION TP SCH ×2 (08:18→21:00)
[2018-07-28] MEDS ORDERED: VANCOMYCIN IV PER PHARMACY XX SCH (08:30)
[2018-07-28] MEDS: LACTOBACILLUS RHAMNOSUS CAP PO SCH ×2 (09:34→21:02)
[2018-07-28] MEDS: AMLODIPINE 10 MG TAB PO SCH (09:34)
[2018-07-28] MEDS: ASPIRIN (EC) 81 MG TAB PO SCH (09:34)
--- NOTE | 2018-07-28 10:09 | PN ---
Date/Time of Note Date/Time of Note DATE: 07/28/18 TIME: 10:09 Assessment/Plan VTE Prophylaxis Risk score (from Nsg)>0 risk: 5 SCD applied (from Nsg): Yes Pharmacological prophylaxis: heparin Lines/Catheters IV Catheter Type (from Nrsg): permacath Urinary Cath still in place: No Assessment/Plan Hospital Course SUBJECTIVE: Denies any dyspnea. Remains on room air. OBJECTIVE: Physical Exam General: 68 obese, year-old male lying in bed in no apparent distress. HEENT: Normocephalic, atraumatic. Eyes: Anicteric sclerae, conjunctivae clear. ENT: Nasal septum midline, oral mucosa is moist. Neck supple. Respiratory: Bilaterally diminished breath sounds. Minimal use of accessory muscles of respiration. No adventitious breath sounds. Cardiovascular: S1, S2 heard. Regular rate and rhythm. Abdomen: Soft, nontender, and nondistended. Bowel sounds positive in all 4 quadrants. Genitourinary: Deferred. Extremities: No cyanosis, no clubbing. Left foot stump dressing. Right lower extremity edema. Neurologic: Cranial nerves II through XII grossly intact. The patient is awake, alert, and oriented. Skin: Normal skin turgor. No skin rashes. Labs & Vitals per chart ASSESSMENT & PLAN 68-year-old male with past medical history of hypertension, end-stage disease on hemodialysis on /, diabetes mellitus, peripheral vascular disease,and a nemia of chronic disease who was transferred from a [place] [facility] facility because of dyspnea, who was found to have evidence of underlying pulmonary edema with small bilateral pleural effusions and was admitted to inpatient setting for further treatment and evaluation. 1. S/P acute hypoxic respiratory failure. Most probably secondary to underlying pulmonary edema. Continue ultrafiltration. Continue inhaled bronchodilators. 2. Pulmonary edema. Continue ultrafiltration as per nephrology. 3. 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 Left foot MRI negative for any osteomyelitis. Being followed by podiatry. S/P left foot excisional debridement of skin, subcutaneous tissue on 07/28/2018 with concern for osteomyelitis. Resumed ABX as per ID. 4. ESRD on HD on // Continue hemodialysis as per nephrology. 5. Peripheral vascular disease. S/P percutaneous angioplasty of left peroneal artery occlusion on 11/10/2017. Continue ASA. Optimize neurovascular status. 6. Hypertension. Continue antihypertensives. 7. Diabetes mellitus. Hemoglobin A1c 5.4. Continue sliding scale insulin along with basal insulin. 8. Dyslipidemia. Continue statins. 9. Anemia of chronic kidney disease. Continue Epogen. 10. Fluids, electrolytes, and nutrition. Renal diet. 11. DVT prophylaxis. SCDs. 12. Plan. Continue ultrafiltration as per nephrology. Continue ABX as per ID. DC planning is to DC the patient to a SNF on ABX as per ID when arrangements are made. The patient was seen in collaboration with Dr. Farfan. Result Diagram: 07/28/[id number]/18527 Results 24hrs Laboratory Tests Test 07/27/18 13:02 07/27/18 17:22 07/28/18 05:28 07/28/18 08:15 Bedside Glucose 132 147 101 White Blood Count 15.8 H Red Blood Count 3.28 L Hemoglobin 10.9 L Hematocrit 34.6 L Mean Corpuscular 105.5 H Volume Mean Corpuscular 33.2 H Hemoglobin Mean Corpuscular 31.5 L Hemoglobin Concent Red Cell 15.6 H Distribution Width Platelet Count 255 Mean Platelet Volume 10.1 Immature 1.700 H Granulocytes % Neutrophils % 37.0 L Lymphocytes % 12.3 L Monocytes % 47.5 H Eosinophils % 0.9 Basophils % 0.6 Nucleated Red Blood 0.0 Cells % Immature 0.270 H Granulocytes # Neutrophils # 5.9 Lymphocytes # 2.0 Monocytes # 7.5 H Eosinophils # 0.1 Basophils # 0.1 Nucleated Red Blood 0.0 Cells # Sodium Level 140 Potassium Level 4.4 Chloride Level 104 Carbon Dioxide Level 28 Anion Gap 8 Blood Urea Nitrogen 19 Creatinine 4.19 H Est Glomerular 14 L Filtrat Rate mL/min Glucose Level 110 Calcium Level 8.9 Phosphorus Level 3.8 Magnesium Level 2.1 Exam/Review of Systems Exam Vitals Vital Signs Date Temp Pulse Resp B/P (MAP) Pulse Ox O2 O2 Flow FiO2 Time Delivery Rate 07/28/18 97.5 84 17 157/81 96 07:51 (106) 07/27/18 Room Air 17:39 07/26/18 2.0 13:58 Intake and Output 07/27/18 07/27/18 07/28/18 1515:00 23:00 07:00 IntakeIntake Total 370 ml 470 ml 220 ml OutputOutput Total 5 ml 2400 ml BalanceBalance 365 ml -1930 ml 220 ml Results Results 24hrs Laboratory Tests Test 07/27/18 13:02 07/27/18 17:22 07/28/18 05:28 07/28/18 08:15 Bedside Glucose 132 147 101 White Blood Count 15.8 H Red Blood Count 3.28 L Hemoglobin 10.9 L Hematocrit 34.6 L Mean Corpuscular 105.5 H Volume Mean Corpuscular 33.2 H Hemoglobin Mean Corpuscular 31.5 L Hemoglobin Concent Red Cell 15.6 H Distribution Width Platelet Count 255 Mean Platelet Volume 10.1 Immature 1.700 H Granulocytes % Neutrophils % 37.0 L Lymphocytes % 12.3 L Monocytes % 47.5 H Eosinophils % 0.9 Basophils % 0.6 Nucleated Red Blood 0.0 Cells % Immature 0.270 H Granulocytes # Neutrophils # 5.9 Lymphocytes # 2.0 Monocytes # 7.5 H Eosinophils # 0.1 Basophils # 0.1 Nucleated Red Blood 0.0 Cells # Sodium Level 140 Potassium Level 4.4 Chloride Level 104 Carbon Dioxide Level 28 Anion Gap 8 Blood Urea Nitrogen 19 Creatinine 4.19 H Est Glomerular 14 L Filtrat Rate mL/min Glucose Level 110 Calcium Level 8.9 Phosphorus Level 3.8 Magnesium Level 2.1 Medications Medication Current Medications Ondansetron HCl (Zofran Inj) 4 mg Q6H PRN IV NAUSEA AND/OR VOMITING; Start 07/15/18 at 03:00 Albuterol/ Ipratropium (Duoneb) 3 ml Q2H RESP THERAPY PRN NEB SHORTNESS OF BREATH Last administered on 07/17/18at 23:24; Admin Dose 3 ML; Start 07/15/18 at 03:00 Nitroglycerin (Nitroglycerin (Sl Tab) 0.4 Mg) 1 tab Q5M PRN SL CHEST PAIN; Start 07/15/18 at 03:00 Acetaminophen (Tylenol Liquid) 650 mg Q6H PRN PO PAIN LEVEL 1-3 OR FEVER; Start 07/15/18 at 03:00 Morphine Sulfate (morphine) 2 mg Q4H PRN IV PAIN LEVEL 7-10; Start 07/15/18 at 03:00 Aspirin (Halfprin) 81 mg DAILY PO Last administered on 07/28/18at 09:34; Admin Dose 81 MG; Start 07/15/18 at 09:00 Atorvastatin Calcium (Lipitor) 10 mg QHS PO Last administered on 07/26/18at 22:35; Admin Dose 10 MG; Start 07/15/18 at 21:00 Hydralazine HCl (Apresoline) 25 mg TID PO Last administered on 07/28/18at 09:34; Admin Dose 25 MG; Start 07/15/18 at 09:00 Epoetin Yannick-epbx (Retacrit (Non-Esrd)) 10,000 unit MoWeFr@1700 SC Last a dministered on 07/27/18at 17:14; Admin Dose 10,000 UNIT; Start 07/15/18 at 17:00 Miscellaneous Information 1 ea NOTE XX ; Start 07/15/18 at 08:30 Glucose (Glutose) 15 gm Q15M PRN PO DECREASED GLUCOSE; Start 07/15/18 at 08:30 Glucose (Glutose) 22.5 gm Q15M PRN PO DECREASED GLUCOSE; Start 07/15/18 at 08:30 Dextrose (D50w Syringe) 25 ml Q15M PRN IV DECREASED GLUCOSE; Start 07/15/18 at 08:30 Dextrose (D50w Syringe) 50 ml Q15M PRN IV DECREASED GLUCOSE Last administered on 07/16/18at 07:55; Admin Dose 50 ML; Start 07/15/18 at 08:30 Glucagon (Glucagen) 1 mg Q15M PRN IM DECREASED GLUCOSE; Start 07/15/18 at 08:30 Glucose (Glutose) 15 gm Q15M PRN BUCCAL DECREASED GLUCOSE; Start 07/15/18 at 08:30 Heparin Sodium (Porcine) (Heparin (1000 Units/ml)) 3,200 unit AFTER DIALYSIS PRN CATHETER heparin lock Last administered on 07/27/18at 17:18; Admin Dose 3,200 UNIT; Start 07/15/18 at 08:30 Albumin Human 100 ml @ 100 mls/hr DURING DIALYSIS PRN IV to prevent hypotension during ; Start 07/15/18 at 08:30 Diagnostic Test (Pha) (Accu-Chek) 1 ea 02 XX Last administered on 07/24/18at 01:43; Admin Dose 1 EA; Start 07/22/18 at 02:00 Insulin Aspart (Novolog Insulin Pen) NOVOLOG *MILD* ALGORITHM WITH MEALS BE DTIME SC Last administered on 07/27/18 18:05; Admin Dose 1 UNIT; Start 07/22/18 at 08:00 Amlodipine Besylate (Norvasc) 10 mg DAILY PO Last administered on 07/28/18 09:34; Admin Dose 10 MG; Start 07/23/18 at 09:00 Mupirocin (Bactroban) 1 applic BID TOP Last administered on 07/26/18 22:36; Admin Dose 1 APPLIC; Start 07/22/18 at 21:00 Hydralazine HCl (Apresoline) 10 mg Q4H PRN IV ELEVATED BLOOD PRESSURE Last administered on 07/27/18 06:50; Admin Dose 10 MG; Start 07/22/18 at 20:00 Clonidine HCl (Catapres-Tts 2 Patch) 1 patch Q7D TRANSDERM ; Start 07/23/18 at 11:00 Lactobacillus Acidophilus/ Rhamnosus (Culturelle) 1 cap BID PO Last administered on 07/28/18 09:34; Admin Dose 1 CAP; Start 07/23/18 at 21:00 Famotidine (Pepcid) 20 mg HS PO Last administered on 07/26/18 22:33; Admin Dose 20 MG; Start 07/23/18 at 21:00 Sodium Hypochlorite (Dakins Diluted (1/40)) 1 applic BID TP Last administered on 07/26/18 22:37; Admin Dose 1 APPLIC; Start 07/24/18 at 13:30 Sodium Chloride 1,000 ml @ 20 mls/hr Q24H IV Last administered on 07/27/18 09:35; Admin Dose 20 MLS/HR; Start 07/27/18 at 07:30 Vancomycin HCl (Vanco Iv Per Pharmacy) VANCOMYCIN PER PHARMACY PER PROTOCOL XX ; Start 07/28/18 at 08:30 Piperacillin Sod/ Tazobactam Sod 50 ml @ 100 mls/hr Q8 IVPB ; Start 07/28/18 at 14:00 DONOVAN TRAVIS NP Jul 28, 2018 10:09
[2018-07-28] MEDS ORDERED: VANCOMYCIN HCL 2 GM in SOD CHLORIDE 0.9% 500 ML IVPB ONE (12:00)
[2018-07-28 14:26] VITALS: BP 138/72; PULSE 81; RESP 18
--- NOTE | 2018-07-28 15:17 | CONS ---
Assessment/Plan Assessment/Plan Assessment/Plan (Daily) 1. acute hypoxic respiratory failure requiring BIPAP 2. Anemia of ESRD s/p PRBC transfusion during this admission 3. ESRD on HD MWF Schedule 4. L foot diabetic ulcer s/p previous Transmetatarsal amputation- s/p vascular surgery consultatin during this admission 5. h/O DM II 6. h/o HTN Plan: s/p HD yesterday 2 L removed, , will continue HD MWF Amlodipine 10mg po daily, hydralazine 25 mg pO TID, IV hydralazine prn for BP control IV abx as per ID, Renally dose all abx and monitor electrolytes s/p Vascular surgery evaluation for LE wounds - plan for OR today Will follow up Patient seen in collaboration with Dr Fidencio Barber. dw staff Consultation Date/Type/Reason Admit Date/Time July 15, 2018 at 00:58 Initial Consult Date 07/15/18 Type of Consult NEPHROLOGY Reason for Consultation ESRD Date/Time of Note DATE: 07/28/18 TIME: 15:16 24 HR Interval Summary Free Text/Dictation NAD afebrile seems comfortable in bed HD dw staff Detailed Summary Eyes: no complaints ENT: no complaints Respiratory: no complaints Cardiovascular: no complaints Gastrointestinal: no complaints Genitourinary: no complaints Musculoskeletal: no complaints Skin: no complaints Neurologic: no complaints Endocrine: no complaints Lymphatic: no complaints Psychological: nl mood/affect Exam/Review of Systems Exam Vitals Vital Signs Date Temp Pulse Resp B/P (MAP) Pulse Ox O2 O2 Flow FiO2 Time Delivery Rate 07/28/18 97.6 81 18 138/72 98 14:26 (94) 07/27/18 Room Air 17:39 07/26/18 2.0 13:58 Intake and Output 07/27/18 07/27/18 07/28/18 1515:00 23:00 07:00 IntakeIntake Total 370 ml 470 ml 220 ml OutputOutput Total 5 ml 2400 ml BalanceBalance 365 ml -1930 ml 220 ml Constitutional: alert, well developed Psych: nl mood/affect Head: normocephalic Eyes: nl lids, nl sclera ENMT: nl external ears & nose Neck: non-tender Respiratory: clear to auscultation Cardiovascular: nl pulses, other (s1s2) Gastrointestinal: soft, non-tender Musculoskeletal: muscle weakness Extremities: normal pulses Neurological: nl speech, other (alert,repsonsive) Lymph: nontender Results Result Diagram: 07/28/18 0528 07/28/18 0528 Results 24hrs Laboratory Tests Test 07/27/18 17:22 07/28/18 05:28 07/28/18 08:15 07/28/18 12:57 Bedside Glucose 147 101 133 White Blood Count 15.8 H Red Blood Count 3.28 L Hemoglobin 10.9 L Hematocrit 34.6 L Mean Corpuscular 105.5 H Volume Mean Corpuscular 33.2 H Hemoglobin Mean Corpuscular 31.5 L Hemoglobin Concent Red Cell 15.6 H Distribution Width Platelet Count 255 Mean Platelet Volume 10.1 Immature 1.700 H Granulocytes % Neutrophils % 37.0 L Lymphocytes % 12.3 L Monocytes % 47.5 H Eosinophils % 0.9 Basophils % 0.6 Nucleated Red Blood 0.0 Cells % Immature 0.270 H Granulocytes # Neutrophils # 5.9 Lymphocytes # 2.0 Monocytes # 7.5 H Eosinophils # 0.1 Basophils # 0.1 Nucleated Red Blood 0.0 Cells # Sodium Level 140 Potassium Level 4.4 Chloride Level 104 Carbon Dioxide Level 28 Anion Gap 8 Blood Urea Nitrogen 19 Creatinine 4.19 H Est Glomerular 14 L Filtrat Rate mL/min Glucose Level 110 Calcium Level 8.9 Phosphorus Level 3.8 Magnesium Level 2.1 Medications Medication Current Medications Ondansetron HCl (Zofran Inj) 4 mg Q6H PRN IV NAUSEA AND/OR VOMITING; Start at 03:00 Albuterol/ Ipratropium (Duoneb) 3 ml Q2H RESP THERAPY PRN NEB SHORTNESS OF BREATH Last administered on 07/17/18at 23:24; Admin Dose 3 ML; Start 07/15/18 at 03:00 Nitroglycerin (Nitroglycerin (Sl Tab) 0.4 Mg) 1 tab Q5M PRN SL CHEST PAIN; Start 07/15/18 at 03:00 Acetaminophen (Tylenol Liquid) 650 mg Q6H PRN PO PAIN LEVEL 1-3 OR FEVER; Start 07/15/18 at 03:00 Morphine Sulfate (morphine) 2 mg Q4H PRN IV PAIN LEVEL 7-10; Start 07/15/18 at 03:00 Aspirin (Halfprin) 81 mg DAILY PO Last administered on 07/28/18at 09:34; Admin Dose 81 MG; Start 07/15/18 at 09:00 Atorvastatin Calcium (Lipitor) 10 mg QHS PO Last administered on 07/26/18at 22:35; Admin Dose 10 MG; Start 07/15/18 at 21:00 Hydralazine HCl (Apresoline) 25 mg TID PO Last administered on 07/28/18at 13:05; Admin Dose 25 MG; Start 07/15/18 at 09:00 Epoetin Yannick-epbx (Retacrit (Non-Esrd)) 10,000 unit MoWeFr@1700 SC Last ad ministered on 07/27/18at 17:14; Admin Dose 10,000 UNIT; Start 07/15/18 at 17:00 Miscellaneous Information 1 ea NOTE XX ; Start 07/15/18 at 08:30 Glucose (Glutose) 15 gm Q15M PRN PO DECREASED GLUCOSE; Start 07/15/18 at 08:30 Glucose (Glutose) 22.5 gm Q15M PRN PO DECREASED GLUCOSE; Start 07/15/18 at 08:30 Dextrose (D50w Syringe) 25 ml Q15M PRN IV DECREASED GLUCOSE; Start 07/15/18 at 08:30 Dextrose (D50w Syringe) 50 ml Q15M PRN IV DECREASED GLUCOSE Last administered on 07/16/18at 07:55; Admin Dose 50 ML; Start 07/15/18 at 08:30 Glucagon (Glucagen) 1 mg Q15M PRN IM DECREASED GLUCOSE; Start 07/15/18 at 08:30 Glucose (Glutose) 15 gm Q15M PRN BUCCAL DECREASED GLUCOSE; Start 07/15/18 at 08:30 Heparin Sodium (Porcine) (Heparin (1000 Units/ml)) 3,200 unit AFTER DIALYSIS PRN CATHETER heparin lock Last administered on 07/27/18at 17:18; Admin Dose 3,200 UNIT; Start 07/15/18 at 08:30 Albumin Human 100 ml @ 100 mls/hr DURING DIALYSIS PRN IV to prevent hypotension during ; Start 07/15/18 at 08:30 Diagnostic Test (Pha) (Accu-Chek) 1 ea 02 XX Last administered on 07/24/18at 01:43; Admin Dose 1 EA; Start 07/22/18 at 02:00 Insulin Aspart (Novolog Insulin Pen) NOVOLOG *MILD* ALGORITHM WITH MEALS BED TIME SC Last administered on 07/27/18 18:05; Admin Dose 1 UNIT; Start 07/22/18 at 08:00 Amlodipine Besylate (Norvasc) 10 mg DAILY PO Last administered on 07/28/18 09:34; Admin Dose 10 MG; Start 07/23/18 at 09:00 Mupirocin (Bactroban) 1 applic BID TOP Last administered on 07/26/18 22:36; Admin Dose 1 APPLIC; Start 07/22/18 at 21:00 Hydralazine HCl (Apresoline) 10 mg Q4H PRN IV ELEVATED BLOOD PRESSURE Last administered on 07/27/18 06:50; Admin Dose 10 MG; Start 07/22/18 at 20:00 Clonidine HCl (Catapres-Tts 2 Patch) 1 patch Q7D TRANSDERM ; Start 07/23/18 at 11:00 Lactobacillus Acidophilus/ Rhamnosus (Culturelle) 1 cap BID PO Last administered on 07/28/18 09:34; Admin Dose 1 CAP; Start 07/23/18 at 21:00 Famotidine (Pepcid) 20 mg HS PO Last administered on 07/26/18 22:33; Admin Dose 20 MG; Start 07/23/18 at 21:00 Sodium Hypochlorite (Dakins Diluted (40)) 1 applic BID TP Last administered on 07/26/18 22:37; Admin Dose 1 APPLIC; Start 07/24/18 at 13:30 Sodium Chloride 1,000 ml @ 20 mls/hr Q24H IV Last administered on 07/27/18 09:35; Admin Dose 20 MLS/HR; Start 07/27/18 at 07:30 Vancomycin HCl (Vanco Iv Per Pharmacy) VANCOMYCIN PER PHARMACY PER PROTOCOL XX ; Start 07/28/18 at 08:30 Piperacillin Sod/ Tazobactam Sod 50 ml @ 100 mls/hr Q8 IVPB ; Start 07/28/18 at 14:00 Heparin Sodium (Porcine) (Heparin (5000 Units/1ml)) 5,000 unit BID SC ; Start 07/28/18 at 21:00 Vancomycin HCl 2 gm/Sodium Chloride 500 ml @ 125 mls/hr ONCE ONCE IVPB Last administered on 07/28/18 12:53; Admin Dose 125 MLS/HR; Start 07/28/18 at 12:00; Stop 07/28/18 at 15:59 GEOVANNA PRINCE Jul 28, 2018 15:17
[2018-07-28] MEDS: PIPER-TAZO 2.25 GM (PMX) 50 ML IVPB SCH ×2 (15:33→21:10)
[2018-07-28 20:00] VITALS: BP 153/74; PULSE 81; RESP 17
[2018-07-28] MEDS: ATORVASTATIN 10 MG TAB PO SCH (21:02)
[2018-07-28] MEDS: FAMOTIDINE 20 MG TAB PO SCH (21:02)
[2018-07-28] MEDS: HEPARIN 5,000 UNIT/1 ML VIAL SC SCH (21:08)
[2018-07-29] VITALS (19 sets, daily range): BP systolic 109–163; BP diastolic 70–84; PULSE 79–96; RESP 18–20
[2018-07-29] MEDS: ACCU-CHEK XX SCH (02:00)
[2018-07-29] MEDS: hydrALAzine 20 MG INJ IV PRN (02:01)
--- NOTE | 2018-07-29 05:03 | CONS ---
Assessment/Plan Assessment/Plan Assessment/Plan (Daily) 1. acute hypoxic respiratory failure requiring BIPAP 2. Anemia of ESRD s/p PRBC transfusion during this admission 3. ESRD on HD MWF Schedule 4. L foot diabetic ulcer s/p previous Transmetatarsal amputation- s/p vascular surgery consultatin during this admission 5. h/O DM II 6. h/o HTN Plan: HD today and Sat, will continue HD MWF Amlodipine 10mg po daily, hydralazine 25 mg pO TID, IV hydralazine prn for BP control IV abx as per ID, Renally dose all abx and monitor electrolytes s/p Vascular surgery evaluation for LE wounds - plan for OR today Will follow up Consultation Date/Type/Reason Admit Date/Time July 15, 2018 at 00:58 Initial Consult Date 07/15/18 Type of Consult NEPHROLOGY Reason for Consultation ESRD ON HD Date/Time of Note DATE: 07/29/18 TIME: 05:01 24 HR Interval Summary Free Text/Dictation NAD Feels better no events reported last night dw staff Detailed Summary Eyes: no complaints ENT: no complaints Respiratory: no complaints Cardiovascular: no complaints Gastrointestinal: no complaints Genitourinary: no complaints Musculoskeletal: no complaints Neurologic: no complaints Endocrine: no complaints Exam/Review of Systems Exam Vitals Vital Signs Date Temp Pulse Resp B/P (MAP) Pulse Ox O2 O2 Flow FiO2 Time Delivery Rate 07/29/18 146/75 04:02 (98) 07/29/18 97.9 84 19 95 01:44 07/27/18 Room Air 17:39 07/26/18 2.0 13:58 Intake and Output 07/28/18 07/28/18 07/29/18 1515:00 23:00 07:00 IntakeIntake Total 1420 ml BalanceBalance 1420 ml Constitutional: alert, well developed Psych: nl mood/affect Head: normocephalic Eyes: nl lids, nl sclera ENMT: nl external ears & nose Neck: non-tender Respiratory: clear to auscultation Cardiovascular: nl pulses, other (s1s2) Gastrointestinal: soft, non-tender Musculoskeletal: muscle weakness Extremities: normal pulses Neurological: nl speech, other (alert/reponsive) Lymph: nontender Results Result Diagram: 6/13/19 0528 6/13/19 0528 Results 24hrs Laboratory Tests Test 07/28/18 05:28 07/28/18 08:15 07/28/18 12:57 07/28/18 17:46 White Blood Count 15.8 H Red Blood Count 3.28 L Hemoglobin 10.9 L Hematocrit 34.6 L Mean Corpuscular 105.5 H Volume Mean Corpuscular 33.2 H Hemoglobin Mean Corpuscular 31.5 L Hemoglobin Concent Red Cell 15.6 H Distribution Width Platelet Count 255 Mean Platelet Volume 10.1 Immature 1.700 H Granulocytes % Neutrophils % 37.0 L Lymphocytes % 12.3 L Monocytes % 47.5 H Eosinophils % 0.9 Basophils % 0.6 Nucleated Red Blood 0.0 Cells % Immature 0.270 H Granulocytes # Neutrophils # 5.9 Lymphocytes # 2.0 Monocytes # 7.5 H Eosinophils # 0.1 Basophils # 0.1 Nucleated Red Blood 0.0 Cells # Sodium Level 140 Potassium Level 4.4 Chloride Level 104 Carbon Dioxide Level 28 Anion Gap 8 Blood Urea Nitrogen 19 Creatinine 4.19 H Est Glomerular 14 L Filtrat Rate mL/min Glucose Level 110 Calcium Level 8.9 Phosphorus Level 3.8 Magnesium Level 2.1 Bedside Glucose 101 133 123 Test 07/28/18 21:02 Bedside Glucose 109 Medications Medication Current Medications Ondansetron HCl (Zofran Inj) 4 mg Q6H PRN IV NAUSEA AND/OR VOMITING; Start 07/15/18 at 03:00 Albuterol/ Ipratropium (Duoneb) 3 ml Q2H RESP THERAPY PRN NEB SHORTNESS OF BREATH Last administered on 07/17/18at 23:24; Admin Dose 3 ML; Start 07/15/18 at 03:00 Nitroglycerin (Nitroglycerin (Sl Tab) 0.4 Mg) 1 tab Q5M PRN SL CHEST PAIN; Start 07/15/18 at 03:00 Acetaminophen (Tylenol Liquid) 650 mg Q6H PRN PO PAIN LEVEL 1-3 OR FEVER; Start 07/15/18 at 03:00 Morphine Sulfate (morphine) 2 mg Q4H PRN IV PAIN LEVEL 7-10; Start 07/15/18 at 03:00 Aspirin (Halfprin) 81 mg DAILY PO Last administered on 07/28/18at 09:34; Admin Dose 81 MG; Start 07/15/18 at 09:00 Atorvastatin Calcium (Lipitor) 10 mg QHS PO Last administered on 07/28/18 21:02; Admin Dose 10 MG; Start 07/15/18 at 21:00 Hydralazine HCl (Apresoline) 25 mg TID PO Last administered on 07/28/18at 21:04; Admin Dose 25 MG; Start 07/15/18 at 09:00 Epoetin Yannick-epbx (Retacrit (Non-Esrd)) 10,000 unit MoWeFr@1700 SC Last administered on 07/27/18at 17:14; Admin Dose 10,000 UNIT; Start 07/15/18 at 17:00 Miscellaneous Information 1 ea NOTE XX ; Start 07/15/18 at 08:30 Glucose (Glutose) 15 gm Q15M PRN PO DECREASED GLUCOSE; Start 07/15/18 at 08:30 Glucose (Glutose) 22.5 gm Q15M PRN PO DECREASED GLUCOSE; Start 07/15/18 at 08:30 Dextrose (D50w Syringe) 25 ml Q15M PRN IV DECREASED GLUCOSE; Start 07/15/18 at 08:30 Dextrose (D50w Syringe) 50 ml Q15M PRN IV DECREASED GLUCOSE Last administered on 07/16/18at 07:55; Admin Dose 50 ML; Start 07/15/18 at 08:30 Glucagon (Glucagen) 1 mg Q15M PRN IM DECREASED GLUCOSE; Start 07/15/18 at 08:30 Glucose (Glutose) 15 gm Q15M PRN BUCCAL DECREASED GLUCOSE; Start 07/15/18 at 08:30 Heparin Sodium (Porcine) (Heparin (1000 Units/ml)) 3,200 unit AFTER DIALYSIS P RN CATHETER heparin lock Last administered on 07/27/18at 17:18; Admin Dose 3,200 UNIT; Start 07/15/18 at 08:30 Albumin Human 100 ml @ 100 mls/hr DURING DIALYSIS PRN IV to prevent hypotension during ; Start 07/15/18 at 08:30 Diagnostic Test (Pha) (Accu-Chek) 1 ea 02 XX Last administered on 07/24/18at 01:43; Admin Dose 1 EA; Start 07/22/18 at 02:00 Insulin Aspart (Novolog Insulin Pen) NOVOLOG *MILD* ALGORITHM WITH MEALS BEDTIME SC Last administered on 07/27/18at 18:05; Admin Dose 1 UNIT; Start 07/22 at 08:00 Amlodipine Besylate (Norvasc) 10 mg DAILY PO Last administered on 07/28/18 09:34; Admin Dose 10 MG; Start 07/23/18 at 09:00 Mupirocin (Bactroban) 1 applic BID TOP Last administered on 07/26/18 22:36; Admin Dose 1 APPLIC; Start 07/22/18 at 21:00 Hydralazine HCl (Apresoline) 10 mg Q4H PRN IV ELEVATED BLOOD PRESSURE Last administered on 07/29/18 02:01; Admin Dose 10 MG; Start 07/22/18 at 20:00 Clonidine HCl (Catapres-Tts 2 Patch) 1 patch Q7D TRANSDERM ; Start 07/23/18 at 11:00 Lactobacillus Acidophilus/ Rhamnosus (Culturelle) 1 cap BID PO Last administered on 07/28/18 21:02; Admin Dose 1 CAP; Start 07/23/18 at 21:00 Famotidine (Pepcid) 20 mg HS PO Last administered on 07/28/18 21:02; Admin Dose 20 MG; Start 07/23/18 at 21:00 Sodium Hypochlorite (Dakins Diluted (1/40)) 1 applic BID TP Last administered on 07/26/18 22:37; Admin Dose 1 APPLIC; Start 07/24/18 at 13:30 Sodium Chloride 1,000 ml @ 20 mls/hr Q24H IV Last administered on 07/27/18 09:35; Admin Dose 20 MLS/HR; Start 07/27/18 at 07:30 Vancomycin HCl (Vanco Iv Per Pharmacy) VANCOMYCIN PER PHARMACY PER PROTOCOL XX ; Start 07/28/18 at 08:30 Piperacillin Sod/ Tazobactam Sod 50 ml @ 100 mls/hr Q8 IVPB Last administered on 07/28/18 21:10; Admin Dose 100 MLS/HR; Start 07/28/18 at 14:00 Heparin Sodium (Porcine) (Heparin (5000 Units/1ml)) 5,000 unit BID SC Last administered on 07/28/18 21:08; Admin Dose 5,000 UNIT; Start 07/28/18 at 21:00 GEOVANNA PRINCE Jul 29, 2018 05:03
[2018-07-29] MEDS: PIPER-TAZO 2.25 GM (PMX) 50 ML IVPB SCH ×3 (05:36→22:30)
--- NOTE | 2018-07-29 07:19 | CONS ---
Assessment/Plan Assessment/Plan Hospital Course (Demo Recall) 1) CHF, likely due to delayed dialysis breathing has improved, doubt he has pneumonia but will check procalcitonin 07/16 - procalcitonin for people in ESRD is within normal limties no good evidence for pneumonia 2) L foot ulcers will review the [facility] records and see if cx were done and what if any antibiotics he received continue with vanco/zosyn at present get wound cx here ESR is very high, if work-up for osteo and arterial studies weren't done we may need to do these here 07/16 - this is not new and pt has been advised that he likely needs BKA but he has refused 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 and was suppose to be getting IV vanco with dialysis d/c zosyn but continue with vanco at present will order arterial dopplers to see if flow is adequate at this time 07/18 - arterial dopplers show bilateral LE issues with arterial flow high ESR is c/w current osteo continue with vanco, d/c zosyn and add rifampin for better MRSA coverage recommend vascular surgery consult 07/20 - no vascular intervention planned local debridement today by report and to follow cultures if obtained continue with vanco/rifampin for 6 week course 07/22 - rising WBC without a clear cause to get pic of foot and repeat cx from heel and stump site on L foot get procalcitonin and CBC in a.m., consider broadening coverage (i.e. zosyn) get u/a and urine cx 07/25 - surface wound cx only had c.alb pt has been off IV antibiotics since 07/16, will hold off on antibiotics till debridement with bone cx is done then will re-start vanco/zosyn 07/27 - pt getting L foot debridement today wound cx order placed await op record description and if signs of infection seen will re-start vanco/zosyn 07/28 - debridement done and cx and path are pending op note suggest there may be bone infection (bone was soft) start vanco/zosyn 07/29 - bone cx is still NGTD on vanco/zosyn if culture remains neg to change antibiotic to oral doxycyline for 10 days 3) DM 4) HTN 5) ESRD Consultation Date/Type/Reason Admit Date/Time July 15, 2018 at 00:58 Initial Consult Date 07/15/18 Type of Consult ID Date/Time of Note DATE: 07/29/18 TIME: 07:17 24 HR Interval Summary Free Text/Dictation pt denies foot pain no N, V, D breathing is ok Exam/Review of Systems Exam Vitals Vital Signs Date Temp Pulse Resp B/P (MAP) Pulse Ox O2 O2 Flow FiO2 Time Delivery Rate 07/29/18 146/75 04:02 (98) 07/29/18 97.9 84 19 95 01:44 07/27/18 Room Air 17:39 07/26/18 2.0 13:58 Intake and Output 07/28/18 07/28/18 07/29/18 1515:00 23:00 07:00 IntakeIntake Total 1420 ml 270 ml BalanceBalance 1420 ml 270 ml Respiratory: clear to auscultation Cardiovascular: regular rate and rhythm Gastrointestinal: soft, non-tender Extremities: other (L foot is bandaged) Results Result Diagram: 07/29/18 0551 07/29/18 0551 Results 24hrs Laboratory Tests Test 07/28/18 08:15 07/28/18 12:57 07/28/18 17:46 07/28/18 21:02 Bedside Glucose 101 133 123 109 Test 07/29/18 05:51 White Blood Count 16.0 H Red Blood Count 3.07 L Hemoglobin 10.3 L Hematocrit 31.9 L Mean Corpuscular 103.9 H Volume Mean Corpuscular 33.6 H Hemoglobin Mean Corpuscular 32.3 Hemoglobin Concent Red Cell 15.2 H Distribution Width Platelet Count 220 Mean Platelet Volume 9.9 Immature 1.400 H Granulocytes % Neutrophils % 34.7 L Lymphocytes % 7.5 L Monocytes % 54.8 H Eosinophils % 1.0 Basophils % 0.6 Nucleated Red Blood 0.0 Cells % Immature 0.230 H Granulocytes # Neutrophils # 5.6 Lymphocytes # 1.2 Monocytes # 8.8 H Eosinophils # 0.2 Basophils # 0.1 Nucleated Red Blood 0.0 Cells # Sodium Level 139 Potassium Level 4.3 Chloride Level 104 Carbon Dioxide Level 22 Anion Gap 13 Blood Urea Nitrogen 31 #H Creatinine 5.55 H Est Glomerular 10 L Filtrat Rate mL/min Glucose Level 95 Calcium Level 8.8 Phosphorus Level 4.4 Magnesium Level 2.0 Medications Medication Current Medications Ondansetron HCl (Zofran Inj) 4 mg Q6H PRN IV NAUSEA AND/OR VOMITING; Start 07/15/18 at 03:00 Albuterol/ Ipratropium (Duoneb) 3 ml Q2H RESP THERAPY PRN NEB SHORTNESS OF BREATH Last administered on 07/17/18 23:24; Admin Dose 3 ML; Start 07/15/18 at 03:00 Nitroglycerin (Nitroglycerin (Sl Tab) 0.4 Mg) 1 tab Q5M PRN SL CHEST PAIN; Start 07/15/18 at 03:00 Acetaminophen (Tylenol Liquid) 650 mg Q6H PRN PO PAIN LEVEL 1-3 OR FEVER; Start 07/15/18 at 03:00 Morphine Sulfate (morphine) 2 mg Q4H PRN IV PAIN LEVEL 7-10; Start 07/15/18 at 03:00 Aspirin (Halfprin) 81 mg DAILY PO Last administered on 07/28/18at 09:34; Admin Dose 81 MG; Start 07/15/18 at 09:00 Atorvastatin Calcium (Lipitor) 10 mg QHS PO Last administered on 07/28/18 21:02; Admin Dose 10 MG; Start 07/15/18 at 21:00 Hydralazine HCl (Apresoline) 25 mg TID PO Last administered on 07/28/18at 21:04; Admin Dose 25 MG; Start 07/15/18 at 09:00 Epoetin Yannick-epbx (Retacrit (Non-Esrd)) 10,000 unit MoWeFr@1700 SC Last administered on 07/27/18at 17:14; Admin Dose 10,000 UNIT; Start 07/15/18 at 17:00 Miscellaneous Information 1 ea NOTE XX ; Start 07/15/18 at 08:30 Glucose (Glutose) 15 gm Q15M PRN PO DECREASED GLUCOSE; Start 07/15/18 at 08:30 Glucose (Glutose) 22.5 gm Q15M PRN PO DECREASED GLUCOSE; Start 07/15/18 at 08:30 Dextrose (D50w Syringe) 25 ml Q15M PRN IV DECREASED GLUCOSE; Start 07/15/18 at 08:30 Dextrose (D50w Syringe) 50 ml Q15M PRN IV DECREASED GLUCOSE Last administered on 07/16/18 07:55; Admin Dose 50 ML; Start 07/15/18 at 08:30 Glucagon (Glucagen) 1 mg Q15M PRN IM DECREASED GLUCOSE; Start 07/15/18 at 08:30 Glucose (Glutose) 15 gm Q15M PRN BUCCAL DECREASED GLUCOSE; Start 07/15/18 at 08:30 Heparin Sodium (Porcine) (Heparin (1000 Units/ml)) 3,200 unit AFTER DIALYSIS PRN CATHETER heparin lock Last administered on 07/27/18 17:18; Admin Dose 3,200 UNIT; Start 07/15/18 at 08:30 Albumin Human 100 ml @ 100 mls/hr DURING DIALYSIS PRN IV to prevent hypotension during ; Start 07/15/18 at 08:30 Diagnostic Test (Pha) (Accu-Chek) 1 ea 02 XX Last administered on 07/24/18 01:43; Admin Dose 1 EA; Start 07/22/18 at 02:00 Insulin Aspart (Novolog Insulin Pen) NOVOLOG *MILD* ALGORITHM WITH MEALS BEDTIME SC Last administered on 07/27/18 18:05; Admin Dose 1 UNIT; Start 07/22/18 at 08:00 Amlodipine Besylate (Norvasc) 10 mg DAILY PO Last administered on 07/28/18 09:34; Admin Dose 10 MG; Start 07/23/18 at 09:00 Mupirocin (Bactroban) 1 applic BID TOP Last administered on 07/26/18 22:36; Admin Dose 1 APPLIC; Start 07/22/18 at 21:00 Hydralazine HCl (Apresoline) 10 mg Q4H PRN IV ELEVATED BLOOD PRESSURE Last ad ministered on 07/29/18 02:01; Admin Dose 10 MG; Start 07/22/18 at 20:00 Clonidine HCl (Catapres-Tts 2 Patch) 1 patch Q7D TRANSDERM ; Start 07/23/18 at 11:00 Lactobacillus Acidophilus/ Rhamnosus (Culturelle) 1 cap BID PO Last administered on 07/28/18 21:02; Admin Dose 1 CAP; Start 07/23/18 at 21:00 Famotidine (Pepcid) 20 mg HS PO Last administered on 07/28/18 21:02; Admin Dose 20 MG; Start 07/23/18 at 21:00 Sodium Hypochlorite (Dakins Diluted (40)) 1 applic BID TP Last administered on 07/26/18at 22:37; Admin Dose 1 APPLIC; Start 07/24/18 at 13:30 Sodium Chloride 1,000 ml @ 20 mls/hr Q24H IV Last administered on 07/27/18at 09:35; Admin Dose 20 MLS/HR; Start 07/27/18 at 07:30 Vancomycin HCl (Vanco Iv Per Pharmacy) VANCOMYCIN PER PHARMACY PER PROTOCOL XX ; Start 07/28/18 at 08:30 Piperacillin Sod/ Tazobactam Sod 50 ml @ 100 mls/hr Q8 IVPB Last administered on 07/29/18 05:36; Admin Dose 100 MLS/HR; Start 07/28/18 at 14:00 Heparin Sodium (Porcine) (Heparin (5000 Units/1ml)) 5,000 unit BID SC Last administered on 07/28/18at 21:08; Admin Dose 5,000 UNIT; Start 07/28/18 at 21:00 BRANDIN ROCA MD Jul 29, 2018 07:19
[2018-07-29] MEDS: SOD CHLORIDE 0.9% 1,000 ML IV SCH (07:30)
[2018-07-29] MEDS: INSULIN ASPART [NOVOLOG] 3 ML PEN SC SCH ×4 (08:00→20:48)
[2018-07-29] MEDS: ASPIRIN (EC) 81 MG TAB PO SCH (08:17)
[2018-07-29] MEDS: LACTOBACILLUS RHAMNOSUS CAP PO SCH (08:17)
[2018-07-29] MEDS: HEPARIN 5,000 UNIT/1 ML VIAL SC SCH ×2 (08:18→20:56)
[2018-07-29] MEDS: DAKINS 0.0125%(1/40) 473 ML SOLUTION TP SCH (08:22)
[2018-07-29] MEDS: MUPIROCIN 2% 22 GM OINT TOP SCH ×2 (08:22→20:48)
[2018-07-29] MEDS: AMLODIPINE 10 MG TAB PO SCH (08:22)
--- NOTE | 2018-07-29 09:04 | PN ---
Date/Time of Note Date/Time of Note DATE: 07/29/18 TIME: 09:02 Assessment/Plan VTE Prophylaxis Risk score (from Nsg)>0 risk: 5 SCD applied (from Nsg): Yes Pharmacological prophylaxis: heparin Lines/Catheters IV Catheter Type (from Nrsg): permacath Urinary Cath still in place: No Assessment/Plan Hospital Course SUBJECTIVE: Denies any dyspnea. Remains on room air. OBJECTIVE: Physical Exam General: 68 obese, year-old male lying in bed in no apparent distress. HEENT: Normocephalic, atraumatic. Eyes: Anicteric sclerae, conjunctivae clear. ENT: Nasal septum midline, oral mucosa is moist. Neck supple. Respiratory: Bilaterally diminished breath sounds. No use of accessory muscles of respiration. No adventitious breath sounds. Cardiovascular: S1, S2 heard. Regular rate and rhythm. Abdomen: Soft, nontender, and nondistended. Bowel sounds positive in all 4 arlette drants. Genitourinary: Deferred. Extremities: No cyanosis, no clubbing. Left foot stump dressing. Right lower extremity edema. Left AC cystic lesion that is closed, non-tender to palpation. Neurologic: Cranial nerves II through XII grossly intact. The patient is awake, alert, and oriented. Skin: Normal skin turgor. No skin rashes. Labs & Vitals per chart ASSESSMENT & PLAN 68-year-old male with past medical history of hypertension, end-stage disease on hemodialysis on , diabetes mellitus, peripheral vascular disease,and anemia of chronic disease who was transferred from a [facility] facility because of dyspnea, who was found to have evidence of underlying pulmonary edema with small bilateral pleural effusions and was admitted to inpatient setting for further treatment and evaluation. 1. S/P acute hypoxic respiratory failure. Most probably secondary to underlying pulmonary edema. Continue ultrafiltration. Continue inhaled bronchodilators. 2. Pulmonary edema. Continue ultrafiltration as per nephrology. 3. 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 Left foot MRI negative for any osteomyelitis. Being followed by podiatry. S/P left foot excisional debridement of skin, subcutaneous tissue on 07/28/2018 with concern for osteomyelitis. Resumed ABX as per ID. 4. ESRD on HD on // Continue hemodialysis as per nephrology. 5. Peripheral vascular disease. S/P percutaneous angioplasty of left peroneal artery occlusion on 11/10/2017. Continue ASA. Optimize neurovascular status. 6. Hypertension. Continue antihypertensives. 7. Diabetes mellitus. Hemoglobin A1c 5.4. Continue sliding scale insulin along with basal insulin. 8. Dyslipidemia. Continue statins. 9. Anemia of chronic kidney disease. Continue Epogen. 10. Fluids, electrolytes, and nutrition. Renal diet. 11. DVT prophylaxis. Subcutaneous heparin. 12. Plan. Continue ultrafiltration as per nephrology. Continue ABX as per ID. DC planning is to DC the patient to a SNF on ABX as per ID after finalization of antibiotics. The patient was seen in collaboration with Dr. Farfan. Result Diagram: 07/29/18 0551 07/29/18 0551 Results 24hrs Laboratory Tests Test 07/28/18 12:57 07/28/18 17:46 07/28/18 21:02 07/29/18 05:51 Bedside Glucose 133 123 109 White Blood Count 16.0 H Red Blood Count 3.07 L Hemoglobin 10.3 L Hematocrit 31.9 L Mean Corpuscular 103.9 H Volume Mean Corpuscular 33.6 H Hemoglobin Mean Corpuscular 32.3 Hemoglobin Concent Red Cell 15.2 H Distribution Width Platelet Count 220 Mean Platelet Volume 9.9 Immature 1.400 H Granulocytes % Neutrophils % 34.7 L Lymphocytes % 7.5 L Monocytes % 54.8 H Eosinophils % 1.0 Basophils % 0.6 Nucleated Red Blood 0.0 Cells % Immature 0.230 H Granulocytes # Neutrophils # 5.6 Lymphocytes # 1.2 Monocytes # 8.8 H Eosinophils # 0.2 Basophils # 0.1 Nucleated Red Blood 0.0 Cells # Erythrocyte 63 H Sedimentation Rate Sodium Level 139 Potassium Level 4.3 Chloride Level 104 Carbon Dioxide Level 22 Anion Gap 13 Blood Urea Nitrogen 31 #H Creatinine 5.55 H Est Glomerular 10 L Filtrat Rate mL/min Glucose Level 95 Calcium Level 8.8 Phosphorus Level 4.4 Magnesium Level 2.0 Test 07/29/18 08:15 Bedside Glucose 95 Exam/Review of Systems Exam Vitals Vital Signs Date Temp Pulse Resp B/P (MAP) Pulse Ox O2 O2 Flow FiO2 Time Delivery Rate 07/29/18 97.9 96 20 137/72 96 07:38 (93) 07/27/18 Room Air 17:39 07/26/18 2.0 13:58 Intake and Output 07/28/18 07/28/18 07/29/18 1515:00 23:00 07:00 IntakeIntake Total 1420 ml 270 ml BalanceBalance 1420 ml 270 ml Results Results 24hrs Laboratory Tests Test 07/28/18 12:57 07/28/18 17:46 07/28/18 21:02 07/29/18 05:51 Bedside Glucose 133 123 109 White Blood Count 16.0 H Red Blood Count 3.07 L Hemoglobin 10.3 L Hematocrit 31.9 L Mean Corpuscular 103.9 H Volume Mean Corpuscular 33.6 H Hemoglobin Mean Corpuscular 32.3 Hemoglobin Concent Red Cell 15.2 H Distribution Width Platelet Count 220 Mean Platelet Volume 9.9 Immature 1.400 H Granulocytes % Neutrophils % 34.7 L Lymphocytes % 7.5 L Monocytes % 54.8 H Eosinophils % 1.0 Basophils % 0.6 Nucleated Red Blood 0.0 Cells % Immature 0.230 H Granulocytes # Neutrophils # 5.6 Lymphocytes # 1.2 Monocytes # 8.8 H Eosinophils # 0.2 Basophils # 0.1 Nucleated Red Blood 0.0 Cells # Erythrocyte 63 H Sedimentation Rate Sodium Level 139 Potassium Level 4.3 Chloride Level 104 Carbon Dioxide Level 22 Anion Gap 13 Blood Urea Nitrogen 31 #H Creatinine 5.55 H Est Glomerular 10 L Filtrat Rate mL/min Glucose Level 95 Calcium Level 8.8 Phosphorus Level 4.4 Magnesium Level 2.0 Test 07/29/18 08:15 Bedside Glucose 95 Medications Medication Current Medications Ondansetron HCl (Zofran Inj) 4 mg Q6H PRN IV NAUSEA AND/OR VOMITING; Start 07/15/18 at 03:00 Albuterol/ Ipratropium (Duoneb) 3 ml Q2H RESP THERAPY PRN NEB SHORTNESS OF BREATH Last administered on 07/17/18at 23:24; Admin Dose 3 ML; Start 07/15/18 at 03:00 Nitroglycerin (Nitroglycerin (Sl Tab) 0.4 Mg) 1 tab Q5M PRN SL CHEST PAIN; Start 07/15/18 at 03:00 Acetaminophen (Tylenol Liquid) 650 mg Q6H PRN PO PAIN LEVEL 1-3 OR FEVER; Start 07/15/18 at 03:00 Morphine Sulfate (morphine) 2 mg Q4H PRN IV PAIN LEVEL 7-10; Start 07/15/18 at 03:00 Aspirin (Halfprin) 81 mg DAILY PO Last administered on 07/29/18at 08:17; Admin Dose 81 MG; Start 07/15/18 at 09:00 Atorvastatin Calcium (Lipitor) 10 mg QHS PO Last administered on 07/28/18at 21:02; Admin Dose 10 MG; Start 07/15/18 at 21:00 Hydralazine HCl (Apresoline) 25 mg TID PO Last administered on 07/28/18at 21:04; Admin Dose 25 MG; Start 07/15/18 at 09:00 Epoetin Yannick-epbx (Retacrit (Non-Esrd)) 10,000 unit MoWeFr@1700 SC Last administered on 07/27/18at 17:14; Admin Dose 10,000 UNIT; Start 07/15/18 at 17:00 Miscellaneous Information 1 ea NOTE XX ; Start 07/15/18 at 08:30 Glucose (Glutose) 15 gm Q15M PRN PO DECREASED GLUCOSE; Start 07/15/18 at 08:30 Glucose (Glutose) 22.5 gm Q15M PRN PO DECREASED GLUCOSE; Start 07/15/18 at 08:30 Dextrose (D50w Syringe) 25 ml Q15M PRN IV DECREASED GLUCOSE; Start 07/15/18 at 08:30 Dextrose (D50w Syringe) 50 ml Q15M PRN IV DECREASED GLUCOSE Last administered on 07/16/18at 07:55; Admin Dose 50 ML; Start 07/15/18 at 08:30 Glucagon (Glucagen) 1 mg Q15M PRN IM DECREASED GLUCOSE; Start 07/15/18 at 08:30 Glucose (Glutose) 15 gm Q15M PRN BUCCAL DECREASED GLUCOSE; Start 07/15/18 at 08:30 Heparin Sodium (Porcine) (Heparin (1000 Units/ml)) 3,200 unit AFTER DIALYSIS PRN CATHETER heparin lock Last administered on 07/27/18at 17:18; Admin Dose 3,200 UNIT; Start 07/15/18 at 08:30 Albumin Human 100 ml @ 100 mls/hr DURING DIALYSIS PRN IV to prevent hypotension during ; Start 07/15/18 at 08:30 Diagnostic Test (Pha) (Accu-Chek) 1 ea 02 XX Last administered on 07/24/18at 01:43; Admin Dose 1 EA; Start 07/22/18 at 02:00 Insulin Aspart (Novolog Insulin Pen) NOVOLOG *MILD* ALGORITHM WITH MEALS BEDTIME SC Last administered on 07/27/18 18:05; Admin Dose 1 UNIT; Start 07/22/18 at 08:00 Amlodipine Besylate (Norvasc) 10 mg DAILY PO Last administered on 07/28/18 09:34; Admin Dose 10 MG; Start 07/23/18 at 09:00 Mupirocin (Bactroban) 1 applic BID TOP Last administered on 07/26/18 22:36; Admin Dose 1 APPLIC; Start 07/22/18 at 21:00 Hydralazine HCl (Apresoline) 10 mg Q4H PRN IV ELEVATED BLOOD PRESSURE Last administered on 07/29/18 02:01; Admin Dose 10 MG; Start 07/22/18 at 20:00 Clonidine HCl (Catapres-Tts 2 Patch) 1 patch Q7D TRANSDERM ; Start 07/23/18 at 11:00 Lactobacillus Acidophilus/ Rhamnosus (Culturelle) 1 cap BID PO Last administered on 07/29/18 08:17; Admin Dose 1 CAP; Start 07/23/18 at 21:00 Famotidine (Pepcid) 20 mg HS PO Last administered on 07/28/18 21:02; Admin Dose 20 MG; Start 07/23/18 at 21:00 Sodium Hypochlorite (Dakins Diluted (1/40)) 1 applic BID TP Last administered on 07/26/18 22:37; Admin Dose 1 APPLIC; Start 07/24/18 at 13:30 Sodium Chloride 1,000 ml @ 20 mls/hr Q24H IV Last administered on 07/27/18 09:35; Admin Dose 20 MLS/HR; Start 07/27/18 at 07:30 Vancomycin HCl (Vanco Iv Per Pharmacy) VANCOMYCIN PER PHARMACY PER PROTOCOL XX ; Start 07/28/18 at 08:30 Piperacillin Sod/ Tazobactam Sod 50 ml @ 100 mls/hr Q8 IVPB Last administered on 07/29/18 05:36; Admin Dose 100 MLS/HR; Start 07/28/18 at 14:00 Heparin Sodium (Porcine) (Heparin (5000 Units/1ml)) 5,000 unit BID SC Last administered on 6/14/19at 08:18; Admin Dose 5,000 UNIT; Start 07/28/18 at 21:00 DONOVAN TRAVIS NP Jul 29, 2018 09:04
[2018-07-29] MEDS: HEPARIN 1000 UNITS/ML 10 ML INJ CATHETER PRN (16:05)
--- NOTE | 2018-07-29 16:28 | QN ---
Documentation Comment No c/o. On HD now. Breathing comfortably. L arm edema has decreased, ultrasound showed a hematoma in the antecubital space. AFVSS L foot is wrapped, bx was done several days ago w/NGTD Anasarca has generally resolved - will plan for R arm AVF creation next week RAMÓN MURPHY MD Jul 29, 2018 16:28
[2018-07-29] MEDS: EPOETIN ALFA-EPBX (NON-ESRD 10,000 UNIT/ML VIAL SC SCH (18:52)
[2018-07-29] MEDS: ATORVASTATIN 10 MG TAB PO SCH (20:49)
[2018-07-29] MEDS: FAMOTIDINE 20 MG TAB PO SCH (20:49)
[2018-07-30] VITALS (18 sets, daily range): BP systolic 93–135; BP diastolic 59–78; PULSE 70–98; RESP 16–18
[2018-07-30] MEDS: SOD CHLORIDE 0.9% 1,000 ML IV SCH (00:30)
[2018-07-30] MEDS: ACCU-CHEK XX SCH (01:43)
[2018-07-30] MEDS: PIPER-TAZO 2.25 GM (PMX) 50 ML IVPB SCH (05:40)
--- NOTE | 2018-07-30 06:53 | CONS ---
Assessment/Plan Assessment/Plan Hospital Course (Demo Recall) 1) CHF, likely due to delayed dialysis breathing has improved, doubt he has pneumonia but will check procalcitonin 07/16 - procalcitonin for people in ESRD is within normal limties no good evidence for pneumonia 2) L foot ulcers will review the [place] records and see if cx were done and what if any antibiotics he received continue with vanco/zosyn at present get wound cx here ESR is very high, if work-up for osteo and arterial studies weren't done we may need to do these here 07/16 - this is not new and pt has been advised that he likely needs BKA but he has refused 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 and was suppose to be getting IV vanco with dialysis d/c zosyn but continue with vanco at present will order arterial dopplers to see if flow is adequate at this time 07/18 - arterial dopplers show bilateral LE issues with arterial flow high ESR is c/w current osteo continue with vanco, d/c zosyn and add rifampin for better MRSA coverage recommend vascular surgery consult 07/20 - no vascular intervention planned local debridement today by report and to follow cultures if obtained continue with vanco/rifampin for 6 week course 07/22 - rising WBC without a clear cause to get pic of foot and repeat cx from heel and stump site on L foot get procalcitonin and CBC in a.m., consider broadening coverage (i.e. zosyn) get u/a and urine cx 07/25 - surface wound cx only had c.alb pt has been off IV antibiotics since 07/16, will hold off on antibiotics till debridement with bone cx is done then will re-start vanco/zosyn 07/27 - pt getting L foot debridement today wound cx order placed await op record description and if signs of infection seen will re-start vanco/zosyn 07/28 - debridement done and cx and path are pending op note suggest there may be bone infection (bone was soft) start vanco/zosyn 07/29 - bone cx is still NGTD on vanco/zosyn if culture remains neg to change antibiotic to oral doxycyline for 10 days 07/30 - bone culture was neg d/c vanco/zosyn and start doxycycline for 10 days to cover any residual MRSA while the surgical wound heals I will sign off on case 3) DM 4) HTN 5) ESRD Consultation Date/Type/Reason Admit Date/Time July 15, 2018 at 00:58 Initial Consult Date 07/15/18 Type of Consult ID Date/Time of Note DATE: 07/30/18 TIME: 06:51 24 HR Interval Summary Free Text/Dictation spoke to nurse no N, V, D Exam/Review of Systems Exam Vitals Vital Signs Date Temp Pulse Resp B/P (MAP) Pulse Ox O2 O2 Flow FiO2 Time Delivery Rate 07/30/18 98.1 73 18 132/67 97 02:18 (88) 07/29/18 Room Air 13:00 07/26/18 2.0 13:58 Intake and Output 07/29/18 07/29/18 07/30/18 1515:00 23:00 07:00 IntakeIntake Total 690 ml 690 ml 280 ml OutputOutput Total 200 ml 2900 ml BalanceBalance 490 ml -2210 ml 280 ml Results Result Diagram: 07/30/18 0446 07/29/18 0551 Results 24hrs Laboratory Tests Test 07/29/18 08:15 07/29/18 13:05 07/29/18 20:47 07/30/18 04:46 Bedside Glucose 95 91 176 White Blood Count 10.3 # Red Blood Count 3.22 L Hemoglobin 10.6 L Hematocrit 33.1 L Mean Corpuscular 102.8 H Volume Mean Corpuscular 32.9 Hemoglobin Mean Corpuscular 32.0 Hemoglobin Concent Red Cell 15.0 H Distribution Width Platelet Count 232 Mean Platelet Volume 10.5 H Immature 1.400 H Granulocytes % Neutrophils % 28.1 L Lymphocytes % 14.6 L Monocytes % 53.6 H Eosinophils % 1.3 Basophils % 1.0 Nucleated Red Blood 0.0 Cells % Immature 0.140 H Granulocytes # Neutrophils # 2.9 Lymphocytes # 1.5 Monocytes # 5.5 H Eosinophils # 0.1 Basophils # 0.1 Nucleated Red Blood 0.0 Cells # Medications Medication Current Medications Ondansetron HCl (Zofran Inj) 4 mg Q6H PRN IV NAUSEA AND/OR VOMITING; Start 07/15/18 at 03:00 Albuterol/ Ipratropium (Duoneb) 3 ml Q2H RESP THERAPY PRN NEB SHORTNESS OF BREATH Last administered on 07/17/18at 23:24; Admin Dose 3 ML; Start 07/15/18 at 03:00 Nitroglycerin (Nitroglycerin (Sl Tab) 0.4 Mg) 1 tab Q5M PRN SL CHEST PAIN; Start 07/15/18 at 03:00 Acetaminophen (Tylenol Liquid) 650 mg Q6H PRN PO PAIN LEVEL 1-3 OR FEVER; Start 07/15/18 at 03:00 Morphine Sulfate (morphine) 2 mg Q4H PRN IV PAIN LEVEL 7-10; Start 07/15/18 at 03:00 Aspirin (Halfprin) 81 mg DAILY PO Last administered on 07/29/18at 08:17; Admin Dose 81 MG; Start 07/15/18 at 09:00 Atorvastatin Calcium (Lipitor) 10 mg QHS PO Last administered on 07/29/18at 20:49; Admin Dose 10 MG; Start 07/15/18 at 21:00 Hydralazine HCl (Apresoline) 25 mg TID PO Last administered on 07/29/18at 20:49; Admin Dose 25 MG; Start 07/15/18 at 09:00 Epoetin Yannick-epbx (Retacrit (Non-Esrd)) 10,000 unit MoWeFr@1700 SC Last administered on 07/29/18at 18:52; Admin Dose 10,000 UNIT; Start 07/15/18 at 17:00 Miscellaneous Information 1 ea NOTE XX ; Start 07/15/18 at 08:30 Glucose (Glutose) 15 gm Q15M PRN PO DECREASED GLUCOSE; Start 07/15/18 at 08:30 Glucose (Glutose) 22.5 gm Q15M PRN PO DECREASED GLUCOSE; Start 07/15/18 at 08:30 Dextrose (D50w Syringe) 25 ml Q15M PRN IV DECREASED GLUCOSE; Start 07/15/18 at 08:30 Dextrose (D50w Syringe) 50 ml Q15M PRN IV DECREASED GLUCOSE Last administered on 07/16/18at 07:55; Admin Dose 50 ML; Start 07/15/18 at 08:30 Glucagon (Glucagen) 1 mg Q15M PRN IM DECREASED GLUCOSE; Start 07/15/18 at 08:30 Glucose (Glutose) 15 gm Q15M PRN BUCCAL DECREASED GLUCOSE; Start 07/15/18 at 08:30 Albumin Human 100 ml @ 100 mls/hr DURING DIALYSIS PRN IV to prevent hypotension during ; Start 07/15/18 at 08:30 Diagnostic Test (Pha) (Accu-Chek) 1 ea 02 XX Last administered on 07/24/18at 01:43; Admin Dose 1 EA; Start 07/22/18 at 02:00 Insulin Aspart (Novolog Insulin Pen) NOVOLOG *MILD* ALGORITHM WITH MEALS BEDTIME SC Last administered on 07/27/18 18:05; Admin Dose 1 UNIT; Start 07/22/18 at 08:00 Amlodipine Besylate (Norvasc) 10 mg DAILY PO Last administered on 07/28/18 09:34; Admin Dose 10 MG; Start 07/23/18 at 09:00 Mupirocin (Bactroban) 1 applic BID TOP Last administered on 07/26/18 22:36; Admin Dose 1 APPLIC; Start 07/22/18 at 21:00 Hydralazine HCl (Apresoline) 10 mg Q4H PRN IV ELEVATED BLOOD PRESSURE Last administered on 07/29/18at 02:01; Admin Dose 10 MG; Start 07/22/18 at 20:00 Clonidine HCl (Catapres-Tts 2 Patch) 1 patch Q7D TRANSDERM ; Start 07/23/18 at 11:00 Famotidine (Pepcid) 20 mg HS PO Last administered on 07/29/18at 20:49; Admin Dose 20 MG; Start 07/23/18 at 21:00 Sodium Chloride 1,000 ml @ 20 mls/hr Q24H IV Last administered on 07/30/18at 00:30; Admin Dose 20 MLS/HR; Start 07/27/18 at 07:30 Heparin Sodium (Porcine) (Heparin (5000 Units/1ml)) 5,000 unit BID SC Last administered on 07/29/18 20:56; Admin Dose 5,000 UNIT; Start 07/28/18 at 21:00 Multivit/Ca Carb/ B Cmplx/FA/Prenat (Annie-Ross) 1 tab DAILY PO ; Start 07/30/18 at 09:00 Heparin Sodium (Porcine) (Heparin (1000 Units/ml)) 4,500 unit AFTER DIALYSIS PRN CATHETER heparin lock; Start 07/30/18 at 08:30 BRANDIN ROCA MD Jul 30, 2018 06:53
[2018-07-30] MEDS: INSULIN ASPART [NOVOLOG] 3 ML PEN SC SCH ×3 (08:00→17:35)
[2018-07-30] MEDS ORDERED: HEPARIN 1000 UNITS/ML 10 ML INJ CATHETER PRN (08:30)
[2018-07-30] MEDS: ASPIRIN (EC) 81 MG TAB PO SCH (08:37)
[2018-07-30] MEDS: MUPIROCIN 2% 22 GM OINT TOP SCH (08:38)
[2018-07-30] MEDS: AMLODIPINE 10 MG TAB PO SCH (08:38)
[2018-07-30] MEDS: HEPARIN 5,000 UNIT/1 ML VIAL SC SCH (08:44)
[2018-07-30] MEDS ORDERED: DOXYCYCLINE 100 MG TAB PO SCH (09:00)
[2018-07-30] MEDS ORDERED: MULTIVIT/CA CARB/B CMPLX/FA TAB PO SCH (09:00)
--- NOTE | 2018-07-30 13:28 | CONS ---
DATE OF ADMISSION: 07/15/2018 DATE OF CONSULTATION: 07/29/2018 SUBJECTIVE FINDINGS: The patient is being followed for left foot ulceration. He is status post debr idement and allograft application. The patient is pending right arm AV fistula. Intraoperative cult ures no growth to date. No signs of cellulitis or lymphangitis. PHYSICAL EXAMINATION: VITAL SIGNS: Temperature 97.9, pulse 79, respiratory 18, blood pressure 128/71, pulse ox is 98%. GENERAL: The patient is alert, oriented, no acute distress. Left foot with dressings. Mild to mode rate sanguineous drainage. Allograft is adhered with skin magdalene. No malodor. Decrease in edema. The patient with absent protective sensation. LABORATORIES: WBC 16, hemoglobin 10.3, hematocrit 31.9, platelets 220. PATHOLOGY: Left foot bone with severe marrow fibrosis remodeling of bone and features of bone destru ction. No evidence of osteomyelitis or malignancy. Bone cultures no growth to date. Fungal culture s pending. ASSESSMENT: 1. Left foot diabetic foot ulceration. 2. Diabetes type 2. 3. Hypertension. PLAN: The patient seen and evaluated, reviewed labs and cultures. Bone cultures still are no growth to date. Wounds irrigated and the patient is pending AV fistula placement. Dr. Francois, I appreciate ID recommendations. Will be on doxycycline for 10 days. Continue tight glycemic control. Dictated By: REBECCA POWELL DPM RB/NTS Conf#: [id number] DID#: [id number] CC: ISAIAS GONZALEZ MD; TRISTA CHU MD; KAREEM LYN MD;*EndCC*
[2018-07-30] MEDS ORDERED: DOXY100T2 PO (13:29)
--- NOTE | 2018-07-30 13:50 | PDOCDIS ---
Discharge Instructions CONDITION [id number] Patient Condition: [id number] Stable HOME CARE INSTRUCTIONS: [id number] Special Diet: [id number] Low carbohydrate FOLLOW UP/APPOINTMENTS Follow-up Plan Estuardo Thomas DPM [facility] [phone] OTHER ORDERS: Other Orders: 1. Medications as per medication reconciliation. 2. Follow-up with hemodialysis clinic as scheduled. 3. Follow up with [facility] at [facility] in 2 weeks. 4. Follow a low carbohydrate, low potassium diet. 5. Nonweightbearing of the left lower extremity. DONOVAN TRAVIS NP Jul 30, 2018 13:50
[2018-07-30] MEDS: CLONIDINE 0.2 MG/24 HR PATCH TRANSDERM SCH (14:40)
--- NOTE | 2018-07-30 15:22 | PN ---
Date/Time of Note Date/Time of Note DATE: 07/30/18 TIME: 15:21 Assessment/Plan VTE Prophylaxis Risk score (from Nsg)>0 risk: 3 SCD applied (from Nsg): Yes Pharmacological prophylaxis: heparin Lines/Catheters IV Catheter Type (from Nrsg): perma cath for HD Urinary Cath still in place: No Assessment/Plan Hospital Course SUBJECTIVE: Denies any dyspnea. Remains on room air. OBJECTIVE: Physical Exam General: 68 obese, year-old male lying in bed in no apparent distress. HEENT: Normocephalic, atraumatic. Eyes: Anicteric sclerae, conjunctivae clear. ENT: Nasal septum midline, oral mucosa is moist. Neck supple. Respiratory: Bilaterally diminished breath sounds. No use of accessory muscles of respiration. No adventitious breath sounds. Cardiovascular: S1, S2 heard. Regular rate and rhythm. Abdomen: Soft, nontender, and nondistended. Bowel sounds positive in all 4 quadrants. Genitourinary: Deferred. Extremities: No cyanosis, no clubbing. Left foot stump dressing. Right lower extremity edema. Left AC cystic lesion that is closed, non-tender to palpation. Neurologic: Cranial nerves II through XII grossly intact. The patient is awake, alert, and oriented. Skin: Normal skin turgor. No skin rashes. Labs & Vitals per chart ASSESSMENT & PLAN 68-year-old male with past medical history of hypertension, end-stage disease on hemodialysis on , diabetes mellitus, peripheral vascular disease,and anemia of chronic disease who was transferred from a retirement facility because of dyspnea, who was found to have evidence of underlying pulmonary edema with small bilateral pleural effusions and was admitted to inpatient setting for further treatment and evaluation. 1. S/P acute hypoxic respiratory failure. Most probably secondary to underlying pulmonary edema. Continue ultrafiltration. Continue inhaled bronchodilators. 2. Pulmonary edema. Continue ultrafiltration as per nephrology. 3. 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 Left foot MRI negative for any osteomyelitis. Being followed by podiatry. S/P left foot excisional debridement of skin, subcutaneous tissue on 07/28/2018 with concern for osteomyelitis. Resumed ABX as per ID. Patient was switched to oral doxycycline as the bone culture was negative. 4. ESRD on HD on / Continue hemodialysis as per nephrology. 5. Peripheral vascular disease. S/P percutaneous angioplasty of left peroneal artery occlusion on 11/10/2017. Continue ASA. Optimize neurovascular status. 6. Hypertension. Continue antihypertensives. 7. Diabetes mellitus. Hemoglobin A1c 5.4. Continue sliding scale insulin along with basal insulin. 8. Dyslipidemia. Continue statins. 9. Anemia of chronic kidney disease. Continue Epogen. 10. Fluids, electrolytes, and nutrition. Renal diet. 11. DVT prophylaxis. Subcutaneous heparin. 12. Plan. Continue ultrafiltration as per nephrology. Patient was switched to oral doxycycline and the patient's latest cultures are negative for any MRSA and does not deed contact isolation. The patient can be discharged to SNF once a bed is available. The patient was seen in collaboration with Dr. Farfan. Result Diagram: 07/30/1844507/[id number] Results 24hrs Laboratory Tests Test 07/29/18 20:47 07/30/18 04:46 07/30/18 08:32 07/30/18 12:14 Bedside Glucose 176 95 84 White Blood Count 10.3 # Red Blood Count 3.22 L Hemoglobin 10.6 L Hematocrit 33.1 L Mean Corpuscular 102.8 H Volume Mean Corpuscular 32.9 Hemoglobin Mean Corpuscular 32.0 Hemoglobin Concent Red Cell 15.0 H Distribution Width Platelet Count 232 Mean Platelet Volume 10.5 H Immature 1.400 H Granulocytes % Neutrophils % 28.1 L Lymphocytes % 14.6 L Monocytes % 53.6 H Eosinophils % 1.3 Basophils % 1.0 Nucleated Red Blood 0.0 Cells % Immature 0.140 H Granulocytes # Neutrophils # 2.9 Lymphocytes # 1.5 Monocytes # 5.5 H Eosinophils # 0.1 Basophils # 0.1 Nucleated Red Blood 0.0 Cells # Sodium Level 140 Potassium Level 4.3 Chloride Level 102 Carbon Dioxide Level 27 Anion Gap 11 Blood Urea Nitrogen 21 H Creatinine 4.58 H Est Glomerular 13 L Filtrat Rate mL/min Glucose Level 82 Calcium Level 8.8 Phosphorus Level 4.5 Magnesium Level 2.0 Random Vancomycin 21.2 Level Exam/Review of Systems Exam Vitals Vital Signs Date Temp Pulse Resp B/P (MAP) Pulse Ox O2 O2 Flow FiO2 Time Delivery Rate 07/30/18 86 125/69 14:40 (87) 07/30/18 97.5 16 98 14:04 6/15/19 Room Air 10:20 07/26/18 2.0 13:58 Intake and Output 07/29/18 07/29/18 07/30/18 1515:00 23:00 07:00 IntakeIntake Total 690 ml 690 ml 280 ml OutputOutput Total 200 ml 2900 ml BalanceBalance 490 ml -2210 ml 280 ml Results Results 24hrs Laboratory Tests Test 07/29/18 20:47 07/30/18 04:46 07/30/18 08:32 07/30/18 12:14 Bedside Glucose 176 95 84 White Blood Count 10.3 # Red Blood Count 3.22 L Hemoglobin 10.6 L Hematocrit 33.1 L Mean Corpuscular 102.8 H Volume Mean Corpuscular 32.9 Hemoglobin Mean Corpuscular 32.0 Hemoglobin Concent Red Cell 15.0 H Distribution Width Platelet Count 232 Mean Platelet Volume 10.5 H Immature 1.400 H Granulocytes % Neutrophils % 28.1 L Lymphocytes % 14.6 L Monocytes % 53.6 H Eosinophils % 1.3 Basophils % 1.0 Nucleated Red Blood 0.0 Cells % Immature 0.140 H Granulocytes # Neutrophils # 2.9 Lymphocytes # 1.5 Monocytes # 5.5 H Eosinophils # 0.1 Basophils # 0.1 Nucleated Red Blood 0.0 Cells # Sodium Level 140 Potassium Level 4.3 Chloride Level 102 Carbon Dioxide Level 27 Anion Gap 11 Blood Urea Nitrogen 21 H Creatinine 4.58 H Est Glomerular 13 L Filtrat Rate mL/min Glucose Level 82 Calcium Level 8.8 Phosphorus Level 4.5 Magnesium Level 2.0 Random Vancomycin 21.2 Level Medications Medication Current Medications Ondansetron HCl (Zofran Inj) 4 mg Q6H PRN IV NAUSEA AND/OR VOMITING; Start 07/15/18 at 03:00 Albuterol/ Ipratropium (Duoneb) 3 ml Q2H RESP THERAPY PRN NEB SHORTNESS OF BREATH Last administered on 07/17/18at 23:24; Admin Dose 3 ML; Start 07/15/18 at 03:00 Nitroglycerin (Nitroglycerin (Sl Tab) 0.4 Mg) 1 tab Q5M PRN SL CHEST PAIN; Start 07/15/18 at 03:00 Acetaminophen (Tylenol Liquid) 650 mg Q6H PRN PO PAIN LEVEL 1-3 OR FEVER; Start 07/15/18 at 03:00 Morphine Sulfate (morphine) 2 mg Q4H PRN IV PAIN LEVEL 7-10; Start 07/15/18 at 03:00 Aspirin (Halfprin) 81 mg DAILY PO Last administered on 07/30/18at 08:37; Admin Dose 81 MG; Start 07/15/18 at 09:00 Atorvastatin Calcium (Lipitor) 10 mg QHS PO Last administered on 07/29/18at 20:49; Admin Dose 10 MG; Start 07/15/18 at 21:00 Hydralazine HCl (Apresoline) 25 mg TID PO Last administered on 07/29/18at 20:49; Admin Dose 25 MG; Start 07/15/18 at 09:00 Epoetin Yannick-epbx (Retacrit (Non-Esrd)) 10,000 unit MoWeFr@1700 SC Last administered on 07/29/18at 18:52; Admin Dose 10,000 UNIT; Start 07/15/18 at 17:00 Miscellaneous Information 1 ea NOTE XX ; Start 07/15/18 at 08:30 Glucose (Glutose) 15 gm Q15M PRN PO DECREASED GLUCOSE; Start 07/15/18 at 08:30 Glucose (Glutose) 22.5 gm Q15M PRN PO DECREASED GLUCOSE; Start 07/15/18 at 08:30 Dextrose (D50w Syringe) 25 ml Q15M PRN IV DECREASED GLUCOSE; Start 07/15/18 at 08:30 Dextrose (D50w Syringe) 50 ml Q15M PRN IV DECREASED GLUCOSE Last administered on 07/16/18at 07:55; Admin Dose 50 ML; Start 07/15/18 at 08:30 Glucagon (Glucagen) 1 mg Q15M PRN IM DECREASED GLUCOSE; Start 07/15/18 at 08:30 Glucose (Glutose) 15 gm Q15M PRN BUCCAL DECREASED GLUCOSE; Start 07/15/18 at 08:30 Albumin Human 100 ml @ 100 mls/hr DURING DIALYSIS PRN IV to prevent hypotension during ; Start 07/15/18 at 08:30 Diagnostic Test (Pha) (Accu-Chek) 1 ea 02 XX Last administered on 07/24/18at 01:43; Admin Dose 1 EA; Start 07/22/18 at 02:00 Insulin Aspart (Novolog Insulin Pen) NOVOLOG *MILD* ALGORITHM WITH MEALS BEDTIME SC Last administered on 07/27/18 18:05; Admin Dose 1 UNIT; Start 07/22/18 at 08:00 Amlodipine Besylate (Norvasc) 10 mg DAILY PO Last administered on 07/30/18 08:38; Admin Dose 10 MG; Start 07/23/18 at 09:00 Mupirocin (Bactroban) 1 applic BID TOP Last administered on 07/26/18 22:36; Admin Dose 1 APPLIC; Start 07/22/18 at 21:00 Hydralazine HCl (Apresoline) 10 mg Q4H PRN IV ELEVATED BLOOD PRESSURE Last administered on 07/29/18 02:01; Admin Dose 10 MG; Start 07/22/18 at 20:00 Clonidine HCl (Catapres-Tts 2 Patch) 1 patch Q7D TRANSDERM Last administered on 07/30/18 14:40; Admin Dose 1 PATCH; Start 07/23/18 at 11:00 Famotidine (Pepcid) 20 mg HS PO Last administered on 07/29/18 20:49; Admin Dose 20 MG; Start 07/23/18 at 21:00 Heparin Sodium (Porcine) (Heparin (5000 Units/1ml)) 5,000 unit BID SC Last administered on 07/30/18 08:44; Admin Dose 5,000 UNIT; Start 07/28/18 at 21:00 Multivit/Ca Carb/ B Cmplx/FA/Prenat (Annie-Ross) 1 tab DAILY PO Last administered on 07/30/18 08:37; Admin Dose 1 TAB; Start 07/30/18 at 09:00 Heparin Sodium (Porcine) (Heparin (1000 Units/ml)) 4,500 unit AFTER DIALYSIS PRN CATHETER heparin lock Last administered on 07/30/18 13:23; Admin Dose 4,500 UNIT; Start 07/30/18 at 08:30 Doxycycline Hyclate (Vibramycin) 100 mg BID PO Last administered on 07/30/18 08:37; Admin Dose 100 MG; Start 07/30/18 at 09:00 DONOVAN TRAVIS NP Jul 30, 2018 15:22
--- NOTE | 2018-07-30 16:43 | DS ---
Date/Time of Note Date/Time of Note DATE: 07/30/18 TIME: 16:43 Discharge Summary Admission/Discharge Info Admit Date/Time July 15, 2018 at 00:58 Discharge Date/Time Discharge Diagnosis 1. S/P acute hypoxic respiratory failure. 2. Pulmonary edema. 3. Infected left foot stump ulcer. 4. ESRD on HD. 5. Peripheral vascular disease. S/P percutaneous angioplasty of left peroneal artery occlusion on 11/10/2017. 6. Hypertension. 7. Diabetes mellitus. Hemoglobin A1c 5.4. 8. Dyslipidemia. 9. Anemia of chronic kidney disease. Patient Condition: Stable Consults 1. Mike Espinoza MD, Infectious Diseases. 2. Estuardo Thomas DPM, Podiatry. 3. Donovan Barber MD, Nephrology. 4. Lorne Winters MD, Pulmonary. 5. Micheal Francois MD, Vascular Surgery. Procedures OPERATIVE REPORT DATE OF OPERATION: 07/27/2018 PREOPERATIVE DIAGNOSES: 1. Left foot diabetic foot ulceration. 2. Osteomyelitis. 3. History of transmetatarsal amputation. 4. Diabetes type 2. POSTOPERATIVE DIAGNOSES: 1. Left foot diabetic foot ulceration. 2. Osteomyelitis 3. History of transmetatarsal amputation. 4. Diabetes type 2. OPERATIONS PERFORMED: 1. Left foot excisional debridement of skin, subcutaneous tissue, muscle, 4 x 6 cm left posterior heel. 2. Biopsy of bone metatarsals, left foot. 3. Application of acellular dermal replacement Integra graft. PATHOLOGY: 1. Bone cultures metatarsals. 2. Bone pathology metatarsals. [place] [id number] Radiology Main Line: [phone] DIAGNOSTIC IMAGING REPORT Patient: KITTY HERNANDEZ : 1950 Age: 68 Sex: M MR #: [id number] DOS: 07/15/18 0000 Ordering MD: ANGELITO MCDOWELL DPM Location: [facility] Room/Bed: 609A PROCEDURE: MRI OF THE LEFT FOOT. CLINICAL INDICATION: Left foot pain. TECHNIQUE: Multiple MRI images of the left foot were obtained in multiple planes utilizing multiple pulse sequences. Images were interpreted on the high- resolution PACS system. COMPARISON: None. FINDINGS: Plantar fascia: There is chronic plantar fasciosis. No acute changes and no evidence for [id number] tear. Osseous structures: The patient is status post transmetatarsal amputations. There is bone marrow edema with mild cortical irregularity of the first metatarsal stump. This is probably reactive edema and the patients baseline. It would be difficult to exclude early findings of osteomyelitis. There is disuse osteoporosis changes within the bones of the midfoot and hindfoot. Ligaments: No acute ligamentous disruption is identified.. Tendons: No evidence for tendon strain or tear. No evidence for tenosynovitis. Other findings: There is fatty atrophy of the abductor digiti minimi likely due to chronic plantar fasciosis. There is diffuse subcutaneous soft tissue edema especially along the dorsal forefoot at the level of the amputations. No evidence for abscess. IMPRESSION: 1. Status post transmetatarsal amputations. There is bone marrow edema and slight cortical irregularity of the first metatarsal stump. A believe the findings are the patient's baseline but it would be difficult to exclude early osteomyelitis. 2. 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 3. No evidence for abscess. 4. Chronic plantar fasciosis and there is atrophy of the abductor digiti minimi consistent with chronic denervation. Hx of Present Illness This is a 68-year-old male with past medical history of hypertension, end-stage disease on hemodialysis on //, diabetes mellitus, peripheral vascular disease,and anemia of chronic disease who was transferred from a intermediate facility because of dyspnea, who was found to have evidence of underlying pulmonary edema with small bilateral pleural effusions and was admitted to inpatient setting for further treatment and evaluation. Hospital Course The patient had evidence of underlying acute respiratory failure secondary to pulmonary edema and small bilateral pleural effusions. The patient was treated with ultrafiltration. The patient was maintained on supplemental oxygen. The patient was being followed by pulmonology. The patient was maintained on inhaled bronchodilators. The patient's respiratory failure resolved with the multidisciplinary approach. The patient had an infected left foot stump ulcer. The patient's wound culture of the left foot stump was showing positive MRSA. The patient underwent a left foot MRI on 07/15/2018 that was negative for any osteomyelitis. The patient was being followed by podiatry and vascular surgery. The patient underwent a left foot stump excisional debridement of the skin and subcutaneous tissue with bone biopsy sent on 07/28/2018 because of concern for osteomyelitis. The wound culture is negative to date. Infectious diseases recommended to discontinue IV antibiotics and to complete the course of doxycycline for 10 more days. The patient has a history of peripheral vascular disease and is status post percutaneous angioplasty of the left peroneal artery occlusion on 11/10/2017. The patient was maintained on aspirin. The patient is an end-stage renal disease patient he was getting hemodialysis as per nephrology. The patient's hemodialysis catheter was exchanged because of decreased flow rate. The patient has underlying hypertension. The patient was maintained on antihypertensives for the same. He has underlying diabetes mellitus. His hemoglobin A1c was found to be 5.4. He was continued on sliding scale insulin along with basal insulin. He has underlying dyslipidemia and was maintained on statins. The patient has anemia of chronic kidney disease. The patient was maintained on Epogen as per nephrology. The patient had a prolonged hospital course because of the slow improvement in the patient's clinical condition. The patient is currently clinically stable to be discharged back to the intermediate facility. Meanwhile, the patient's vascular surgeon was planning on a upper extremity AV fistula placement and a vein mapping of the bilateral upper extremities were done. The patient also had a hematoma in the left antecubital space that is resolving. At this time I would like to thank all the consultants for seeing the patient, doing the necessary procedures, and providing clinical recommendations. The patient was seen in collaboration with Dr. Farfan. [facility] Active Scripts Doxycycline* (Vibramycin*) 100 Mg Tab, 100 MG PO BID, #20 TAB Prov:DONOVAN TRAVIS [employer] MAKER 07/30/18 Ferrous Sulfate* (Ferrous Sulfate*) 325 Mg Tabec, 325 MG PO TID for 30 Days, TAB Prov:MCINTYREGUILLAUMEA Debbie. MODEL AND MOLD MAKER 01/04/18 Glipizide* (Glipizide*) 5 Mg Tablet, 2.5 MG PO AC BREAKFAST, #30 TAB Prov:MCINTYRE,BISI V. MODEL AND MOLD MAKER 01/04/18 Hydralazine Hcl* (Hydralazine Hcl*) 25 Mg Tab, 25 MG PO TID, #90 TAB Prov:MCINTYRE,BISI V. [employer]DEL [employer] MAKER 01/04/18 Amlodipine Besylate* (Amlodipine Besylate*) 5 Mg Tablet, 5 MG PO DAILY, #30 TAB Prov:MCINTYREBISI V. MODEL AND MOLD MAKER 01/04/18 Epoetin nayely* (Epogen*) 3,000 Unit/1 Ml Vial, 6000 UNITS SC TuThSa@17 for 30 Days, VIAL Prov:BISI MCINTYRE NP 01/04/18 Gabapentin* (Gabapentin*) 300 Mg Capsule, 300 MG PO BID, #60 CAP Prov:MARIA E ABARCAVan 11/12/17 [Insulin Glargine] 100 UNITS/ML SOLN No Conflict Check, 22 UNITS SC DAILY@2000 for 10 Days Prov:MARIA E ABARCAVan 11/12/17 Clopidogrel Bisulfate (Clopidogrel) 75 Mg Tablet, 75 MG PO DAILY for 10 Days, #10 TAB Prov:MARIA E ABARCAVan 11/12/17 Reported Medications Aspirin (Low Dose Aspirin) 81 Mg Tablet.dr, 81 MG PO DAILY, #30 TAB 11/07/17 Atorvastatin Calcium (Atorvastatin Calcium) 10 Mg Tablet, 10 MG PO QHS, #30 TAB 11/07/17 Discontinued Scripts Meropenem (Merrem) 1 Gm Vial, 500 MCG IV Q12 for 42 Days, VIAL Prov:BISI MCINTYRE NP 01/04/18 Ceftriaxone Na/Dextrose,Iso (Ceftriaxone 1 gm Piggyback) 1 Gm/50 Ml Froz.piggy, 1 GM IV Q12 for 42 Days Prov:BISI MCINTYRE NP 01/04/18 Hydrocodone Bit-Acetaminophen (Hydrocodone Bit-APAP) 5-325MG Tablet, 1 TAB PO Q6H PRN for MODERATE PAIN LEVEL 4-6 for 30 Days, TAB Prov:MARIA E ABARCAVan 12/02/17 Follow-up Plan Estuardo Thomas DPM [facility] [phone] Primary Care Provider Edita Martínez MD Time spent on discharge: > 30 minutes Pending Labs Laboratory Tests Test 07/29/18 20:47 07/30/18 04:46 07/30/18 08:32 07/30/18 12:14 Bedside 176 95 84 Glucose mg/dL (70-220) mg/dL (70-220) mg/dL (70-220) White Blood 10.3 Count 10^3/ul (4.8-1 0.8) Red Blood 3.22 Count 10^6/ul (4.70- 6.10) Hemoglobin 10.6 g/dl (14.0-18. 0) Hematocrit 33.1 % (42.0-52.0) Mean 102.8 Corpuscular fl (82.0-101.0 Volume ) Mean 32.9 Corpuscular pg (29.0-33.0) Hemoglobin Mean 32.0 Corpuscular g/dl (32.0-37. Hemoglobin Conc 0) ent Red Cell 15.0 Distribution % (11.5-14.5) Width Platelet Count 232 10^3/UL (140-4 15) Mean Platelet 10.5 Volume fl (7.4-10.4) Immature 1.400 Granulocytes % % (0.001-0.429 ) Neutrophils % 28.1 % (39.0-77.0) Lymphocytes % 14.6 % (15.0-51.0) Monocytes % 53.6 % (0.0-11.0) Eosinophils % 1.3 % (0.0-7.0) Basophils % 1.0 % (0.0-2.0) Nucleated Red 0.0 Blood Cells % /100WBC (0.0-0 .0) Immature 0.140 Granulocytes # 10^3/ul (0.0-0 .031) Neutrophils # 2.9 10^3/ul (1.6-7 .5) Lymphocytes # 1.5 10^3/ul (0.8-2 .9) Monocytes # 5.5 10^3/ul (0.3-0 .9) Eosinophils # 0.1 10^3/ul (0.0-0 .5) Basophils # 0.1 10^3/ul (0.0-0 .1) Nucleated Red 0.0 Blood Cells # 10^3/ul (0.0-0 .0) Sodium Level 140 mmol/L (135-14 4) Potassium 4.3 Level mmol/L (3.5-5. 1) Chloride Level 102 mmol/L (97-110 ) Carbon Dioxide 27 Level mmol/L (21-31) Anion Gap 11 (5-13) Blood Urea 21 Nitrogen mg/dl (7-20) Creatinine 4.58 mg/dl (0.61-1. 24) Est Glomerular 13 Filtrat mL/min (>60) Rate mL/min Glucose Level 82 mg/dl (70-220) Calcium Level 8.8 mg/dl (8.4-10. 2) Phosphorus 4.5 Level mg/dl (2.5-4.9 ) Magnesium 2.0 Level mg/dl (1.7-2.5 ) Random 21.2 ug/ml Vancomycin Level DONOVAN TRAVIS NP Jul 30, 2018 16:43
== END 2018-07-30 21:00 | DRG 463 ==
LOC: E/R 23:24 → ICU 07-15 00:58 → 6WM 07-16 05:55 → 2NE 07-21 19:05
PROVIDERS: ADMIT Family Medicine; ATTEND Internal Medicine
PROC: 5A1D70Z Performance of Urinary Filtration, Intermittent, Less than 6 Hours Per Day (ICD-10-PCS; 2018-07-15)
PROC: 5A09457 Assistance with Respiratory Ventilation, 24-96 Consecutive Hours, Continuous Positive Airway Pressure (ICD-10-PCS; 2018-07-15)
PROC: 0J2TXYZ Change Other Device in Trunk Subcutaneous Tissue and Fascia, External Approach (ICD-10-PCS; 2018-07-26)
PROC: 0HRNXK3 Replacement of Left Foot Skin with Nonautologous Tissue Substitute, Full Thickness, External Approach (ICD-10-PCS; 2018-07-27)
PROC: 0QBP0ZX Excision of Left Metatarsal, Open Approach, Diagnostic (ICD-10-PCS; 2018-07-27)
PROC: 0KBW0ZZ Excision of Left Foot Muscle, Open Approach (ICD-10-PCS; principal; 2018-07-27 07:30)
DX: T87.44 Infection of amputation stump, left lower extremity (principal); J81.0 Acute pulmonary edema; J96.01 Acute respiratory failure with hypoxia; N18.6 End stage renal disease; I13.2 Hypertensive heart and chronic kidney disease with heart failure and with stage 5 chronic kidney disease, or end stage renal disease; L97.429 Non-pressure chronic ulcer of left heel and midfoot with unspecified severity; L97.525 Non-pressure chronic ulcer of other part of left foot with muscle involvement without evidence of necrosis; L03.116 Cellulitis of left lower limb; E87.79 Other fluid overload; D63.1 Anemia in chronic kidney disease; E11.621 Type 2 diabetes mellitus with foot ulcer; E11.22 Type 2 diabetes mellitus with diabetic chronic kidney disease; E11.42 Type 2 diabetes mellitus with diabetic polyneuropathy; E11.51 Type 2 diabetes mellitus with diabetic peripheral angiopathy without gangrene; E78.5 Hyperlipidemia, unspecified; E55.9 Vitamin D deficiency, unspecified; I50.9 Heart failure, unspecified; L97.529 Non-pressure chronic ulcer of other part of left foot with unspecified severity; B95.62 Methicillin resistant Staphylococcus aureus infection as the cause of diseases classified elsewhere; Z99.2 Dependence on renal dialysis; E66.9 Obesity, unspecified; Z68.33 Body mass index [BMI] 33.0-33.9, adult; Z89.432 Acquired absence of left foot; Z87.891 Personal history of nicotine dependence; Z79.02 Long term (current) use of antithrombotics/antiplatelets; Z79.82 Long term (current) use of aspirin; Z79.4 Long term (current) use of insulin
CPT/HCPCS: 36415; 36558; 36600; 71045; 73718; 73721; 76536; 80048; 80053; 80061; 80076; 80202; 81001; 82550; 82553; 82728; 82803; 82962; 83036; 83540; 83605; 83735; 84100; 84145; 84443; 84484; 85025; 85610; 85651; 85730; 86140; 86850; 86900; 86901; 86920; 87045; 87070; 87081; 87086; 87102; 87116; 87340; 88300; 88304; 88311; 90935; 93005; 93922; 93970; 94640; 94660; 94664; 96365; 96375; C1750; C9113; J0360; J1644; J1815; J1940; J2250; J2543; J2997; J3010; J3370; J7030; J7040; Q4104; Q5106

== ENCOUNTER 2018-09-05 07:42 | Day surgery (SDC) | payer MEDICARE, OTHER ==
[2018-09-05] VITALS (16 sets, daily range): BP systolic 101–134; BP diastolic 58–78; PULSE 64–76; RESP 12–20; Ht 177.8 cm; Wt 77.9 kg
[~2018-09-05] VITALS: Ht 177.8 cm; Wt 77.9 kg
[~2018-09-05 07:42] MED LIST changes: +ACETAMINOPHEN 500 MG TAB PO ONE; -CEFT1FRO2 IV; +DOXY100T2 PO; -HYDR-3601 PO; -MERO1VIA IV
[2018-09-05] MEDS ORDERED: ROPIVACAINE 0.5 % 30 ML VIAL ONE (08:46)
[2018-09-05] MEDS ORDERED: AMLO-147 PO (08:54)
[2018-09-05] MEDS ORDERED: ASPI81TA52 PO (08:54)
[2018-09-05] MEDS ORDERED: ATOR10TA65 PO (08:54)
[2018-09-05] MEDS ORDERED: CLON1PAT2 TD (08:55)
[2018-09-05] MEDS ORDERED: BISA10SU55 RC (08:59)
[2018-09-05] MEDS ORDERED: EPO2ESRD SC (09:01)
[2018-09-05] MEDS ORDERED: FAMO20TA18 PO (09:02)
[2018-09-05] MEDS ORDERED: NA P133E39 RC (09:04)
[2018-09-05] MEDS ORDERED: [UNRECOGNIZED DRUG - CODE] INJ (09:15)
[2018-09-05] MEDS ORDERED: HYDR-3671 PO (09:16)
[2018-09-05] MEDS ORDERED: ASCO500C7 PO (09:17)
[2018-09-05] MEDS ORDERED: ACET325S PO (09:18)
[2018-09-05] MEDS ORDERED: SENN-120 PO (09:23)
[2018-09-05] MEDS ORDERED: SEVE800T7 PO (09:24)
[2018-09-05] MEDS ORDERED: PROT946L PO (09:25)
[2018-09-05] MEDS ORDERED: NEPH PO (09:25)
[2018-09-05] MEDS ORDERED: NITR0.4T39 SL (09:26)
--- NOTE | 2018-09-05 09:27 | HPN ---
Date/Time of Note Date/Time of Note DATE: 09/05/18 TIME: 09:26 Interval H&P Admission Note Pt. seen H&P reviewed: No system changes RAMÓN MURPHY MD Sep 05, 2018 09:27
[2018-09-05] MEDS ORDERED: THROMBIN 5000 UNIT (RECOTHROM) VIAL ONE (09:29)
[2018-09-05] MEDS ORDERED: GELATIN SIZE 100 SPONGE ONE (09:29)
[2018-09-05] MEDS ORDERED: LIDOCAINE 1% (MPF) 30 ML INJ ONE (09:30)
[2018-09-05] MEDS ORDERED: HEPARIN 1000 UNITS/ML 10 ML INJ ONE (09:30)
[2018-09-05] MEDS ORDERED: NOVO3I SC (09:31)
--- NOTE | 2018-09-05 09:59 | PREAC ---
Date/Time of Note Date/Time of Note DATE: 09/05/18 TIME: 09:57 Anesthesia Eval and Record Evaluation Time Pre-Procedure Interview DATE: 09/05/18 TIME: 09:57 Age 68 Sex male NPO: 8 hrs Preoperative diagnosis ESRD Planned procedure L arm AV fistula poss graft Past Medical History Past Medical History: Includes Cardio: HTN Endo: Diabetes Renal: ESRD on dialysis Surgery & Anesthesia Issues No known issue Meds Anticoagulation: No Beta Courtney within 24 hr: No Reason Beta Courtney not given: Pt. not on B-Courtney Reported Medications Insulin Aspart* (Novolog Insulin Pen*) 100 Unit/Ml Soln, 0 SC .SLIDING SCALE AC, EA 70-150 = 0 UNITS 151-200 = 2 UNITS 201-250-= 4 UNITS 251-300 = 6 UNITS 301-350 = 8 UNITS 351-400 =10 UNITS ABOVE 400 GIVE 12 UNITS CALL MD GIVE WITH MEALS AND BEDTIME 09/05/18 Nitroglycerin* (Nitrostat*) 0.4 Mg Tab.subl, 0.4 MG SL Q5MIN PRN for CHEST PAIN, BOTTLE 09/05/18 Protein Supplement (Promod) 946 Ml Liquid, 30 ML PO TID 09/05/18 Multivit/Ca Carb/B Cmplx/Fa* (Annie-Ross*) 1 Tab Tab, 1 TAB PO DAILY, TAB 09/05/18 Sevelamer Carbonate* (Renvela*) 800 Mg Tablet, 1.6 GM PO WITH MEALS, TAB 09/05/18 Sennosides* (Senna Lax*) 8.6 Mg Tablet, 2 TAB PO DAILY PRN for CONSTIPATION, TAB 09/05/18 Acetaminophen* (Acetaminophen* Susp) 325 Mg/10.15 Ml Solution, 650 MG PO Q6 PRN for MILD PAIN LEVEL 1-3, ML and fever 09/05/18 Ascorbic Acid* (Vitamin C*) 500 Mg Capsule.sa, 250 MG PO DAILY, CAP 09/05/18 Hydralazine Hcl* (Hydralazine Hcl*) 25 Mg Tab, 25 MG PO BID PRN for ELEVATED BLOOD PRESSURE, #60 TAB hold if sbp less than 110 or hr less than 60 09/05/18 Heparin Sod,Porcine/0.9 % NaCl (Heparin 2,500 Unit/250 ml-Ns) 2,500 Unit/250 Ml Iv.soln, 5000 UNIT INJ BID 09/05/18 Sodium Phosphate,Bennett-Dibasic (Enema Ready To Use) 133 Ml Enema, 133 ML RC every 72 hours PRN for CONSTIPATION, ENEMA 09/05/18 Famotidine* (Famotidine*) 20 Mg Tablet, 20 MG PO QHS, #60 TAB 09/05/18 Epoetin Nayely (Epogen) 2,000 Units/Ml Soln, 1000 UNITS SC MONWEDFRI, VIAL HOLD IF HGb is above 11 09/05/18 Bisacodyl (Dulcolax) 10 Mg Supp.rect, 10 MG RC EVERY 48 HOURS PRN for CONSTIPATION, SUPP.RECT 09/05/18 Clonidine Patch (CLONIDINE PATCH) 0.2 Mg/24 Hr Patch, 1 PATCH.WK TD Q7D, #4 PATCH.WK 09/05/18 Atorvastatin Calcium (Atorvastatin Calcium) 10 Mg Tablet, 10 MG PO QHS, #30 TAB 09/05/18 Aspirin (Low Dose Aspirin) 81 Mg Tablet.dr, 81 MG PO DAILY, #30 TAB 09/05/18 Amlodipine Besylate* (Amlodipine Besylate*) 10 Mg Tablet, 10 MG PO DAILY, #30 TAB HOLD IF SBP LESS THAN 110 OR HR LESS THAN 60 09/05/18 Discontinued Reported Medications Aspirin (Low Dose Aspirin) 81 Mg Tablet.dr, 81 MG PO DAILY, #30 TAB 11/07/17 Atorvastatin Calcium (Atorvastatin Calcium) 10 Mg Tablet, 10 MG PO QHS, #30 TAB 11/07/17 Discontinued Scripts Doxycycline* (Vibramycin*) 100 Mg Tab, 100 MG PO BID, #20 TAB Prov:DONOVAN TRAVIS ELDERLY COMPANION 07/30/18 Ferrous Sulfate* (Ferrous Sulfate*) 325 Mg Tabec, 325 MG PO TID for 30 Days, TAB Prov:MCINTYREBISI V. ELDERLY COMPANION 01/04/18 Glipizide* (Glipizide*) 5 Mg Tablet, 2.5 MG PO AC BREAKFAST, #30 TAB Prov:MCINTYREBISI V. ELDERLY COMPANION 01/04/18 Hydralazine Hcl* (Hydralazine Hcl*) 25 Mg Tab, 25 MG PO TID, #90 TAB Prov:MCINTYREBISI Bailey ELDERLY COMPANION 01/04/18 Amlodipine Besylate* (Amlodipine Besylate*) 5 Mg Tablet, 5 MG PO DAILY, #30 TAB Prov:MCINTYREBISI V. ELDERLY COMPANION 01/04/18 Epoetin nayely* (Epogen*) 3,000 Unit/1 Ml Vial, 6000 UNITS SC TuThSa@17 for 30 Days, VIAL Prov:BISI MCINTYRE V. ELDERLY COMPANION 01/04/18 Gabapentin* (Gabapentin*) 300 Mg Capsule, 300 MG PO BID, #60 CAP Prov:MARIA E ABARCA. 11/12/17 [Insulin Glargine] 100 UNITS/ML SOLN No Conflict Check, 22 UNITS SC DAILY@2000 for 10 Days Prov:MARIA E ABARCA. 11/12/17 Clopidogrel Bisulfate (Clopidogrel) 75 Mg Tablet, 75 MG PO DAILY for 10 Days, #10 TAB Prov:MARIA E ABARCA. 11/12/17 Meds reviewed: Yes Allergies Coded Allergies: No Known Allergy (Unverified , 09/05/18) Allergies Reviewed: Yes Labs/Studies Labs Reviewed: Reviewed by anesthesiologist Result Diagram: 09/05/18 0805 Laboratory Tests 09/05/18 08:05 test: N/A Studies: ECG (nsr, nonspecific t wav abnormality), CXR (no active disease) Pre-procedure Exam Last vitals Vital Signs Date Temp Pulse Resp B/P (MAP) Pulse Ox O2 O2 Flow FiO2 Time Delivery Rate 09/05/18 97.3 64 16 134/78 99 Room Air 09:26 (96) Airway: Adequate mouth opening, Adequate thyromental dist Mallampati: Mallampati II Teeth: Abnormal (poor dentition; multiple missing/broken teeth) Lung: Normal Heart: Normal ASA Physical Status ASA physical status: 3 Emergency: None Planned Anesthetic General/MAC: MAC Planned Pain Management Single shot nerve block (L brachial plexus block ) Pre-operative Attestations Prior to commencing anesthesia and surgery, the patient was re-evaluated, there was verification of: *The patient's identity *The results of appropriate recent lab work and preoperative vital signs *The above evaluation not changing prior to induction *Anesthetic plan, risk benefits, alternative and complications discussed with pa jazmin/family; questions answered; patient/family understands, accepts and wishes to proceed. [employer] Builder [employer] Erector used RODRIGO LOVELACE Sep 05, 2018 09:59
[2018-09-05] MEDS ORDERED: morphine 2 MG INJ IV PRN ×2 (10:00)
[2018-09-05] MEDS ORDERED: hydrALAzine 20 MG INJ IV PRN (10:00)
[2018-09-05] MEDS ORDERED: OXYCODONE/ACETAMINOPHEN (5/325) TAB PO PRN ×2 (10:00)
[2018-09-05] MEDS ORDERED: HYDROmorphONE 1 MG/5 ML IV SYRINGE IV PRN ×3 (10:00)
[2018-09-05] MEDS ORDERED: DIPHENHYDRAMINE 50 MG INJ IV PRN (10:00)
[2018-09-05] MEDS ORDERED: LABETALOL HCL 20MG INJ IV PRN (10:00)
[2018-09-05] MEDS ORDERED: ALBUTEROL 0.083% (NEB) 2.5 MG/3 ML AMP HHN PRN (10:00)
[2018-09-05] MEDS ORDERED: MEPERIDINE 25 MG INJ IV PRN (10:00)
[2018-09-05] MEDS ORDERED: FENTAnyl 50 MCG/ML VIAL IV PRN ×2 (10:00)
[2018-09-05] MEDS ORDERED: EPHEDrine 25 MG/5 ML SYG IV PRN (10:00)
[2018-09-05] MEDS ORDERED: ONDANSETRON 4 MG INJ IV PRN (10:00)
[2018-09-05] MEDS ORDERED: MIDAZOLAM 1 MG/ML 2 ML INJ ONE (10:06)
[2018-09-05] MEDS ORDERED: LIDOCAINE 2% (SDV) 5 ML INJ ONE (10:07)
[2018-09-05] MEDS ORDERED: PROPOFOL 40 ML ONE (10:07)
[2018-09-05] MEDS ORDERED: FENTAnyl 50 MCG/ML VIAL ONE (10:07)
[2018-09-05] MEDS ORDERED: ONDANSETRON 4 MG INJ ONE (11:01)
[2018-09-05] MEDS ORDERED: METOCLOPRAMIDE 10 MG INJ ONE (11:01)
--- NOTE | 2018-09-05 11:16 | PAC ---
Date/Time of Note Date/Time of Note DATE: 09/05/18 TIME: 11:15 Post-Anesthesia Notes Post-Anesthesia Note Last documented vital signs Vital Signs Date Temp Pulse Resp B/P (MAP) Pulse Ox O2 O2 Flow FiO2 Time Delivery Rate 09/05/18 97.9 64 16 134/78 99 Room Air 11:15 (96) Activity: WNL Respiratory function: WNL Cardiovascular function: WNL Mental status: Baseline Pain reasonably controlled: Yes Hydration appropriate: Yes Nausea/Vomiting absent: Yes NAREN WAGNER MD Sep 05, 2018 11:16
--- NOTE | 2018-09-05 11:44 | OPR ---
DATE OF OPERATION: 09/05/2018 PREOPERATIVE DIAGNOSIS: End-stage renal disease. POSTOPERATIVE DIAGNOSIS: End-stage renal disease. PROCEDURE PERFORMED: Creation of left arm brachiocephalic AV fistula. SURGEON: Ramón Francois MD ANESTHESIA: Local with scalene block. ESTIMATED BLOOD LOSS: 10 mL. COMPLICATIONS: There are no intraprocedural complications. INDICATIONS: A 68-year-old diabetic hypertensive gentleman. He has no history of peripheral arteria l disease. He now has end-stage renal disease, has been on dialysis for several months via [facility]. He is right-handed. He has a good left arm cephalic vein on vein mapping. We brought him in to day for creation of left arm AV fistula. DESCRIPTION OF PROCEDURE: Patient was brought to the operating room and placed on the table in supin e position. Left arm was prepped and draped in the usual sterile fashion after I had marked the ceph alic vein on the skin. He has no radial pulse. It was very calcified. He had an excellent brachial pulse at the elbow. Once he was prepped and draped, I made an incision across the antecubital creas e, dissected out the cephalic vein at the elbow. I traced it down into the forearm to where it bifur cated. I ligated the distal branches with 2-0 silk ties and divided them. I cut the septum between the 2 branches creating a abarca at the end of the vein. There was good backflow and it flushed quite easily. I clamped the vein. I then cut the connective tissue layer overlying the brachial artery pu lse, dissected out the brachial artery, then clamped the brachial artery proximally and distally righ t at the elbow, made an 8 mm long anterior arteriotomy. I then anastomosed the distal end of the vei n to the side of the artery using 6-0 Prolene suture in a running standard vascular surgical fashion. I removed the clamps. There is good thrill. There was excellent hemostasis, closed the skin incis ion in 2 layers using an inner layer of 3-0 Vicryl and an outer layer of 4-0 Monocryl subcuticular amaya tures. Sterile dressing was applied. Patient was then transferred to recovery room in stable condit ion, tolerated the procedure well without any complications. Dictated By: RAMÓN ALLEN/HOLLY Conf#: [id number] [facility]#: [id number] CC: TG LUQUE MD; EBONI MARIE MD;*End*
== END 2018-09-05 14:15 ==
LOC: SDS 07:42
PROVIDERS: ATTEND Surgery Vascular Surgery
DX: I12.0 Hypertensive chronic kidney disease with stage 5 chronic kidney disease or end stage renal disease (principal); N18.6 End stage renal disease; E11.9 Type 2 diabetes mellitus without complications; Z79.4 Long term (current) use of insulin
CPT/HCPCS: 36821; 80048; 82962; J1644; J2250; J2405; J2765; J2795; J3010

== ENCOUNTER 2018-09-23 14:26 | Inpatient (IN) | payer MEDICARE, OTHER ==
[~2018-09-23] VITALS: Ht 177.8 cm; Wt 84.4 kg
[~2018-09-23 14:26] MED LIST changes: +ACET325S PO; -ACETAMINOPHEN 500 MG TAB PO ONE; -AMLO-145 PO; +AMLO-147 PO; +ASCO250T96 PO; +ASCO500C7 PO; +BISA10SU55 RC; +CLON1PAT2 TD; -CLOP75TA28 PO; -DOXY100T2 PO; +EPO10ESRD SC; +EPO2ESRD SC; -EPOE3000 SC; +FAMO20TA18 PO; -FER325 PO; -GABA300C16 PO; -GLIP5TAB13 PO; +GLUC1KIT IJ; +HYDR-4011 PO; -Insulin Glargine SC; +LEVO500T48 PO; +NA P133E39 RC; +NEPH PO; +NITR0.4T39 SL; +NOVO3I SC; +PROT946L PO; +SENN-120 PO; +SEVE800T7 PO; +[UNRECOGNIZED DRUG - CODE] INJ
[2018-09-23] MEDS ORDERED: PIPER-TAZO 3.375 GM IV (PMX) 100 ML IVPB STA (16:12)
[2018-09-23] MEDS ORDERED: VANCOMYCIN 1 GM (PMX) 250 ML IVPB STA (16:12)
[2018-09-23] MEDS ORDERED: ONDANSETRON 4 MG INJ IV PRN (17:00)
[2018-09-23] MEDS ORDERED: ACETAMINOPHEN 325 MG TAB PO PRN (17:00)
[2018-09-23] MEDS ORDERED: SODIUM CHLORIDE 0.9% 1L BAG IV PRN (17:30)
[2018-09-23] MEDS ORDERED: VANCOMYCIN IV PER PHARMACY XX SCH (17:30)
[2018-09-23] MEDS ORDERED: ACETAMINOPHEN 650MG/20.3ML CUP PO PRN (17:30)
[2018-09-23] MEDS ORDERED: NITROGLYCERIN (SL) 0.4 MG TAB SL PRN (17:30)
[2018-09-23] MEDS ORDERED: SENNA TAB PO PRN (17:30)
[2018-09-23] MEDS ORDERED: NA PHOSPHATE/BIPHOS 133 ML ENEMA PR PRN (17:30)
[2018-09-23] MEDS ORDERED: ALBUMIN HUMAN 25% 100 ML IV PRN (17:30)
[2018-09-23] MEDS ORDERED: CLONIDINE 0.2 MG/24 HR PATCH TRANSDERM SCH (17:30)
[2018-09-23] MEDS ORDERED: hydrALAzine 20 MG INJ IV PRN (17:30)
[2018-09-23] MEDS ORDERED: BISACODYL 10 MG SUPP PR PRN (17:30)
[2018-09-23] MEDS ORDERED: HEPARIN 1000 UNITS/ML 10 ML INJ CATHETER SCH (17:30)
[2018-09-23 19:48] VITALS: Ht 177.8 cm; Wt 84.4 kg
[2018-09-23 19:58] VITALS: BP 167/77; PULSE 87; RESP 18
[2018-09-23] MEDS ORDERED: VANCOMYCIN 750 MG (PMX) 250 ML IVPB ONE (21:00)
[2018-09-23] MEDS: ATORVASTATIN 10 MG TAB PO SCH (21:27)
[2018-09-23] MEDS: FAMOTIDINE 20 MG TAB PO SCH (21:27)
[2018-09-24] VITALS (17 sets, daily range): BP systolic 102–146; BP diastolic 58–74; PULSE 64–72; RESP 17–20
[2018-09-24] MEDS ORDERED: GLUCAGON 1 MG INJ IM PRN (06:30)
[2018-09-24] MEDS ORDERED: DEXTROSE 50% 50 ML SYRINGE IV PRN ×2 (06:30)
[2018-09-24] MEDS ORDERED: GLUCOSE GEL 15 GRAM TUBE PO PRN ×2 (06:30)
[2018-09-24] MEDS ORDERED: GLUCOSE GEL 15 GRAM TUBE BUCCAL PRN (06:30)
[2018-09-24] MEDS: INSULIN ASPART [NOVOLOG] 3 ML PEN SC SCH ×4 (08:00→21:00)
[2018-09-24] MEDS: SEVELAMER CARBONATE 0.8 GM PKT PO SCH ×4 (08:00→18:14)
[2018-09-24] MEDS: MULTIVIT/CA CARB/B CMPLX/FA TAB PO SCH (08:43)
[2018-09-24] MEDS: PIPER-TAZO 2.25 GM/NS 50 ML IVPB SCH ×3 (08:43→21:21)
[2018-09-24] MEDS: ASCORBIC ACID 250 MG TAB PO SCH (08:43)
[2018-09-24] MEDS: ASPIRIN (EC) 81 MG TAB PO SCH ×2 (09:00→13:59)
[2018-09-24] MEDS ORDERED: PIPER-TAZO 3.375 GM IV (PMX) 100 ML IVPB SCH (09:00)
[2018-09-24] MEDS: AMLODIPINE 10 MG TAB PO SCH ×2 (09:00→13:59)
[2018-09-24] MEDS: HEPARIN 1000 UNITS/ML 10 ML INJ CATHETER SCH (13:37)
[2018-09-24] MEDS: ATORVASTATIN 10 MG TAB PO SCH (21:17)
[2018-09-24] MEDS: FAMOTIDINE 20 MG TAB PO SCH (21:17)
[2018-09-25 01:54] VITALS: BP 128/64; PULSE 68; RESP 16
[2018-09-25] MEDS: PIPER-TAZO 2.25 GM/NS 50 ML IVPB SCH (05:43)
[2018-09-25] MEDS: INSULIN ASPART [NOVOLOG] 3 ML PEN SC SCH ×4 (08:00→21:00)
[2018-09-25 08:06] VITALS: BP 135/67; PULSE 65; RESP 16
[2018-09-25] MEDS: MULTIVIT/CA CARB/B CMPLX/FA TAB PO SCH (09:51)
[2018-09-25] MEDS: ASCORBIC ACID 250 MG TAB PO SCH (09:51)
[2018-09-25] MEDS: SEVELAMER CARBONATE 0.8 GM PKT PO SCH ×3 (09:51→17:52)
[2018-09-25] MEDS: ASPIRIN (EC) 81 MG TAB PO SCH (09:51)
[2018-09-25] MEDS: AMLODIPINE 10 MG TAB PO SCH (09:52)
[2018-09-25] MEDS: CEFTRIAXONE 1 GM/50 ML (PMX) 50 ML IVPB SCH (11:58)
[2018-09-25 15:33] VITALS: BP 108/57; PULSE 66; RESP 16
[2018-09-25 19:50] VITALS: BP 133/65; PULSE 65; RESP 18
[2018-09-25] MEDS: FAMOTIDINE 20 MG TAB PO SCH (21:39)
[2018-09-25] MEDS: ATORVASTATIN 10 MG TAB PO SCH (21:39)
[2018-09-26] VITALS (11 sets, daily range): BP systolic 104–159; BP diastolic 56–72; PULSE 60–79; RESP 10–19
[2018-09-26] MEDS: SEVELAMER CARBONATE 0.8 GM PKT PO SCH ×3 (08:00→17:40)
[2018-09-26] MEDS: INSULIN ASPART [NOVOLOG] 3 ML PEN SC SCH ×4 (08:00→20:50)
[2018-09-26] MEDS: MULTIVIT/CA CARB/B CMPLX/FA TAB PO SCH (08:48)
[2018-09-26] MEDS: ASPIRIN (EC) 81 MG TAB PO SCH (08:48)
[2018-09-26] MEDS: ASCORBIC ACID 250 MG TAB PO SCH (08:49)
[2018-09-26] MEDS: AMLODIPINE 10 MG TAB PO SCH (08:52)
[2018-09-26] MEDS: CEFTRIAXONE 1 GM/50 ML (PMX) 50 ML IVPB SCH (10:30)
[2018-09-26] MEDS ORDERED: SOD CHLORIDE 0.45% 1,000 ML IV SCH (13:00)
[2018-09-26] MEDS ORDERED: POLYMYXIN/BACITRACIN 1L IRRIG ONE ×2 (14:41→14:42)
[2018-09-26] MEDS ORDERED: LIDOCAINE 1% (MPF) 30 ML INJ ONE (14:41)
[2018-09-26] MEDS ORDERED: FENTAnyl 50 MCG/ML VIAL ONE (15:01)
[2018-09-26] MEDS ORDERED: MIDAZOLAM 1 MG/ML 2 ML INJ ONE (15:01)
[2018-09-26] MEDS ORDERED: PROPOFOL 0 ML ONE (15:01)
[2018-09-26] MEDS ORDERED: FENTAnyl 50 MCG/ML VIAL IV PRN ×3 (16:00)
[2018-09-26] MEDS ORDERED: LABETALOL HCL 20MG INJ IV PRN (16:00)
[2018-09-26] MEDS ORDERED: hydrALAzine 20 MG INJ IV PRN (16:00)
[2018-09-26] MEDS ORDERED: METOCLOPRAMIDE 10 MG INJ IV PRN (16:00)
[2018-09-26] MEDS ORDERED: MEPERIDINE 25 MG INJ IV PRN (16:00)
[2018-09-26] MEDS ORDERED: EPHEDrine 25 MG/5 ML SYG IV PRN (16:00)
[2018-09-26] MEDS ORDERED: ONDANSETRON 4 MG INJ IV PRN (16:00)
[2018-09-26] MEDS ORDERED: DIPHENHYDRAMINE 50 MG INJ IV PRN (16:00)
[2018-09-26] MEDS ORDERED: MIDAZOLAM 1 MG/ML 2 ML INJ IV PRN (16:00)
[2018-09-26] MEDS: EPOETIN 10000 UNITS/1 ML INJ (ESRD) SC SCH (17:40)
[2018-09-26] MEDS ORDERED: VANCOMYCIN 1 GM 250 ML IVPB ONE (20:00)
[2018-09-26] MEDS: FAMOTIDINE 20 MG TAB PO SCH (20:49)
[2018-09-26] MEDS: ATORVASTATIN 10 MG TAB PO SCH (20:49)
[2018-09-27] VITALS (19 sets, daily range): BP systolic 106–149; BP diastolic 53–75; PULSE 66–79; RESP 16–18
[2018-09-27] MEDS: HYDROmorphONE 0.5 MG/0.5 ML SYG IV PRN (01:34)
[2018-09-27] MEDS: HYDROCODONE/APAP (5/325) TAB PO PRN ×3 (06:54→21:24)
[2018-09-27] MEDS: INSULIN ASPART [NOVOLOG] 3 ML PEN SC SCH ×4 (08:00→21:00)
[2018-09-27] MEDS: ASPIRIN (EC) 81 MG TAB PO SCH (08:50)
[2018-09-27] MEDS: AMLODIPINE 10 MG TAB PO SCH (08:50)
[2018-09-27] MEDS: SEVELAMER CARBONATE 0.8 GM PKT PO SCH ×3 (08:50→17:51)
[2018-09-27] MEDS: MULTIVIT/CA CARB/B CMPLX/FA TAB PO SCH (08:50)
[2018-09-27] MEDS: ASCORBIC ACID 250 MG TAB PO SCH (08:51)
[2018-09-27] MEDS: CEFTRIAXONE 1 GM/50 ML (PMX) 50 ML IVPB SCH (10:53)
[2018-09-27] MEDS: HEPARIN 1000 UNITS/ML 10 ML INJ CATHETER SCH (17:02)
[2018-09-27] MEDS: FAMOTIDINE 20 MG TAB PO SCH (21:21)
[2018-09-27] MEDS: ATORVASTATIN 10 MG TAB PO SCH (21:21)
[2018-09-28 01:31] VITALS: BP 120/60; PULSE 74; RESP 20
[2018-09-28] MEDS: INSULIN ASPART [NOVOLOG] 3 ML PEN SC SCH ×4 (08:00→20:18)
[2018-09-28] MEDS: SEVELAMER CARBONATE 0.8 GM PKT PO SCH ×3 (08:27→18:18)
[2018-09-28] MEDS: ASCORBIC ACID 250 MG TAB PO SCH (08:27)
[2018-09-28] MEDS: ASPIRIN (EC) 81 MG TAB PO SCH (08:27)
[2018-09-28] MEDS: HYDROCODONE/APAP (5/325) TAB PO PRN ×3 (08:27→23:11)
[2018-09-28] MEDS: MULTIVIT/CA CARB/B CMPLX/FA TAB PO SCH (08:27)
[2018-09-28] MEDS: AMLODIPINE 10 MG TAB PO SCH (08:28)
[2018-09-28 08:51] VITALS: BP 124/58; PULSE 66; RESP 17
[2018-09-28] MEDS: CEFTRIAXONE 1 GM/50 ML (PMX) 50 ML IVPB SCH (12:52)
[2018-09-28 14:06] VITALS: BP 103/57; PULSE 66; RESP 17
[2018-09-28] MEDS: EPOETIN 10000 UNITS/1 ML INJ (ESRD) SC SCH (18:22)
[2018-09-28 19:56] VITALS: BP 113/59; PULSE 70; RESP 18
[2018-09-28] MEDS: FAMOTIDINE 20 MG TAB PO SCH (20:18)
[2018-09-28] MEDS: ATORVASTATIN 10 MG TAB PO SCH (20:18)
[2018-09-29] VITALS (21 sets, daily range): BP systolic 96–132; BP diastolic 48–61; PULSE 62–75; RESP 17–18
[2018-09-29] MEDS: INSULIN ASPART [NOVOLOG] 3 ML PEN SC SCH ×4 (08:00→20:22)
[2018-09-29] MEDS: ASCORBIC ACID 250 MG TAB PO SCH (08:17)
[2018-09-29] MEDS: HYDROCODONE/APAP (5/325) TAB PO PRN ×2 (08:17→16:07)
[2018-09-29] MEDS: ASPIRIN (EC) 81 MG TAB PO SCH (08:17)
[2018-09-29] MEDS: MULTIVIT/CA CARB/B CMPLX/FA TAB PO SCH (08:17)
[2018-09-29] MEDS: AMLODIPINE 10 MG TAB PO SCH (08:18)
[2018-09-29] MEDS: SEVELAMER CARBONATE 0.8 GM PKT PO SCH ×3 (08:19→17:16)
[2018-09-29] MEDS: HYDROmorphONE 0.5 MG/0.5 ML SYG IV PRN ×2 (10:15→17:25)
[2018-09-29] MEDS: CEFTRIAXONE 1 GM/50 ML (PMX) 50 ML IVPB SCH (10:39)
[2018-09-29] MEDS ORDERED: LEVOFLOXACIN 750MG/D5W (PMX) 150 ML IVPB ONE (16:00)
[2018-09-29] MEDS: ONDANSETRON 4 MG INJ IV PRN (19:08)
[2018-09-29] MEDS: FAMOTIDINE 20 MG TAB PO SCH (20:22)
[2018-09-29] MEDS: ATORVASTATIN 10 MG TAB PO SCH (20:22)
[2018-09-30 03:05] VITALS: BP 100/54; PULSE 66; RESP 16
[2018-09-30 07:23] VITALS: BP 100/55; PULSE 67; RESP 18
[2018-09-30] MEDS: INSULIN ASPART [NOVOLOG] 3 ML PEN SC SCH ×3 (08:00→17:14)
[2018-09-30] MEDS: SEVELAMER CARBONATE 0.8 GM PKT PO SCH ×3 (08:40→17:14)
[2018-09-30] MEDS: MULTIVIT/CA CARB/B CMPLX/FA TAB PO SCH (08:40)
[2018-09-30] MEDS: ASPIRIN (EC) 81 MG TAB PO SCH (08:40)
[2018-09-30] MEDS: ASCORBIC ACID 250 MG TAB PO SCH (08:40)
[2018-09-30] MEDS: AMLODIPINE 10 MG TAB PO SCH (08:42)
[2018-09-30] MEDS ORDERED: VANCOMYCIN 1 GM 250 ML IVPB SCH (11:00)
[2018-09-30] MEDS: ONDANSETRON 4 MG INJ IV PRN (12:58)
[2018-09-30 14:16] VITALS: BP 111/54; PULSE 70; RESP 18
[2018-09-30] MEDS: EPOETIN 10000 UNITS/1 ML INJ (ESRD) SC SCH (16:03)
[2018-10-01] MEDS ORDERED: LEVOFLOXACIN 500 MG TAB PO SCH (16:00)
== END 2018-09-30 19:35 | disposition home or self-care (01) | DRG 617 ==
LOC: E/R 14:26 → 2NE 16:53
PROVIDERS: ADMIT Internal Medicine; ATTEND Internal Medicine
PROC: 5A1D70Z Performance of Urinary Filtration, Intermittent, Less than 6 Hours Per Day (ICD-10-PCS; 2018-09-24)
PROC: 0HRNXK3 Replacement of Left Foot Skin with Nonautologous Tissue Substitute, Full Thickness, External Approach (ICD-10-PCS; 2018-09-26)
PROC: 0Y6N0Z0 Detachment at Left Foot, Complete, Open Approach (ICD-10-PCS; principal; 2018-09-26 13:30)
PROC: 30233N1 Transfusion of Nonautologous Red Blood Cells into Peripheral Vein, Percutaneous Approach (ICD-10-PCS; 2018-09-29)
DX: E11.69 Type 2 diabetes mellitus with other specified complication (principal); M86.172 Other acute osteomyelitis, left ankle and foot; L03.116 Cellulitis of left lower limb; L02.612 Cutaneous abscess of left foot; I12.0 Hypertensive chronic kidney disease with stage 5 chronic kidney disease or end stage renal disease; N18.6 End stage renal disease; E11.22 Type 2 diabetes mellitus with diabetic chronic kidney disease; Z99.2 Dependence on renal dialysis; E11.51 Type 2 diabetes mellitus with diabetic peripheral angiopathy without gangrene; L97.529 Non-pressure chronic ulcer of other part of left foot with unspecified severity; Z79.4 Long term (current) use of insulin; E78.5 Hyperlipidemia, unspecified; E11.40 Type 2 diabetes mellitus with diabetic neuropathy, unspecified; Z89.432 Acquired absence of left foot; B95.62 Methicillin resistant Staphylococcus aureus infection as the cause of diseases classified elsewhere
CPT/HCPCS: 36415; 36430; 71045; 73718; 80048; 80053; 80069; 80202; 82962; 83605; 83735; 84100; 84484; 85025; 85610; 85651; 85730; 86140; 86850; 86900; 86901; 86920; 87070; 87340; 88304; 88311; 90935; 93005; J0696; J1170; J1644; J1815; J1956; J2250; J2405; J2543; J3010; J3370; P9016; Q4081